=== PATIENT | male | born 1955 | race Caucasian/White ===

== ENCOUNTER 2019-06-08 02:14 | Inpatient (IN) | payer OTHER ==
[~2019-06-08] VITALS: Ht 182.9 cm; Wt 6.0 kg
[2019-06-08] MEDS ORDERED: CALCIUM CARBONATE 500 MG (TUMS) TAB.CHEW PO PRN (21:15)
[2019-06-08] MEDS ORDERED: LOPERAMIDE 2 MG (IMODIUM) TABLET PO PRN (21:15)
[2019-06-08] MEDS ORDERED: ONDANSETRON 4 MG (ZOFRAN) ORAL DISSOLVE TAB PO PRN (21:15)
[2019-06-08] MEDS ORDERED: guaiFENesin/CODEINE (ROBITUSSIN AC) 10ML UDC PO PRN (21:15)
[2019-06-08] MEDS ORDERED: LACTULOSE SYRUP 10GM/15ML (ENULOSE) 30ML UDC PO PRN (21:15)
[2019-06-08] MEDS ORDERED: BISACODYL 10 MG SUPP (DULCOLAX) PR PRN (21:15)
[2019-06-08] MEDS ORDERED: DOCUSATE SODIUM 100 MG (COLACE) CAP PO PRN (21:15)
[2019-06-08] MEDS ORDERED: ALPRAZolam 0.25 MG (XANAX) TAB PO PRN (21:15)
[2019-06-08] MEDS ORDERED: FLEET ENEMA ADULT 1 EA BTL PR PRN (21:15)
[2019-06-08] MEDS ORDERED: MELATONIN 3 MG TABLET PO PRN (21:15)
[2019-06-08] MEDS ORDERED: diphenhydrAMINE 25 MG TAB (BENADRYL) PO PRN (21:15)
[2019-06-09] MEDS: DOCUSATE SODIUM 100 MG (COLACE) CAP PO SCH ×2 (09:00→20:56)
--- NOTE | 2019-06-09 10:00 | NUR ---
Charlee Reid admitted to room 222-1, with an admitting diagnosis of Debility, on 06/09/19 from [facility] via private vehicle, accompanied by .CHARLEE REID introduced to surroundings, call light, bed controls, phone, TV, temperature control, lights, meal times, smoking policy, visitor policy, side rail policy, bathrooms and showers. Patient Rights given to patient in the handbook.CHARLEE REID verbalizes understanding that [facility] is not responsible for the loss or damage to any personal effects or valuables that are kept in the patients possession during their hospitalization. The following Patient Care Plans were discussed with the patient: Discharge Planning, Impaired Mobility, Laminectomy. CHARLEE ERID verbalizes understanding of Interdisciplinary Patient Education. Patient and/or family were informed about the Rapid Response Team and its purpose. Patient received Patient Rights Booklet, which includes Privacy Act Statement and Data Collection Information Summary.
[2019-06-09 10:35] LABS: BASOPHILS % (AUTO) 1 % (0-10); EOSINOPHILS # (AUTO) 0.2 10^3/uL (0.0-0.3); EOSINOPHILS % (AUTO) 2 % (0-10); HEMATOCRIT 40 % (40-54); HEMOGLOBIN 13.7 G/DL (13.3-17.7); LYMPHOCYTES # (AUTO) 2.3 X 10^3 (1.0-4.0); LYMPHOCYTES % (AUTO) 27 % (12-44); MEAN CORPUSCULAR HEMOGLOBIN 31 PG (25-34); MEAN CORPUSCULAR HGB CONC 34 G/DL (32-36); MEAN CORPUSCULAR VOLUME 92 FL (80-99); MEAN PLATELET VOLUME 9.5 FL (7.4-10.4); MONOCYTES # (AUTO) 1.3 X 10^3 (0.0-1.0); MONOCYTES % (AUTO) 14 % (0-12); NEUTROPHILS % (AUTO) 56 % (42-75); PLATELET COUNT 247 10^3/uL (130-400); RED CELL DISTRIBUTION WIDTH 13.4 % (10.0-14.5); WHITE BLOOD COUNT 8.8 10^3/uL (4.3-11.0)
[2019-06-09 11:05] LABS: ALANINE AMINOTRANSFERASE 36 U/L (0-55); ALKALINE PHOSPHATASE 52 U/L (40-136); BILIRUBIN,TOTAL 0.5 MG/DL (0.1-1.0); BUN/CREATININE RATIO 18; CALCIUM 9.3 MG/DL (8.5-10.1); CARBON DIOXIDE 27 MMOL/L (21-32); CHLORIDE 103 MMOL/L (98-107); CREATININE SERUM 0.88 MG/DL (0.60-1.30); GFR ESTIMATED > 60; GLUCOSE 103 MG/DL (70-105); POTASSIUM 3.5 MMOL/L (3.6-5.0); SODIUM 139 MMOL/L (135-145); TOTAL PROTEIN 6.5 GM/DL (6.4-8.2)
--- OUTSIDE RECORDS SUMMARY | 2019-06-09 11:14 | XMS REPORT | Continuity of Care Document ---
Demographics Preferred Language Unknown Marital Status Unknown Sabianism Affiliation Unknown Race Unknown Ethnic Group Unknown Author Organization Unknown Address Unknown Phone Unavailable Allergies There is no data. Medications There is no data. Problems There is no data. Procedures There is no data. Results Test Result Range Complete blood count (CBC) with automate d white blood cell (WBC) differential - 06/09/19 10:30 Blood leukocytes automated count (number/volume) 8.8 10*3/uL 4.3-11.0 Blood erythrocytes automated count (number/volume) 4.37 10*6/uL 4.35-5.85 Venous blood hemoglobin measurement (mass/volume) 13.7 g/dL 13.3-17.7 Blood hematocrit (volume fraction) 40 % 40-54 Automated erythrocyte mean corpuscular volume 92 [ foz_us] 80-99 Automated erythrocyte mean corpuscular h emoglobin (mass per erythrocyte) 31 pg 25-34 Automated erythrocyte mean corpuscular h emoglobin concentration measurement (mass/volume) 34 g/dL 32-36 Automated erythrocyte distribution width ratio 13. 4 % 10.0- 14.5 Automated blood platelet count (count/volume) 247 10*3/uL 130-400 Automated blood platelet mean volume measurement 9.5 [foz_us] 7.4-10.4 Automated blood neutrophils/100 leukocytes 56 % 42-75 Automated blood lymphocytes/100 leukocytes 27 % 12-44 Blood monocytes/100 leukocytes 14 % 0-12 Automated blood eosinophils/100 leukocytes 2 % 0-10 Automated blood basophils/100 leukocytes 1 % 0-10 Blood neutrophils automated count (number/volume) 5.0 10*3 1.8-7.8 Blood lymphocytes automated count (number/volume) 2.3 10*3 1.0-4.0 Blood monocytes automated count (number/volume) 1. 3 10*3 0.0-1.0 Automated eosinophil count 0.2 10*3/uL 0 .0-0.3 Automated blood basophil count (count/volume) 0.0 10*3/uL 0.0-0.1 Comprehensive metabolic panel - 06/09/19 10:30 Serum or plasma sodium measurement (moles/volume) 139 mmol/L 135-145 Serum or plasma potassium measurement (moles/volume) 3.5 mmol/L 3.6-5.0 Serum or plasma chloride measurement (moles/volume) 103 mmol/L 98-107 Carbon dioxide 27 mmol/L 21-32 Serum or plasma anion gap determination (moles/volume) 9 mmol/L 5-14 Serum or plasma urea nitrogen measurement (mass/volume ) 16 mg/dL 7-18 Serum or plasma creatinine measurement (mass/volume) 0.88 mg/dL 0.60-1.30 Serum or plasma urea nitrogen/creatinine mass ratio 18 NRG Serum or plasma creatinine measurement w ith calculation of estimated glomerular filtration rate > NRG Serum or plasma glucose measurement (mass/volume) 103 mg/dL 70-105 Serum or plasma calcium measurement (mass/volume) 9.3 mg/dL 8.5-10.1 Serum or plasma total bilirubin measurement (mass/volu me) 0.5 mg/dL 0.1-1.0 Serum or plasma alkaline phosphatase brandi surement (enzymatic activity/volume) 52 U/L 40-136 Serum or plasma aspartate aminotransfera se measurement (enzymatic activity/volume) 24 U/L 5-34 Serum or plasma alanine aminotransferase measurement (enzymatic activity/volume) 36 U/L 0-55 Serum or plasma protein measurement (mass/volume) 6.5 g/dL 6.4-8.2 Serum or plasma albumin measurement (mass/volume) 4.0 g/dL 3.2-4.5 CALCIUM CORRECTED 9.3 mg/dL 8.5-10.1 Encounters ACCT No. Visit Date/Time Discharge Status Pt. Type Provider Facility Loc./Unit Complaint [id number] 06/09/2019 10:37:00 Document Registration [id number] 06/09/2019 11:05:00 Document Registration
[2019-06-09] MEDS ORDERED: ACETAMINOPHEN 325 MG TABLET PO PRN (11:15)
[2019-06-09] MEDS ORDERED: KCL 10 MEQ TAB (MICRO K) PO NR (11:30)
[2019-06-09] MEDS ORDERED: BUMETANIDE 1 MG/4 ML (BUMEX) VIAL IV NR (11:30)
[2019-06-09 11:33] VITALS: BP 132/74
--- NOTE | 2019-06-09 11:33 | PM&R Post Admission Assessment ---
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 Patient was assessed to have anasarca and was given aggressive diuresis at [facility] which will continue at [facility] after midline placed and Cardiology consulted to assure no cardiac source of volume overload exists. Patient is a recent smoking cessation patient and denies alcohol use. He had cervical spine surgery 03/2019 but has declined since that time due to legs giving out prompting this current surgery. Patient has shuffling gait and a major fall risk. ECHO ordered along with labs. Urinating well and BM+. PLOF was independent. Past Phaniee-Zlmmnb-Whzpyl Hx Past Med/Social Hx: Reviewed Nursing Past Med/Soc Hx, Reviewed and Corrections made Patient Social History Marrital Status: Employed/Student: employed Alcohol Use: Denies Use Smoking Status: Former Smoker Past Medical History Surgeries: Orthopedic Neurological: Neuropathy Musculoskeletal: Arthritis, Chronic Back Pain, Spasms PM&R Allergy/Meds/Data Review Allergies Coded Allergies: No Allergy Information Available (Unverified , 06/08/19) Home Medications Scheduled Duloxetine HCl (Duloxetine HCl), 30 MG PO HS, (Reported) Furosemide (Furosemide), 40 MG PO DAILY, (Reported) Gabapentin (Gabapentin), 300 MG PO TID, (Reported) Scheduled PRN Acetaminophen (Tylenol), 650 MG PO Q8H PRN for PAIN-MILD (1-4), (Reported) Baclofen (Baclofen), 10 MG PO Q8H PRN for MUSCLE SPASMS, (Reported) Ondansetron (Ondansetron Odt), 4 MG SL Q4H PRN for CONSTIPATION-1ST LINE, (Reported) Potassium Chloride (Potassium Chloride), 10 MEQ PO DAILY PRN for EDEMA, (Reported) Current Medications Current Medications Reviewed Laboratory Data Laboratory Tests 06/09/19 10:30: White Blood Count 8.8, Red Blood Count 4.37, Hemoglobin 13.7, Hematocrit 40, Mean Corpuscular Volume 92, Mean Corpuscular Hemoglobin 31, Mean Corpuscular Hemoglobin Concent 34, Red Cell Distribution Width 13.4, Platelet Count 247, Mean Platelet Volume 9.5, Neutrophils (%) (Auto) 56, Lymphocytes (%) (Auto) 27, Monocytes (%) (Auto) 14H, Eosinophils (%) (Auto) 2, Basophils (%) (Auto) 1, Neutrophils # (Auto) 5.0, Lymphocytes # (Auto) 2.3, Monocytes # (Auto) 1.3H, Eosinophils # (Auto) 0.2, Basophils # (Auto) 0.0, Sodium Level 139, Potassium Level 3.5L, Chloride Level 103, Carbon Dioxide Level 27, Anion Gap 9, Blood Urea Nitrogen 16, Creatinine 0.88, Estimat Glomerular Filtration Rate > 60, BUN/Creatinine Ratio 18, Glucose Level 103, Calcium Level 9.3, Corrected Calcium 9.3, Total Bilirubin 0.5, Aspartate Amino Transf (AST/SGOT) 24, Alanine Aminotransferase (ALT/SGPT) 36, Alkaline Phosphatase 52, Total Protein 6.5, Albumin 4.0, Thyroid Stimulating Hormone (TSH) 2.53 Review of Systems Constitutional: see HPI, malaise, weakness Cardiovascular: edema Musculoskeletal: back pain, joint pain, muscle pain, muscle stiffness, muscle cramps, muscle weakness, neck pain Physical Exam Physical Exam Vital Signs Capillary Refill : Height, Weight, BMI Height: '" Weight: lbs. oz. kg; BMI Method: General Appearance: No Apparent Distress, WD/WN, Anxious, Chronically ill Eyes: Bilateral Eye Normal Inspection, Bilateral Eye PERRL HEENT: PERRL/EOMI, Normal ENT Inspection, Pharynx Normal Neck: Full Range of Motion, Normal Inspection, Non Tender, Supple, Carotid Bruit Respiratory: Chest Non Tender, Lungs Clear, Normal Breath Sounds, No Accessory Muscle Use, No Respiratory Distress Cardiovascular: Regular Rate, Rhythm, No Gallop, No JVD, No Murmur, Normal Peripheral Pulses Gastrointestinal: Normal Bowel Sounds, No Organomegaly, No Pulsatile Mass, Non Tender, Soft Back: Normal Inspection, No CVA Tenderness, No Vertebral Tenderness Extremity: Normal Capillary Refill, Normal Inspection, Normal Range of Motion, Non Tender, No Calf Tenderness, Pedal Edema Neurologic/Psychiatric: Alert, Oriented x3, 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 Norm as Tested, Abnormal Gait, Depressed Affect, Motor Weakness (lower extremities), Sensory Deficit Skin: Normal Color, Warm/Dry Lymphatic: No Adenopathy PM&R Medical Assessment & Plan REHAB/MEDICAL ASSESSMENT AND PLAN: REHAB IMPAIRMENT GROUP: Lumbar stenosis ETIOLOGIC DIAGNOSIS: Lumbar stenosis The comorbidities that impact the patients function and/or functional outcome by: severe decline in status from cervical spine surgery 03/2019 but PLOF was independent, anasarca of unknown source, former smoker REHAB PLAN: The patient is being admitted to our comprehensive inpatient rehabilitation f acility and can tolerate the intensity of service consisting of at least: 180 minutes of therapy a day, 5 out of 7 days a week Rehab treatment will consist of: PT OT will initiate aggressive therapy in order to regain strength and improve ADL independence in order to return home The patient/family has a good understanding of our discharge process and will benefit from an interdisciplinary inpatient rehabilitation program. The patient has potential to make improvement and is in need of at least two of the following multidisciplinary therapies including but not limited to physical, occupational, speech, and prosthetics and orthotics. Additionally the patient will need services from respiratory, nutritional services, wound care, psyc hology, etc. (Customize this to each patient). Given the patients complex condition and risk of further medical complications, rehabilitation services cannot be safely or effectively provided at a lower level of care such as a assisted facility. BARRIERS TO DISCHARGE: Severe muscle weakness ESTIMATED LOS: 7 days DISPOSITION: Home RELEVANT CHANGES SINCE PREADMISSION SCREENING: I have compared the patients medical and functional status at the time of the preadmission screening and there are: no changes PROGNOSIS: Good REHABILITATION GOALS: 1. PT OT will initiate aggressive therapy in order to regain strength and improve ADL independence in order to return home All the above goals were reviewed with the patient and he/she is in agreement. By signing this document, I acknowledge that I have personally performed a full physical examination on this patient within 24 hours of admission to this inpatient rehabilitation facility and have determined the patient to be able to tolerate the above course of treatment at an intensive level for a reasonable period of time. I will be completing a detailed individualized Plan of Care for this patient by day #4 of the patients stay based upon the Preadmission Screen, the Post-Admission Evaluation, and the therapy evaluations. Admission Dx/Comorbidities: (1) Spinal stenosis ICD Codes: M48.00 - Spinal stenosis, site unspecified (2) Anasarca ICD Codes: R60.1 - Generalized edema (3) Former smoker ICD Codes: Z87.891 - Personal history of nicotine dependence (4) Neuropathy ICD Codes: G62.9 - Polyneuropathy, unspecified (5) Hypokalemia ICD Codes: E87.6 - Hypokalemia (6) Edema ICD Codes: R60.9 - Edema, unspecified (7) Dyspnea ICD Codes: R06.00 - Dyspnea, unspecified DIANA PITTMAN DO June 09, 2019 11:32
[2019-06-09] MEDS ORDERED: FURO20TA4 PO (11:42)
[2019-06-09] MEDS ORDERED: TRAM50TA3 PO (11:42)
[2019-06-09] MEDS ORDERED: DULO30CA49 PO (11:42)
[2019-06-09] MEDS ORDERED: GABA-488 PO (11:42)
[2019-06-09] MEDS ORDERED: POTA10TA36 PO (11:42)
[2019-06-09] MEDS ORDERED: BACL10TA PO (11:42)
[2019-06-09] MEDS ORDERED: METH4TAB10 PO (11:42)
[2019-06-09] MEDS ORDERED: ONDA4TAB11 SL (11:42)
[2019-06-09] MEDS ORDERED: HYDR-3820 PO (11:42)
--- NOTE | 2019-06-09 11:48 | NUR ---
I ENTERED THE MED REC USING THE DISCHARGE MEDICATION LIST FROM [facility] GABAPENTIN: ON THE DISCHARGE MED LIST IT SHOWS 100MG TID- HOWEVER THE PT HAD RECENTLY BEEN SWITCHED FROM THE 100MG TID TO 300 MG TID - I CALLED [facility] AND SPOKE WITH THE NURSE TO FIND OUT WHAT STRENGTH WAS INTENDED TO BE CONTINUED. THE NURSE INDICATED THE MED REC HAD BEEN DONE PRIOR TO THE INCREASE IN STRENGTH AND THERE WAS NO MENTION OF DECREASING HIS DOSE BACK DOWN- THEREFORE I PUT THE 300MG TID ON THE MED REC AT THIS TIME. AFTER I SPEAK WITH THE PT I WILL CHANGE TO MED REC TO REFLECT HIS MEDICATIONS PRE-SURGERY Addendum: 06/09/19 at 1524 by PHI CASTANEDA CPhT I INTERVIEWED THE PT AND COMPLETED THE MED REC TO HOW/WHAT THE PT WAS TAKING PRIOR TO HIS SURGERY MEDICATIONS THAT HAVE BEEN REMOVED: MEDROL DOSE PACK TRAMADOL BACLOFEN 10MG- A SCRIPT HAS BEEN SENT TO MARIAH FROM [facility] HOWEVER THE PATIENT HAS HAD THIS MEDICATION RECENTLY AND STILL TAKES IT PRN- FOR THAT REASON I LEFT IT ON THE MED REC LASIX 20MG AND POTASSIUM 10MEQ- ON THE DISCHARGE ORDERS IT HAS LISTED BOTH THESE MEDS PRN- HOWEVER THE PT SAYS HE TAKES THEM EVERYDAY DUE TO SWELLING. FOR THIS REASON I UPDATED BOTH MEDS TO REFLECT THAT TYLENOL: THIS MEDICATION IS NOT LISTED ON THE DISCHARGE MED LIST BUT THE PT SAYS IT DOES TAKE IT PRN. I HAVE ADDED THIS TO THE MED REC
[2019-06-09] MEDS: polyethylene glycoL POWDER 17 GM (MIRALAX) PACK PO SCH ×2 (11:52→20:57)
[2019-06-09] MEDS: SENNA W/DOCUSATE (SENOKOT S) TABLET PO SCH ×2 (11:53→20:57)
[2019-06-09] MEDS: FUROSEMIDE 40 MG/4 ML INJ (LASIX) IVP SCH (12:46)
--- NOTE | 2019-06-09 13:59 | Physical Therapy Evaluation ---
PT Evaluation-General Medical Diagnosis Admission Date June 09, 2019 at 10:00 Medical Diagnosis: lumbar stenosis s/p laminectomy Onset Date: Jun 06, 2019 Therapy Diagnosis Therapy Diagnosis: decreased functional mobility Precautions Precautions/Isolations: Fall Prevention, Standard Precautions back precautions; LSO when up Weight Bear Status Right Lower Extremity: Right Full Weight Bearing Left Lower Extremity: Left Full Weight Bearing Referral Physician: Saji Reason for Referral: Evaluation/Treatment Medical History Additional Medical History visual disturbance, scoliosis Current History Pt underwent cervical fusion on 03/16/2019. Underwent lumbar laminectomy on 06/06/2019, transferred to [facility] this date. Reviewed History: Yes Social History Home: Single Level Current Living Status: Significant Other Entry Into Home: Ramp Pt lives with spouse. Spouse works 6 days/off 8 days. Pt's 81 y.o. mother stays with him when is at work. Prior Prior Level of Function SCALE: Activities may be completed with or without assistive devices. 4-Pdqdnjkxto-ndbohbz completes the activity by him/herself with no assistance from a helper. 5-Set-up or Clean-up Assistance-helper sets up or cleans up; patient completes activity. [place] assists only prior to or following the activity. 4-Supervision or Touching Assistance-helper provides verbal cues and/or touching/steadying and/or contact guard assistance as patient completes activity. Assistance may be provided throughout the activity or intermittently. 3-Partial/Moderate Assistance-helper does LESS THAN HALF the effort. [place] lifts, holds or supports trunk or limbs, but provides less than half the effort. 2-Substantial/Maximal Assistance-helper does MORE THAN HALF the effort. [place] lifts or holds trunk or limbs and provides more than half the effort. 5-Cleeeqxau-elwhxv does ALL the effort. Patient does none of the effort to complete the activity. Or, the assistance of 2 or more helpers is required for the patient to complete the activity. If activity was not attempted, code reason: 7-Patient Refused. 9-Not Applicable-not attempted and the patient did not perform the activity before the current illness, exacerbation or injury. 10-Not Attempted due to Environmental Limitations-(lack of equipment, weather restraints, etc.). 88-Not Attempted due to Medical Conditions or Safety Concerns. Bed Mobility: 2 Transfers (B,C,W/C): 6 Gait: 6 Stairs: 9 Wheelchair Mobility: 9 Indoor Mobility (Ambulation): Independent Stairs: Not Applicalbe Prior Devices Use: Walker Pt reports that he has been using a FWW since December 2018 due to leg weakness. After cervical fusion in 03/2019, Pt reports "I really went downhill". Pt reports he has a ramp entry and was utilizing FWW in the home but did have multiple falls due to the (L) leg "giving out". He also reports that he has been sleeping in his "zero-gravity" recliner since his cervical fusion as he cannot tolerate lying flat in bed due to back pain. Reports multiple grab bars in BR, shower chair in tub shower. PT Evaluation-Current Subjective Pt agreeable. Pt easily SOB with minimal activity. Pt/Family Goals Home Objective Patient Orientation: Person, Place, Time, Situation Dependent to don/doff LSO ROM/Strength ROM Upper Extremities See OT ROM Lower Extremities WFL for transfers; (L) LE very edematous Strength Upper Extremities See OT Strength Lower Extremities (L) ankle DF grossly 3/5, (L) knee extension 3/5, (L) knee flexion: 4/5, (L) hip grossly 3-/5 (R) LE grossly 4/5 Integumentary/Posture Integumentary See nurses' notes Bowel Incontinence: No Bladder Incontinence: No Posture flexed posture Neuromuscular (Tone, Coordination, Reflexes) (+) multi beat clonus (B) LE, (R) more brisk than (L) Sensory Vision: Wears Glasses Hearing: Functional Hand Dominance: Right Sensation Right Upper Extremit: Intact Sensation Left Upper Extremity: Impaired Sensation Right Lower Extremit: Intact Sensation Left Lower Extremity: Impaired Transfers Roll Left to Right (QC): 1 Sit to Lying (QC): 1 Lying to Sitting/Side of Bed(Q: 1 Sit to Stand (QC): 3 Chair/Qwz-sv-Flrcr Xfer(QC): 3 Toilet Transfer (QC): 1 Car Transfer (QC): 3 Gait Does the Patient Walk?: Yes Mode of Locomotion: Walk Anticipated Mode of Locomotion: Walk Walk 10 feet (QC): 1 Walk 50 ft with 2 Turns(QC): 88 Walk 150 ft (QC): 88 Walking 10ft/uneven surface-QC: 88 Distance: 10 Gait Assistive Device: FWW Comments/Gait Description Pt ambulated to shower with FWW, assist x 2. Pt with very small, shuffling steps. Quickly fatigued, dragging (L) foot. Upon approaching shower bench, Pt experienced episode of (B) LE clonus; able to maintain standing with min A x 1. Wheelchair Training Does the Pt Use a Wheelchair?: No Wheel 50 ft with 2 turns (QC): 9 Wheel 150 ft (QC): 9 Type of Wheelchair: N/A Stairs 1 Step (curb) (QC): 9 4 Steps (QC): 9 12 Steps (QC): 9 Balance Sitting Static: Fair Sitting Dynamic: Fair Standing Static: Fair Standing Dynamic: Fair Picking up an Object (QC): 88 Treatment Transfer training, sitting balance. Co-treat with OT due to level of skilled assist required and decreased functional activity tolerance. OT addressing ADLs, UE use; PT addressing LE function, transfers, balance. In bed post treatment with needs met. Assessment/Needs Pt would benefit from skilled PT to address decreased functional strength, increased dependence with functional mobility, and high fall risk to allow safe return home with spouse with decreased caregiver burden. Rehab Potential: Fair PT Short Term Goals Short Term Goals Time Frame: June 16, 2019 Roll Left & Right: 4 Sit to lyin Lying to sitting on side of be: 4 PT Care Home Goals Care Home Goals PT Care Home Goals Time Frame: June 30, 2019 Roll Left & Right (QC): 6 Sit to Lying (QC): 6 Lying-Sitting on Side/Bed(QC): 6 Sit to Stand (QC): 6 Chair/Dbm-fv-Jgwph Xfer(QC): 6 Toilet Transfer (QC): 6 Car Transfer (QC): 4 Does the Patient Walk: Yes Walk 10 feet (QC): 6 Walk 50ft with 2 Turns (QC): 6 Walk 150 ft (QC): 6 Walking 10ft on Uneven Surface: 4 1 Step (curb) (QC): 9 4 Steps (QC): 9 12 Steps (QC): 9 Picking up an Object (QC): 9 (Pt will utilize adaptive equipment due to back precautions) Does the Pt use WC or Scooter?: No Wheel 50 feet with 2 turns (QC: 9 Type: N/A Wheel 150 feet: 9 Type: N/A group home PT goals established to allow safe return home with spouse with decreased caregiver burden. PT Plan Problem List Problem List: Activity Tolerance, Functional Strength, Safety, Balance, Gait, Transfer, Bed Mobility, ROM Treatment/Plan Treatment Plan: Continue Plan of Care Treatment Plan: Bed Mobility, Education, Functional Activity Johny, Functional Strength, Group Therapy, Gait, Safety, Therapeutic Exercise, Transfers Treatment Duration: June 30, 2019 Frequency: 6 times per week Estimated Hrs Per Day: 1.5 hours per day Patient and/or Family Agrees t: Yes Safety Risks/Education Patient Education: Gait Training, Transfer Techniques, Reviewed Precautions, Reviewed Don/Doff Brace Teaching Recipient: Patient Teaching Methods: Demonstration, Discussion Response to Teaching: Verbalize Understanding, Reinforcement Needed Time/GCodes Time In: 1031 Time Out: 1205 Total Billed Treatment Time: 94 Total Billed Treatment 1, EVHIGH x 10', FA x 74' PT eval [id number] Unattended for OT eval: [id number] Co-treat [id number] due to skilled level of assist required and poor functional activity tolerance. PT addressing LEs, balance, gait, transfers; OT addressing UEs and ADLs. HELGA LUO DPT June 09, 2019 13:59
--- NOTE | 2019-06-09 14:09 | Occupational Therapy Eval ---
OT Evaluation-General/PLF Medical Diagnosis Admission Date June 09, 2019 at 10:00 Medical Diagnosis: lumbar stenosis s/p laminectomy Onset Date: Jun 06, 2019 Therapy Diagnosis Therapy Diagnosis: Decreased ADL status Precautions Precautions/Isolations: Fall Prevention, Standard Precautions Weight Bear Status Weight Bearing Restriction: Weight Bearing/Tolerated back precautions, back brace when up, cervical collar (states does not know whether he needs it or not, doctor did not clarify per pt). Referral Physician: Saji Referral Reason: Activity Tolerance, Self Care, Evaluation/Treatment, Strengthening/ROM Medical History Additional Medical History Hx of scoliosis and surgery, visual issues, no other med hx provided. Current History 03/16/19: C4-7 ACDF- C collar here, does not don during tx. 06/06/19: L2-S1 laminecemy- back brace Reviewed History: Yes Social History Home: Single Level Current Living Status: Significant Other Entry Into Home: Ramp ADL-Prior Level of Function SCALE: Activities may be completed with or without assistive devices. 0-Wxewjpsvhi-izmmrgf completes the activity by him/herself with no assistance from a helper. 5-Set-up or Clean-up Assistance-helper sets up or cleans up; patient completes activity. [place] assists only prior to or following the activity. 4-Supervision or Touching Assistance-helper provides verbal cues and/or touching/steadying and/or contact guard assistance as patient completes activity. Assistance may be provided throughout the activity or intermittently. 3-Partial/Moderate Assistance-helper does LESS THAN HALF the effort. [place] lifts, holds or supports trunk or limbs, but provides less than half the effort. 2-Substantial/Maximal Assistance-helper does MORE THAN HALF the effort. [place] lifts or holds trunk or limbs and provides more than half the effort. 7-Gghnojrgb-xsmiyu does ALL the effort. Patient does none of the effort to complete the activity. Or, the assistance of 2 or more helpers is required for the patient to complete the activity. If activity was not attempted, code reason: 7-Patient Refused. 9-Not Applicable-not attempted and the patient did not perform the activity before the current illness, exacerbation or injury. 10-Not Attempted due to Environmental Limitations-(lack of equipment, weather restraints, etc.). 88-Not Attempted due to Medical Conditions or Safety Concerns. ADL PLOF Comments Pt states he was IND with ADLs prior to surgery in March, though has had L foot drop/ swelling which has made it difficult for ADLs. Pt states he has had L sided edema for a long time, though states surgery his L sided edema has increased (UE and LE). Since surgery in Mar, pt has decreased in ADL ability, has assisted in showering/ UB tasks at times. Pt states he began using 2WW for fx mob in December. Self Care: Needed Some Help Functional Cognition: Independent DME/Equipment: Bath Chair, Grab Bars, Shower, Tub/Shower DME/Equipment Comments Pt uses tub/ shower (states bathroom is too small to get walker into, utilizes grab bars along the wall to ambulate to tub/ shower). Pt has grab bars in shower and sits on sc. 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 OT addresses UE movements, problem solving, AE use and ADLs as PT addresses gait, fx transfers, balance, etc. Pt seen supine in bed. Pt agrees to co-treat. Pt describes discomfort and med hx. Pt alert/ oriented x4. Mental Status/Objective Patient Orientation: Person, Place, Time, Situation, Normal For Age Current Glasses/Contacts: Yes Hearing Aids: No Dentures/Partials: Yes Hand Dominance: Right Upper Extremity ROM R WFL L decreased (~100* shoulder flexion, 50* elbow flexion) Upper Extremity Coordination R WFL L decreased due to edema Upper Extremity Sensation WFL BUE (denies UE neuropathy) Upper Extremity Strength R WFL (based on clinical judgment, DNT due to back precautions), retail cashier strength mod-max. L decreased, retail cashier strength moderate Edema: pitting edema dorsum of L hand/ lateral epicondyle region, non-pitting prox ADL-Treatment Eating (QC): 5 (s/u for items requiring opening/ cutting.) Oral Hygiene (QC): 5 (s/u based on clinical judgment.) Shower/Bathe Self (QC): 3 (mod A: Pt requires assist with back (prepped and covered), bottom, and LEs. Pt educated on LHS, compeltes LEs with success.) Upper Body Dressing (QC): 3 (min A. Pt able to thread bilaterally and bring overhead with min A for adjustment.) Lower Body Dressing (QC): 1 (Pt educated on precautions. Pt able to understand, educated on AE. Prior to AE pt would have been TD. Pt compeltes with AE with max A post education of rail engineer/ dressing stick. Pt requires max A to don over BLEs, able to pull to groin, TD pulling over hips due to decreased balance during task. Requires assist x2 for balance maintenance and LE garment assist. ) On/Off Footwear (QC): 1 (TD, pt educated on sock aide, not attempteed at this time. ) Toileting Hygiene (QC): 1 (TD due to balance/ requirement of two people for task.) Other Treatments Pt seen in bed. Provides hx. Pt had cervical AVDF in Mar, states L arm and leg became increasingly edematous. Laminectomy postponed due to COVID, completed 06/06/19. Pt given back brace, able to states lifting precautions, pt educated on additional back precautions and use of AE. Pt sit to stand with OT/ PT, mod A x2. Co-treat rendered due to pt's transfer dependency, decreased strength/ endurance, pain and limited motion/ stiffness. Pt ambulates with CGA x2 to shower with stiff gait and L foot drop. Pt's LLE becomes increasingly shaky, requires chair to follow, pt states he typically allows his leg to shake until it stops and then continues walking. Pt sits on shower bench, doffs clothing with TD (educated on AE throughout tx), pt's dressing addressed and covered, pt completes showering as above. Dresses in shower. Pt sit to stand from shower chair with mod A (use of grab bars and 2WW), ambulates to bed without clonic movements. Pt educated on log roll technique, continues to require TD (x2 A) for bed mob. All needs met, call light in reach. Pt seen post-lunch, pt educated on increasing medical tests and OT/ PT hold additional tx. Pt given green hand sponge for edema management techniques, all needs met. Education OT Patient Education: Correct positioning, Exercise program, Home exercise program, Modified ADL techniques, Progress toward Goal/Update tx plan, Purpose of tx/functional activities, Reviewed precautions, Rehab process, Safety issues, Transfer techniques, Use of adapted equipment Teaching Recipient: Patient Teaching Methods: Demonstration, Discussion Response to Teaching: Verbalize Understanding, Return Demonstration, Reinforcement Needed OT Short Term Goals Short Term Goals Shower/bathe self: 3 Upper body dressin Lower body dressin OT Geoscience Technician Goals Care Home Goals Time Frame: June 30, 2019 Eating (QC): 6 Oral Hygiene (QC): 6 Toileting Hygiene (QC): 6 Shower/Bathe Self (QC): 6 Upper Body Dressing (QC): 6 Lower Body Dressing (QC): 6 On/Off Footwear (QC): 6 Additional Goals: 1-Demonstrate ADL Tasks, 2-Verbalize Understanding, 3- ImproveStrength/Johny 1=Demonstrate adherence to instructed precautions during ADL tasks. 2=Patient will verbalize/demonstrate understanding of assistive devices/modifications for ADL. 3=Patient will improve strength/tolerance for activity to enable patient to perform ADL's. OT Education/Plan Problem List/Assessment Assessment: Decreased Activ Tolerance, Decreased UE Strength, Dependent Transfers, Edema, Impaired Bed Mobility, Impaired Coordination, Impaired Funct Balance, Impaired I ADL's, Impaired Self-Care Skills, Restricted Funct UE ROM Discharge Recommendations Plan/Recommendations: Continue POC Therapy Discharge Recommendati: Scheduled Assistance, Home & Family Equpiment Recommendations-D/C: Hip Kit, Rails on Toilet Treatment Plan/Plan of Care Treatment,Training & Education: Yes Patient would benefit from OT for education, treatment and training to promote independence in ADL's, mobility, safety and/or upper extremity function for ADL's. Plan of Care: ADL Retraining, Caregiver Training, Concurrent Therapy, Functional Mobility, Group Exercise/Act as Ind, UE Funct Exercise/Act, UE Neuromus Re-Ed/Coord, W/C Management Training Treatment Duration: June 30, 2019 Frequency: At least 5 of 7 days/Wk (IRF) Estimated Hrs Per Day: 1.5 hours per day Agreement: Yes Rehab Potential: Guarded Time/GCodes Start Time: 10:41 Stop Time: 12:05 Total Time Billed (hr/min): 94 Billed Treatment Time PT evaluation: [id number] (10) OT evaluation: [id number] (10) OT/ PT co-treat: 9789-2980 (84)Co-treat rendered due to pt's transfer dependency, decreased strength/ endurance, pain and limited motion/ stiffness. OT addresses UE movements, problem solving, AE use and ADLs as PT addresses gait, fx transfers, balance, etc. 1, EVH (10) 1, ADL 5 (84) Total: 94 min LEO MARTELL OTR June 09, 2019 14:09
[2019-06-09] MEDS ORDERED: BACLOFEN 10 MG (LIORESAL) TAB PO PRN (14:15)
[2019-06-09] MEDS ORDERED: ONDANSETRON 4 MG (ZOFRAN) ORAL DISSOLVE TAB SL PRN (14:15)
--- NOTE | 2019-06-09 15:15 | ST Cognitive Linguistic Eval ---
Speech Evaluation-General Medical Diagnosis lumbar stenosis s/p laminectomy Onset Date: Jun 06, 2019 Therapy Diagnosis Therapy Diagnosis: Cognitive-communication Referral Referring Physician: Dr. Lennon Medical History Reviewed History: Yes Social History Current Living Status: Significant Other Speech PLF-Current Status Prior Level of Function Patient lives at home with his SO where he was assisted with his daily living needs. Subjective Patient was pleasant and cooperative with the cognitive assessment. Language Eval: Auditory Comprehends Simple Yes/No Ques: Functional Indent/Objects Multiple [place]aj[place]: Functional Ident/Pics in Multiple Carbajal: Functional Follows 1-Step Commands: Functional Follows Complex Directions: Functional Follows General Conversations: Functional Language Eval: Verbal Language Completes Spontaneous Greeting: Functional Produces Auto, Serial Info: Functional Imitates Simple Words/Phrases: Functional Word Finding: Functional Requests Basic Needs: Functional States Basic Personal Info: Functional Expresses Complex Ideas: Functional Objective Cognitive Domain Attention: WNL Memory: WNL Problem Solving: Functional Executive Functions: WNL Visuospatial Skills: WNL Composite Severity Rating: WNL Clock Drawing Severity Rating: WNL Objective Formal/Standardized Tests [facility] Mental Status ([facility]) Results 29/30, normal range of function Oral Motor/Speech Production Within Normal Limits Impression The patient is a pleasant 63 year old gentleman who was admitted to the ARU s/p spinal surgery. Patient was given the UMS at bedside with a score of 29/30 obtained. The patient does not require further ST services at this time. Speech Patient Assess Expression of Ideas/Wants: Expression (4) Understanding Verbal Content: Understands (4) Brief Interview-Mental Status: Yes Repetition of Three Words: Three (3) Temporal Orientation: Year: Correct (3) Temporal Orientation: Month: Accurate within 5 days(2) Temporal Orientation: Day: Correct (1) Recall : Wear to say "Sock": Yes, no cue required (2) Recall : Color: Yes, no cue required (2) Recall : Bed: Yes, no cue required (2) Memory/Recall Ability: Current season, That he or she is in a hsp/hsp unit Speech-Plan Patient/Family Goals Patient/Family Goals: Patient plans on returning to his home upon hospital discharge. Treatment Plan Speech Therapy Treatment Plan: Discontinue ST Treatment Duration: June 09, 2019 Frequency: 1 time per week Estimated Hrs Per Day: .25 hour per day Rehab Potential: Guarded Barriers to Learning: None identified Pt/Family Agrees to Plan: Yes Safety Risks/Education Teaching Recipient: Patient Teaching Methods: Discussion Response to Teaching: Verbalize Understanding Education Topics Provided: Safety within his room and communication of wants/needs Time Speech Therapy Time In: 14:45 Speech Therapy Time Out: 15:00 Total Billed Time: 15 Billed Treatment Time 1, ANGEL Guillen June 09, 2019 15:15
[2019-06-09] MEDS ORDERED: ACET325T38 PO (15:19)
--- NOTE | 2019-06-09 15:59 | Diagnostic Imaging Report ---
EXAMINATION: US Venous Lower Ext [place]. TECHNIQUE: Multiple real-time grayscale images were obtained over the lower extremities in various projections, bilaterally. Additional duplex Doppler and color Doppler images were also obtained. HISTORY: Swelling FINDINGS: No comparison available. The bilateral common femoral veins, deep femoral veins, superficial femoral veins and popliteal veins are patent with normal martinez scale and doppler appearance. There is normal respiratory variation and augmentation. IMPRESSION: 1. No DVT of either lower extremity. Dictated by: Dictated on workstation # [id number]
[2019-06-09] MEDS: KCL 10 MEQ TAB (MICRO K) PO SCH (16:39)
[2019-06-09] MEDS: predniSONE 5 MG TAB PO SCH (17:15)
[2019-06-09 18:00] VITALS: BP 102/67
--- NOTE | 2019-06-09 18:38 | Diagnostic Imaging Report ---
HISTORY: Edema. TECHNIQUE: Single frontal view of the chest. COMPARISON: None. FINDINGS: Lung volumes are normal. There are linear opacities in the lung bases. No pleural effusion or pneumothorax is seen. The cardiac silhouette is normal in size. Fusion hardware is seen in the cervical spine. IMPRESSION: Linear opacities in the lung bases, most likely atelectasis. Dictated by: Dictated on workstation # [id number]
--- NOTE | 2019-06-09 18:55 | Consultation-Cardiology ---
HPI-Cardiology Cardiology Consultation: Date of Consultation 06/09/19 Date of Admission Attending Physician Marcia Lennon DO Admitting Physician Consulting Physician Nicole OVALLE MD HPI: Time Seen by a Provider: 11:00 Chief Complaint: Lower extremity swelling This is a 63-year-old gentleman who has recent back surgery who has been admitted to inpatient rehabilitation service for aggressive rehabilitation. He complains of lower extremity swelling, however right is worse than the left. Patient has history of active smoking and quit recently. Negative pertinent family history. Denies any cardiac complaints. Review of Systems-Cardiology Review of Systems Constitutional: As described under HPI; No As described under HPI, No no symptoms reported, No chills, No fever, No lightheadedness Eyes: No As described under HPI, No no symptoms reported, No blindness, No blurred vision, No contact lenses, No drainage, No decreased acuity, No foreign body sensation, No pain, No vision change Ears/Nose/Throat: No As described under HPI, No no symptoms reported, No chronic hearing loss, No ear discharge, No ear pain, No nasal drainage, No ulcerations Respiratory: No no symptoms reported; As described under HPI; No As described under HPI, No cough, No orthopnea, No shortness of breath, No SOB with excertion Cardiovascular: No no symptoms reported; As described under HPI; No As described under HPI, No chest pain, No edema, No irregular heart rate, No lightheadedness, No palpitations Gastrointestinal: No no symptoms reported, No As described under HPI, No abdomen distended, No abdominal pain, No blood streaked bowels, No constipation, No diarrhea, No nausea, No vomiting, No stool coloration changes Genitourinary: No As described under HPI, No burning, No dysuria, No discharge, No frequency, No flank pain, No hematuria, No urgency Musculoskeletal: As describe under HPI Skin: No rash, No skin related problems, No ulcerations Psychiatric/Neurological: No anxiety, No depression, No seizure, No focal weakness, No syncope Hematologic: No bleeding abnormalities [id number] Hx Patient Social History Alcohol Use: Denies Use Recreational Drug Use: No Smoking Status: Former Smoker Type Used: Cigarettes Recent Foreign Travel: No Recent Infectious Disease Expo: No Hospitalization with Isolation: Denies Physical Abuse Screen: No Sexual Abuse: No Past Medical History PMH As described under Assessment. Family Medical History Family History: Alzheimer's disease 19 FATHER Arthritis 19 MOTHER Cardiovascular disease 19 FATHER Cataracts 19 MOTHER Deafness or hearing loss 19 MOTHER Dementia 19 FATHER Hypertension 19 MOTHER Myocardial infarction 19 FATHER Allergies and Home Medications Allergies Coded Allergies: No Allergy Information Available (Unverified , 06/08/19) Home Medications Acetaminophen 325 Mg Tablet, 650 MG PO Q8H PRN for PAIN-MILD (1-4), (Reported) Baclofen 10 Mg Tablet, 10 MG PO Q8H PRN for MUSCLE SPASMS, (Reported) Duloxetine HCl 30 Mg Capsule.dr, 30 MG PO HS, (Reported) Furosemide 20 Mg Tablet, 40 MG PO DAILY, (Reported) TAKES 2 (20MEQ) TABS DAILY Gabapentin 300 Mg Capsule, 300 MG PO TID, (Reported) Ondansetron 4 Mg Tab.rapdis, 4 MG SL Q4H PRN for CONSTIPATION-1ST LINE, (Reported) Potassium Chloride 10 Meq Tab.er.prt, 10 MEQ PO DAILY PRN for EDEMA, (Reported) TAKE WITH FUROSEMIDE Patient Home Medication List Home Medication List Reviewed: Yes Physical Exam-Cardiology Physical Exam Vital Signs/I&O 06/11/19 06/11/19 05:06 08:00 Temp 36.6 Pulse 65 Resp 18 B/P (MAP) 123/73 (90) Pulse Ox 95 O2 Delivery Room Air Room Air 06/11/19 00:00 Intake Total 1510 ml Balance 1510 ml Capillary Refill : Constitutional: appears stated age, AAO x 3; No apparent distress; well- developed, well-nourished HEENT: PERRL; No discharge; hearing is well preserved, oral hygience is good; No ulceration, No xanthelasmas are seen Neck: No carotid bruit; carotid pulses are 2 + bilaterally Respiratory: chest is bilaterally symmetric Cardiovascular: regular rate-rhythm; No irregularly irregular, No extra beats, No parasternal heave is noted, No JVD, No edema, No bradycardia, No tachycardia, No point of maximal impulse, No cardiac thrills are palpable; S1 and S2; No gallop/S3, No gallop/S4, No diastolic murmur, No systolic murmur, No friction rub, No click, No other Gastrointestinal: soft, audible bowel sounds; No spleenomegaly Rectal: deferred Extremities: normal range of motion, non-tender, normal inspection, pedal edema, other (right extremity has more edema than left.); No clubbing, No cyanosis, No significant edema Neurologic/Psychiatric: no motor/sensory deficits, alert, normal mood/affect, oriented x 3, power is 5/5 both on sides Skin: normal color; No rash, No ulcerations Data Review Labs A/P-Cardiology Assessment/Admission Diagnosis Status post back surgery, Lower extremity swelling, right worse than left, Active smoking. Plan Continue aggressive inpatient rehabilitation. Lower extremity swelling, right worse than the left, request venous ultrasound to rule out DVT. Echocardiogram to rule out cardiac etiology. Active smoking, smoking cessation was strongly recommended. Thank you for your consultation. Please call me if you have any questions. Marie Ovalle MD, FACP, FACC, FSCAI, FHRS, CCDS Interventional Cardiology Cardiac Electrophysiology Vascular Medicine and Endovascular Interventions Clinical Quality Measures DVT/VTE Risk/Contraindication: Risk Factor Score Per Nursin RFS Level Per Nursing on Admit: 4+=Very High Contraindications-Pharm: Other *list below* Other: spine surgery Nicole OVALLE MD June 09, 2019 18:55
[2019-06-09 18:57] LABS: BILIRUBIN,URINE NEGATIVE (NEGATIVE); CLARITY,URINE CLEAR; COLOR,URINE YELLOW; GLUCOSE, URINE (UA) NEGATIVE (NEGATIVE); KETONES,URINE NEGATIVE (NEGATIVE); LEUKOCYTE ESTERASE ,URINE NEGATIVE (NEGATIVE); NITRITE,URINE NEGATIVE (NEGATIVE); PH,URINE 5.5 (5-9); PROTEIN,URINE NEGATIVE (NEGATIVE)
[2019-06-09 19:09] LABS: AMORPHOUS SEDIMENT,UR RARE AMOR URATES /LPF; BACTERIA,URINE NEGATIVE /HPF
[2019-06-09] MEDS: DULoxetine 30 MG (CYMBALTA) CAP PO SCH (20:56)
[2019-06-09] MEDS: GABAPENTIN 300 MG (NEURONTIN) CAP PO SCH (20:56)
[2019-06-10 05:01] VITALS: BP 130/72
[2019-06-10] MEDS: KCL 10 MEQ TAB (MICRO K) PO SCH ×2 (06:31→18:14)
[2019-06-10] MEDS: predniSONE 5 MG TAB PO SCH (06:32)
[2019-06-10] MEDS: SENNA W/DOCUSATE (SENOKOT S) TABLET PO SCH ×2 (08:43→20:05)
[2019-06-10] MEDS: polyethylene glycoL POWDER 17 GM (MIRALAX) PACK PO SCH ×2 (08:43→20:05)
[2019-06-10] MEDS: BUMETANIDE 1 MG/4 ML (BUMEX) VIAL IV SCH (09:01)
[2019-06-10] MEDS: DOCUSATE SODIUM 100 MG (COLACE) CAP PO SCH ×2 (09:01→20:07)
[2019-06-10] MEDS: GABAPENTIN 300 MG (NEURONTIN) CAP PO SCH ×3 (09:01→20:06)
[2019-06-10] MEDS: FUROSEMIDE 40 MG/4 ML INJ (LASIX) IVP SCH (09:01)
--- NOTE | 2019-06-10 09:55 | Physical Therapy Daily Note ---
PT Daily Note-Current Subjective Pt up in [facility], agreeable. Reports (L) shoulder pain but not rated. Mental Status Patient Orientation: Person, Place, Time, Situation LSO when up Transfers SCALE: Activities may be completed with or without assistive devices. 1-Cvofzqkwlj-mfxzfdc completes the activity by him/herself with no assistance from a helper. 5-Set-up or Clean-up Assistance-helper sets up or cleans up; patient completes activity. [place] assists only prior to or following the activity. 4-Supervision or Touching Assistance-helper provides verbal cues and/or touching/steadying and/or contact guard assistance as patient completes activity. Assistance may be provided throughout the activity or intermittently. 3-Partial/Moderate Assistance-helper does LESS THAN HALF the effort. [place] lifts, holds or supports trunk or limbs, but provides less than half the effort. 2-Substantial/Maximal Assistance-helper does MORE THAN HALF the effort. [place] lifts or holds trunk or limbs and provides more than half the effort. 7-Sbdkztvjy-lmuhhq does ALL the effort. Patient does none of the effort to complete the activity. Or, the assistance of 2 or more helpers is required for the patient to complete the activity. If activity was not attempted, code reason: 7-Patient Refused. 9-Not Applicable-not attempted and the patient did not perform the activity before the current illness, exacerbation or injury. 10-Not Attempted due to Environmental Limitations-(lack of equipment, weather restraints, etc.). 88-Not Attempted due to Medical Conditions or Safety Concerns. Sit to Stand (QC): 3 (x 3 trials with VCS for sequencing, increasing level of assist required with each trial) Chair/Rhd-nl-Eigfd Xfer(QC): 3 Toilet Transfer (QC): 1 Difficulty coordinating step with (L) LE, small, shuffling steps to complete transfer. Heavy reliance on UE on FWW. Emphasis on upright standing posture. Weight Bearing Right Lower Extremity: Right Full Weight Bearing Left Lower Extremity: Left Full Weight Bearing Gait Training Does the Patient Walk?: Yes Gait Assistive Device: FWW weight shift and marching in place 2 x 2' each trial. (L) knee hyperextends with weightbearing Exercises Seated Therapy Exercises: Ankle pumps Treatments Sit<->stand and transfer training. Pt initially requested to return to bed but then changed his mind and wanted to sit on BSC. Call light in reach, nursing notified of Pt position and level of assist required with transfers. Assessment Current Status: Fair Progress Pt tolerated fair-well. Fatigues quickly, especially (L) LE. Limited by (L) shoulder/arm pain in assisting with transfers. PT Short Term Goals Short Term Goals Time Frame: June 16, 2019 Roll Left & Right: 4 Sit to lyin Lying to sitting on side of be: 4 PT Intermediate Goals Intermediate Goals PT Student Records Coordinator Goals Time Frame: June 30, 2019 Roll Left & Right (QC): 6 Sit to Lying (QC): 6 Lying-Sitting on Side/Bed(QC): 6 Sit to Stand (QC): 6 Chair/Sne-sz-Ynjjk Xfer(QC): 6 Toilet Transfer (QC): 6 Car Transfer (QC): 4 Does the Patient Walk: Yes Walk 10 feet (QC): 6 Walk 50ft with 2 Turns (QC): 6 Walk 150 ft (QC): 6 Walking 10ft on Uneven Surface: 4 1 Step (curb) (QC): 9 4 Steps (QC): 9 12 Steps (QC): 9 Picking up an Object (QC): 9 (Pt will utilize adaptive equipment due to back precautions) Does the Pt use WC or Scooter?: No Wheel 50 feet with 2 turns (QC: 9 Type: N/A Wheel 150 feet: 9 Type: N/A PT Plan Problem List Problem List: Activity Tolerance, Functional Strength, Safety, Balance, Gait, Transfer, Bed Mobility, ROM Treatment/Plan Treatment Plan: Continue Plan of Care Treatment Plan: Bed Mobility, Education, Functional Activity Johny, Functional Strength, Group Therapy, Gait, Safety, Therapeutic Exercise, Transfers Treatment Duration: June 30, 2019 Frequency: 6 times per week Estimated Hrs Per Day: 1.5 hours per day Patient and/or Family Agrees t: Yes Safety Risks/Education Patient Education: Transfer Techniques Teaching Recipient: Patient Teaching Methods: Discussion Response to Teaching: Verbalize Understanding, Reinforcement Needed Time/GCodes Time In: 900 Time Out: 932 Total Billed Treatment Time: 32 Total Billed Treatment 1, FA x 32' HELGA LUO DPT June 10, 2019 09:55
--- NOTE | 2019-06-10 12:18 | PM&R Progress Note ---
Subjective HPI/CC On Admission Date Seen by Provider: June 10, 2019 Time Seen by Provider: 12:30 Subjective/Events-last exam Patient doing very well today Edema has certainly improved immensely even therapy agrees Overall improving with range of motion of all extremities and spine Has not required any pain medication at all Shortness of breath is improved Cardiology is appreciated and he updated the patient that his heart looked really good Bowels moved yesterday Incision on the lumbar spine is open to air as instructions on discharge papers recommended Check meds and labs Conferred with RN Reviewed therapy notes Maintained on potassium supplement Review of Systems General: Fatigue Pulmonary: Dyspnea Cardiovascular: Edema Musculoskeletal: back pain Objective Exam Vital Signs Vital Signs Date Time Temp Pulse Resp B/P (MAP) Pulse Ox O2 Delivery O2 Flow Rate FiO2 06/10/19 08:00 Room Air 06/10/19 05:01 36.0 71 18 130/72 (91) 92 Capillary Refill : Less Than 3 Seconds General Appearance: No Apparent Distress, WD/WN, Anxious, Chronically ill HEENT: PERRL/EOMI, Normal ENT Inspection, Pharynx Normal Neck: Full Range of Motion, Normal Inspection, Non Tender, Supple, Carotid Bruit Respiratory: Chest Non Tender, Lungs Clear, Normal Breath Sounds, No Accessory Muscle Use, No Respiratory Distress Cardiovascular: Regular Rate, Rhythm, No Gallop, No JVD, No Murmur, Normal Peripheral Pulses Gastrointestinal: Normal Bowel Sounds, No Organomegaly, No Pulsatile Mass, Non Tender, Soft Back: Normal Inspection, No CVA Tenderness, No Vertebral Tenderness Extremity: Normal Capillary Refill, Normal Inspection, Normal Range of Motion, Non Tender, No Calf Tenderness, Pedal Edema Neurologic/Psychiatric: Alert, Oriented x3, Normal Mood/Affect, care consultant II-XII Norm as Tested, Abnormal Gait, Motor Weakness (lower extremities), Sensory Deficit Skin: Normal Color, Warm/Dry Lymphatic: No Adenopathy Results/Procedures Lab Patient resulted labs reviewed. FIM Transfers Therapy Code Descriptions/Definitions Functional [place] Measure: 0=Not Assessed/NA 4=Minimal Assistance 1=Total Assistance 5=Supervision or Setup 2=Maximal Assistance 6=Modified [place] 3=Moderate Assistance 7=Complete IndependenceSCALE: Activities may be completed with or without assistive devices. 2-Bnczkipawb-dzblthg completes the activity by him/herself with no assistance from a helper. 5-Set-up or Clean-up Assistance-helper sets up or cleans up; patient completes activity. [place] assists only prior to or following the activity. 4-Supervision or Touching Assistance-helper provides verbal cues and/or touching/steadying and/or contact guard assistance as patient completes activi ty. Assistance may be provided throughout the activity or intermittently. 3-Partial/Moderate Assistance-helper does LESS THAN HALF the effort. [place] lifts, holds or supports trunk or limbs, but provides less than half the effort. 2-Substantial/Maximal Assistance-helper does MORE THAN HALF the effort. [place] lifts or holds trunk or limbs and provides more than half the effort. 3-Qchhfgdmt-uidtvs does ALL the effort. Patient does none of the effort to complete the activity. Or, the assistance of 2 or more helpers is required for the patient to complete the activity. If activity was not attempted, code reason: 7-Patient Refused. 9-Not Applicable-not attempted and the patient did not perform the activity before the current illness, exacerbation or injury. 10-Not Attempted due to Environmental Limitations-(lack of equipment, weather restraints, etc.). 88-Not Attempted due to Medical Conditions or Safety Concerns. Roll Left to Right (QC): 1 Sit to Lying (QC): 1 Sit to Stand (QC): 3 (x 3 trials with VCS for sequencing, increasing level of assist required with each trial) Chair/Otq-ml-Idywd Xfer(QC): 3 Car Transfer (QC): 3 Gait Training Does the Patient Walk?: Yes Walk 10 feet (QC): 1 Walk 50 ft with 2 Turns(QC): 88 Walk 150 ft (QC): 88 Walking 10ft/uneven surface-QC: 88 Gait Assistive Device: FWW Wheelchair Training Does the Pt Use a Wheelchair?: No Wheel 50 ft with 2 turns (QC): 9 Wheel 150 ft (QC): 9 Type of Wheelchair: N/A Stair Training 1 Step (curb) (QC): 9 4 Steps (QC): 9 12 Steps (QC): 9 Balance Picking up an Object (QC): 88 ADL-Treatment Eating (QC): 5 (s/u for items requiring opening/ cutting.) Oral Hygiene (QC): 5 (s/u based on clinical judgment.) Shower/Bathe Self (QC): 3 (mod A: Pt requires assist with back (prepped and covered), bottom, and LEs. Pt educated on LHS, compeltes LEs with success.) Upper Body Dressing (QC): 3 (min A. Pt able to thread bilaterally and bring overhead with min A for adjustment.) Lower Body Dressing (QC): 1 (Pt educated on precautions. Pt able to understand, educated on AE. Prior to AE pt would have been TD. Pt compeltes with AE with max A post education of art studio teacher/ dressing stick. Pt requires max A to don over BLEs, able to pull to groin, TD pulling over hips due to decreased balance during task. Requires assist x2 for balance maintenance and LE garment assist. ) On/Off Footwear (QC): 1 (TD, pt educated on sock aide, not attempteed at this time. ) Toileting Hygiene (QC): 1 (TD due to balance/ requirement of two people for task.) Assessment/Plan Assessment and Plan Assess & Plan/Chief Complaint Assessment: s/p lumbar stenosis surgery Severe debility started after c-spine surgery 03/2019 Anasarca receiving IV Bumex with good results OA Chronic back pain Former smoker Hypokalemia Plan: Potassium supplement IRF protocol Bumex Midline (1) Spinal stenosis (2) Anasarca (3) Former smoker (4) Neuropathy (5) Hypokalemia (6) Edema (7) Dyspnea DIANA PITTMAN DO June 10, 2019 12:18
--- NOTE | 2019-06-10 12:18 | Individualized Plan of Care ---
Individualized Plan of Care Rehab Nursing IPOC Order Admission Date June 09, 2019 at 10:00 Current Orders Orders Admission Order(Inpt,Obs,Sdc) (06/08/19 21:13) Vital Signs: Per Unit Policy ( 08,16,00 (06/08/19 21:13) David Bernardo , (06/08/19 21:13) Sequential Compression Device Q4H (06/08/19 21:13) Brush Cutter-Inpt Rehab Con (06/08/19 21:13) Rehab Nursing Orders-Ipoc (06/08/19 21:13) Physical Therapy Rehab Orders (06/08/19 21:13) Occupational Therapy Rehab Ord (06/08/19 21:13) Speech Therapy Rehab Orders (06/08/19 21:13) Cbc With Automated Diff (06/09/19 11:00) Comprehensive Metabolic Panel (06/09/19 11:00) General/Regular (06/09/19 Breakfast) Intake & Output 06,14,22 (06/08/19 21:13) Precautions (Aru) (06/08/19 21:13) Weekly Weight WEEK (06/08/19 21:13) Rehab-Intensity Of Therapy (06/08/19 21:13) Initiate Admission Nursing Pro .admission (06/08/19 21:13) Alprazolam Tablet (Xanax Tablet) (06/08/19 21:15) Calcium Carbonate Chew Tablet (Antacid C (06/08/19 21:15) Diphenhydramine Tablet (Benadryl Tablet) (06/08/19 21:15) Docusate Sodium Capsule (Colace Capsule) (06/09/19 09:00) Docusate Sodium Capsule (Colace Capsule) (06/08/19 21:15) Bisacodyl Suppository (Dulcolax Supposit (06/08/19 21:15) Lactulose Oral Solution (Enulose Oral So (06/08/19 21:15) Na Phos/Na Biphos Enema (Fleet Enema Omer (06/08/19 21:15) Guaifenesin/Codeine Syrup (Robitussin Ac (06/08/19 21:15) Loperamide Tablet (Imodium Tablet) (06/08/19 21:15) Melatonin Tablet (Melatonin Tablet) (06/08/19 21:15) Polyethylene Glycol Powder Pkt (Miralax (06/09/19 09:00) Ondansetron Oral Dissolve Tab (Zofran (06/08/19 21:15) Senna S Tablet (Senokot S Tablet) (06/09/19 09:00) Vte Contraindication (06/08/19 21:13) Thyroid Stimulating Hormone (06/09/19 11:00) Urinalysis (06/09/19 18:09) Chest 1 View, Ap/Pa Only (06/09/19 11:00) Furosemide Injection (Lasix Injection) (06/09/19 11:00) Echo W Doppler/Color Flow (06/09/19 11:00) Code/Resuscitation (06/08/19 21:13) Initiate Admission Nursing Pro .admission (06/08/19 21:13) Admission Arrival Bed Request (06/09/19 10:00) Acetaminophen Tablet/Caplet (Tylenol T (06/09/19 11:15) Venous Access Request Order (06/09/19 11:24) BNP (06/09/19 11:25) Potassium Chloride (Tablet) (Klor Con Ta (06/09/19 17:00) Potassium Chloride (Tablet) (Klor Con Ta (06/09/19 11:30) Bumetanide Injection (Bumex Injection) (06/09/19 11:30) Bumetanide Injection (Bumex Injection) (06/10/19 09:00) Us Venous Lower Ext Michelet (06/09/19 11:27) Consult Cardiology (06/09/19 11:27) Ekg Tracing (06/09/19 11:28) Nursing Communication (Order) (06/09/19 11:28) Amb Us Guide Vascular Access (06/09/19 ) Patient Visit (06/09/19 ) Speech Sound Lang Comp (06/09/19 ) Baclofen Tablet (Lioresal Tablet) (06/09/19 14:15) Duloxetine Capsule (Cymbalta Capsule) (06/09/19 21:00) Gabapentin Capsule/Tablet (Neurontin Cap (06/09/19 21:00) Ondansetron Oral Dissolve Tab (Zofran (06/09/19 14:15) Tramadol Tablet (Ultram Tablet) (06/09/19 14:15) Prednisone Tablet (Deltasone Tablet) (06/09/19 17:00) Patient Visit (06/09/19 ) Pt Eval High Complexity (06/09/19 ) Functional Activities, Ea 15 (06/09/19 ) Patient Visit (06/10/19 ) Functional Activities, Ea 15 (06/10/19 ) Rehab Nursing Orders: Ongoing Assess. of Cognitive Status, Ongoing Assess. of Function Status, Bladder Management, Bladder Scan, Bladder Training, Bowel Management, Bowel Training, Disease Management & Educaiton, DVT Prophylaxis, Fall Prevention, Fluid/Electrolyte/Nutrition Mgmt, Infection Prevention, Medication Management & Education, Management of Risks & Complications, Management of Skin Intergrity, Nutrition Management, Pain Management, Pat ient/Family Support, Safety Management Intensity of Therapy to be met Patient to be seen: Min.3h per day/5 of 7d PT IPOC Problem List: Activity Tolerance, Functional Strength, Safety, Balance, Gait, Transfer, Bed Mobility, ROM Treatment Plan: Continue Plan of Care Bed Mobility, Education, Functional Activity Johny, Functional Strength, Group Therapy, Gait, Safety, Therapeutic Exercise, Transfers Treatment Duration: June 30, 2019 Frequency: 6 times per week Estimated Hrs Per Day: 1.5 hours per day OT IPOC Problems: Decreased Activ Tolerance, Decreased UE Strength, Dependent Transfers, Edema, Impaired Bed Mobility, Impaired Coordination, Impaired Funct Balance, Impaired I ADL's, Impaired Self-Care Skills, Restricted Funct UE ROM OT Treatment, Training and Edu: Yes Plan of Care: ADL Retraining, Caregiver Training, Concurrent Therapy, Functional Mobility, Group Exercise/Act as Ind, UE Funct Exercise/Act, UE Ne uromus Re-Ed/Coord, W/C Management Training Treatment Duration: June 30, 2019 Frequency: At least 5 of 7 days/Wk (IRF) Estimated Hrs Per Day: 1.[address] IPOC Speech Therapy Treatment Plan: Discontinue ST Treatment Duration: June 09, 2019 Frequency: 1 time per week Estimated Hrs Per Day: .25 hour per day Brush Cutter/Case Mgmt Brush Cutter/Case Managemen: Discharge Planning Dietitian/Green Building Design Specialist Dietitian/Green Building Design Specialist to monitor nutritional status and make changes and/or recommendations as needed and work with speech pathology on dietary upgrades as the occur. Physician IPOC Medical Issues being managed closely and that require the 24 hour availability of a physician: Recent complex lumbar spine surgery with severe anasarca requiring midline and IV diuresis along with Cardiology consultation to assure no CHF component at risk for decompensation Medical Issues: Bowel/Bladder Function, DVT Prophylaxis, Falls Precautions, Fluid/Electrolyte/Nutrition Balance, Infection Protection, Pain Management, Wound Care Brief Synthesis of Preadmission Screen, Post-Admission Evaluation, and Therapy Evaluations: PT OT will both provide aggressive and focused therapies in order to mobilize fluids from soft tissue and regain stamina and strength and regain ADL's Medical Prognosis: Good Anticipated Length of Stay: 6 days DIANA PITTMAN DO June 10, 2019 12:18
[2019-06-10 17:33] VITALS: BP 130/71
[2019-06-10] MEDS: DULoxetine 30 MG (CYMBALTA) CAP PO SCH (20:06)
--- NOTE | 2019-06-10 20:59 | Cardiology Progress Note ---
Cardiology SOAP Progress Note Subjective: No cardiac complaints. Objective: I&O/Vital Signs 06/11/19 06/11/19 05:06 08:00 Temp 36.6 Pulse 65 Resp 18 B/P (MAP) 123/73 (90) Pulse Ox 95 O2 Delivery Room Air Room Air 06/11/19 00:00 Intake Total 1510 ml Balance 1510 ml Constitutional: No appears stated age; AAO x 3; No apparent distress; PERRL, well-developed, well-nourished; No other Respiratory: chest is bilaterally symmetric, lungs clear to auscultation Cardiovascular: regular rate-rhythm; No irregularly irregular, No extra beats, No parasternal heave is noted, No JVD, No edema, No bradycardia, No tachycardia, No point of maximal impulse, No cardiac thrills are palpable; S1 and S2; No gallop/S3, No gallop/S4, No diastolic murmur, No systolic murmur, No friction rub, No click, No other Gastrointestional: soft, audible bowel sounds Extremities: normal range of motion, non-tender, normal inspection, pedal edema Neurologic/Psychiatric: no motor/sensory deficits, alert, normal mood/affect, oriented x 3 Skin: normal color A/P: Assessment/Dx: Status post back surgery, Lower extremity swelling, right worse than left, Active smoking. Plan: Continue aggressive inpatient rehabilitation. Lower extremity swelling, right worse than the left, venous ultrasound was negative for DVT. Echocardiogram to rule out cardiac etiology. Active smoking, smoking cessation was strongly recommended. Thank you for your consultation. Please call me if you have any questions. Marie Ovalle MD, FACP, FACC, FSCAI, FHRS, CCDS Interventional Cardiology Cardiac Electrophysiology Vascular Medicine and Endovascular Interventions Nicole OVALLE MD June 10, 2019 20:59
[2019-06-11 05:06] VITALS: BP 123/73
[2019-06-11] MEDS: KCL 10 MEQ TAB (MICRO K) PO SCH ×2 (06:27→17:14)
[2019-06-11] MEDS: predniSONE 5 MG TAB PO SCH (06:27)
[2019-06-11] MEDS: polyethylene glycoL POWDER 17 GM (MIRALAX) PACK PO SCH ×2 (08:51→19:15)
[2019-06-11] MEDS: DOCUSATE SODIUM 100 MG (COLACE) CAP PO SCH ×2 (08:51→19:15)
[2019-06-11] MEDS: SENNA W/DOCUSATE (SENOKOT S) TABLET PO SCH ×2 (08:51→19:16)
[2019-06-11] MEDS: FUROSEMIDE 40 MG/4 ML INJ (LASIX) IVP SCH (09:48)
[2019-06-11] MEDS: GABAPENTIN 300 MG (NEURONTIN) CAP PO SCH ×3 (09:48→20:04)
[2019-06-11] MEDS: BUMETANIDE 1 MG/4 ML (BUMEX) VIAL IV SCH (09:48)
--- NOTE | 2019-06-11 11:58 | PM&R Progress Note ---
Subjective HPI/CC On Admission Date Seen by Provider: June 11, 2019 Time Seen by Provider: 12:15 Subjective/Events-last exam Patient doing very well today and has had dramatic improvement since admit Edema has certainly improved immensely even therapy agrees so will DC Bumex and maintain Lasix 40mg IV daily Overall improving with range of motion of all extremities and spine and he is very pleased with the care here Has not required much pain medication at all since admit Shortness of breath is improved Cardiology is appreciated and he updated the patient that his heart looked really good Bowels moving better Incision on the lumbar spine is open to air after 7 days post op Check meds and labs Conferred with RN Reviewed therapy notes Maintained on potassium supplement Check labs in am Review of Systems General: Fatigue Cardiovascular: Edema Musculoskeletal: back pain Objective Exam Vital Signs Vital Signs Date Time Temp Pulse Resp B/P (MAP) Pulse Ox O2 Delivery O2 Flow Rate FiO2 06/11/19 08:00 Room Air 06/11/19 05:06 36.6 65 18 123/73 (90) 95 Capillary Refill : Less Than 3 Seconds General Appearance: No Apparent Distress, WD/WN, Anxious, Chronically ill HEENT: PERRL/EOMI, Normal ENT Inspection, Pharynx Normal Neck: Full Range of Motion, Normal Inspection, Non Tender, Supple, Carotid Bruit Respiratory: Chest Non Tender, Lungs Clear, Normal Breath Sounds, No Accessory Muscle Use, No Respiratory Distress Cardiovascular: Regular Rate, Rhythm, No Edema, No Gallop, No JVD, No Murmur, Normal Peripheral Pulses Gastrointestinal: Normal Bowel Sounds, No Organomegaly, No Pulsatile Mass, Non Tender, Soft Back: Normal Inspection, No CVA Tenderness, No Vertebral Tenderness Extremity: Normal Capillary Refill, Normal Inspection, Normal Range of Motion, Non Tender, No Calf Tenderness Neurologic/Psychiatric: Alert, Oriented x3, Normal Mood/Affect, mold blower II-XII Norm as Tested, Abnormal Gait, Motor Weakness (lower extremities), Sensory Deficit Skin: Normal Color, Warm/Dry Lymphatic: No Adenopathy Results/Procedures Lab Patient resulted labs reviewed. FIM Transfers Therapy Code Descriptions/Definitions Functional [place] Measure: 0=Not Assessed/NA 4=Minimal Assistance 1=Total Assistance 5=Supervision or Setup 2=Maximal Assistance 6=Modified [place] 3=Moderate Assistance 7=Complete IndependenceSCALE: Activities may be completed with or without assistive devices. 2-Xzxgeehmrx-ikdqobx completes the activity by him/herself with no assistance from a helper. 5-Set-up or Clean-up Assistance-helper sets up or cleans up; patient completes activity. [place] assists only prior to or following the activity. 4-Supervision or Touching Assistance-helper provides verbal cues and/or touching/steadying and/or contact guard assistance as patient completes activity. Assistance may be provided throughout the activity or intermittently. 3-Partial/Moderate Assistance-helper does LESS THAN HALF the effort. [place] lifts, holds or supports trunk or limbs, but provides less than half the effort. 2-Substantial/Maximal Assistance-helper does MORE THAN HALF the effort. [place] lifts or holds trunk or limbs and provides more than half the effort. 4-Yusntsesn-pmvrkn does ALL the effort. Patient does none of the effort to complete the activity. Or, the assistance of 2 or more helpers is required for the patient to complete the activity. If activity was not attempted, code reason: 7-Patient Refused. 9-Not Applicable-not attempted and the patient did not perform the activity before the current illness, exacerbation or injury. 10-Not Attempted due to Environmental Limitations-(lack of equipment, weather restraints, etc.). 88-Not Attempted due to Medical Conditions or Safety Concerns. Roll Left to Right (QC): 1 Sit to Lying (QC): 1 Sit to Stand (QC): 3 (x 3 trials with VCS for sequencing, increasing level of assist required with each trial) Chair/Oap-qu-Ywmiv Xfer(QC): 3 Car Transfer (QC): 3 Gait Training Does the Patient Walk?: Yes Walk 10 feet (QC): 1 Walk 50 ft with 2 Turns(QC): 88 Walk 150 ft (QC): 88 Walking 10ft/uneven surface-QC: 88 Gait Assistive Device: FWW Wheelchair Training Does the Pt Use a Wheelchair?: No Wheel 50 ft with 2 turns (QC): 9 Wheel 150 ft (QC): 9 Type of Wheelchair: N/A Stair Training 1 Step (curb) (QC): 9 4 Steps (QC): 9 12 Steps (QC): 9 Balance Picking up an Object (QC): 88 ADL-Treatment Eating (QC): 5 (s/u for items requiring opening/ cutting.) Oral Hygiene (QC): 5 (s/u based on clinical judgment.) Shower/Bathe Self (QC): 3 (mod A: Pt requires assist with back (prepped and covered), bottom, and LEs. Pt educated on LHS, compeltes LEs with success.) Upper Body Dressing (QC): 3 (min A. Pt able to thread bilaterally and bring overhead with min A for adjustment.) Lower Body Dressing (QC): 1 (Pt educated on precautions. Pt able to understand, educated on AE. Prior to AE pt would have been TD. Pt compeltes with AE with max A post education of ip paralegal/ dressing stick. Pt requires max A to don over BLEs, able to pull to groin, TD pulling over hips due to decreased balance during task. Requires assist x2 for balance maintenance and LE garment assist. ) On/Off Footwear (QC): 1 (TD, pt educated on sock aide, not attempteed at this time. ) Toileting Hygiene (QC): 1 (TD due to balance/ requirement of two people for task.) Assessment/Plan Assessment and Plan Assess & Plan/Chief Complaint Assessment: s/p lumbar stenosis surgery Severe debility started after c-spine surgery 03/2019 Anasarca receiving IV Bumex and Lasix with good results OA Chronic back pain Former smoker Hypokalemia Plan: Potassium supplement IRF protocol Bumex DC Maintain Lasix 40mg IV daily Midline Check labs in am (1) Spinal stenosis (2) Anasarca (3) Former smoker (4) Neuropathy (5) Hypokalemia (6) Edema (7) Dyspnea DIANA PITTMAN DO June 11, 2019 11:58
--- NOTE | 2019-06-11 15:54 | Cardiology Progress Note ---
Cardiology SOAP Progress Note Subjective: No cardiac complaints. Objective: I&O/Vital Signs 06/11/19 06/11/19 05:06 08:00 Temp 36.6 Pulse 65 Resp 18 B/P (MAP) 123/73 (90) Pulse Ox 95 O2 Delivery Room Air Room Air 06/11/19 00:00 Intake Total 1510 ml Balance 1510 ml Constitutional: No appears stated age; AAO x 3; No apparent distress; PERRL, well-developed, well-nourished; No other Respiratory: chest is bilaterally symmetric, lungs clear to auscultation Cardiovascular: regular rate-rhythm; No irregularly irregular, No extra beats, No parasternal heave is noted, No JVD, No edema, No bradycardia, No tachycardia, No point of maximal impulse, No cardiac thrills are palpable; S1 and S2; No gallop/S3, No gallop/S4, No diastolic murmur, No systolic murmur, No friction rub, No click, No other Gastrointestional: soft, audible bowel sounds Extremities: normal range of motion, non-tender, normal inspection, pedal edema Neurologic/Psychiatric: no motor/sensory deficits, alert, normal mood/affect, oriented x 3 Skin: normal color A/P: Assessment/Dx: Status post back surgery, Lower extremity swelling, right worse than left, Active smoking. Plan: Continue aggressive inpatient rehabilitation. Lower extremity swelling, right worse than the left, venous ultrasound was negative for DVT. Echocardiogram showed normal LV and RV size and function. No valvular heart disease. It is very unlikely that lower external to swelling is due to a cardiac etiology. Active smoking, smoking cessation was strongly recommended. Patient recently quit. Thank you for your consultation. Please call me if you have any questions. Marie Ovalle MD, FACP, FACC, FSCAI, FHRS, CCDS Interventional Cardiology Cardiac Electrophysiology Vascular Medicine and Endovascular Interventions Nicole OVALLE MD June 11, 2019 15:54
[2019-06-11 17:07] VITALS: BP 115/73
[2019-06-11] MEDS: DULoxetine 30 MG (CYMBALTA) CAP PO SCH (20:04)
[2019-06-12] MEDS: KCL 10 MEQ TAB (MICRO K) PO SCH ×2 (05:07→17:13)
[2019-06-12] MEDS: predniSONE 5 MG TAB PO SCH (05:07)
[2019-06-12 05:28] LABS: BASOPHILS % (AUTO) 0 % (0-10); EOSINOPHILS # (AUTO) 0.2 10^3/uL (0.0-0.3); EOSINOPHILS % (AUTO) 2 % (0-10); HEMATOCRIT 42 % (40-54); HEMOGLOBIN 14.4 G/DL (13.3-17.7); LYMPHOCYTES # (AUTO) 2.7 X 10^3 (1.0-4.0); LYMPHOCYTES % (AUTO) 30 % (12-44); MEAN CORPUSCULAR HEMOGLOBIN 31 PG (25-34); MEAN CORPUSCULAR HGB CONC 34 G/DL (32-36); MEAN CORPUSCULAR VOLUME 91 FL (80-99); MEAN PLATELET VOLUME 9.3 FL (7.4-10.4); MONOCYTES # (AUTO) 1.2 X 10^3 (0.0-1.0); MONOCYTES % (AUTO) 13 % (0-12); NEUTROPHILS % (AUTO) 55 % (42-75); PLATELET COUNT 304 10^3/uL (130-400); RED CELL DISTRIBUTION WIDTH 13.4 % (10.0-14.5); WHITE BLOOD COUNT 9.1 10^3/uL (4.3-11.0)
[2019-06-12 05:47] LABS: ALKALINE PHOSPHATASE 52 U/L (40-136); BILIRUBIN,TOTAL 0.7 MG/DL (0.1-1.0); BUN/CREATININE RATIO 23; CALCIUM 9.5 MG/DL (8.5-10.1); CARBON DIOXIDE 24 MMOL/L (21-32); CHLORIDE 103 MMOL/L (98-107); CREATININE SERUM 0.82 MG/DL (0.60-1.30); GFR ESTIMATED > 60; GLUCOSE 99 MG/DL (70-105); POTASSIUM 3.6 MMOL/L (3.6-5.0); SODIUM 139 MMOL/L (135-145)
[2019-06-12 05:48] LABS: ALANINE AMINOTRANSFERASE 36 U/L (0-55); ALBUMIN 4.1 GM/DL (3.2-4.5); TOTAL PROTEIN 6.9 GM/DL (6.4-8.2)
[2019-06-12 06:48] VITALS: BP 118/64
[2019-06-12] MEDS: FUROSEMIDE 40 MG/4 ML INJ (LASIX) IVP SCH (08:29)
[2019-06-12] MEDS: GABAPENTIN 300 MG (NEURONTIN) CAP PO SCH ×3 (08:29→21:31)
[2019-06-12] MEDS: DOCUSATE SODIUM 100 MG (COLACE) CAP PO SCH ×2 (09:00→21:31)
[2019-06-12] MEDS: SENNA W/DOCUSATE (SENOKOT S) TABLET PO SCH ×2 (09:00→21:35)
[2019-06-12] MEDS: polyethylene glycoL POWDER 17 GM (MIRALAX) PACK PO SCH ×2 (09:00→21:34)
--- NOTE | 2019-06-12 09:07 | PM&R Progress Note ---
Subjective HPI/CC On Admission Date Seen by Provider: June 12, 2019 Time Seen by Provider: 09:15 Subjective/Events-last exam Pt doing very well today Feels like he still has a little bit of fluid on board but Lasix 40mg IV daily will be maintained Potassium 3.6 on supplement Labs otherwise okay Very stiff and sore but major improvement since admission Bowels moved this morning and he is getting regular on that Overall responding to aggressive structured PT Check meds and labs Conferred with RN Reviewed therapy notes Maintained on potassium supplement Review of Systems General: Fatigue Cardiovascular: Edema Musculoskeletal: back pain, leg pain Objective Exam Vital Signs Vital Signs Date Time Temp Pulse Resp B/P (MAP) Pulse Ox O2 Delivery O2 Flow Rate FiO2 06/12/19 16:00 36.8 78 16 121/74 (90) 92 Room Air Capillary Refill : Less Than 3 Seconds General Appearance: No Apparent Distress, WD/WN, Anxious, Chronically ill HEENT: PERRL/EOMI, Normal ENT Inspection, Pharynx Normal Neck: Full Range of Motion, Normal Inspection, Non Tender, Supple, Carotid Bruit Respiratory: Chest Non Tender, Lungs Clear, Normal Breath Sounds, No Accessory Muscle Use, No Respiratory Distress Cardiovascular: Regular Rate, Rhythm, No Edema, No Gallop, No JVD, No Murmur, Normal Peripheral Pulses Gastrointestinal: Normal Bowel Sounds, No Organomegaly, No Pulsatile Mass, Non Tender, Soft Back: Normal Inspection, No CVA Tenderness, No Vertebral Tenderness Extremity: Normal Capillary Refill, Normal Inspection, Normal Range of Motion, Non Tender, No Calf Tenderness Neurologic/Psychiatric: Alert, Oriented x3, Normal Mood/Affect, 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 FIM Transfers Therapy Code Descriptions/Definitions Functional [place] Measure: 0=Not Assessed/NA 4=Minimal Assistance 1=Total Assistance 5=Supervision or Setup 2=Maximal Assistance 6=Modified [place] 3=Moderate Assistance 7=Complete IndependenceSCALE: Activities may be completed with or without assistive devices. 9-Eahpyalztw-vbqzwxg completes the activity by him/herself with no assistance from a helper. 5-Set-up or Clean-up Assistance-helper sets up or cleans up; patient completes activity. [place] assists only prior to or following the activity. 4-Supervision or Touching Assistance-helper provides verbal cues and/or touching/steadying and/or contact guard assistance as patient completes activity. Assistance may be provided throughout the activity or intermittently. 3-Partial/Moderate Assistance-helper does LESS THAN HALF the effort. [place] lifts, holds or supports trunk or limbs, but provides less than half the effort. 2-Substantial/Maximal Assistance-helper does MORE THAN HALF the effort. [place] lifts or holds trunk or limbs and provides more than half the effort. 2-Okjorvwwj-avazpl does ALL the effort. Patient does none of the effort to complete the activity. Or, the assistance of 2 or more helpers is required for the patient to complete the activity. If activity was not attempted, code reason: 7-Patient Refused. 9-Not Applicable-not attempted and the patient did not perform the activity before the current illness, exacerbation or injury. 10-Not Attempted due to Environmental Limitations-(lack of equipment, weather restraints, etc.). 88-Not Attempted due to Medical Conditions or Safety Concerns. Roll Left to Right (QC): 1 Sit to Lying (QC): 1 Sit to Stand (QC): 3 (x 3 trials with VCS for sequencing, increasing level of assist required with each trial) Chair/Lut-ra-Xncjt Xfer(QC): 3 Car Transfer (QC): 3 Gait Training Does the Patient Walk?: Yes Walk 10 feet (QC): 1 Walk 50 ft with 2 Turns(QC): 88 Walk 150 ft (QC): 88 Walking 10ft/uneven surface-QC: 88 Gait Assistive Device: FWW Wheelchair Training Does the Pt Use a Wheelchair?: No Wheel 50 ft with 2 turns (QC): 9 Wheel 150 ft (QC): 9 Type of Wheelchair: N/A Stair Training 1 Step (curb) (QC): 9 4 Steps (QC): 9 12 Steps (QC): 9 Balance Picking up an Object (QC): 88 ADL-Treatment Eating (QC): 5 (s/u for items requiring opening/ cutting.) Oral Hygiene (QC): 5 (s/u based on clinical judgment.) Shower/Bathe Self (QC): 3 (mod A: Pt requires assist with back (prepped and covered), bottom, and LEs. Pt educated on LHS, compeltes LEs with success.) Upper Body Dressing (QC): 3 (min A. Pt able to thread bilaterally and bring overhead with min A for adjustment.) Lower Body Dressing (QC): 1 (Pt educated on precautions. Pt able to understand, educated on AE. Prior to AE pt would have been TD. Pt compeltes with AE with max A post education of insert cutter/ dressing stick. Pt requires max A to don over BLEs, able to pull to groin, TD pulling over hips due to decreased balance during task. Requires assist x2 for balance maintenance and LE garment assist. ) On/Off Footwear (QC): 1 (TD, pt educated on sock aide, not attempteed at this time. ) Toileting Hygiene (QC): 1 (TD due to balance/ requirement of two people for task.) Assessment/Plan Assessment and Plan Assess & Plan/Chief Complaint Assessment: s/p lumbar stenosis surgery Severe debility started after c-spine surgery 03/2019 Anasarca receiving IV Lasix with good results OA Chronic back pain Former smoker Hypokalemia Plan: Potassium supplement IRF protocol Bumex DC Maintain Lasix 40mg IV daily Midline (1) Spinal stenosis (2) Anasarca (3) Former smoker (4) Neuropathy (5) Hypokalemia (6) Edema (7) Dyspnea DIANA PITTMAN DO June 12, 2019 09:07
--- NOTE | 2019-06-12 11:49 | Cardiology Progress Note ---
Cardiology SOAP Progress Note Subjective: No cardiac complaints. Objective: I&O/Vital Signs 06/12/19 06:48 Temp 36.8 Pulse 79 Resp 20 B/P (MAP) 118/64 (82) Pulse Ox 93 O2 Delivery Room Air 06/12/19 00:00 Intake Total 2010 ml Output Total 3125 ml Balance -1115 ml Constitutional: No appears stated age; AAO x 3; No apparent distress; PERRL, well-developed, well-nourished; No other Respiratory: chest is bilaterally symmetric, lungs clear to auscultation Cardiovascular: regular rate-rhythm; No irregularly irregular, No extra beats, No parasternal heave is noted, No JVD, No edema, No bradycardia, No tachycardia, No point of maximal impulse, No cardiac thrills are palpable; S1 and S2; No gallop/S3, No gallop/S4, No diastolic murmur, No systolic murmur, No friction rub, No click, No other Gastrointestional: soft, audible bowel sounds Extremities: normal range of motion, non-tender, normal inspection, pedal edema Neurologic/Psychiatric: no motor/sensory deficits, alert, normal mood/affect, oriented x 3 Skin: normal color Results/Procedures: Labs Laboratory Tests 06/12/19 05:10: Sodium Level 139, Potassium Level 3.6, Chloride Level 103, Carbon Dioxide Level 24, Anion Gap 12, Blood Urea Nitrogen 19H, Creatinine 0.82, Estimat Glomerular Filtration Rate > 60, BUN/Creatinine Ratio 23, Glucose Level 99, Calcium Level 9.5, Corrected Calcium 9.4, Total Bilirubin 0.7, Aspartate Amino Transf (AST/SGOT) 21, Alanine Aminotransferase (ALT/SGPT) 36, Alkaline Phosphatase 52, Total Protein 6.9, Albumin 4.1 06/12/19 05:15: White Blood Count 9.1, Red Blood Count 4.65, Hemoglobin 14.4, Hematocrit 42, Mean Corpuscular Volume 91, Mean Corpuscular Hemoglobin 31, Mean Corpuscular Hemoglobin Concent 34, Red Cell Distribution Width 13.4, Platelet Count 304, Mean Platelet Volume 9.3, Neutrophils (%) (Auto) 55, Lymphocytes (%) (Auto) 30, Monocytes (%) (Auto) 13H, Eosinophils (%) (Auto) 2, Basophils (%) (Auto) 0, Neutrophils # (Auto) 5.0, Lymphocytes # (Auto) 2.7, Monocytes # (Auto) 1.2H, Eosinophils # (Auto) 0.2, Basophils # (Auto) 0.0 A/P: Assessment/Dx: Status post back surgery, Lower extremity swelling, right worse than left, Active smoking. Plan: Continue aggressive inpatient rehabilitation. Lower extremity swelling, right worse than the left, venous ultrasound was negative for DVT. Echocardiogram showed normal LV and RV size and function. No valvular heart disease. It is very unlikely that lower external to swelling is due to a cardiac etiology. Active smoking, smoking cessation was strongly recommended. Patient recently quit. Thank you for your consultation. Please call me if you have any questions. Marie Ovalle MD, FACP, FACC, FSCAI, FHRS, CCDS Interventional Cardiology Cardiac Electrophysiology Vascular Medicine and Endovascular Interventions Nicole OVALLE MD June 12, 2019 11:48
--- NOTE | 2019-06-12 12:58 | Occupational Ther Daily Note ---
OT Current Status-Daily Note Subjective Pt alert, lying in bed. Pt agrees to therapy. Rated pain 2/10 Mental Status/Objective Patient Orientation: Person, Place, Time, Situation Attachments: IV (midline) ADL-Treatment OT/PT co-treat, skills of 2 clinicians required due to pt medical complexity, decreased overall strength, decreased mobility and low activity tolerance. PT working on transfers, ambulation and B LE strengthening. OT working on functional transfers, hand placement during transfers/ambulation and ADLs. Pt a grees to shower. Assist x2 to transfer in/out of shower using FWW, grabbars and shower bench. Pt able to bathe upper body, upper legs and shania area. Assist to bathe lower legs and buttocks. Assist to lift shirt over head and thread R UE into sleeve due to midline. Due to time constraints assist to complete lower body dressing. Pt brushed hair by self. After session, pt sitting in recliner with call light/phone in reach. All needs met in room. Therapy Code Descriptions/Definitions Functional [place] Measure: 0=Not Assessed/NA 4=Minimal Assistance 1=Total Assistance 5=Supervision or Setup 2=Maximal Assistance 6=Modified [place] 3=Moderate Assistance 7=Complete IndependenceSCALE: Activities may be completed with or without assistive devices. 7-Humimafgim-jwahjxm completes the activity by him/herself with no assistance from a helper. 5-Set-up or Clean-up Assistance-helper sets up or cleans up; patient completes activity. [place] assists only prior to or following the activity. 4-Supervision or Touching Assistance-helper provides verbal cues and/or touching/steadying and/or contact guard assistance as patient completes activity. Assistance may be provided throughout the activity or intermittently. 3-Partial/Moderate Assistance-helper does LESS THAN HALF the effort. [place] lifts, holds or supports trunk or limbs, but provides less than half the effort. 2-Substantial/Maximal Assistance-helper does MORE THAN HALF the effort. [place] lifts or holds trunk or limbs and provides more than half the effort. 3-Mxlrexrid-ainfbb does ALL the effort. Patient does none of the effort to complete the activity. Or, the assistance of 2 or more helpers is required for the patient to complete the activity. If activity was not attempted, code reason: 7-Patient Refused. 9-Not Applicable-not attempted and the patient did not perform the activity before the current illness, exacerbation or injury. 10-Not Attempted due to Environmental Limitations-(lack of equipment, weather restraints, etc.). 88-Not Attempted due to Medical Conditions or Safety Concerns. Bathing Location: L Arm, R Arm, L Upper Leg, R Upper Leg, Chest, Abdomen, Perineal Area Shower/Bathe Self (QC): 1 (2 person to stand and cleanse buttocks.) Upper Body Dressing (QC): 3 Lower Body Dressing (QC): 1 (2 person to stand and hike pants.) On/Off Footwear: 2 OT Short Term Goals Short Term Goals Shower/bathe self: 3 Upper body dressin Lower body dressin OT Chiropractic Teacher Goals Chiropractic Teacher Goals Time Frame: June 30, 2019 Eating (QC): 6 Oral Hygiene (QC): 6 Toileting Hygiene (QC): 6 Shower/Bathe Self (QC): 6 Upper Body Dressing (QC): 6 Lower Body Dressing (QC): 6 On/Off Footwear (QC): 6 Additional Goals: 1-Demonstrate ADL Tasks, 2-Verbalize Understanding, 3- ImproveStrength/Ojhny 1=Demonstrate adherence to instructed precautions during ADL tasks. 2=Patient will verbalize/demonstrate understanding of assistive devices/mónica fications for ADL. 3=Patient will improve strength/tolerance for activity to enable patient to perform ADL's. OT Education/Plan Problem List/Assessment Assessment: Decreased Activ Tolerance, Decreased UE Strength, Impaired Coordination, Impaired Funct Balance, Impaired Self-Care Skills, Restricted Funct UE ROM Discharge Recommendations Plan/Recommendations: Continue POC Treatment Plan/Plan of Care Patient would benefit from OT for education, treatment and training to promote independence in ADL's, mobility, safety and/or upper extremity function for ADL's. Plan of Care: ADL Retraining, Caregiver Training, Concurrent Therapy, Functional Mobility, Group Exercise/Act as Ind, UE Funct Exercise/Act, UE Neuromus Re-Ed/Coord, W/C Management Training Treatment Duration: June 30, 2019 Frequency: At least 5 of 7 days/Wk (IRF) Estimated Hrs Per Day: 1.5 hours per day Agreement: Yes Rehab Potential: Guarded Time/GCodes Start Time: 11:00 Stop Time: 12:00 Total Time Billed (hr/min): 60 Billed Treatment Time 1 visit-ADL 2 (30 min) FA 2 (30 min) co-treat with PT for 60 min ([id number]) EVELIN ERWIN June 12, 2019 12:58
--- NOTE | 2019-06-12 13:48 | NUR ---
"RD ASSESSMENT PMHx: No significant PMH; currently s/p lumbar stenosis surgery PT INTERACTION: Pt was awake and pleasant during nutrition assessment. Pt states current appetite is good, and was the same prior to admit. Note avg PO intake 94% x3d, per chart review. Pt states following a regular diet at home and has no issues with chewing/swallowing food. Pt states no recent issues with nausea, vomiting, constipation, or diarrhea. Note last BM was 5/3 and pt currently on bowel regimen of colace BID; senna BID; and miralax BID, per chart review. Pt states some recent wt gain, but unsure of amount/timeframe. Note unable to determine recent wt hx, per chart review. ABNORMAL NUTRITION-RELATED LAB VALUES LOW: HIGH: BUN 19 Est. kcal needs: 4413-5082 kcal | 15-18 kcal/kg Est. Pro needs: 110-132 g Pro | 1.0-1.2 g Pro/kg PES STATEMENT: Given current PO intake, no nutrition diagnosis at this time (NO-1.1) INTERVENTION: Continue with current diet order of Regular diet. Will continue to follow and reassess as pt needs, intake, and status change. MONITOR/EVALUATE: PO Intake; Plan of Care; Hydration Status; Weight Status; Lab Values Facundo Mcadams, MS, RD, LD"
--- NOTE | 2019-06-12 13:48 | Physical Therapy Daily Note ---
PT Daily Note-Current Subjective Pt agreeable. Pt denies pain and says "I'm just sore." Mental Status Patient Orientation: Person, Place, Situation Transfers SCALE: Activities may be completed with or without assistive devices. 7-Kyvqszrjdn-hkpolwj completes the activity by him/herself with no assistance from a helper. 5-Set-up or Clean-up Assistance-helper sets up or cleans up; patient completes activity. [place] assists only prior to or following the activity. 4-Supervision or Touching Assistance-helper provides verbal cues and/or touching/steadying and/or contact guard assistance as patient completes activity. Assistance may be provided throughout the activity or intermittently. 3-Partial/Moderate Assistance-helper does LESS THAN HALF the effort. [place] lifts, holds or supports trunk or limbs, but provides less than half the effort. 2-Substantial/Maximal Assistance-helper does MORE THAN HALF the effort. [place] lifts or holds trunk or limbs and provides more than half the effort. 0-Nvspnskee-hjeoxx does ALL the effort. Patient does none of the effort to complete the activity. Or, the assistance of 2 or more helpers is required for the patient to complete the activity. If activity was not attempted, code reason: 7-Patient Refused. 9-Not Applicable-not attempted and the patient did not perform the activity before the current illness, exacerbation or injury. 10-Not Attempted due to Environmental Limitations-(lack of equipment, weather restraints, etc.). 88-Not Attempted due to Medical Conditions or Safety Concerns. Weight Bearing Right Lower Extremity: Right Full Weight Bearing Left Lower Extremity: Left Full Weight Bearing Gait Training Gait Assistive Device: FWW Pt amb with FWW and CGA, f/u of w/c 2 x 15ft. Pt forward flexed, (L) LE shuffling and not advancing at times. Requires continual vc's to stand tall and clear (L) foot/long step on (L). Apparent tone in (L) LE, occasional clonus with positioning and walking. Exercises Supine Ex: Ankle pumps, Quad Set, Heel Slides, Short Arc Quads, Hip abd/add Supine Reps: 20 Treatments Co-treatment with OT due to recent surgery and complex needs for safe mobility. Co treatment with OT included skilled intervention for functional mobility training all levels, gait training and shower. PT included LE strengthening in supine, transfer to EOB with mod A of 2, ambulation into shower with FWW. OT treatment included showering, deodarant, and dressing. Pt back to recliner with lunch and all needs met. Call light in reach. Assessment Current Status: Fair Progress Pt makenzie well. Pt forward flexed at hips, (L) LE weak and all mobility slow and rigid. Pt had no barbra LOB. Requires vc's for posture and sequence. Good participation. Pt back to chair with call light and all needs met. PT Short Term Goals Short Term Goals Time Frame: June 16, 2019 Roll Left & Right: 4 Sit to lyin Lying to sitting on side of be: 4 PT Custodial Goals Analysis Consultant Goals PT Analysis Consultant Goals Time Frame: June 30, 2019 Roll Left & Right (QC): 6 Sit to Lying (QC): 6 Lying-Sitting on Side/Bed(QC): 6 Sit to Stand (QC): 6 Chair/Wbl-ul-Jpdun Xfer(QC): 6 Toilet Transfer (QC): 6 Car Transfer (QC): 4 Does the Patient Walk: Yes Walk 10 feet (QC): 6 Walk 50ft with 2 Turns (QC): 6 Walk 150 ft (QC): 6 Walking 10ft on Uneven Surface: 4 1 Step (curb) (QC): 9 4 Steps (QC): 9 12 Steps (QC): 9 Picking up an Object (QC): 9 (Pt will utilize adaptive equipment due to back precautions) Does the Pt use WC or Scooter?: No Wheel 50 feet with 2 turns (QC: 9 Type: N/A Wheel 150 feet: 9 Type: N/A PT Plan Treatment/Plan Treatment Plan: Continue Plan of Care Treatment Plan: Bed Mobility, Education, Functional Activity Johny, Functional Strength, Group Therapy, Gait, Safety, Therapeutic Exercise, Transfers Treatment Duration: June 30, 2019 Frequency: 6 times per week Estimated Hrs Per Day: 1.5 hours per day Patient and/or Family Agrees t: Yes Time/GCodes Time In: 1100 Time Out: 1200 Total Billed Treatment Time: 60 Total Billed Treatment 1, ther ex x 15', FA x 30', Gait x 15' LUCILA OSBORN CPTA June 12, 2019 13:47
--- NOTE | 2019-06-12 15:04 | Physical Therapy Daily Note ---
PT Daily Note-Current Subjective Pt denies pain, agreeable and ready for treatment. Mental Status Patient Orientation: Person, Place, Situation Transfers SCALE: Activities may be completed with or without assistive devices. 3-Tnkzdiscue-gfhrakr completes the activity by him/herself with no assistance from a helper. 5-Set-up or Clean-up Assistance-helper sets up or cleans up; patient completes activity. [place] assists only prior to or following the activity. 4-Supervision or Touching Assistance-helper provides verbal cues and/or touching/steadying and/or contact guard assistance as patient completes activity. Assistance may be provided throughout the activity or intermittently. 3-Partial/Moderate Assistance-helper does LESS THAN HALF the effort. [place] lifts, holds or supports trunk or limbs, but provides less than half the effort. 2-Substantial/Maximal Assistance-helper does MORE THAN HALF the effort. [place] lifts or holds trunk or limbs and provides more than half the effort. 9-Surmzkgif-khepyi does ALL the effort. Patient does none of the effort to complete the activity. Or, the assistance of 2 or more helpers is required for the patient to complete the activity. If activity was not attempted, code reason: 7-Patient Refused. 9-Not Applicable-not attempted and the patient did not perform the activity before the current illness, exacerbation or injury. 10-Not Attempted due to Environmental Limitations-(lack of equipment, weather restraints, etc.). 88-Not Attempted due to Medical Conditions or Safety Concerns. Weight Bearing Right Lower Extremity: Right Full Weight Bearing Left Lower Extremity: Left Full Weight Bearing Gait Training Pt amb in //bars 2 x 7ft, with emphasis on upright posture and clearance/good step length of (L) LE. Wheelchair Training Type of Wheelchair: Manual Practiced w/c mobility 2 x 50ft with min A as needed on the (L) and assist for turns. Treatments Co-treatment with OT due to recent surgery and need for complex skilled intervention during functional mobility training. Pt practiced w/c mobility with min A, postural training in //bars, standing while un-weighting one UE at time. Manual assist to maintain upright posture when standing and when ambulating in //bars. Pt back to chair amb from w/c to recliner with FWW x 3-4 ft. Pt mobility is slow, requires min-mod A for balance, vc's for sequence and occasional assist to manage walker during turns. Pt able to control descent to chair with vc's to reach back and sit slow. Assessment Pt motivated and shows good participation. Pt tone inhibits step length at times. Pt requires vc's for sequence and increasing step length, maintaining upright posture. Pt back to chair with call light and all needs met. PT Short Term Goals Short Term Goals Time Frame: June 16, 2019 Roll Left & Right: 4 Sit to lyin Lying to sitting on side of be: 4 PT Alf Goals Alf Goals PT Alf Goals Time Frame: June 30, 2019 Roll Left & Right (QC): 6 Sit to Lying (QC): 6 Lying-Sitting on Side/Bed(QC): 6 Sit to Stand (QC): 6 Chair/Mdj-kr-Vorhw Xfer(QC): 6 Toilet Transfer (QC): 6 Car Transfer (QC): 4 Does the Patient Walk: Yes Walk 10 feet (QC): 6 Walk 50ft with 2 Turns (QC): 6 Walk 150 ft (QC): 6 Walking 10ft on Uneven Surface: 4 1 Step (curb) (QC): 9 4 Steps (QC): 9 12 Steps (QC): 9 Picking up an Object (QC): 9 (Pt will utilize adaptive equipment due to back precautions) Does the Pt use WC or Scooter?: No Wheel 50 feet with 2 turns (QC: 9 Type: N/A Wheel 150 feet: 9 Type: N/A PT Plan Treatment/Plan Treatment Plan: Continue Plan of Care Treatment Plan: Bed Mobility, Education, Functional Activity Johny, Functional Strength, Group Therapy, Gait, Safety, Therapeutic Exercise, Transfers Treatment Duration: June 30, 2019 Frequency: 6 times per week Estimated Hrs Per Day: 1.5 hours per day Patient and/or Family Agrees t: Yes Time/GCodes Time In: 100 Time Out: 130 Total Billed Treatment Time: 30 Total Billed Treatment 1, FA x 15', gait x 15' Co-treament with OT 1:00-1:30 LUCILA OSBORN CPTA June 12, 2019 15:04
--- NOTE | 2019-06-12 15:32 | NUR ---
CM/SS ADMISSION Patient was admitted to ARU from [facility] for stenosis, s/p laminectomy. Patient describes a progressive decline in his level of functioning due to his compromised back and he has had assistance from family at home during this time. Patient resides at home with his spouse Amee Reid who is a traveling RN on rotation home 8 days, gone 6. She is contracted with one hospital at this time so her schedule is dependable at the moment. When she is gone, patient's mother moves in to assist him as needed, especially with cooking and household tasks. 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 He and his have a horse trailer with sleeping quarters, they used to take short weekend trips to [place] and ride. PCP: Dr. Jas Gregg, [facility] in [facility] PH: [phone] FX: [phone] PHARMACY: [facility] INSURANCE: [employer] through his 's employment. DME: He has FWW, shower chair, grab bars, wheelchair and custom ramp. Continue to explore with therapy team for new needs as patient progresses toward discharge. BARRIERS FOR DISCHARGE: Patient gait and stability, he seems to have monitor/support when home. When his mom is there the 6 day stay, she is not able to lift or physically support him, so he will need to have a level of independence for essential self care. CONTACTS: Amee Reid, Patient did not list any other contacts at this time, his mother is 80 and he did not wish to list her. Patient and Amee have a blended marriage with children, patient has a son in [facility] who works ID with a [employer] and his daughter is in [place] as a traveling RN. Amee has 3 children, blended family has several grandchildren. Patient understood the purpose and process for weekly patient conference, first review June 14, 2019. Patient has expressed his goal is to return home as before, and that some day he would like to be able to ride his horse again.
[2019-06-12 16:00] VITALS: BP 121/74
[2019-06-12] MEDS: DULoxetine 30 MG (CYMBALTA) CAP PO SCH (21:31)
[2019-06-13 05:51] VITALS: BP 105/67
[2019-06-13] MEDS: KCL 10 MEQ TAB (MICRO K) PO SCH ×2 (06:12→17:44)
[2019-06-13] MEDS: DOCUSATE SODIUM 100 MG (COLACE) CAP PO SCH ×2 (09:54→21:56)
[2019-06-13] MEDS: FUROSEMIDE 40 MG/4 ML INJ (LASIX) IVP SCH (09:54)
[2019-06-13] MEDS: GABAPENTIN 300 MG (NEURONTIN) CAP PO SCH ×3 (09:54→21:56)
[2019-06-13] MEDS: SENNA W/DOCUSATE (SENOKOT S) TABLET PO SCH ×2 (09:54→21:56)
[2019-06-13] MEDS: polyethylene glycoL POWDER 17 GM (MIRALAX) PACK PO SCH ×2 (09:54→19:49)
--- NOTE | 2019-06-13 10:20 | PM&R Progress Note ---
Subjective HPI/CC On Admission Date Seen by Provider: June 13, 2019 Time Seen by Provider: 10:15 Subjective/Events-last exam Pt doing very well Ultram and Baclofen really has helped his stiffness and muscle pain Bowels are moving Edema is much improved, tolerating Lasix IV daily with Potassium supplementation Bowels are moving Eating and drinking well Overall responding to aggressive structured PT Check meds and labs Conferred with RN Reviewed therapy notes Maintained on potassium supplement Review of Systems General: Fatigue Neurological: Weakness, Numbness, Incoordination Objective Exam Vital Signs Vital Signs Date Time Temp Pulse Resp B/P (MAP) Pulse Ox O2 Delivery O2 Flow Rate FiO2 06/13/19 17:14 36.7 73 16 116/73 (87) 94 Room Air Capillary Refill : Less Than 3 Seconds General Appearance: No Apparent Distress, WD/WN, Anxious, Chronically ill HEENT: PERRL/EOMI, Normal ENT Inspection, Pharynx Normal Neck: Full Range of Motion, Normal Inspection, Non Tender, Supple, Carotid Bruit Respiratory: Chest Non Tender, Lungs Clear, Normal Breath Sounds, No Accessory Muscle Use, No Respiratory Distress Cardiovascular: Regular Rate, Rhythm, No Edema, No Gallop, No JVD, No Murmur, Normal Peripheral Pulses Gastrointestinal: Normal Bowel Sounds, No Organomegaly, No Pulsatile Mass, Non Tender, Soft Back: Normal Inspection, No CVA Tenderness, No Vertebral Tenderness Extremity: Normal Capillary Refill, Normal Inspection, Normal Range of Motion, Non Tender, No Calf Tenderness Neurologic/Psychiatric: Alert, Oriented x3, Normal Mood/Affect, licensed prosthetist/orthotist II-XII Norm as Tested, Abnormal Gait, Motor Weakness (lower extremities), Sensory Deficit Skin: Normal Color, Warm/Dry Lymphatic: No Adenopathy Results/Procedures Lab Patient resulted labs reviewed. FIM Transfers Therapy Code Descriptions/Definitions Functional [place] Measure: 0=Not Assessed/NA 4=Minimal Assistance 1=Total Assistance 5=Supervision or Setup 2=Maximal Assistance 6=Modified [place] 3=Moderate Assistance 7=Complete IndependenceSCALE: Activities may be completed with or without assistive devices. 3-Gpyxeoszyq-tjfozaa completes the activity by him/herself with no assistance from a helper. 5-Set-up or Clean-up Assistance-helper sets up or cleans up; patient completes activity. [place] assists only prior to or following the activity. 4-Supervision or Touching Assistance-helper provides verbal cues and/or touching/steadying and/or contact guard assistance as patient completes activity. Assistance may be provided throughout the activity or intermittently. 3-Partial/Moderate Assistance-helper does LESS THAN HALF the effort. [place] lifts, holds or supports trunk or limbs, but provides less than half the effort. 2-Substantial/Maximal Assistance-helper does MORE THAN HALF the effort. [place] lifts or holds trunk or limbs and provides more than half the effort. 1-Rfezvxwly-heqtkx does ALL the effort. Patient does none of the effort to complete the activity. Or, the assistance of 2 or more helpers is required for the patient to complete the activity. If activity was not attempted, code reason: 7-Patient Refused. 9-Not Applicable-not attempted and the patient did not perform the activity before the current illness, exacerbation or injury. 10-Not Attempted due to Environmental Limitations-(lack of equipment, weather restraints, etc.). 88-Not Attempted due to Medical Conditions or Safety Concerns. Roll Left to Right (QC): 1 Sit to Lying (QC): 1 Sit to Stand (QC): 3 (x 3 trials with VCS for sequencing, increasing level of assist required with each trial) Chair/Cza-pe-Jctfi Xfer(QC): 3 Car Transfer (QC): 3 Gait Training Does the Patient Walk?: Yes Walk 10 feet (QC): 1 Walk 50 ft with 2 Turns(QC): 88 Walk 150 ft (QC): 88 Walking 10ft/uneven surface-QC: 88 Gait Assistive Device: FWW Wheelchair Training Does the Pt Use a Wheelchair?: No Wheel 50 ft with 2 turns (QC): 9 Wheel 150 ft (QC): 9 Type of Wheelchair: Manual Stair Training 1 Step (curb) (QC): 9 4 Steps (QC): 9 12 Steps (QC): 9 Balance Picking up an Object (QC): 88 ADL-Treatment Eating (QC): 5 (s/u for items requiring opening/ cutting.) Oral Hygiene (QC): 5 (s/u based on clinical judgment.) Bathing Location: L Arm, R Arm, L Upper Leg, R Upper Leg, Chest, Abdomen, Perineal Area Shower/Bathe Self (QC): 1 (2 person to stand and cleanse buttocks.) Upper Body Dressing (QC): 3 Lower Body Dressing (QC): 1 (2 person to stand and hike pants.) On/Off Footwear (QC): 2 Toileting Hygiene (QC): 1 (TD due to balance/ requirement of two people for task.) Assessment/Plan Assessment and Plan Assess & Plan/Chief Complaint Assessment: s/p lumbar stenosis surgery Severe debility started after c-spine surgery 03/2019 Anasarca receiving IV Lasix with good results OA Chronic back pain Former smoker Hypokalemia Plan: Potassium supplement IRF protocol Bumex DC Maintain Lasix 40mg IV daily Midline Dramatic improvement since admit (1) Spinal stenosis (2) Anasarca (3) Former smoker (4) Neuropathy (5) Hypokalemia (6) Edema (7) Dyspnea DIANA PITTMAN DO June 13, 2019 10:20
--- NOTE | 2019-06-13 10:46 | Physical Therapy Daily Note ---
PT Daily Note-Current Subjective Pt sitting in W/C in Therapy Gym after just finishing with OT. Pt agrees to PT. Pt reports back spasm with movement. Pain Numeric Pain Scale: 5-Moderate Pain Location Body Site: Back Pain Description: Ache, Tightness Mental Status Patient Orientation: Person, Place, Situation Attachments: Other-See Comments (Back Brace) Transfers SCALE: Activities may be completed with or without assistive devices. 1-Rmozqbgffs-gfpxpqg completes the activity by him/herself with no assistance from a helper. 5-Set-up or Clean-up Assistance-helper sets up or cleans up; patient completes activity. [place] assists only prior to or following the activity. 4-Supervision or Touching Assistance-helper provides verbal cues and/or touching/steadying and/or contact guard assistance as patient completes activity. Assistance may be provided throughout the activity or intermittently. 3-Partial/Moderate Assistance-helper does LESS THAN HALF the effort. [place] lifts, holds or supports trunk or limbs, but provides less than half the effort. 2-Substantial/Maximal Assistance-helper does MORE THAN HALF the effort. [place] lifts or holds trunk or limbs and provides more than half the effort. 5-Dgoivepmg-azlujn does ALL the effort. Patient does none of the effort to complete the activity. Or, the assistance of 2 or more helpers is required for the patient to complete the activity. If activity was not attempted, code reason: 7-Patient Refused. 9-Not Applicable-not attempted and the patient did not perform the activity before the current illness, exacerbation or injury. 10-Not Attempted due to Environmental Limitations-(lack of equipment, weather restraints, etc.). 88-Not Attempted due to Medical Conditions or Safety Concerns. Sit to Stand (QC): 5 Weight Bearing Right Lower Extremity: Right Full Weight Bearing Left Lower Extremity: Left Full Weight Bearing Gait Training Does the Patient Walk?: Yes Distance: 8' x3 Walk 10 feet (QC): 4 Gait Persons Needed: 1 Gait Assistive Device: Parallel Bars Wheelchair Training Does the Pt Use a Wheelchair?: Yes Wheel 50 ft with 2 turns (QC): 4 Wheel 150 ft (QC): 4 Type of Wheelchair: Manual Pt needs occasional assistance due to weakness and lacking city supervisor strength on L UE. Exercises Seated Therapy Exercises: Ankle pumps, Long arc quads, Hip flexion, Kicking activity Seated Reps: 20 NuStep Minutes: 10 NuStep Workload: 2 Treatments Pt completes Seated EX as well as uses NuStep for 10m at WL 2 to focus on increasing strength and activity tolerance. Pt ambulates in //bars x3 attempts focusing on standing up straight and proper turns. Pt uses WCH to propel in hallway, needing occasional assistance on L side. Pt returns to room and transfers to recliner to rest. Pt has all needs met, call light in hand. Assessment Current Status: Good Progress Pt is gaining strength and improving on independence with tasks including transfers. PT Short Term Goals Short Term Goals Time Frame: June 16, 2019 Roll Left & Right: 4 Sit to lyin Lying to sitting on side of be: 4 PT Bakeshop Cleaner Goals Custodial Goals PT Custodial Goals Time Frame: June 30, 2019 Roll Left & Right (QC): 6 Sit to Lying (QC): 6 Lying-Sitting on Side/Bed(QC): 6 Sit to Stand (QC): 6 Chair/Hfk-iq-Ghhjf Xfer(QC): 6 Toilet Transfer (QC): 6 Car Transfer (QC): 4 Does the Patient Walk: Yes Walk 10 feet (QC): 6 Walk 50ft with 2 Turns (QC): 6 Walk 150 ft (QC): 6 Walking 10ft on Uneven Surface: 4 1 Step (curb) (QC): 9 4 Steps (QC): 9 12 Steps (QC): 9 Picking up an Object (QC): 9 (Pt will utilize adaptive equipment due to back precautions) Does the Pt use WC or Scooter?: No Wheel 50 feet with 2 turns (QC: 9 Type: N/A Wheel 150 feet: 9 Type: N/A PT Plan Problem List Problem List: Activity Tolerance, Functional Strength, Gait, Bed Mobility Treatment/Plan Treatment Plan: Continue Plan of Care Treatment Plan: Bed Mobility, Education, Functional Activity Johny, Functional Strength, Group Therapy, Gait, Safety, Therapeutic Exercise, Transfers Treatment Duration: June 30, 2019 Frequency: 6 times per week Estimated Hrs Per Day: 1.5 hours per day Patient and/or Family Agrees t: Yes Safety Risks/Education Patient Education: Gait Training, Transfer Techniques, Correct Positioning, W/C Management, Safety Issues Teaching Recipient: Patient Teaching Methods: Discussion Response to Teaching: Verbalize Understanding Time/GCodes Time In: 830 Time Out: 930 Total Billed Treatment Time: 60 Total Billed Treatment 1, EX x2 (25m), GT (20m) & WCH (15m) MOHAN SHAW FLIGHT PHYSICIAN June 13, 2019 10:46
--- NOTE | 2019-06-13 11:21 | Occupational Ther Daily Note ---
OT Current Status-Daily Note Subjective Pt alert, sitting in recliner. Pt agrees to therapy. C/o pain during middle of session, did not rate, reported to nrsg. Mental Status/Objective Patient Orientation: Person, Place, Time, Situation Attachments: IV (midline) ADL-Treatment Therapy Code Descriptions/Definitions Functional [place] Measure: 0=Not Assessed/NA 4=Minimal Assistance 1=Total Assistance 5=Supervision or Setup 2=Maximal Assistance 6=Modified [place] 3=Moderate Assistance 7=Complete IndependenceSCALE: Activities may be completed with or without assistive devices. 6-Cixbzeelpn-bbteudc completes the activity by him/herself with no assistance from a helper. 5-Set-up or Clean-up Assistance-helper sets up or cleans up; patient completes activity. [place] assists only prior to or following the activity. 4-Supervision or Touching Assistance-helper provides verbal cues and/or touching/steadying and/or contact guard assistance as patient completes activity. Assistance may be provided throughout the activity or intermittently. 3-Partial/Moderate Assistance-helper does LESS THAN HALF the effort. [place] lifts, holds or supports trunk or limbs, but provides less than half the effort. 2-Substantial/Maximal Assistance-helper does MORE THAN HALF the effort. [place] lifts or holds trunk or limbs and provides more than half the effort. 6-Yqjwgmktu-pcvrio does ALL the effort. Patient does none of the effort to complete the activity. Or, the assistance of 2 or more helpers is required for the patient to complete the activity. If activity was not attempted, code reason: 7-Patient Refused. 9-Not Applicable-not attempted and the patient did not perform the activity before the current illness, exacerbation or injury. 10-Not Attempted due to Environmental Limitations-(lack of equipment, weather restraints, etc.). 88-Not Attempted due to Medical Conditions or Safety Concerns. Other Treatment Mod A for sit to stand using lift chair. Pt requires time in between large movement to relax muscles to be able to complete next movements fluidly. Pt transferred to w/c with increased time using FWW and CGA. Assist to therapy gym via w/c. Pt completed 10 min with arm bike, minimal resistance to increase AROM and activity tolerance for daily functional tasks. Mod A for sitting to supine on therapy mat. Working on stretch and massage to L UE to increase AROM and smooth movements. Pt continues to be stiff and tight throughout body which hinders movements and functional tasks. PT took over care of pt in therapy gym. All needs met. OT Short Term Goals Short Term Goals Shower/bathe self: 3 Upper body dressin Lower body dressin OT Climate Change Analyst Goals Longterm Goals Time Frame: June 30, 2019 Eating (QC): 6 Oral Hygiene (QC): 6 Toileting Hygiene (QC): 6 Shower/Bathe Self (QC): 6 Upper Body Dressing (QC): 6 Lower Body Dressing (QC): 6 On/Off Footwear (QC): 6 Additional Goals: 1-Demonstrate ADL Tasks, 2-Verbalize Understanding, 3- ImproveStrength/Johny 1=Demonstrate adherence to instructed precautions during ADL tasks. 2=Patient will verbalize/demonstrate understanding of assistive devices/modifications for ADL. 3=Patient will improve strength/tolerance for activity to enable patient to perform ADL's. OT Education/Plan Problem List/Assessment Assessment: Decreased Activ Tolerance, Dependent Transfers, Edema, Impaired Bed Mobility, Impaired Coordination, Impaired Funct Balance, Impaired Self-Care Skills, Restricted Funct UE ROM Discharge Recommendations Plan/Recommendations: Continue POC Treatment Plan/Plan of Care Patient would benefit from OT for education, treatment and training to promote independence in ADL's, mobility, safety and/or upper extremity function for ADL's. Plan of Care: ADL Retraining, Caregiver Training, Concurrent Therapy, Function al Mobility, Group Exercise/Act as Ind, UE Funct Exercise/Act, UE Neuromus Re- Ed/Coord, W/C Management Training Treatment Duration: June 30, 2019 Frequency: At least 5 of 7 days/Wk (IRF) Estimated Hrs Per Day: 1.5 hours per day Agreement: Yes Rehab Potential: Guarded Time/GCodes Start Time: 07:30 Stop Time: 08:30 Total Time Billed (hr/min): 60 Billed Treatment Time 1 visit-EX 4 (60 min) EVELIN ERWIN June 13, 2019 11:21
--- NOTE | 2019-06-13 11:55 | Occupational Ther Daily Note ---
OT Current Status-Daily Note Subjective Pt alert, sitting in recliner. Pt agrees to therapy. No c/o pain at this time. Mental Status/Objective Patient Orientation: Person, Place, Time, Situation Attachments: IV (midline) ADL-Treatment Pt working on lower body dressing with equipment. Pt utilized dressing stick and welding machine assembler to don belt over feet. Pt prefers welding machine assembler for donning pants. Did not work on standing to hike pants over hips at this time. Pt used dressing stick to doff socks and sock aide to don socks. Pt takes increased time to complete dressing due to slow movements and decrease pre kindergarten teacher pinch strength with L hand. After session, pt sitting in recliner with call light/phone in reach. All needs met in room. Therapy Code Descriptions/Definitions Functional [place] Measure: 0=Not Assessed/NA 4=Minimal Assistance 1=Total Assistance 5=Supervision or Setup 2=Maximal Assistance 6=Modified [place] 3=Moderate Assistance 7=Complete IndependenceSCALE: Activities may be completed with or without assistive devices. 2-Rtfjrqptli-msnqzgl completes the activity by him/herself with no assistance from a helper. 5-Set-up or Clean-up Assistance-helper sets up or cleans up; patient completes activity. [place] assists only prior to or following the activity. 4-Supervision or Touching Assistance-helper provides verbal cues and/or touching/steadying and/or contact guard assistance as patient completes activity. Assistance may be provided throughout the activity or intermittently. 3-Partial/Moderate Assistance-helper does LESS THAN HALF the effort. [place] lifts, holds or supports trunk or limbs, but provides less than half the effort. 2-Substantial/Maximal Assistance-helper does MORE THAN HALF the effort. [place] lifts or holds trunk or limbs and provides more than half the effort. 8-Wqlzkibsj-kxgsah does ALL the effort. Patient does none of the effort to complete the activity. Or, the assistance of 2 or more helpers is required for the patient to complete the activity. If activity was not attempted, code reason: 7-Patient Refused. 9-Not Applicable-not attempted and the patient did not perform the activity before the current illness, exacerbation or injury. 10-Not Attempted due to Environmental Limitations-(lack of equipment, weather restraints, etc.). 88-Not Attempted due to Medical Conditions or Safety Concerns. OT Short Term Goals Short Term Goals Shower/bathe self: 3 Upper body dressin Lower body dressin OT Maintenance Engineer Goals Maintenance Engineer Goals Time Frame: June 30, 2019 Eating (QC): 6 Oral Hygiene (QC): 6 Toileting Hygiene (QC): 6 Shower/Bathe Self (QC): 6 Upper Body Dressing (QC): 6 Lower Body Dressing (QC): 6 On/Off Footwear (QC): 6 Additional Goals: 1-Demonstrate ADL Tasks, 2-Verbalize Understanding, 3- ImproveStrength/Johny 1=Demonstrate adherence to instructed precautions during ADL tasks. 2=Patient will verbalize/demonstrate understanding of assistive devic es/modifications for ADL. 3=Patient will improve strength/tolerance for activity to enable patient to perform ADL's. OT Education/Plan Problem List/Assessment Assessment: Decreased Activ Tolerance, Impaired Coordination, Impaired Funct Balance, Impaired Self-Care Skills, Restricted Funct UE ROM Discharge Recommendations Plan/Recommendations: Continue POC Treatment Plan/Plan of Care Patient would benefit from OT for education, treatment and training to promote independence in ADL's, mobility, safety and/or upper extremity function for ADL's. Plan of Care: ADL Retraining, Caregiver Training, Concurrent Therapy, Functional Mobility, Group Exercise/Act as Ind, UE Funct Exercise/Act, UE Neuromus Re-Ed/Coord, W/C Management Training Treatment Duration: June 30, 2019 Frequency: At least 5 of 7 days/Wk (IRF) Estimated Hrs Per Day: 1.5 hours per day Agreement: Yes Rehab Potential: Guarded Time/GCodes Start Time: 11:20 Stop Time: 11:50 Total Time Billed (hr/min): 30 Billed Treatment Time 1 visit-FA 2 (30 min) EVELIN ERWIN June 13, 2019 11:55
--- NOTE | 2019-06-13 12:00 | Occupational Ther Daily Note ---
OT Current Status-Daily Note Subjective LATE ENTRY FOR 06/12/2019: Pt alert, sitting in recliner. Pt agrees to therapy. No c/o pain at this time. ADL-Treatment Therapy Code Descriptions/Definitions Functional [place] Measure: 0=Not Assessed/NA 4=Minimal Assistance 1=Total Assistance 5=Supervision or Setup 2=Maximal Assistance 6=Modified [place] 3=Moderate Assistance 7=Complete IndependenceSCALE: Activities may be completed with or without assistive devices. 8-Bhgufbmzut-mmyaorp completes the activity by him/herself with no assistance from a helper. 5-Set-up or Clean-up Assistance-helper sets up or cleans up; patient completes activity. [place] assists only prior to or following the activity. 4-Supervision or Touching Assistance-helper provides verbal cues and/or touching/steadying and/or contact guard assistance as patient completes ac tivity. Assistance may be provided throughout the activity or intermittently. 3-Partial/Moderate Assistance-helper does LESS THAN HALF the effort. [place] lifts, holds or supports trunk or limbs, but provides less than half the effort. 2-Substantial/Maximal Assistance-helper does MORE THAN HALF the effort. [place] lifts or holds trunk or limbs and provides more than half the effort. 8-Edpsnxtcn-dweyrs does ALL the effort. Patient does none of the effort to complete the activity. Or, the assistance of 2 or more helpers is required for the patient to complete the activity. If activity was not attempted, code reason: 7-Patient Refused. 9-Not Applicable-not attempted and the patient did not perform the activity before the current illness, exacerbation or injury. 10-Not Attempted due to Environmental Limitations-(lack of equipment, weather restraints, etc.). 88-Not Attempted due to Medical Conditions or Safety Concerns. Other Treatment OT/PT co-treat, skills of 2 clinicians required due to pt medical complexity, decreased overall strength, decreased mobility and low activity tolerance. PT working on transfers, ambulation and B LE strengthening. OT working on functional transfers, hand placement during transfers/ambulation and ADLs. Mod A x2 for sit to stand then SPT using FWW from chair to w/c. Pt propelled w/c to therapy gym with assistance to keep straight. Pt working on ambulation with parallel bars, see PT note for progress. Pt also working on static standing in parallel bars while lifting one hand off of bar at a time to simulate hiking pants over hips. Pt had difficulty maintaining balance during lifting one hand off of bar. After session, pt sitting in recliner with call light/phone in reach. All needs met in room. OT Short Term Goals Short Term Goals Shower/bathe self: 3 Upper body dressin Lower body dressin OT Wired Sweatband Cutter Goals Nursing Home Goals Time Frame: June 30, 2019 Eating (QC): 6 Oral Hygiene (QC): 6 Toileting Hygiene (QC): 6 Shower/Bathe Self (QC): 6 Upper Body Dressing (QC): 6 Lower Body Dressing (QC): 6 On/Off Footwear (QC): 6 Additional Goals: 1-Demonstrate ADL Tasks, 2-Verbalize Understanding, 3- ImproveStrength/Johny 1=Demonstrate adherence to instructed precautions during ADL tasks. 2=Patient will verbalize/demonstrate understanding of assistive devices/modifications for ADL. 3=Patient will improve strength/tolerance for activity to enable patient to perform ADL's. OT Education/Plan Discharge Recommendations Plan/Recommendations: Continue POC Treatment Plan/Plan of Care Patient would benefit from OT for education, treatment and training to promote independence in ADL's, mobility, safety and/or upper extremity function for ADL's. Plan of Care: ADL Retraining, Caregiver Training, Concurrent Therapy, Functional Mobility, Group Exercise/Act as Ind, UE Funct Exercise/Act, UE Neuromus Re-Ed/Coord, W/C Management Training Treatment Duration: June 30, 2019 Frequency: At least 5 of 7 days/Wk (IRF) Estimated Hrs Per Day: 1.5 hours per day Agreement: Yes Rehab Potential: Guarded Time/GCodes Start Time: 13:00 Stop Time: 13:30 Total Time Billed (hr/min): 30 Billed Treatment Time 1 visit-FA 2 (30 min) co-treat with PT 30 min ([id number]) EVELIN ERWIN June 13, 2019 12:00
--- NOTE | 2019-06-13 12:39 | Cardiology Progress Note ---
Cardiology SOAP Progress Note Subjective: No active cardiac complaints. Objective: I&O/Vital Signs 06/13/19 05:51 Temp 36.7 Pulse 69 Resp 20 B/P (MAP) 105/67 (80) Pulse Ox 93 O2 Delivery Room Air 06/13/19 00:00 Intake Total 850 ml Balance 850 ml Constitutional: No appears stated age; AAO x 3; No apparent distress; PERRL, well-developed, well-nourished; No other Respiratory: chest is bilaterally symmetric, lungs clear to auscultation Cardiovascular: regular rate-rhythm; No irregularly irregular, No extra beats, No parasternal heave is noted, No JVD, No edema, No bradycardia, No tachycardia, No point of maximal impulse, No cardiac thrills are palpable; S1 and S2; No gallop/S3, No gallop/S4, No diastolic murmur, No systolic murmur, No friction rub, No click, No other Gastrointestional: soft, audible bowel sounds Extremities: normal range of motion, non-tender, normal inspection, pedal edema Neurologic/Psychiatric: no motor/sensory deficits, alert, normal mood/affect, oriented x 3 Skin: normal color A/P: Assessment/Dx: Status post back surgery, Lower extremity swelling, right worse than left, Active smoking. Plan: Continue aggressive inpatient rehabilitation. Lower extremity swelling, right worse than the left, venous ultrasound was negative for DVT. Echocardiogram showed normal LV and RV size and function. No valvular heart disease. It is very unlikely that lower external to swelling is due to a cardiac etiology. Active smoking, smoking cessation was strongly recommended. Patient recently quit. Thank you for your consultation. Please call me if you have any questions. Marie Ovalle MD, FACP, FACC, FSCAI, FHRS, CCDS Interventional Cardiology Cardiac Electrophysiology Vascular Medicine and Endovascular Interventions Nicole OVALLE MD June 13, 2019 12:39
--- NOTE | 2019-06-13 14:14 | Physical Therapy Daily Note ---
PT Daily Note-Current Subjective Pt sitting in recliner upon arrival. Pt agrees to PT, reporting a little fatigue but feeling better. Pain Numeric Pain Scale: 5-Moderate Pain Location Body Site: Back Pain Description: Tightness Mental Status Patient Orientation: Person, Place, Situation Attachments: Other-See Comments (Back Brace) Transfers SCALE: Activities may be completed with or without assistive devices. 5-Zznpfphzit-julaylo completes the activity by him/herself with no assistance from a helper. 5-Set-up or Clean-up Assistance-helper sets up or cleans up; patient completes activity. [place] assists only prior to or following the activity. 4-Supervision or Touching Assistance-helper provides verbal cues and/or touching/steadying and/or contact guard assistance as patient completes a ctivity. Assistance may be provided throughout the activity or intermittently. 3-Partial/Moderate Assistance-helper does LESS THAN HALF the effort. [place] lifts, holds or supports trunk or limbs, but provides less than half the effort. 2-Substantial/Maximal Assistance-helper does MORE THAN HALF the effort. [place] lifts or holds trunk or limbs and provides more than half the effort. 9-Gmcrmatom-orbvza does ALL the effort. Patient does none of the effort to complete the activity. Or, the assistance of 2 or more helpers is required for the patient to complete the activity. If activity was not attempted, code reason: 7-Patient Refused. 9-Not Applicable-not attempted and the patient did not perform the activity before the current illness, exacerbation or injury. 10-Not Attempted due to Environmental Limitations-(lack of equipment, weather restraints, etc.). 88-Not Attempted due to Medical Conditions or Safety Concerns. Weight Bearing Right Lower Extremity: Right Full Weight Bearing Left Lower Extremity: Left Full Weight Bearing Exercises Supine Ex: Ankle pumps, Quad Set, Glut sets, Heel Slides, Short Arc Quads, Straight leg raise, Hip abd/add Supine Reps: 20 Seated Therapy Exercises: Ankle pumps, Long arc quads, Hip flexion, Kicking activity, Glut set Seated Reps: 15 Treatments NURSING SERVICE DIRECTOR issues written HEP for Supine & Seated Ex and reviews with pt. Pt resting at end of Rx with all needs met, call light next to pt. Assessment Current Status: Good Progress Pt tolerates Rx well. PT Short Term Goals Short Term Goals Time Frame: June 16, 2019 Roll Left & Right: 4 Sit to lyin Lying to sitting on side of be: 4 PT Custodial Goals Custodial Goals PT Custodial Goals Time Frame: June 30, 2019 Roll Left & Right (QC): 6 Sit to Lying (QC): 6 Lying-Sitting on Side/Bed(QC): 6 Sit to Stand (QC): 6 Chair/Yws-ms-Bvvmn Xfer(QC): 6 Toilet Transfer (QC): 6 Car Transfer (QC): 4 Does the Patient Walk: Yes Walk 10 feet (QC): 6 Walk 50ft with 2 Turns (QC): 6 Walk 150 ft (QC): 6 Walking 10ft on Uneven Surface: 4 1 Step (curb) (QC): 9 4 Steps (QC): 9 12 Steps (QC): 9 Picking up an Object (QC): 9 (Pt will utilize adaptive equipment due to back precautions) Does the Pt use WC or Scooter?: No Wheel 50 feet with 2 turns (QC: 9 Type: N/A Wheel 150 feet: 9 Type: N/A PT Plan Problem List Problem List: Activity Tolerance, Functional Strength, Safety, Balance, Gait Treatment/Plan Treatment Plan: Continue Plan of Care Treatment Plan: Bed Mobility, Education, Functional Activity Johny, Functional Strength, Group Therapy, Gait, Safety, Therapeutic Exercise, Transfers Treatment Duration: June 30, 2019 Frequency: 6 times per week Estimated Hrs Per Day: 1.5 hours per day Patient and/or Family Agrees t: Yes Safety Risks/Education Patient Education: Correct Positioning, Safety Issues Teaching Recipient: Patient Teaching Methods: Discussion Response to Teaching: Verbalize Understanding Time/GCodes Time In: 1300 Time Out: 1330 Total Billed Treatment Time: 30 Total Billed Treatment 1, EX x2 (30m) MOHAN SHAW PTA June 13, 2019 14:14
[2019-06-13 17:14] VITALS: BP 116/73
[2019-06-13] MEDS: DULoxetine 30 MG (CYMBALTA) CAP PO SCH (21:56)
[2019-06-14 05:53] VITALS: BP 120/74
[2019-06-14] MEDS: KCL 10 MEQ TAB (MICRO K) PO SCH ×2 (06:17→16:36)
[2019-06-14 07:47] VITALS: BP 127/69
[2019-06-14] MEDS: GABAPENTIN 300 MG (NEURONTIN) CAP PO SCH ×3 (07:49→20:40)
[2019-06-14] MEDS: SENNA W/DOCUSATE (SENOKOT S) TABLET PO SCH ×2 (07:49→20:40)
[2019-06-14] MEDS: FUROSEMIDE 40 MG/4 ML INJ (LASIX) IVP SCH (07:49)
[2019-06-14] MEDS: DOCUSATE SODIUM 100 MG (COLACE) CAP PO SCH ×2 (07:49→20:40)
[2019-06-14] MEDS: polyethylene glycoL POWDER 17 GM (MIRALAX) PACK PO SCH ×2 (09:21→21:24)
--- NOTE | 2019-06-14 09:24 | Cardiology Progress Note ---
Cardiology SOAP Progress Note Subjective: I saw him in the gym while exercising. No cardiac complaints. Denies any shortness of breath. Objective: I&O/Vital Signs 06/14/19 06/14/19 05:53 07:47 Temp 36.7 Pulse 69 90 Resp 20 B/P (MAP) 120/74 (89) 127/69 (88) Pulse Ox 95 O2 Delivery Room Air 06/13/19 23:59 Intake Total 1515 ml Output Total 1450 ml Balance 65 ml Constitutional: No appears stated age; AAO x 3; No apparent distress; PERRL, well-developed, well-nourished; No other Respiratory: chest is bilaterally symmetric, lungs clear to auscultation Cardiovascular: regular rate-rhythm; No irregularly irregular, No extra beats, No parasternal heave is noted, No JVD, No edema, No bradycardia, No tachycardia, No point of maximal impulse, No cardiac thrills are palpable; S1 and S2; No gallop/S3, No gallop/S4, No diastolic murmur, No systolic murmur, No friction rub, No click, No other Gastrointestional: soft, audible bowel sounds Extremities: normal range of motion, non-tender, normal inspection, pedal edema Neurologic/Psychiatric: no motor/sensory deficits, alert, normal mood/affect, oriented x 3 Skin: normal color A/P: Assessment/Dx: Status post back surgery, Lower extremity swelling, right worse than left, Active smoking. Plan: Continue aggressive inpatient rehabilitation. Lower extremity swelling, right worse than the left, venous ultrasound was negative for DVT. Echocardiogram showed normal LV and RV size and function. No valvular heart disease. Active smoking, smoking cessation was strongly recommended. Patient recently quit; does not want to start again. Thank you for your consultation. Please call me if you have any questions. Marie Ovalle MD, FACP, FACC, FSCAI, FHRS, CCDS Interventional Cardiology Cardiac Electrophysiology Vascular Medicine and Endovascular Interventions Nicole OVALLE MD June 14, 2019 09:23
--- NOTE | 2019-06-14 10:13 | PM&R Progress Note ---
Subjective HPI/CC On Admission Date Seen by Provider: June 14, 2019 Time Seen by Provider: 10:15 Subjective/Events-last exam Baclofen caused too much sedation Real muscle stiffness precluding rapid recovery I did talk to Dr. Michael and we started Zanaflex 4mg PO TID Edema is much improved, tolerating Lasix IV daily with Potassium supplementation Bowels are moving Eating and drinking well Overall responding to aggressive structured PT Check meds and labs Conferred with RN Reviewed therapy notes Maintained on potassium supplement Review of Systems General: Fatigue Musculoskeletal: other (muscle pain) Neurological: Weakness, Numbness, Incoordination Objective Exam Vital Signs Vital Signs Date Time Temp Pulse Resp B/P (MAP) Pulse Ox O2 Delivery O2 Flow Rate FiO2 06/14/19 17:05 36.1 71 18 110/63 (79) 95 Room Air Capillary Refill : Less Than 3 Seconds General Appearance: No Apparent Distress, WD/WN, Anxious, Chronically ill HEENT: PERRL/EOMI, Normal ENT Inspection, Pharynx Normal Neck: Full Range of Motion, Normal Inspection, Non Tender, Supple, Carotid Bruit Respiratory: Chest Non Tender, Lungs Clear, Normal Breath Sounds, No Accessory Muscle Use, No Respiratory Distress Cardiovascular: Regular Rate, Rhythm, No Edema, No Gallop, No JVD, No Murmur, Normal Peripheral Pulses Gastrointestinal: Normal Bowel Sounds, No Organomegaly, No Pulsatile Mass, Non Tender, Soft Back: Normal Inspection, No CVA Tenderness, No Vertebral Tenderness Extremity: Normal Capillary Refill, Normal Inspection, Normal Range of Motion, Non Tender, No Calf Tenderness Neurologic/Psychiatric: Alert, Oriented x3, Normal Mood/Affect, auto washer II-XII Norm as Tested, Abnormal Gait, Motor Weakness (lower extremities), Sensory Deficit Skin: Normal Color, Warm/Dry Lymphatic: No Adenopathy Results/Procedures Lab Patient resulted labs reviewed. FIM Transfers Therapy Code Descriptions/Definitions Functional [place] Measure: 0=Not Assessed/NA 4=Minimal Assistance 1=Total Assistance 5=Supervision or Setup 2=Maximal Assistance 6=Modified [place] 3=Moderate Assistance 7=Complete IndependenceSCALE: Activities may be completed with or without assistive devices. 9-Tpwfeiksrc-htpoklz completes the activity by him/herself with no assistance from a helper. 5-Set-up or Clean-up Assistance-helper sets up or cleans up; patient completes activity. [place] assists only prior to or following the activity. 4-Supervision or Touching Assistance-helper provides verbal cues and/or touching/steadying and/or contact guard assistance as patient completes activity. Assistance may be provided throughout the activity or intermittently. 3-Partial/Moderate Assistance-helper does LESS THAN HALF the effort. [place] lifts, holds or supports trunk or limbs, but provides less than half the effort. 2-Substantial/Maximal Assistance-helper does MORE THAN HALF the effort. [place] lifts or holds trunk or limbs and provides more than half the effort. 0-Fnxqditrt-ldicax does ALL the effort. Patient does none of the effort to complete the activity. Or, the assistance of 2 or more helpers is required for the patient to complete the activity. If activity was not attempted, code reason: 7-Patient Refused. 9-Not Applicable-not attempted and the patient did not perform the activity before the current illness, exacerbation or injury. 10-Not Attempted due to Environmental Limitations-(lack of equipment, weather restraints, etc.). 88-Not Attempted due to Medical Conditions or Safety Concerns. Roll Left to Right (QC): 1 Sit to Lying (QC): 1 Sit to Stand (QC): 5 Chair/Pnz-hz-Xaljw Xfer(QC): 3 Car Transfer (QC): 3 Gait Training Does the Patient Walk?: Yes Distance: 8' x3 Walk 10 feet (QC): 4 Walk 50 ft with 2 Turns(QC): 88 Walk 150 ft (QC): 88 Walking 10ft/uneven surface-QC: 88 Gait Persons Needed: 1 Gait Assistive Device: Parallel Bars Wheelchair Training Does the Pt Use a Wheelchair?: Yes Wheel 50 ft with 2 turns (QC): 4 Wheel 150 ft (QC): 4 Type of Wheelchair: Manual Stair Training 1 Step (curb) (QC): 9 4 Steps (QC): 9 12 Steps (QC): 9 Balance Picking up an Object (QC): 88 ADL-Treatment Eating (QC): 5 (s/u for items requiring opening/ cutting.) Oral Hygiene (QC): 5 (s/u based on clinical judgment.) Bathing Location: L Arm, R Arm, L Upper Leg, R Upper Leg, Chest, Abdomen, Perineal Area Shower/Bathe Self (QC): 1 (2 person to stand and cleanse buttocks.) Upper Body Dressing (QC): 3 Lower Body Dressing (QC): 1 (2 person to stand and hike pants.) On/Off Footwear (QC): 2 Toileting Hygiene (QC): 1 (TD due to balance/ requirement of two people for task.) Assessment/Plan Assessment and Plan Assess & Plan/Chief Complaint Assessment: s/p lumbar stenosis surgery Severe debility started after c-spine surgery 03/2019 Anasarca receiving IV Lasix with good results OA Chronic back pain Former smoker Hypokalemia Severe muscle stiffness Plan: Potassium supplement IRF protocol Bumex DC Maintain Lasix 40mg IV but change to ever other day Midline Dramatic improvement since admit Zanaflex (1) Spinal stenosis (2) Anasarca (3) Former smoker (4) Neuropathy (5) Hypokalemia (6) Edema (7) Dyspnea DIANA PITTMAN DO June 14, 2019 10:13
--- NOTE | 2019-06-14 10:25 | Physical Therapy Daily Note ---
PT Daily Note-Current Subjective Nursing had just taken pt to restroom upon arrival. Pt agrees to PT. Pain Numeric Pain Scale: 5-Moderate Pain Location Body Site: Back Pain Description: Tightness Comment: Pt reports back spasms. Mental Status Patient Orientation: Place, Time, Situation Attachments: Other-See Comments (Lumbar back brace) Transfers SCALE: Activities may be completed with or without assistive devices. 2-Hedabracmr-aldllhm completes the activity by him/herself with no assistance from a helper. 5-Set-up or Clean-up Assistance-helper sets up or cleans up; patient completes activity. [place] assists only prior to or following the activity. 4-Supervision or Touching Assistance-helper provides verbal cues and/or touching/steadying and/or contact guard assistance as patient completes activity. Assistance may be provided throughout the activity or intermittently. 3-Partial/Moderate Assistance-helper does LESS THAN HALF the effort. [place] lifts, holds or supports trunk or limbs, but provides less than half the effort. 2-Substantial/Maximal Assistance-helper does MORE THAN HALF the effort. [place] lifts or holds trunk or limbs and provides more than half the effort. 4-Gofgqmsfb-godhlw does ALL the effort. Patient does none of the effort to complete the activity. Or, the assistance of 2 or more helpers is required for the patient to complete the activity. If activity was not attempted, code reason: 7-Patient Refused. 9-Not Applicable-not attempted and the patient did not perform the activity before the current illness, exacerbation or injury. 10-Not Attempted due to Environmental Limitations-(lack of equipment, weather restraints, etc.). 88-Not Attempted due to Medical Conditions or Safety Concerns. Sit to Stand (QC): 5 Weight Bearing Right Lower Extremity: Right Full Weight Bearing Left Lower Extremity: Left Full Weight Bearing Wheelchair Training Does the Pt Use a Wheelchair?: Yes Wheel 50 ft with 2 turns (QC): 5 Wheel 150 ft (QC): 5 Type of Wheelchair: Manual Exercises Seated Therapy Exercises: Ankle pumps, Sit to stand (5 reps), Long arc quads, Hip flexion, Kicking activity, Glut set Seated Reps: 20 Treatments Pt finishes toileting but needs assistance with pericare. Pt propels WC in hallway. Pt completes Seated EX in [facility]. Pt then completes Sit to Stands at //bars. Pt propels [facility] back to room to met OT at end of Rx. Pt has all needs met, call light next to pt. Assessment Current Status: Fair Progress Pt reports feeling weaker today than yesterday's Rx. Pt also moves at slow pace with all tasks. PT Short Term Goals Short Term Goals Time Frame: June 16, 2019 Roll Left & Right: 4 Sit to lyin Lying to sitting on side of be: 4 PT Airplane Technician Goals Halfway Goals PT Airplane Technician Goals Time Frame: June 30, 2019 Roll Left & Right (QC): 6 Sit to Lying (QC): 6 Lying-Sitting on Side/Bed(QC): 6 Sit to Stand (QC): 6 Chair/Tlu-ea-Gqllf Xfer(QC): 6 Toilet Transfer (QC): 6 Car Transfer (QC): 4 Does the Patient Walk: Yes Walk 10 feet (QC): 6 Walk 50ft with 2 Turns (QC): 6 Walk 150 ft (QC): 6 Walking 10ft on Uneven Surface: 4 1 Step (curb) (QC): 9 4 Steps (QC): 9 12 Steps (QC): 9 Picking up an Object (QC): 9 (Pt will utilize adaptive equipment due to back precautions) Does the Pt use WC or Scooter?: No Wheel 50 feet with 2 turns (QC: 9 Type: N/A Wheel 150 feet: 9 Type: N/A PT Plan Problem List Problem List: Activity Tolerance, Functional Strength, Balance, Gait Treatment/Plan Treatment Plan: Continue Plan of Care Treatment Plan: Bed Mobility, Education, Functional Activity Johny, Functional Strength, Group Therapy, Gait, Safety, Therapeutic Exercise, Transfers Treatment Duration: June 30, 2019 Frequency: 6 times per week Estimated Hrs Per Day: 1.5 hours per day Patient and/or Family Agrees t: Yes Safety Risks/Education Patient Education: Transfer Techniques, Correct Positioning, W/C Management, Safety Issues Teaching Recipient: Patient Teaching Methods: Discussion Response to Teaching: Verbalize Understanding Time/GCodes Time In: 815 Time Out: 915 Total Billed Treatment Time: 60 Total Billed Treatment 1, [facility] (20m), EX (15m) & FA x2 (25m) MOHAN SHAW BURN TABLE OPERATOR June 14, 2019 10:25
--- NOTE | 2019-06-14 11:29 | Occupational Ther Daily Note ---
OT Current Status-Daily Note Subjective Pt seen in w/c post-PT, agrees to OT. Nursing consulted for pt's request of shaving. pt states min pain, states medications are setting in. Pt states muscle spasms in night, states he hasn't tried heating pad/ may be too warm for him. ADL-Treatment Therapy Code Descriptions/Definitions Functional [place] Measure: 0=Not Assessed/NA 4=Minimal Assistance 1=Total Assistance 5=Supervision or Setup 2=Maximal Assistance 6=Modified [place] 3=Moderate Assistance 7=Complete IndependenceSCALE: Activities may be completed with or without assistive devices. 9-Nvkpepbulj-snvanuq completes the activity by him/herself with no assistance from a helper. 5-Set-up or Clean-up Assistance-helper sets up or cleans up; patient completes activity. [place] assists only prior to or following the activity. 4-Supervision or Touching Assistance-helper provides verbal cues and/or touching/steadying and/or contact guard assistance as patient completes activity. Assistance may be provided throughout the activity or intermittently. 3-Partial/Moderate Assistance-helper does LESS THAN HALF the effort. [place] lifts, holds or supports trunk or limbs, but provides less than half the effort. 2-Substantial/Maximal Assistance-helper does MORE THAN HALF the effort. [place] lifts or holds trunk or limbs and provides more than half the effort. 5-Dmqbdbuuh-ugchoc does ALL the effort. Patient does none of the effort to complete the activity. Or, the assistance of 2 or more helpers is required for the patient to complete the activity. If activity was not attempted, code reason: 7-Patient Refused. 9-Not Applicable-not attempted and the patient did not perform the activity before the current illness, exacerbation or injury. 10-Not Attempted due to Environmental Limitations-(lack of equipment, weather restraints, etc.). 88-Not Attempted due to Medical Conditions or Safety Concerns. Eating (QC): 6 Bathing Location: L Arm, L Upper Leg, R Upper Leg, L Lower Leg (including foot), R Lower Leg (including foot), Chest, Abdomen, Perineal Area Shower/Bathe Self (QC): 3 (Pt able to complete most tasks on sc, completes with LHS for LEs and requires assist for bottom in stance and R UE due to LUE decreased ROM/ strength/ coordination.) Upper Body Dressing (QC): 5 (s/u) Lower Body Dressing (QC): 3 (mod A and cues for precaution management: pt able to thread BLE into briefs and pants utilizing consulting sme and increased time. Pt stands to pull up one at a time, requires assist both times for L side.) On/Off Footwear: 3 (due to new socks, pt requires increased time and assist for sock donning. ) Other Treatment Pt completes shaving tasks after being positioned in front of mirror in w/c. Pt able to transfer w/c to tx with use of grab bars and CGA. Pt sits with control through session. Pt completes ADLs as above, increased time needed throughout due to stiffness and LUE decreased coordination. Pt returns to w/c post shower, sits in recliner with use of 2WW for transfer success, requires min A for righting self as pt begins leaning back too far/ LOB. Pt sits, all needs met, call light in reach. Education OT Patient Education: Correct positioning, Modified ADL techniques, Progress toward Goal/Update tx plan, Purpose of tx/functional activities, Reviewed precautions, Safety issues, Transfer techniques, Use of adapted equipment Teaching Recipient: Patient Teaching Methods: Demonstration Response to Teaching: Verbalize Understanding, Return Demonstration OT Short Term Goals Short Term Goals Shower/bathe self: 3 Upper body dressin Lower body dressin OT Associate Professor Of Violin Goals [facility] Goals Time Frame: June 30, 2019 Eating (QC): 6 Oral Hygiene (QC): 6 Toileting Hygiene (QC): 6 Shower/Bathe Self (QC): 6 Upper Body Dressing (QC): 6 Lower Body Dressing (QC): 6 On/Off Footwear (QC): 6 Additional Goals: 1-Demonstrate ADL Tasks, 2-Verbalize Understanding, 3- ImproveStrength/Johny 1=Demonstrate adherence to instructed precautions during ADL tasks. 2=Patient will verbalize/demonstrate understanding of assistive devices/modifications for ADL. 3=Patient will improve strength/tolerance for activity to enable patient to perform ADL's. OT Education/Plan Problem List/Assessment Assessment: Decreased Activ Tolerance, Decreased UE Strength, Dependent Transfers, Impaired Coordination, Impaired Funct Balance, Impaired I ADL's, Impaired Self-Care Skills Discharge Recommendations Plan/Recommendations: Continue POC Therapy Discharge Recommendati: Intermittent Supervision Equpiment Recommendations-D/C: Hip Kit Treatment Plan/Plan of Care Treatment,Training & Education: Yes Patient would benefit from OT for education, treatment and training to promote independence in ADL's, mobility, safety and/or upper extremity function for ADL's. Plan of Care: ADL Retraining, Caregiver Training, Concurrent Therapy, Functional Mobility, Group Exercise/Act as Ind, UE Funct Exercise/Act, UE Neuromus Re-Ed/Coord, W/C Management Training Treatment Duration: June 30, 2019 Frequency: At least 5 of 7 days/Wk (IRF) Estimated Hrs Per Day: 1.5 hours per day Agreement: Yes Rehab Potential: Guarded Time/GCodes Start Time: 09:20 Stop Time: 11:15 Total Time Billed (hr/min): 115 Billed Treatment Time 1, ADL 7 (115) LEO MARTELL OTR June 14, 2019 11:29
--- NOTE | 2019-06-14 14:17 | Physical Therapy Daily Note ---
PT Daily Note-Current Subjective Pt sitting in recliner upon arrival. Pt agrees to PT. Pain Numeric Pain Scale: 5-Moderate Pain Location Body Site: Back Pain Description: Tightness Mental Status Patient Orientation: Person, Place, Time, Situation Attachments: Other-See Comments (Lumbar back brace) Transfers SCALE: Activities may be completed with or without assistive devices. 1-Dhwlhsydpc-taerodn completes the activity by him/herself with no assistance from a helper. 5-Set-up or Clean-up Assistance-helper sets up or cleans up; patient completes activity. [place] assists only prior to or following the activity. 4-Supervision or Touching Assistance-helper provides verbal cues and/or touching/steadying and/or contact guard assistance as patient completes activity. Assistance may be provided throughout the activity or intermittently. 3-Partial/Moderate Assistance-helper does LESS THAN HALF the effort. [place] lifts, holds or supports trunk or limbs, but provides less than half the effort. 2-Substantial/Maximal Assistance-helper does MORE THAN HALF the effort. [place] lifts or holds trunk or limbs and provides more than half the effort. 8-Qmlejimmw-faofrs does ALL the effort. Patient does none of the effort to complete the activity. Or, the assistance of 2 or more helpers is required for the patient to complete the activity. If activity was not attempted, code reason: 7-Patient Refused. 9-Not Applicable-not attempted and the patient did not perform the activity before the current illness, exacerbation or injury. 10-Not Attempted due to Environmental Limitations-(lack of equipment, weather restraints, etc.). 88-Not Attempted due to Medical Conditions or Safety Concerns. Weight Bearing Right Lower Extremity: Right Full Weight Bearing Left Lower Extremity: Left Full Weight Bearing Exercises Seated Therapy Exercises: Ankle pumps, Long arc quads, Hip flexion, Kicking activity Treatments Pt asks questions regarding back muscle spasms and what can be done to get the most out of Therapy. METHODS AND PROCEDURES ANALYST and pt discuss pt's progress, limitations and that Nursing will give muscle relaxer before bed to allow for better sleep. Pt completes Seated Ex before end of Rx. Pt has all needs met, call light in hand. Assessment Current Status: Fair Progress Pt's back spasms don't allow pt to sleep or rest well and pt is fatigued/weaker today. PT Short Term Goals Short Term Goals Time Frame: June 16, 2019 Roll Left & Right: 4 Sit to lyin Lying to sitting on side of be: 4 PT Shelter Goals [place] Goals PT [place] Goals Time Frame: June 30, 2019 Roll Left & Right (QC): 6 Sit to Lying (QC): 6 Lying-Sitting on Side/Bed(QC): 6 Sit to Stand (QC): 6 Chair/Vfc-fd-Qhidn Xfer(QC): 6 Toilet Transfer (QC): 6 Car Transfer (QC): 4 Does the Patient Walk: Yes Walk 10 feet (QC): 6 Walk 50ft with 2 Turns (QC): 6 Walk 150 ft (QC): 6 Walking 10ft on Uneven Surface: 4 1 Step (curb) (QC): 9 4 Steps (QC): 9 12 Steps (QC): 9 Picking up an Object (QC): 9 (Pt will utilize adaptive equipment due to back precautions) Does the Pt use WC or Scooter?: No Wheel 50 feet with 2 turns (QC: 9 Type: N/A Wheel 150 feet: 9 Type: N/A PT Plan Problem List Problem List: Activity Tolerance, Functional Strength, Safety, Balance, Gait Treatment/Plan Treatment Plan: Continue Plan of Care Treatment Plan: Bed Mobility, Education, Functional Activity Johny, Functional Strength, Group Therapy, Gait, Safety, Therapeutic Exercise, Transfers Treatment Duration: June 30, 2019 Frequency: 6 times per week Estimated Hrs Per Day: 1.5 hours per day Patient and/or Family Agrees t: Yes Safety Risks/Education Patient Education: Correct Positioning, Safety Issues Teaching Recipient: Patient Teaching Methods: Discussion Response to Teaching: Verbalize Understanding Time/GCodes Time In: 1300 Time Out: 1330 Total Billed Treatment Time: 30 Total Billed Treatment 1, FA (15m ) & EX (15m) MOHAN SHAW PTA June 14, 2019 14:16
[2019-06-14 17:05] VITALS: BP 110/63
[2019-06-14] MEDS: DULoxetine 30 MG (CYMBALTA) CAP PO SCH (20:40)
[2019-06-15 05:42] VITALS: BP 108/66
[2019-06-15] MEDS: KCL 10 MEQ TAB (MICRO K) PO SCH ×2 (06:24→16:46)
[2019-06-15] MEDS: DOCUSATE SODIUM 100 MG (COLACE) CAP PO SCH ×2 (08:27→20:31)
[2019-06-15] MEDS: GABAPENTIN 300 MG (NEURONTIN) CAP PO SCH ×3 (08:27→20:31)
[2019-06-15] MEDS: SENNA W/DOCUSATE (SENOKOT S) TABLET PO SCH ×2 (08:27→20:31)
[2019-06-15] MEDS: polyethylene glycoL POWDER 17 GM (MIRALAX) PACK PO SCH ×2 (08:30→20:31)
--- NOTE | 2019-06-15 09:00 | NUR ---
pt states that he thinks zanaflex is working well for him. Wearing back brace when up.
--- NOTE | 2019-06-15 09:32 | Physical Therapy Daily Note ---
PT Daily Note-Current Subjective Pt reports that he is feeling okay today. Pt denies pain on arrival. Mental Status Patient Orientation: Person, Place, Time, Situation Transfers SCALE: Activities may be completed with or without assistive devices. 6-Levbngobuo-zpgfzvx completes the activity by him/herself with no assistance from a helper. 5-Set-up or Clean-up Assistance-helper sets up or cleans up; patient completes activity. [place] assists only prior to or following the activity. 4-Supervision or Touching Assistance-helper provides verbal cues and/or touching/steadying and/or contact guard assistance as patient completes activity. Assistance may be provided throughout the activity or intermittently. 3-Partial/Moderate Assistance-helper does LESS THAN HALF the effort. [place] lifts, holds or supports trunk or limbs, but provides less than half the effort. 2-Substantial/Maximal Assistance-helper does MORE THAN HALF the effort. [place] lifts or holds trunk or limbs and provides more than half the effort. 5-Yvomofxzv-jvfeab does ALL the effort. Patient does none of the effort to complete the activity. Or, the assistance of 2 or more helpers is required for the patient to complete the activity. If activity was not attempted, code reason: 7-Patient Refused. 9-Not Applicable-not attempted and the patient did not perform the activity before the current illness, exacerbation or injury. 10-Not Attempted due to Environmental Limitations-(lack of equipment, weather restraints, etc.). 88-Not Attempted due to Medical Conditions or Safety Concerns. Sit to Stand (QC): 5 Chair/Flc-yz-Tyvoj Xfer(QC): 5 Weight Bearing Right Lower Extremity: Right Full Weight Bearing Left Lower Extremity: Left Full Weight Bearing Gait Training Does the Patient Walk?: Yes Distance: 16ft Walk 10 feet (QC): 3 Gait Persons Needed: 1 Gait Assistive Device: FWW Wheelchair Training Does the Pt Use a Wheelchair?: Yes Wheel 50 ft with 2 turns (QC): 5 Type of Wheelchair: Manual Very slow WC mobility due to (L) UE weakness. Exercises Seated Therapy Exercises: LE Protocol Seated Reps: [address] Ex=Flex, Abd, Ext, Marching Standing Reps: 10 Assessment Current Status: Good Progress Pt was able to walk 16ft today with the FWW, but he remained flexed 30-40 degrees when standing. The same posture was observed during standing exercises. He worked on improving posture but reports deep lumbar soreness and tightness limiting his ability. PT Short Term Goals Short Term Goals Time Frame: June 16, 2019 Roll Left & Right: 4 Sit to lyin Lying to sitting on side of be: 4 PT [place] Goals [facility] Goals PT [place] Goals Time Frame: June 30, 2019 Roll Left & Right (QC): 6 Sit to Lying (QC): 6 Lying-Sitting on Side/Bed(QC): 6 Sit to Stand (QC): 6 Chair/Zdg-wa-Ldvey Xfer(QC): 6 Toilet Transfer (QC): 6 Car Transfer (QC): 4 Does the Patient Walk: Yes Walk 10 feet (QC): 6 Walk 50ft with 2 Turns (QC): 6 Walk 150 ft (QC): 6 Walking 10ft on Uneven Surface: 4 1 Step (curb) (QC): 9 4 Steps (QC): 9 12 Steps (QC): 9 Picking up an Object (QC): 9 (Pt will utilize adaptive equipment due to back precautions) Does the Pt use WC or Scooter?: No Wheel 50 feet with 2 turns (QC: 9 Type: N/A Wheel 150 feet: 9 Type: N/A PT Plan Treatment/Plan Treatment Plan: Continue Plan of Care Treatment Plan: Bed Mobility, Education, Functional Activity Johny, Functional Strength, Group Therapy, Gait, Safety, Therapeutic Exercise, Transfers Treatment Duration: June 30, 2019 Frequency: 6 times per week Estimated Hrs Per Day: 1.5 hours per day Patient and/or Family Agrees t: Yes Time/GCodes Time In: 814 Time Out: 919 Total Billed Treatment 1, gt (15), ex (20), wc x2 (30) CLARENCE DEVRIES PT June 15, 2019 09:32
--- NOTE | 2019-06-15 10:07 | PM&R Progress Note ---
Subjective HPI/CC On Admission Date Seen by Provider: June 15, 2019 Time Seen by Provider: 10:15 Subjective/Events-last exam Zanaflex is working very well per Dr. Michael's recommendation of 4 Mg TID Edema is improved, changed Lasix to every other day Pain is controlled otherwise Stiffness of muscles is improved Pt will be re-checked next week to evaluate his progress and discharge planning Bowels are moving Eating and drinking well Overall responding to aggressive structured PT Check meds and labs Conferred with RN Reviewed therapy notes Maintained on potassium supplement Review of Systems General: Fatigue Neurological: Weakness, Numbness, Incoordination Objective Exam Vital Signs Vital Signs Date Time Temp Pulse Resp B/P (MAP) Pulse Ox O2 Delivery O2 Flow Rate FiO2 06/15/19 21:00 Room Air 06/15/19 15:56 36.6 71 16 119/68 (85) 96 Capillary Refill : Less Than 3 Seconds General Appearance: No Apparent Distress, WD/WN, Anxious, Chronically ill HEENT: PERRL/EOMI, Normal ENT Inspection, Pharynx Normal Neck: Full Range of Motion, Normal Inspection, Non Tender, Supple, Carotid Bruit Respiratory: Chest Non Tender, Lungs Clear, Normal Breath Sounds, No Accessory Muscle Use, No Respiratory Distress Cardiovascular: Regular Rate, Rhythm, No Edema, No Gallop, No JVD, No Murmur, Normal Peripheral Pulses Gastrointestinal: Normal Bowel Sounds, No Organomegaly, No Pulsatile Mass, Non Tender, Soft Back: Normal Inspection, No CVA Tenderness, No Vertebral Tenderness Extremity: Normal Capillary Refill, Normal Inspection, Normal Range of Motion, Non Tender, No Calf Tenderness Neurologic/Psychiatric: Alert, Oriented x3, Normal Mood/Affect, manufacturing support 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 [facility]IM Transfers Therapy Code Descriptions/Definitions Functional [place] Measure: 0=Not Assessed/NA 4=Minimal Assistance 1=Total Assistance 5=Supervision or Setup 2=Maximal Assistance 6=Modified [place] 3=Moderate Assistance 7=Complete IndependenceSCALE: Activities may be completed with or without assistive devices. 1-Ewlhffyczn-qsvzyif completes the activity by him/herself with no assistance from a helper. 5-Set-up or Clean-up Assistance-helper sets up or cleans up; patient completes activity. [place] assists only prior to or following the activity. 4-Supervision or Touching Assistance-helper provides verbal cues and/or touching/steadying and/or contact guard assistance as patient completes activity. Assistance may be provided throughout the activity or intermittently. 3-Partial/Moderate Assistance-helper does LESS THAN HALF the effort. [place] lifts, holds or supports trunk or limbs, but provides less than half the effort. 2-Substantial/Maximal Assistance-helper does MORE THAN HALF the effort. [place] lifts or holds trunk or limbs and provides more than half the effort. 7-Shxvrixuc-oygvwx does ALL the effort. Patient does none of the effort to complete the activity. Or, the assistance of 2 or more helpers is required for the patient to complete the activity. If activity was not attempted, code reason: 7-Patient Refused. 9-Not Applicable-not attempted and the patient did not perform the activity before the current illness, exacerbation or injury. 10-Not Attempted due to Environmental Limitations-(lack of equipment, weather restraints, etc.). 88-Not Attempted due to Medical Conditions or Safety Concerns. Roll Left to Right (QC): 1 Sit to Lying (QC): 1 Sit to Stand (QC): 5 Chair/Vrg-le-Koasg Xfer(QC): 5 Car Transfer (QC): 3 Gait Training Does the Patient Walk?: Yes Distance: 16ft Walk 10 feet (QC): 3 Walk 50 ft with 2 Turns(QC): 88 Walk 150 ft (QC): 88 Walking 10ft/uneven surface-QC: 88 Gait Persons Needed: 1 Gait Assistive Device: FWW Wheelchair Training Does the Pt Use a Wheelchair?: Yes Wheel 50 ft with 2 turns (QC): 5 Wheel 150 ft (QC): 5 Type of Wheelchair: Manual Stair Training 1 Step (curb) (QC): 9 4 Steps (QC): 9 12 Steps (QC): 9 Balance Picking up an Object (QC): 88 ADL-Treatment Eating (QC): 6 Oral Hygiene (QC): 5 (s/u based on clinical judgment.) Bathing Location: L Arm, L Upper Leg, R Upper Leg, L Lower Leg (including foot), R Lower Leg (including foot), Chest, Abdomen, Perineal Area Shower/Bathe Self (QC): 3 (Pt able to complete most tasks on sc, completes with LHS for LEs and requires assist for bottom in stance and R UE due to LUE decreased ROM/ strength/ coordination.) Upper Body Dressing (QC): 5 (s/u) Lower Body Dressing (QC): 3 (mod A and cues for precaution management: pt able to thread BLE into briefs and pants utilizing gin feeder and increased time. Pt stands to pull up one at a time, requires assist both times for L side.) On/Off Footwear (QC): 3 (due to new socks, pt requires increased time and assist for sock donning. ) Toileting Hygiene (QC): 1 (TD due to balance/ requirement of two people for task.) Assessment/Plan Assessment and Plan Assess & Plan/Chief Complaint Assessment: s/p lumbar stenosis surgery Severe debility started after c-spine surgery 03/2019 Anasarca receiving IV Lasix with good results OA Chronic back pain Former smoker Hypokalemia Severe muscle stiffness Plan: Potassium supplement IRF protocol Bumex DC Maintain Lasix 40mg IV but change to ever other day Midline Dramatic improvement since admit Zanaflex (1) Spinal stenosis (2) Anasarca (3) Former smoker (4) Neuropathy (5) Hypokalemia (6) Edema (7) Dyspnea DIANA PITTMAN DO June 15, 2019 10:07
--- NOTE | 2019-06-15 10:36 | Cardiology Progress Note ---
Cardiology SOAP Progress Note Subjective: No cardiac complaints. Objective: I&O/Vital Signs 06/15/19 05:42 Temp 36.4 Pulse 68 Resp 12 B/P (MAP) 108/66 (80) Pulse Ox 92 O2 Delivery Room Air 06/15/19 00:00 Intake Total 1250 ml Output Total 1125 ml Balance 125 ml Constitutional: No appears stated age; AAO x 3; No apparent distress; PERRL, well-developed, well-nourished; No other Respiratory: chest is bilaterally symmetric, lungs clear to auscultation Cardiovascular: regular rate-rhythm; No irregularly irregular, No extra beats, No parasternal heave is noted, No JVD, No edema, No bradycardia, No tachycardia, No point of maximal impulse, No cardiac thrills are palpable; S1 and S2; No gallop/S3, No gallop/S4, No diastolic murmur, No systolic murmur, No friction rub, No click, No other Gastrointestional: soft, audible bowel sounds Extremities: normal range of motion, non-tender, normal inspection, pedal edema Neurologic/Psychiatric: no motor/sensory deficits, alert, normal mood/affect, oriented x 3 Skin: normal color A/P: Assessment/Dx: Status post back surgery, Lower extremity swelling, right worse than left, Active smoking. Plan: Continue aggressive inpatient rehabilitation. Lower extremity swelling, right worse than the left, venous ultrasound was negative for DVT. Improved significantly with rehabilitation. Echocardiogram showed normal LV and RV size and function. No valvular heart disease. Active smoking, smoking cessation was strongly recommended. Patient recently quit; does not want to start again. Thank you for your consultation. Please call me if you have any questions. Marie Ovalle MD, FACP, FACC, FSCAI, FHRS, CCDS Interventional Cardiology Cardiac Electrophysiology Vascular Medicine and Endovascular Interventions Nicole OVALLE MD June 15, 2019 10:36
--- NOTE | 2019-06-15 10:47 | Occupational Ther Daily Note ---
OT Current Status-Daily Note Subjective [id number]: Pt seen in therapy gym post-PT. Pt agrees to therapy, does not c/o pain at this time. Pt provides additional med hx and completes LUE/ BUE exercises on this date to increase functional ROM/ strength. [id number]: Pt agrees to OT, seen in recliner chair. Pt does not c/o pain. Mental Status/Objective Patient Orientation: Person, Place, Situation, Normal For Age ADL-Treatment Therapy Code Descriptions/Definitions Functional [place] Measure: 0=Not Assessed/NA 4=Minimal Assistance 1=Total Assistance 5=Supervision or Setup 2=Maximal Assistance 6=Modified [place] 3=Moderate Assistance 7=Complete IndependenceSCALE: Activities may be completed with or without assistive devices. 2-Zlniqvbmzs-pmmzfbv completes the activity by him/herself with no assistance from a helper. 5-Set-up or Clean-up Assistance-helper sets up or cleans up; patient completes activity. [place] assists only prior to or following the activity. 4-Supervision or Touching Assistance-helper provides verbal cues and/or touching/steadying and/or contact guard assistance as patient completes activity. Assistance may be provided throughout the activity or intermittently. 3-Partial/Moderate Assistance-helper does LESS THAN HALF the effort. [place] lifts, holds or supports trunk or limbs, but provides less than half the effort. 2-Substantial/Maximal Assistance-helper does MORE THAN HALF the effort. [place] lifts or holds trunk or limbs and provides more than half the effort. 4-Xzqlgkfxo-cntbiv does ALL the effort. Patient does none of the effort to complete the activity. Or, the assistance of 2 or more helpers is required for the patient to complete the activity. If activity was not attempted, code reason: 7-Patient Refused. 9-Not Applicable-not attempted and the patient did not perform the activity before the current illness, exacerbation or injury. 10-Not Attempted due to Environmental Limitations-(lack of equipment, weather restraints, etc.). 88-Not Attempted due to Medical Conditions or Safety Concerns. Eating (QC): 5 Other Treatment Pt provides additional med hx: Pt's L foot drop/ LUE weakness began around same time in July-August of 2018. Pt began utilizing walker in Sep 2018 post-fall in kitchen. Pt completed cervical surgery in Mar 2019 (increased LUE edema/ weaknes s). Pt completes standing activity/ WB within LUE to decrease tone/ increase strength and ROM. Pt completes AROM and AAROM with frictionless surface to increase ROM. Pt completes PROM strentches of L UE for warm up. Pt's forearm mms fasciculating during all actions. Pt states that was normal. Pt completes transfer of items L to R to L, skilled cues for use of "large releases." Pt's nurse executive strength assessed: R 88-90 lbs; L 24-25 lbs. Pt completes 10 min mod resistance arm bike exercise. Completes smaller item transition from L to R side with success. Through session, pt demonstrates stiff/ slowed movements with L UE which hinders ADL activity/ success with AE. Pt expresses he has been completing hand nurse executive HEP, states decrease in edema and increase in perceived strength. Pt returns to room, w/c mob with increased time/ increased trials due to LUE weakness/ decreased nurse executive. Pt returns to recliner with CGA during transfer. All needs met, call light in reach. [id number]: Pt sits to complete graded clothes pin activity, doffing with R, transfers to L, dons with L back to peg. Pt completes all levels with success but increased time to coordinate. Pt stands with lifted recliner with CGA, stands at tabletop to complete doffing with R, dons with L after reaching in all planes to obtain. Pt completes with good balance (CGA throughout), and ability to reach across midline/ in horizontal abduction with success. Returns to recliner. All needs met, call light in reach. Education OT Patient Education: Correct positioning, Exercise program, Home exercise program, Purpose of tx/functional activities Teaching Recipient: Patient Teaching Methods: Demonstration, Discussion Response to Teaching: Verbalize Understanding, Return Demonstration OT Short Term Goals Short Term Goals Shower/bathe self: 3 Upper body dressin Lower body dressin OT Head Filter Press Tender Goals Long-Term Goals Time Frame: June 30, 2019 Eating (QC): 6 Oral Hygiene (QC): 6 Toileting Hygiene (QC): 6 Shower/Bathe Self (QC): 6 Upper Body Dressing (QC): 6 Lower Body Dressing (QC): 6 On/Off Footwear (QC): 6 Additional Goals: 1-Demonstrate ADL Tasks, 2-Verbalize Understanding, 3- ImproveStrength/Johny 1=Demonstrate adherence to instructed precautions during ADL tasks. 2=Patient will verbalize/demonstrate understanding of assistive devices/modifications for ADL. 3=Patient will improve strength/tolerance for activity to enable patient to perform ADL's. OT Education/Plan Problem List/Assessment Assessment: Decreased Activ Tolerance, Decreased UE Strength, Dependent Transfers, Impaired Coordination, Impaired Funct Balance, Impaired I ADL's, Impaired Self-Care Skills Discharge Recommendations Plan/Recommendations: Continue POC Therapy Discharge Recommendati: Scheduled Assistance, Bath Aide, Home & Family, Post Acute OT Treatment Plan/Plan of Care Treatment,Training & Education: Yes Patient would benefit from OT for education, treatment and training to promote independence in ADL's, mobility, safety and/or upper extremity function for ADL's. Plan of Care: ADL Retraining, Caregiver Training, Concurrent Therapy, Functional Mobility, Group Exercise/Act as Ind, UE Funct Exercise/Act, UE Neuromus Re-Ed/Coord, W/C Management Training Treatment Duration: June 30, 2019 Frequency: At least 5 of 7 days/Wk (IRF) Estimated Hrs Per Day: 1.5 hours per day Agreement: Yes Rehab Potential: Guarded Time/GCodes Start Time: 09:25 (1315) Stop Time: 10:40 (1330) Total Time Billed (hr/min): 90 (75+15) Billed Treatment Time 1, ADL (15), EX 4 (60)= 75 1, EX (15) Total: 90 LEO MARTELL OTR June 15, 2019 10:47
--- NOTE | 2019-06-15 13:10 | NUR ---
CM/SS WEEKLY PATIENT CARE CONFERENCE SUMMARY Reviewed Summary this morning with patient and he is in agreement to next review in 7 days. He reports daily incremental progress, he appears better than our first meeting Wednesday. He is realistic about his healing time and very optimistic for a positive outcome. His is gone on her work rotation until next Wednesday evening. Patient indicates he has a followup appointment with his surgeon Wednesday, he has asked to discharge on , 06/22/19 if he is safe to do so. He has a family member who will escort him. His is having a procedure that day as well and will need a transit bus driver post intervention, they wish to coordinate the same transit bus driver for both appointments if possible. Partner with patient regarding his tentative discharge target.
--- NOTE | 2019-06-15 14:34 | Physical Therapy Daily Note ---
PT Daily Note-Current Subjective Pt denies pain on arrival. Primary complaint is UE and LE weakness. Mental Status Patient Orientation: Person, Place, Time, Situation Transfers SCALE: Activities may be completed with or without assistive devices. 8-Dyjewkvwwg-eegnjfd completes the activity by him/herself with no assistance from a helper. 5-Set-up or Clean-up Assistance-helper sets up or cleans up; patient completes activity. [place] assists only prior to or following the activity. 4-Supervision or Touching Assistance-helper provides verbal cues and/or touching/steadying and/or contact guard assistance as patient completes activity. Assistance may be provided throughout the activity or intermittently. 3-Partial/Moderate Assistance-helper does LESS THAN HALF the effort. [place] lifts, holds or supports trunk or limbs, but provides less than half the effort. 2-Substantial/Maximal Assistance-helper does MORE THAN HALF the effort. [place] lifts or holds trunk or limbs and provides more than half the effort. 8-Ezrdgyilh-fepozr does ALL the effort. Patient does none of the effort to complete the activity. Or, the assistance of 2 or more helpers is required for the patient to complete the activity. If activity was not attempted, code reason: 7-Patient Refused. 9-Not Applicable-not attempted and the patient did not perform the activity before the current illness, exacerbation or injury. 10-Not Attempted due to Environmental Limitations-(lack of equipment, weather restraints, etc.). 88-Not Attempted due to Medical Conditions or Safety Concerns. Sit to Stand (QC): 3 Chair/Jyq-ry-Iplxw Xfer(QC): 3 Weight Bearing Right Lower Extremity: Right Full Weight Bearing Left Lower Extremity: Left Full Weight Bearing Gait Training Does the Patient Walk?: Yes Distance: 27ft Walk 10 feet (QC): 3 Gait Persons Needed: 1 Gait Assistive Device: FWW Wheelchair Training Does the Pt Use a Wheelchair?: Yes Wheel 50 ft with 2 turns (QC): 4 Type of Wheelchair: Manual Needed assist to avoid hitting a corner and aligning the chair for transfers. Exercises NuStep Minutes: 5 NuStep Workload: 5 Assessment Current Status: Fair Progress Pt is very slow with ambulation and gait. He is putting forth good effort throughout treatment. PT Short Term Goals Short Term Goals Time Frame: June 16, 2019 Roll Left & Right: 4 Sit to lyin Lying to sitting on side of be: 4 PT Alf Goals Alf Goals PT Fashion Adviser Goals Time Frame: June 30, 2019 Roll Left & Right (QC): 6 Sit to Lying (QC): 6 Lying-Sitting on Side/Bed(QC): 6 Sit to Stand (QC): 6 Chair/Fnh-hu-Odhtw Xfer(QC): 6 Toilet Transfer (QC): 6 Car Transfer (QC): 4 Does the Patient Walk: Yes Walk 10 feet (QC): 6 Walk 50ft with 2 Turns (QC): 6 Walk 150 ft (QC): 6 Walking 10ft on Uneven Surface: 4 1 Step (curb) (QC): 9 4 Steps (QC): 9 12 Steps (QC): 9 Picking up an Object (QC): 9 (Pt will utilize adaptive equipment due to back precautions) Does the Pt use WC or Scooter?: No Wheel 50 feet with 2 turns (QC: 9 Type: N/A Wheel 150 feet: 9 Type: N/A PT Plan Treatment/Plan Treatment Plan: Continue Plan of Care Treatment Plan: Bed Mobility, Education, Functional Activity Johny, Functional Strength, Group Therapy, Gait, Safety, Therapeutic Exercise, Transfers Treatment Duration: June 30, 2019 Frequency: 6 times per week Estimated Hrs Per Day: 1.5 hours per day Patient and/or Family Agrees t: Yes Time/GCodes Time In: 1335 Time Out: 1405 Total Billed Treatment Time: 30 Total Billed Treatment 1, ex 15, wc 15 CLARENCE DEVRIES PT June 15, 2019 14:34
[2019-06-15 15:56] VITALS: BP 119/68
[2019-06-15] MEDS: DULoxetine 30 MG (CYMBALTA) CAP PO SCH (20:31)
[2019-06-15] MEDS: CATHETER FLUSH 10 ML SYR IV SCH (20:35)
[2019-06-16 05:45] VITALS: BP 124/71
[2019-06-16] MEDS: CATHETER FLUSH 10 ML SYR IV SCH ×3 (06:13→19:57)
[2019-06-16] MEDS: KCL 10 MEQ TAB (MICRO K) PO SCH ×2 (06:13→18:03)
[2019-06-16] MEDS: FUROSEMIDE 40 MG/4 ML INJ (LASIX) IVP SCH (09:20)
[2019-06-16] MEDS: GABAPENTIN 300 MG (NEURONTIN) CAP PO SCH ×3 (09:20→19:53)
[2019-06-16] MEDS: DOCUSATE SODIUM 100 MG (COLACE) CAP PO SCH ×2 (09:25→19:56)
[2019-06-16] MEDS: SENNA W/DOCUSATE (SENOKOT S) TABLET PO SCH ×2 (09:25→19:56)
[2019-06-16] MEDS: polyethylene glycoL POWDER 17 GM (MIRALAX) PACK PO SCH ×2 (09:26→19:56)
--- NOTE | 2019-06-16 10:21 | Cardiology Progress Note ---
Cardiology SOAP Progress Note Subjective: No cardiac complaints. Left lower extremity swelling. Objective: I&O/Vital Signs 06/16/19 05:45 Temp 36.2 Pulse 67 Resp 16 B/P (MAP) 124/71 (88) Pulse Ox 97 O2 Delivery Room Air 06/16/19 00:00 Intake Total 1530 ml Balance 1530 ml Constitutional: No appears stated age; AAO x 3; No apparent distress; PERRL, well-developed, well-nourished; No other Respiratory: chest is bilaterally symmetric, lungs clear to auscultation Cardiovascular: regular rate-rhythm; No irregularly irregular, No extra beats, No parasternal heave is noted, No JVD, No edema, No bradycardia, No tachycardia, No point of maximal impulse, No cardiac thrills are palpable; S1 and S2; No gallop/S3, No gallop/S4, No diastolic murmur, No systolic murmur, No friction rub, No click, No other Gastrointestional: soft, audible bowel sounds Extremities: normal range of motion, non-tender, normal inspection, pedal edema (Left is worse than the right.) Neurologic/Psychiatric: no motor/sensory deficits, alert, normal mood/affect, oriented x 3 Skin: normal color A/P: Assessment/Dx: Status post back surgery, Lower extremity swelling, right worse than left, Active smoking. Plan: Continue aggressive inpatient rehabilitation. Lower extremity swelling, right worse than the left, venous ultrasound was negative for DVT. Improved significantly with rehabilitation. However still has left-sided lower extremity swelling. Unlikely cardiac etiology. Echocardiogram showed normal LV and RV size and function. No valvular heart disease. Active smoking, smoking cessation was strongly recommended. Patient recently quit; does not want to start again. Thank you for your consultation. Please call me if you have any questions. Marie Ovalle MD, FACP, FACC, FSCAI, FHRS, CCDS Interventional Cardiology Cardiac Electrophysiology Vascular Medicine and Endovascular Interventions Nicole OVALLE MD June 16, 2019 10:21
--- NOTE | 2019-06-16 10:36 | PM&R Progress Note ---
Subjective HPI/CC On Admission Date Seen by Provider: June 16, 2019 Time Seen by Provider: 10:30 Subjective/Events-last exam Loni is still working very well per Dr. Michael's recommendation of 4 Mg TID started 2 days ago Edema is increased a bit since changed Lasix to every other day Pain is controlled otherwise Stiffness of muscles is improved Pt will be re-checked next week to evaluate his progress and discharge planning Bowels not moving well so gave more laxatives Ultram given for pain with good results Eating and drinking well Overall responding to aggressive structured PT Check meds and labs Conferred with RN Reviewed therapy notes Maintained on potassium supplement Review of Systems Cardiovascular: Edema Neurological: Incoordination Objective Exam Vital Signs Vital Signs Date Time Temp Pulse Resp B/P (MAP) Pulse Ox O2 Delivery O2 Flow Rate FiO2 06/17/19 06:00 36.8 68 16 108/65 (79) 94 Room Air Capillary Refill : Less Than 3 Seconds General Appearance: No Apparent Distress, WD/WN, Anxious, Chronically ill HEENT: PERRL/EOMI, Normal ENT Inspection, Pharynx Normal Neck: Full Range of Motion, Normal Inspection, Non Tender, Supple, Carotid Bruit Respiratory: Chest Non Tender, Lungs Clear, Normal Breath Sounds, No Accessory Muscle Use, No Respiratory Distress Cardiovascular: Regular Rate, Rhythm, No Edema, No Gallop, No JVD, No Murmur, Normal Peripheral Pulses Gastrointestinal: Normal Bowel Sounds, No Organomegaly, No Pulsatile Mass, Non Tender, Soft Back: Normal Inspection, No CVA Tenderness, No Vertebral Tenderness Extremity: Normal Capillary Refill, Normal Inspection, Normal Range of Motion, Non Tender, No Calf Tenderness Neurologic/Psychiatric: Alert, Oriented x3, Normal Mood/Affect, maintenance service technician II-XII Norm as Tested, Abnormal Gait, Motor Weakness (lower extremities), Sensory Deficit Skin: Normal Color, Warm/Dry Lymphatic: No Adenopathy Results/Procedures Lab Patient resulted labs reviewed. FIM Transfers Therapy Code Descriptions/Definitions Functional [place] Measure: 0=Not Assessed/NA 4=Minimal Assistance 1=Total Assistance 5=Supervision or Setup 2=Maximal Assistance 6=Modified [place] 3=Moderate Assistance 7=Complete IndependenceSCALE: Activities may be completed with or without assistive devices. 4-Ebltkycqfu-kfldqpc completes the activity by him/herself with no assistance from a helper. 5-Set-up or Clean-up Assistance-helper sets up or cleans up; patient completes activity. [place] assists only prior to or following the activity. 4-Supervision or Touching Assistance-helper provides verbal cues and/or touching/steadying and/or contact guard assistance as patient completes activity. Assistance may be provided throughout the activity or intermittently. 3-Partial/Moderate Assistance-helper does LESS THAN HALF the effort. [place] lifts, holds or supports trunk or limbs, but provides less than half the effort. 2-Substantial/Maximal Assistance-helper does MORE THAN HALF the effort. [place] lifts or holds trunk or limbs and provides more than half the effort. 0-Mvftgsoku-ybdrki does ALL the effort. Patient does none of the effort to complete the activity. Or, the assistance of 2 or more helpers is required for the patient to complete the activity. If activity was not attempted, code reason: 7-Patient Refused. 9-Not Applicable-not attempted and the patient did not perform the activity before the current illness, exacerbation or injury. 10-Not Attempted due to Environmental Limitations-(lack of equipment, weather restraints, etc.). 88-Not Attempted due to Medical Conditions or Safety Concerns. Roll Left to Right (QC): 1 Sit to Lying (QC): 1 Sit to Stand (QC): 3 Chair/Ggt-fe-Lpkpv Xfer(QC): 3 Car Transfer (QC): 3 Gait Training Does the Patient Walk?: Yes Distance: 27ft Walk 10 feet (QC): 3 Walk 50 ft with 2 Turns(QC): 88 Walk 150 ft (QC): 88 Walking 10ft/uneven surface-QC: 88 Gait Persons Needed: 1 Gait Assistive Device: FWW Wheelchair Training Does the Pt Use a Wheelchair?: Yes Wheel 50 ft with 2 turns (QC): 4 Wheel 150 ft (QC): 5 Type of Wheelchair: Manual Stair Training 1 Step (curb) (QC): 9 4 Steps (QC): 9 12 Steps (QC): 9 Balance Picking up an Object (QC): 88 ADL-Treatment Eating (QC): 5 Oral Hygiene (QC): 5 (s/u based on clinical judgment.) Bathing Location: L Arm, L Upper Leg, R Upper Leg, L Lower Leg (including foot), R Lower Leg (including foot), Chest, Abdomen, Perineal Area Shower/Bathe Self (QC): 3 (Pt able to complete most tasks on sc, completes with LHS for LEs and requires assist for bottom in stance and R UE due to LUE d ecreased ROM/ strength/ coordination.) Upper Body Dressing (QC): 5 (s/u) Lower Body Dressing (QC): 3 (mod A and cues for precaution management: pt able to thread BLE into briefs and pants utilizing health companion and increased time. Pt stands to pull up one at a time, requires assist both times for L side.) On/Off Footwear (QC): 3 (due to new socks, pt requires increased time and assist for sock donning. ) Toileting Hygiene (QC): 1 (TD due to balance/ requirement of two people for task.) Assessment/Plan Assessment and Plan Assess & Plan/Chief Complaint Assessment: s/p lumbar stenosis surgery Severe debility started after c-spine surgery 03/2019 Anasarca receiving IV Lasix with good results OA Chronic back pain Former smoker Hypokalemia Severe muscle stiffness Plan: Potassium supplement IRF protocol Lasix 40mg IV but changed to every other day Midline Dramatic improvement since admit Zanaflex (1) Spinal stenosis (2) Anasarca (3) Former smoker (4) Neuropathy (5) Hypokalemia (6) Edema (7) Dyspnea DIANA PITTMAN DO June 16, 2019 10:36
--- NOTE | 2019-06-16 11:37 | Physical Therapy Daily Note ---
PT Daily Note-Current Subjective Patient in recliner pre tx, agrees to PT, has no complaints of pain at rest but states his left leg is swollen, visited patient during therapy and she is aware of this. Appearance Patient in recliner post tx with nurse call, phone, tray, all needs met. Mental Status Patient Orientation: Person, Place, Situation back brace Transfers SCALE: Activities may be completed with or without assistive devices. 0-Ycyndiftge-pdqnuzb completes the activity by him/herself with no assistance from a helper. 5-Set-up or Clean-up Assistance-helper sets up or cleans up; patient completes activity. [place] assists only prior to or following the activity. 4-Supervision or Touching Assistance-helper provides verbal cues and/or touching/steadying and/or contact guard assistance as patient completes activity. Assistance may be provided throughout the activity or intermittently. 3-Partial/Moderate Assistance-helper does LESS THAN HALF the effort. [place] lifts, holds or supports trunk or limbs, but provides less than half the effort. 2-Substantial/Maximal Assistance-helper does MORE THAN HALF the effort. [place] lifts or holds trunk or limbs and provides more than half the effort. 2-Qlohysnhp-itxqfo does ALL the effort. Patient does none of the effort to complete the activity. Or, the assistance of 2 or more helpers is required for the patient to complete the activity. If activity was not attempted, code reason: 7-Patient Refused. 9-Not Applicable-not attempted and the patient did not perform the activity before the current illness, exacerbation or injury. 10-Not Attempted due to Environmental Limitations-(lack of equipment, weather restraints, etc.). 88-Not Attempted due to Medical Conditions or Safety Concerns. Sit to Stand (QC): 3 Chair/Ily-va-Ryqxz Xfer(QC): 3 Min assist for sit to stand and transfers. Patient has a very hard time stepping and takes extra time and occasional assist from therapist, especially when turning. Weight Bearing Right Lower Extremity: Right Full Weight Bearing Left Lower Extremity: Left Full Weight Bearing Gait Training Distance: 20'x2 Walk 10 feet (QC): 4 Gait Persons Needed: 1 Gait Assistive Device: FWW Patient ambulates very slowly, slides feet across the floor, needs extra time, fatigues quickly. Exercises Seated Therapy Exercises: Ankle pumps, Hip flexion, Hip abd/add (with RTB and ball) LAQ alternating for 5 min Treatments transfers, ambulation, functional strengthening, assist patient to stand and urinate into urinal Assessment Current Status: Poor Progress Patient moves extremely slowly, has a very hard time moving feet when turning PT Short Term Goals Short Term Goals Time Frame: June 16, 2019 Roll Left & Right: 4 Sit to lyin Lying to sitting on side of be: 4 PT [facility] Goals Instrument Mechanic Weapons System Goals PT Instrument Mechanic Weapons System Goals Time Frame: June 30, 2019 Roll Left & Right (QC): 6 Sit to Lying (QC): 6 Lying-Sitting on Side/Bed(QC): 6 Sit to Stand (QC): 6 Chair/Mhl-jc-Cscaw Xfer(QC): 6 Toilet Transfer (QC): 6 Car Transfer (QC): 4 Does the Patient Walk: Yes Walk 10 feet (QC): 6 Walk 50ft with 2 Turns (QC): 6 Walk 150 ft (QC): 6 Walking 10ft on Uneven Surface: 4 1 Step (curb) (QC): 9 4 Steps (QC): 9 12 Steps (QC): 9 Picking up an Object (QC): 9 (Pt will utilize adaptive equipment due to back precautions) Does the Pt use WC or Scooter?: No Wheel 50 feet with 2 turns (QC: 9 Type: N/A Wheel 150 feet: 9 Type: N/A PT Plan Problem List Problem List: Activity Tolerance, Functional Strength, Safety, Balance, Gait, Transfer, Bed Mobility, ROM Treatment/Plan Treatment Plan: Continue Plan of Care Treatment Plan: Bed Mobility, Education, Functional Activity Johny, Functional Strength, Group Therapy, Gait, Safety, Therapeutic Exercise, Transfers Treatment Duration: June 30, 2019 Frequency: 6 times per week Estimated Hrs Per Day: 1.5 hours per day Patient and/or Family Agrees t: Yes Safety Risks/Education Patient Education: Gait Training, Transfer Techniques, Correct Positioning, Safety Issues Teaching Recipient: Patient Teaching Methods: Demonstration, Discussion Response to Teaching: Reinforcement Needed Time/GCodes Time In: 1015 Time Out: 1115 Total Billed Treatment Time: 60 Total Billed Treatment 1 visit GT 30' EX 20' FA 10' NITESH SINHA PT June 16, 2019 11:37
--- NOTE | 2019-06-16 13:55 | Physical Therapy Daily Note ---
PT Daily Note-Current Subjective Patient in recliner pre tx, agrees to PT, has no complaints of pain. Appearance Patient in recliner post tx with nurse call,phone, tray, all needs met. Mental Status Patient Orientation: Person, Place, Situation back brace Transfers SCALE: Activities may be completed with or without assistive devices. 9-Hkgsbyvkyy-xuuhmkm completes the activity by him/herself with no assistance from a helper. 5-Set-up or Clean-up Assistance-helper sets up or cleans up; patient completes activity. [place] assists only prior to or following the activity. 4-Supervision or Touching Assistance-helper provides verbal cues and/or touching/steadying and/or contact guard assistance as patient completes activity. Assistance may be provided throughout the activity or intermittently. 3-Partial/Moderate Assistance-helper does LESS THAN HALF the effort. [place] lifts, holds or supports trunk or limbs, but provides less than half the effort. 2-Substantial/Maximal Assistance-helper does MORE THAN HALF the effort. [place] lifts or holds trunk or limbs and provides more than half the effort. 7-Whwjxdtim-puihuj does ALL the effort. Patient does none of the effort to complete the activity. Or, the assistance of 2 or more helpers is required for the patient to complete the activity. If activity was not attempted, code reason: 7-Patient Refused. 9-Not Applicable-not attempted and the patient did not perform the activity before the current illness, exacerbation or injury. 10-Not Attempted due to Environmental Limitations-(lack of equipment, weather restraints, etc.). 88-Not Attempted due to Medical Conditions or Safety Concerns. Sit to Stand (QC): 3 Chair/[place] Xfer(QC): 3 Min assist for sit to stand and transfers. Weight Bearing Right Lower Extremity: Right Full Weight Bearing Left Lower Extremity: Left Full Weight Bearing Gait Training Distance: 25'x2 Walk 10 feet (QC): 3 Gait Persons Needed: 1 Gait Assistive Device: FWW Patient ambulates into the hallway, rests in chair, ambulates back to recliner. Patient ambulates extremely slowly, wide FRANCISCO J, slides feet across the floor, slumped posture. Patient needs assist occasionally with guiding the walker especially when turning. Patient needs cues to take big steps and clear the floor. Without encouragement and cueing patient will go so slow that he will fatigue and need to sit before reaching his destination. Treatments transfers, ambulation Assessment Current Status: Poor Progress abnormally slow movement PT Short Term Goals Short Term Goals Time Frame: June 16, 2019 Roll Left & Right: 4 Sit to lyin Lying to sitting on side of be: 4 PT School Inspector Goals School Inspector Goals PT School Inspector Goals Time Frame: June 30, 2019 Roll Left & Right (QC): 6 Sit to Lying (QC): 6 Lying-Sitting on Side/Bed(QC): 6 Sit to Stand (QC): 6 Chair/Lhy-qd-Exdmv Xfer(QC): 6 Toilet Transfer (QC): 6 Car Transfer (QC): 4 Does the Patient Walk: Yes Walk 10 feet (QC): 6 Walk 50ft with 2 Turns (QC): 6 Walk 150 ft (QC): 6 Walking 10ft on Uneven Surface: 4 1 Step (curb) (QC): 9 4 Steps (QC): 9 12 Steps (QC): 9 Picking up an Object (QC): 9 (Pt will utilize adaptive equipment due to back precautions) Does the Pt use WC or Scooter?: No Wheel 50 feet with 2 turns (QC: 9 Type: N/A Wheel 150 feet: 9 Type: N/A PT Plan Problem List Problem List: Activity Tolerance, Functional Strength, Safety, Balance, Gait, Transfer, Bed Mobility, ROM Treatment/Plan Treatment Plan: Continue Plan of Care Treatment Plan: Bed Mobility, Education, Functional Activity Johny, Functional Strength, Group Therapy, Gait, Safety, Therapeutic Exercise, Transfers Treatment Duration: June 30, 2019 Frequency: 6 times per week Estimated Hrs Per Day: 1.5 hours per day Patient and/or Family Agrees t: Yes Safety Risks/Education Patient Education: Gait Training, Transfer Techniques, Correct Positioning, Safety Issues Teaching Recipient: Patient Teaching Methods: Demonstration, Discussion Response to Teaching: Reinforcement Needed Time/GCodes Time In: 1330 Time Out: 1400 Total Billed Treatment Time: 30 Total Billed Treatment 1 visit GT 30' NITESH SINHA PT June 16, 2019 13:55
[2019-06-16 16:00] VITALS: BP 105/65
[2019-06-16] MEDS: DULoxetine 30 MG (CYMBALTA) CAP PO SCH (19:53)
[2019-06-17 06:00] VITALS: BP 108/65
[2019-06-17] MEDS: KCL 10 MEQ TAB (MICRO K) PO SCH ×2 (06:27→17:45)
[2019-06-17] MEDS: CATHETER FLUSH 10 ML SYR IV SCH ×3 (06:28→20:25)
[2019-06-17] MEDS: GABAPENTIN 300 MG (NEURONTIN) CAP PO SCH ×3 (09:09→20:23)
[2019-06-17] MEDS: SENNA W/DOCUSATE (SENOKOT S) TABLET PO SCH ×2 (09:09→20:29)
[2019-06-17] MEDS: DOCUSATE SODIUM 100 MG (COLACE) CAP PO SCH ×2 (09:09→20:28)
[2019-06-17] MEDS: polyethylene glycoL POWDER 17 GM (MIRALAX) PACK PO SCH ×2 (09:10→20:29)
--- NOTE | 2019-06-17 12:29 | Physical Therapy Daily Note ---
PT Daily Note-Current Subjective Pt reports that his legs just don't feel as responsive today. Mental Status Patient Orientation: Person, Place, Time, Situation Transfers SCALE: Activities may be completed with or without assistive devices. 8-Xeyfmrcylq-ulbkojm completes the activity by him/herself with no assistance from a helper. 5-Set-up or Clean-up Assistance-helper sets up or cleans up; patient completes activity. [place] assists only prior to or following the activity. 4-Supervision or Touching Assistance-helper provides verbal cues and/or touching/steadying and/or contact guard assistance as patient completes activity. Assistance may be provided throughout the activity or intermittently. 3-Partial/Moderate Assistance-helper does LESS THAN HALF the effort. [place] lif ts, holds or supports trunk or limbs, but provides less than half the effort. 2-Substantial/Maximal Assistance-helper does MORE THAN HALF the effort. [place] lifts or holds trunk or limbs and provides more than half the effort. 7-Pqdselacp-gfmhgd does ALL the effort. Patient does none of the effort to complete the activity. Or, the assistance of 2 or more helpers is required for the patient to complete the activity. If activity was not attempted, code reason: 7-Patient Refused. 9-Not Applicable-not attempted and the patient did not perform the activity before the current illness, exacerbation or injury. 10-Not Attempted due to Environmental Limitations-(lack of equipment, weather restraints, etc.). 88-Not Attempted due to Medical Conditions or Safety Concerns. Sit to Stand (QC): 3 Chair/Udn-nj-Uusnx Xfer(QC): 3 Weight Bearing Right Lower Extremity: Right Full Weight Bearing Left Lower Extremity: Left Full Weight Bearing Gait Training Does the Patient Walk?: Yes Distance: 32ft Walk 10 feet (QC): 4 Gait Persons Needed: 1 Gait Assistive Device: FWW Wheelchair Training Does the Pt Use a Wheelchair?: Yes Wheel 50 ft with 2 turns (QC): 5 Type of Wheelchair: Manual Pt propelled the WC 100ft. Exercises NuStep Minutes: 5 NuStep Workload: 5 Assessment Current Status: Fair Progress Pt was able to ambulate a short distance with good stability. He had more difficulty with turning to transfer today than he has had in the past. PT Short Term Goals Short Term Goals Time Frame: June 16, 2019 Roll Left & Right: 4 Sit to lyin Lying to sitting on side of be: 4 PT Skilled Nursing Goals Senior C Web Developer Goals PT Senior C Web Developer Goals Time Frame: June 30, 2019 Roll Left & Right (QC): 6 Sit to Lying (QC): 6 Lying-Sitting on Side/Bed(QC): 6 Sit to Stand (QC): 6 Chair/Xux-lh-Dlpyw Xfer(QC): 6 Toilet Transfer (QC): 6 Car Transfer (QC): 4 Does the Patient Walk: Yes Walk 10 feet (QC): 6 Walk 50ft with 2 Turns (QC): 6 Walk 150 ft (QC): 6 Walking 10ft on Uneven Surface: 4 1 Step (curb) (QC): 9 4 Steps (QC): 9 12 Steps (QC): 9 Picking up an Object (QC): 9 (Pt will utilize adaptive equipment due to back precautions) Does the Pt use WC or Scooter?: No Wheel 50 feet with 2 turns (QC: 9 Type: N/A Wheel 150 feet: 9 Type: N/A PT Plan Treatment/Plan Treatment Plan: Continue Plan of Care Treatment Plan: Bed Mobility, Education, Functional Activity Johny, Functional Strength, Group Therapy, Gait, Safety, Therapeutic Exercise, Transfers Treatment Duration: June 30, 2019 Frequency: 6 times per week Estimated Hrs Per Day: 1.5 hours per day Patient and/or Family Agrees t: Yes Time/GCodes Time In: 1145 Time Out: 1215 Total Billed Treatment Time: 30 Total Billed Treatment 1, ex (20), wc (10) CLARENCE DEVRIES PT June 17, 2019 12:29
--- NOTE | 2019-06-17 12:43 | PM&R Progress Note ---
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 which certainly could be from spine surgery and severe back disease Will start Valium 1mg PO TID scheduled as long as it doesn't make him too drowsy Muscles are very taut even in his arms which I can see grossly and confirmed on palpation Edema is increased a bit since changed Lasix to every other day so will give dose of Zaroxolyn 2.5mg 30 minutes before Lasix 40mg IV tomorrow Pain is controlled otherwise with Ultram Pt will be re-checked next week to evaluate his progress and discharge planning Bowels moved yesterday Eating and drinking well Overall responding to aggressive structured PT Check meds and labs Conferred with RN Reviewed therapy notes Review of Systems General: Fatigue Neurological: Weakness, Numbness, Incoordination Objective Exam Vital Signs Vital Signs Date Time Temp Pulse Resp B/P (MAP) Pulse Ox O2 Delivery O2 Flow Rate FiO2 06/17/19 15:57 36.6 67 16 112/67 (82) 94 Room Air Capillary Refill : Less Than 3 Seconds General Appearance: No Apparent Distress, WD/WN, Anxious, Chronically ill HEENT: PERRL/EOMI, Normal ENT Inspection, Pharynx Normal Neck: Full Range of Motion, Normal Inspection, Non Tender, Supple, Carotid Bruit Respiratory: Chest Non Tender, Lungs Clear, Normal Breath Sounds, No Accessory Muscle Use, No Respiratory Distress Cardiovascular: Regular Rate, Rhythm, No Edema, No Gallop, No JVD, No Murmur, Normal Peripheral Pulses Gastrointestinal: Normal Bowel Sounds, No Organomegaly, No Pulsatile Mass, Non Tender, Soft Back: Normal Inspection, No CVA Tenderness, No Vertebral Tenderness Extremity: Normal Capillary Refill, Normal Inspection, Normal Range of Motion, Non Tender, No Calf Tenderness Neurologic/Psychiatric: Alert, Oriented x3, Normal Mood/Affect, 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 FIM Transfers Therapy Code Descriptions/Definitions Functional [place] Measure: 0=Not Assessed/NA 4=Minimal Assistance 1=Total Assistance 5=Supervision or Setup 2=Maximal Assistance 6=Modified [place] 3=Moderate Assistance 7=Complete IndependenceSCALE: Activities may be completed with or without assistive devices. 2-Fszzhjeyuv-osbqplu completes the activity by him/herself with no assistance from a helper. 5-Set-up or Clean-up Assistance-helper sets up or cleans up; patient completes activity. [place] assists only prior to or following the activity. 4-Supervision or Touching Assistance-helper provides verbal cues and/or touching/steadying and/or contact guard assistance as patient completes activity. Assistance may be provided throughout the activity or intermittently. 3-Partial/Moderate Assistance-helper does LESS THAN HALF the effort. [place] lifts, holds or supports trunk or limbs, but provides less than half the effort. 2-Substantial/Maximal Assistance-helper does MORE THAN HALF the effort. [place] lifts or holds trunk or limbs and provides more than half the effort. 4-Visqkqmqn-swsiqu does ALL the effort. Patient does none of the effort to complete the activity. Or, the assistance of 2 or more helpers is required for the patient to complete the activity. If activity was not attempted, code reason: 7-Patient Refused. 9-Not Applicable-not attempted and the patient did not perform the activity before the current illness, exacerbation or injury. 10-Not Attempted due to Environmental Limitations-(lack of equipment, weather restraints, etc.). 88-Not Attempted due to Medical Conditions or Safety Concerns. Roll Left to Right (QC): 1 Sit to Lying (QC): 1 Sit to Stand (QC): 3 Chair/Qzd-ef-Lypvh Xfer(QC): 3 Car Transfer (QC): 3 Gait Training Does the Patient Walk?: Yes Distance: 32ft Walk 10 feet (QC): 4 Walk 50 ft with 2 Turns(QC): 88 Walk 150 ft (QC): 88 Walking 10ft/uneven surface-QC: 88 Gait Persons Needed: 1 Gait Assistive Device: FWW Wheelchair Training Does the Pt Use a Wheelchair?: Yes Wheel 50 ft with 2 turns (QC): 5 Wheel 150 ft (QC): 5 Type of Wheelchair: Manual Stair Training 1 Step (curb) (QC): 9 4 Steps (QC): 9 12 Steps (QC): 9 Balance Picking up an Object (QC): 88 ADL-Treatment Eating (QC): 5 Oral Hygiene (QC): 5 (s/u based on clinical judgment.) Bathing Location: L Arm, L Upper Leg, R Upper Leg, L Lower Leg (including foot), R Lower Leg (including foot), Chest, Abdomen, Perineal Area Shower/Bathe Self (QC): 3 (Pt able to complete most tasks on sc, completes with LHS for LEs and requires assist for bottom in stance and R UE due to LUE decreased ROM/ strength/ coordination.) Upper Body Dressing (QC): 5 (s/u) Lower Body Dressing (QC): 3 (mod A and cues for precaution management: pt able to thread BLE into briefs and pants utilizing information systems architect and increased time. Pt stands to pull up one at a time, requires assist both times for L side.) On/Off Footwear (QC): 3 (due to new socks, pt requires increased time and assist for sock donning. 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
[2019-06-17] MEDS ORDERED: methylPREDNISolone 40 MG/ML (Solu-MEDROL) VIAL IV NR (12:45)
--- NOTE | 2019-06-17 14:58 | NUR ---
CALL TO PHARMACY, SPOKE Conor ALY, THAT UNABLE TO OBTAIN VALIUM FROM [facility]
[2019-06-17] MEDS: DIAZEPAM 2 MG (VALIUM) TAB PO SCH ×2 (15:23→20:24)
[2019-06-17 15:57] VITALS: BP 112/67
[2019-06-17] MEDS: DULoxetine 30 MG (CYMBALTA) CAP PO SCH (20:23)
[2019-06-18 05:03] VITALS: BP 147/81
[2019-06-18 06:09] LABS: BASOPHILS % (AUTO) 0 % (0-10); EOSINOPHILS % (AUTO) 0 % (0-10); HEMATOCRIT 38 % (40-54); HEMOGLOBIN 12.8 G/DL (13.3-17.7); LYMPHOCYTES # (AUTO) 1.7 X 10^3 (1.0-4.0); LYMPHOCYTES % (AUTO) 15 % (12-44); MEAN CORPUSCULAR HEMOGLOBIN 31 PG (25-34); MEAN CORPUSCULAR HGB CONC 34 G/DL (32-36); MEAN CORPUSCULAR VOLUME 91 FL (80-99); MEAN PLATELET VOLUME 9.9 FL (7.4-10.4); MONOCYTES # (AUTO) 1.2 X 10^3 (0.0-1.0); MONOCYTES % (AUTO) 10 % (0-12); NEUTROPHILS # (AUTO) 8.2 X 10^3 (1.8-7.8); NEUTROPHILS % (AUTO) 74 % (42-75); PLATELET COUNT 324 10^3/uL (130-400); RED CELL DISTRIBUTION WIDTH 12.9 % (10.0-14.5); WHITE BLOOD COUNT 11.1 10^3/uL (4.3-11.0)
[2019-06-18] MEDS: CATHETER FLUSH 10 ML SYR IV SCH ×3 (06:36→21:15)
[2019-06-18] MEDS: KCL 10 MEQ TAB (MICRO K) PO SCH ×2 (06:36→17:53)
[2019-06-18 06:37] LABS: CHLORIDE 105 MMOL/L (98-107); POTASSIUM 4.1 MMOL/L (3.6-5.0); SODIUM 139 MMOL/L (135-145)
[2019-06-18 06:38] LABS: CALCIUM 9.6 MG/DL (8.5-10.1)
[2019-06-18 06:39] LABS: GLUCOSE 130 MG/DL (70-105); TOTAL PROTEIN 6.5 GM/DL (6.4-8.2)
[2019-06-18 06:41] LABS: BILIRUBIN,TOTAL 0.4 MG/DL (0.1-1.0); CARBON DIOXIDE 24 MMOL/L (21-32)
[2019-06-18 06:43] LABS: ALKALINE PHOSPHATASE 60 U/L (40-136); CREATININE SERUM 0.77 MG/DL (0.60-1.30); GFR ESTIMATED > 60; PHOSPHORUS 2.6 MG/DL (2.3-4.7)
[2019-06-18 06:44] LABS: BUN/CREATININE RATIO 17
[2019-06-18 06:46] LABS: ALANINE AMINOTRANSFERASE 22 U/L (0-55); MAGNESIUM 2.2 MG/DL (1.6-2.4)
[2019-06-18 06:47] LABS: CREATINE KINASE 53 U/L (30-200)
[2019-06-18 06:51] LABS: ERYTHROCYTE SEDIMENTATION RATE 38 MM/HR (0-30)
[2019-06-18] MEDS: GABAPENTIN 300 MG (NEURONTIN) CAP PO SCH ×3 (08:18→21:13)
[2019-06-18] MEDS: SENNA W/DOCUSATE (SENOKOT S) TABLET PO SCH ×2 (08:18→21:15)
[2019-06-18] MEDS: DOCUSATE SODIUM 100 MG (COLACE) CAP PO SCH ×2 (08:18→21:13)
[2019-06-18] MEDS: DIAZEPAM 2 MG (VALIUM) TAB PO SCH ×2 (08:18→21:14)
[2019-06-18] MEDS: METOLAZONE 2.5 MG (ZAROXOLYN) TAB PO SCH (08:19)
[2019-06-18 09:22] VITALS: BP 120/67
[2019-06-18] MEDS: FUROSEMIDE 40 MG/4 ML INJ (LASIX) IVP SCH (09:30)
[2019-06-18] MEDS: polyethylene glycoL POWDER 17 GM (MIRALAX) PACK PO SCH ×2 (09:39→21:14)
--- NOTE | 2019-06-18 10:26 | PM&R Progress Note ---
Subjective HPI/CC On Admission Date Seen by Provider: June 18, 2019 Time Seen by Provider: 12:45 Subjective/Events-last exam Patient updated on my assessment he has "stiff man syndrome" and interestingly he was told he may have that at med but then ruled it out but considering dramatic improvement in his muscle stiffness with the Valium 1mg TID along with Zanaflex is essentially rules it in. Will review records Improved flexibility noted during transfers Had solumedrol IV once yesterday too Started Valium 1mg PO TID scheduled and he is not drowsy so will increase it to 2mg PO TID scheduled Muscles have been very taut even in his arms which I had see grossly and confirmed on palpation but now improved. He states this issue has gone on for a few years and he hated to take the day off from work because he would be so stiff the next morning he could barely make it. Edema is increased a bit since changed Lasix to every other day so will gave dose of Zaroxolyn 2.5mg 30 minutes before Lasix 40mg IV today and is now urinating large volumes Pain is controlled otherwise with Ultram Pt will be re-checked next week to evaluate his progress and discharge planning Bowels moved today Eating and drinking well Overall responding to aggressive structured PT Check meds and labs Conferred with RN Reviewed therapy notes Review of Systems General: Fatigue Musculoskeletal: leg pain (muscle stiffness) Neurological: Weakness, Numbness, Incoordination Objective Exam Vital Signs Vital Signs Date Time Temp Pulse Resp B/P (MAP) Pulse Ox O2 Delivery O2 Flow Rate FiO2 /10/20 17:08 30.0 66 20 100/64 (76) 93 Room Air Capillary Refill : Less Than 3 Seconds General Appearance: No Apparent Distress, WD/WN, Anxious, Chronically ill HEENT: PERRL/EOMI, Normal ENT Inspection, Pharynx Normal Neck: Full Range of Motion, Normal Inspection, Non Tender, Supple, Carotid Bruit Respiratory: Chest Non Tender, Lungs Clear, Normal Breath Sounds, No Accessory Muscle Use, No Respiratory Distress Cardiovascular: Regular Rate, Rhythm, No Edema, No Gallop, No JVD, No Murmur, Normal Peripheral Pulses Gastrointestinal: Normal Bowel Sounds, No Organomegaly, No Pulsatile Mass, Non Tender, Soft Back: Normal Inspection, No CVA Tenderness, No Vertebral Tenderness Extremity: Normal Capillary Refill, Normal Inspection, Normal Range of Motion, Non Tender, No Calf Tenderness Neurologic/Psychiatric: Alert, Oriented x3, Normal Mood/Affect, shipping hand II-XII Norm as Tested, Abnormal Gait, Motor Weakness (lower extremities), Sensory Deficit Skin: Normal Color, Warm/Dry Lymphatic: No Adenopathy Results/Procedures Lab Laboratory Tests 06/18/19 05:25 Patient resulted labs reviewed. FIM Transfers Therapy Code Descriptions/Definitions Functional [place] Measure: 0=Not Assessed/NA 4=Minimal Assistance 1=Total Assistance 5=Supervision or Setup 2=Maximal Assistance 6=Modified [place] 3=Moderate Assistance 7=Complete IndependenceSCALE: Activities may be completed with or without assistive devices. 3-Pyywrrdzmd-nashvya completes the activity by him/herself with no assistance from a helper. 5-Set-up or Clean-up Assistance-helper sets up or cleans up; patient completes activity. [place] assists only prior to or following the activity. 4-Supervision or Touching Assistance-helper provides verbal cues and/or touching/steadying and/or contact guard assistance as patient completes activity. Assistance may be provided throughout the activity or intermittently. 3-Partial/Moderate Assistance-helper does LESS THAN HALF the effort. [place] lifts, holds or supports trunk or limbs, but provides less than half the effort. 2-Substantial/Maximal Assistance-helper does MORE THAN HALF the effort. [place] lifts or holds trunk or limbs and provides more than half the effort. 1-Kegjmssyy-goncbx does ALL the effort. Patient does none of the effort to complete the activity. Or, the assistance of 2 or more helpers is required for the patient to complete the activity. If activity was not attempted, code reason: 7-Patient Refused. 9-Not Applicable-not attempted and the patient did not perform the activity before the current illness, exacerbation or injury. 10-Not Attempted due to Environmental Limitations-(lack of equipment, weather restraints, etc.). 88-Not Attempted due to Medical Conditions or Safety Concerns. Roll Left to Right (QC): 1 Sit to Lying (QC): 1 Sit to Stand (QC): 3 Chair/Hlt-vn-Zfroo Xfer(QC): 3 Car Transfer (QC): 3 Gait Training Does the Patient Walk?: Yes Distance: 32ft Walk 10 feet (QC): 4 Walk 50 ft with 2 Turns(QC): 88 Walk 150 ft (QC): 88 Walking 10ft/uneven surface-QC: 88 Gait Persons Needed: 1 Gait Assistive Device: FWW Wheelchair Training Does the Pt Use a Wheelchair?: Yes Wheel 50 ft with 2 turns (QC): 5 Wheel 150 ft (QC): 5 Type of Wheelchair: Manual Stair Training 1 Step (curb) (QC): 9 4 Steps (QC): 9 12 Steps (QC): 9 Balance Picking up an Object (QC): 88 ADL-Treatment Eating (QC): 5 Oral Hygiene (QC): 5 (s/u based on clinical judgment.) Bathing Location: L Arm, L Upper Leg, R Upper Leg, L Lower Leg (including foot), R Lower Leg (including foot), Chest, Abdomen, Perineal Area Shower/Bathe Self (QC): 3 (Pt able to complete most tasks on sc, completes with LHS for LEs and requires assist for bottom in stance and R UE due to LUE decreased ROM/ strength/ coordination.) Upper Body Dressing (QC): 5 (s/u) Lower Body Dressing (QC): 3 (mod A and cues for precaution management: pt able to thread BLE into briefs and pants utilizing tax accountant and increased time. Pt stands to pull up one at a time, requires assist both times for L side.) On/Off Footwear (QC): 3 (due to new socks, pt requires increased time and assist for sock donning. ) Toileting Hygiene (QC): 1 (TD due to balance/ requirement of two people for task.) Assessment/Plan Assessment and Plan Assess & Plan/Chief Complaint Assessment: s/p lumbar stenosis surgery Severe debility started after c-spine surgery 03/2019 Anasarca receiving IV Lasix with good results will also add Zaroxolyn before Lasix tomorrow for more effect OA Chronic back pain Former smoker Hypokalemia Severe muscle stiffness confirmed "stiff man syndrome" with Valium dramatic results- will check [facility] w/u and labs Plan: Potassium supplement IRF protocol Lasix 40mg IV but changed to every other day with addition of Zaroxolyn tomorrow 30 minutes before Midline Valium scheduled 1 dose of Solumedrol yesterday Zanaflex along with Valium 2mg PO TID (1) Spinal stenosis (2) Anasarca (3) Former smoker (4) Neuropathy (5) Hypokalemia (6) Edema (7) Dyspnea DIANA PITTMAN DO June 18, 2019 10:26
[2019-06-18 17:08] VITALS: BP 100/64
--- NOTE | 2019-06-18 18:33 | Progress Note ---
Progress Note MANUEL notes 01/27/20 History of Present Illness This is 63 yo M who presents with left sided weakness.. He states that he has having back pain for 40 years and has been having sharp shooting pain down the left foot about 18 years, using walker for several weeks at time. Went to Chiropractor and was told that he has bone spur. In September 2018, he went to [place], and noticed that he was limping on the left due to low back and hip pain. he was having left foot drop, dragging his left foot since that time. He had 2 falls recently with the first one about a month and a half and the second one about 2 weeks ago. A couple of months later, he noticed that he has weakness in left arm and hand. He started using walker since a month ago. The first fall, he was going to the kitchen, he could not lift up the left foot high enough and stumble down. The second fall when he was walking then, lost his balance and fell backwards. 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 No numbness or tingling. He reports tingling in left thigh and leg after 3 hours car ride today. No back injury. He has a hard time buttoning his pants. No problem zipping. No dififculty swallowing, breathing or chewing. No diplopia or blurry vision. He gets stiffness in the back. Reports muscle twitching in left leg and left arm, worse since 09/2018. No muscle cramps. He has neck stiffness lately. Reports neck pain when turning head for several years. No sharp shooting pain down the neck. He had MRI brain, C-spine, L-spine done per neurologist and was told by Dr. Quintero that he might have ALS. He recently had MRI T-spine, L spine W/WO about 2 days ago and no reports yet. When he is in bed, and stretch it out, he will have shaking of left leg in the morning started about a month ago. No weight loss, gain a few pounds. He states that his feet are sensitive since September. He gets startle very easy. He had history of left ankle fracture about 30 years ago. Sister with MS, dad with alzehimer. Mom with vitiligo, thyroid problem. Review of medical records: MRI brain WO 01/15/2019 was unremarkable MRI C spine WO 01/15/2019 showed multiple osteophyte complexes with associated facet arthritis and neural foraminal narrowing, mild spinal canal stenosis at C5-6. MRI L spine 01/05/2019 showed severe lumbar stenosis at L4-5 and moderate stenosis at L2-3. Mild to moderate stenosis at L3-4. (reviewed today) This is 63 yo M with h/o back pain who presents for left sided weakness. Patient presents with weakness started in left lower extremity(dragging left f oot) then a couple months later with left hand weakness. He also has back pain with left sciatic pain. He noticed fasciculations in LUE and LLE. No sensory symptoms. No ocular or bulbar symptoms. Stiffness in the back that has been affected his walking. Exam showed distal weakness in LUE and LLE with spasticity in both LUE and LLE. No weakness in RUE or RLE. He has diffuse hyperreflexia throughout(L>R) with clonus and upgoing toe on the left. He also has spastic gait. MRI brain at OSH did not show stroke. MRI C-spine and L-spine did not explain the weakness and hyperreflexia with spasticity. He also has decreased PP upto ankles and vibration in both toes. DDx include PLS, upper motor neuron predominant ALS, myeloneuropathy, stiff person syndrome. Plan - Start baclofen 5 mg TID then go up to 10mg TID after 2 weeks for spasticity. - Obtain very long chain fatty acid, HTLV 1/2, TSH, RYLEE - Obtain labs at OSH including B12, MMA, HIV, copper - EMG with LLE and LUE to evaluate for motor neuron disease. Patient seen and discussed with Dr. Gamboa. Santa Kearney MD Neurophysiology fellow Mr Reid is here for evaluation of progressive left sided weakness and stiffness. He has chronic back pain for 40 years with pain shooting down the left foot. He went to chiropracter and was told about a bone spur. In september he went to [place]. He started having weakness in left foot when he went to [place]. He noticed his left foot flopping and realized the left foot drop. Few weeks later had left hand manuscripts archivist weakness. No injury or any other inciting events. He had few falls due to The weakness. He has chronic back pain, with sciatic symptoms to the left leg. He had stiffness in the back and neck. However no radicular symptoms in the neck. He denies any numbness and tingling in the legs, however sitting for long period today they noticed some tingling in the left thigh. He reports of muscle twitching in the left leg, worse since september and left upper extremity intermittently. He denies any muscle cramps, no bulbar or ocular symptoms. He went to see a neurologist and was told that this might be ALS. MRI brain was normal. MRI C spine showed mild spinal stenosis at C5-6 , multiple degenerative changes. Lumbar stenosis reported in the outside note. EH denies any sensory symptoms, no oculobulbar symptoms presently. He noticed muscle twitching in the left side of the body. HE started using a walker about 1 month ago. He had two falls recently. He also reports of problems with coordination and decreased hand manuscripts archivist. No numbness or tingling. He reports of neck pain when turning head for several years. He denies any recent weight loss or weight gain. Sister with MS, dad with alzehimer. Mom with vitiligo, thyroid problem His examination revealed spastic speech, mild left side weakness, FABD, FE, HF, HABD, TE 4's, increased tone bilaterally left more than right and brisk reflexes with upgoing toe on the left Gait is spastic, could not heel or toe walk. Sensory examination revealed decreased pinprick distally in the legs, up to ankles, and decreased vibratory sensations at the toes. I did not see fasciculations or atrophy presently on his examiantion. 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 He could have a superimposed neuropathy or sensory symptoms from radiculopathy. Agree with the plan as noted above in Dr Anne's note. Will perform EMG/NCS to evaluate further and will start on baclofen for spasticity. Will schedule in our motor neuron disease clinic for followup. The EMG/NCS findings did not fulfil the criteria for motor neuron disease, however this can be normal in PLS which is still in the differential. Pat Gamboa MD [facility] Department of Neurology TSH, HTLV, VLCFA, RYLEE antibody testing were all unremarkable DIANA PITTMAN DO June 18, 2019 18:33
[2019-06-18] MEDS: DULoxetine 30 MG (CYMBALTA) CAP PO SCH (21:13)
[2019-06-19] MEDS: KCL 10 MEQ TAB (MICRO K) PO SCH ×2 (05:34→17:11)
[2019-06-19] MEDS: CATHETER FLUSH 10 ML SYR IV SCH ×3 (05:34→22:30)
[2019-06-19 06:21] VITALS: BP 130/73
[2019-06-19] MEDS: DOCUSATE SODIUM 100 MG (COLACE) CAP PO SCH ×2 (08:21→20:53)
[2019-06-19] MEDS: SENNA W/DOCUSATE (SENOKOT S) TABLET PO SCH ×2 (08:22→20:58)
[2019-06-19] MEDS: GABAPENTIN 300 MG (NEURONTIN) CAP PO SCH ×3 (08:22→20:53)
[2019-06-19] MEDS: polyethylene glycoL POWDER 17 GM (MIRALAX) PACK PO SCH ×2 (08:22→20:58)
[2019-06-19] MEDS: DIAZEPAM 2 MG (VALIUM) TAB PO SCH ×3 (08:22→20:53)
--- NOTE | 2019-06-19 08:59 | Occupational Ther Daily Note ---
OT Current Status-Daily Note Subjective LATE ENTRY FOR 06/16/2019-Pt alert, sitting in recliner. No c/o pain at this time. Agrees to therapy. Mental Status/Objective Patient Orientation: Person, Place, Time, Situation ADL-Treatment Pt agrees to shower. Pt ambulated using FWW with CGA to toilet. Pt required assistance to manipulate clothing and cleanse self. Pt then ambulated to shower and transferred using FWW, shower bench and grabbars with CGA. Pt then completed bathing all areas except buttocks, used shower bench, grabbars, hand held shower and long handle sponge. Pt able to complete donning/doffing shirt by self after set up. Pt doffed pants with assist to hike over hips. Pt donned lower body clothing using AE then standing while leaning on bed to hike pants over hips. Using sock aide to don socks. Pt sat at sink to complete oral care and grooming. After session, pt sitting in recliner with call light/phone in reach. all needs met in room. Therapy Code Descriptions/Definitions Functional [place] Measure: 0=Not Assessed/NA 4=Minimal Assistance 1=Total Assistance 5=Supervision or Setup 2=Maximal Assistance 6=Modified [place] 3=Moderate Assistance 7=Complete IndependenceSCALE: Activities may be completed with or without assistive devices. 4-Qhicyfcpwy-zotcbit completes the activity by him/herself with no assistance from a helper. 5-Set-up or Clean-up Assistance-helper sets up or cleans up; patient completes activity. [place] assists only prior to or following the activity. 4-Supervision or Touching Assistance-helper provides verbal cues and/or touching/steadying and/or contact guard assistance as patient completes activity. Assistance may be provided throughout the activity or intermittently. 3-Partial/Moderate Assistance-helper does LESS THAN HALF the effort. [place] lifts, holds or supports trunk or limbs, but provides less than half the effort. 2-Substantial/Maximal Assistance-helper does MORE THAN HALF the effort. [place] lifts or holds trunk or limbs and provides more than half the effort. 3-Zgvxfuobs-thfmpu does ALL the effort. Patient does none of the effort to complete the activity. Or, the assistance of 2 or more helpers is required for the patient to complete the activity. If activity was not attempted, code reason: 7-Patient Refused. 9-Not Applicable-not attempted and the patient did not perform the activity before the current illness, exacerbation or injury. 10-Not Attempted due to Environmental Limitations-(lack of equipment, weather restraints, etc.). 88-Not Attempted due to Medical Conditions or Safety Concerns. Oral Hygiene (QC): 6 Shower/Bathe Self (QC): 3 Upper Body Dressing (QC): 5 Lower Body Dressing (QC): 3 On/Off Footwear: 5 Toileting Hygiene (QC): 3 Toilet Transfer (QC): 4 OT Short Term Goals Short Term Goals Shower/bathe self: 3 Upper body dressin Lower body dressin OT Nursing Home Goals Bank Compliance Officer Goals Time Frame: June 30, 2019 Eating (QC): 6 Oral Hygiene (QC): 6 Toileting Hygiene (QC): 6 Shower/Bathe Self (QC): 6 Upper Body Dressing (QC): 6 Lower Body Dressing (QC): 6 On/Off Footwear (QC): 6 Additional Goals: 1-Demonstrate ADL Tasks, 2-Verbalize Understanding, 3- ImproveStrength/Johny 1=Demonstrate adherence to instructed precautions during ADL tasks. 2=Patient will verbalize/demonstrate understanding of assistive devices/modifications for ADL. 3=Patient will improve strength/tolerance for activity to enable patient to perform ADL's. OT Education/Plan Problem List/Assessment Assessment: Decreased Activ Tolerance, Dependent Transfers, Impaired Self-Care Skills, Restricted Funct UE ROM Discharge Recommendations Plan/Recommendations: Continue POC Treatment Plan/Plan of Care Patient would benefit from OT for education, treatment and training to promote independence in ADL's, mobility, safety and/or upper extremity function for ADL's. Plan of Care: ADL Retraining, Caregiver Training, Concurrent Therapy, Functio nal Mobility, Group Exercise/Act as Ind, UE Funct Exercise/Act, UE Neuromus Re- Ed/Coord, W/C Management Training Treatment Duration: June 30, 2019 Frequency: At least 5 of 7 days/Wk (IRF) Estimated Hrs Per Day: 1.5 hours per day Agreement: Yes Rehab Potential: Guarded Time/GCodes Start Time: 07:30 Stop Time: 09:00 Total Time Billed (hr/min): 90 Billed Treatment Time 1 visit-ADL 6 (90 min) EVELIN ERWIN June 19, 2019 08:59
--- NOTE | 2019-06-19 09:25 | PM&R Progress Note ---
Subjective HPI/CC On Admission Date Seen by Provider: June 19, 2019 Time Seen by Provider: 09:30 Subjective/Events-last exam Feels like the steroids, along with the Valium and Zanaflex helped him the most Will give another dose of Solumedrol since the last dose was on Wednesday He told me that the neurologist from had reviewed everything from [facility] and had ruled out PLS Bowels are moving okay Overall feels like he is trying to get better but the stiffness is what limits his therapy Muscles have been very taut even in his arms which I had see grossly and confirmed on palpation but now improved. He states this issue has gone on for a few years and he hated to take the day off from work because he would be so stiff the next morning he could barely make it. Edema is increased a bit since changed Lasix to every other day so will gave dose of Zaroxolyn 2.5mg 30 minutes before Lasix 40mg IV today and is now urinat ing large volumes Pain is controlled otherwise with Ultram Pt will be re-checked next week to evaluate his progress and discharge planning Bowels moved today Eating and drinking well Overall responding to aggressive structured PT Check meds and labs Conferred with RN Reviewed therapy notes Review of Systems General: Fatigue Musculoskeletal: back pain, leg pain Objective Exam Vital Signs Vital Signs Date Time Temp Pulse Resp B/P (MAP) Pulse Ox O2 Delivery O2 Flow Rate FiO2 06/19/19 16:00 36.7 66 16 113/67 (82) 94 Room Air Capillary Refill : Less Than 3 Seconds General Appearance: No Apparent Distress, WD/WN, Anxious, Chronically ill HEENT: PERRL/EOMI, Normal ENT Inspection, Pharynx Normal Neck: Full Range of Motion, Normal Inspection, Non Tender, Supple, Carotid Bruit Respiratory: Chest Non Tender, Lungs Clear, Normal Breath Sounds, No Accessory Muscle Use, No Respiratory Distress Cardiovascular: Regular Rate, Rhythm, No Edema, No Gallop, No JVD, No Murmur, Normal Peripheral Pulses Gastrointestinal: Normal Bowel Sounds, No Organomegaly, No Pulsatile Mass, Non Tender, Soft Back: Normal Inspection, No CVA Tenderness, No Vertebral Tenderness Extremity: Normal Capillary Refill, Normal Inspection, Normal Range of Motion, Non Tender, No Calf Tenderness Neurologic/Psychiatric: Alert, Oriented x3, Normal Mood/Affect, success coach II-XII Norm as Tested, Abnormal Gait, Motor Weakness (lower extremities), Sensory Deficit Skin: Normal Color, Warm/Dry Lymphatic: No Adenopathy Results/Procedures Lab Patient resulted labs reviewed. FIM Transfers Therapy Code Descriptions/Definitions Functional [place] Measure: 0=Not Assessed/NA 4=Minimal Assistance 1=Total Assistance 5=Supervision or Setup 2=Maximal Assistance 6=Modified [place] 3=Moderate Assistance 7=Complete IndependenceSCALE: Activities may be completed with or without assistive devices. 4-Dkdqtgvaxk-zhfdexy completes the activity by him/herself with no assistance from a helper. 5-Set-up or Clean-up Assistance-helper sets up or cleans up; patient completes activity. [place] assists only prior to or following the activity. 4-Supervision or Touching Assistance-helper provides verbal cues and/or touching/steadying and/or contact guard assistance as patient completes activity. Assistance may be provided throughout the activity or intermittently. 3-Partial/Moderate Assistance-helper does LESS THAN HALF the effort. [place] lifts, holds or supports trunk or limbs, but provides less than half the effort. 2-Substantial/Maximal Assistance-helper does MORE THAN HALF the effort. [place] lifts or holds trunk or limbs and provides more than half the effort. 1-Gachehgpb-odstol does ALL the effort. Patient does none of the effort to complete the activity. Or, the assistance of 2 or more helpers is required for the patient to complete the activity. If activity was not attempted, code reason: 7-Patient Refused. 9-Not Applicable-not attempted and the patient did not perform the activity before the current illness, exacerbation or injury. 10-Not Attempted due to Environmental Limitations-(lack of equipment, weather restraints, etc.). 88-Not Attempted due to Medical Conditions or Safety Concerns. Roll Left to Right (QC): 1 Sit to Lying (QC): 1 Sit to Stand (QC): 3 Chair/Hxu-mw-Uvcpi Xfer(QC): 3 Car Transfer (QC): 3 Gait Training Does the Patient Walk?: Yes Distance: 32ft Walk 10 feet (QC): 4 Walk 50 ft with 2 Turns(QC): 88 Walk 150 ft (QC): 88 Walking 10ft/uneven surface-QC: 88 Gait Persons Needed: 1 Gait Assistive Device: FWW Wheelchair Training Does the Pt Use a Wheelchair?: Yes Wheel 50 ft with 2 turns (QC): 5 Wheel 150 ft (QC): 5 Type of Wheelchair: Manual Stair Training 1 Step (curb) (QC): 9 4 Steps (QC): 9 12 Steps (QC): 9 Balance Picking up an Object (QC): 88 ADL-Treatment Eating (QC): 5 Oral Hygiene (QC): 5 (s/u based on clinical judgment.) Bathing Location: L Arm, L Upper Leg, R Upper Leg, L Lower Leg (including foot), R Lower Leg (including foot), Chest, Abdomen, Perineal Area Shower/Bathe Self (QC): 3 (Pt able to complete most tasks on sc, completes with LHS for LEs and requires assist for bottom in stance and R UE due to LUE decreased ROM/ strength/ coordination.) Upper Body Dressing (QC): 5 (s/u) Lower Body Dressing (QC): 3 (mod A and cues for precaution management: pt able to thread BLE into briefs and pants utilizing millinery designer and increased time. Pt stands to pull up one at a time, requires assist both times for L side.) On/Off Footwear (QC): 3 (due to new socks, pt requires increased time and assist for sock donning. 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
[2019-06-19] MEDS ORDERED: methylPREDNISolone 40 MG/ML (Solu-MEDROL) VIAL IV ONE (09:45)
--- NOTE | 2019-06-19 10:37 | Occupational Ther Daily Note ---
OT Current Status-Daily Note Subjective Pt seen in recliner chair, pt agrees to OT tx session. Stating min pain in L shoulder prior to start as he has not been mobilizing L UE, states he was given additional medication this weekend and it "worked really well," stating he was able to reach across with both hands and was not stiff. Mental Status/Objective Patient Orientation: Normal For Age ADL-Treatment Therapy Code Descriptions/Definitions Functional [place] Measure: 0=Not Assessed/NA 4=Minimal Assistance 1=Total Assistance 5=Supervision or Setup 2=Maximal Assistance 6=Modified [place] 3=Moderate Assistance 7=Complete IndependenceSCALE: Activities may be completed with or without assistive devices. 8-Yszcaemsrt-yntzlug completes the activity by him/herself with no assistance from a helper. 5-Set-up or Clean-up Assistance-helper sets up or cleans up; patient completes activity. [place] assists only prior to or following the activity. 4-Supervision or Touching Assistance-helper provides verbal cues and/or touching/steadying and/or contact guard assistance as patient completes activity. Assistance may be provided throughout the activity or intermittently. 3-Partial/Moderate Assistance-helper does LESS THAN HALF the effort. [place] lifts, holds or supports trunk or limbs, but provides less than half the effort. 2-Substantial/Maximal Assistance-helper does MORE THAN HALF the effort. [place] lifts or holds trunk or limbs and provides more than half the effort. 2-Ulguqkihn-uiktoi does ALL the effort. Patient does none of the effort to complete the activity. Or, the assistance of 2 or more helpers is required for the patient to complete the activity. If activity was not attempted, code reason: 7-Patient Refused. 9-Not Applicable-not attempted and the patient did not perform the activity before the current illness, exacerbation or injury. 10-Not Attempted due to Environmental Limitations-(lack of equipment, weather restraints, etc.). 88-Not Attempted due to Medical Conditions or Safety Concerns. Eating (QC): 6 (brings drink to mouth) Bathing Location: L Arm, R Arm, L Upper Leg, R Upper Leg, L Lower Leg (including foot), R Lower Leg (including foot), Chest, Abdomen, Perineal Area Shower/Bathe Self (QC): 3 (Pt able to reach all areas with use of LHS. Pt requires max A for bottom hygiene. Pt dries with cues for use of chemist water purification for LE drying for maintenance of precautions) Upper Body Dressing (QC): 4 (SBA (intermittent assist to gather R sleeve past IV site and placing back brace in proper positioning.) Lower Body Dressing (QC): 4 (Pt doffs pants in stance/ on sc with dressing stick with increased time. Pt dons in w/c with use of chemist water purification, cues for maintenance of precautions, pulls toward groin and stands at sink to complete pulling over hips with CGA.) On/Off Footwear: 3 (doffs with chemist water purification. Pt's DEEP hose/ EUSEBIO wraps and socks donned on this date with max A) Toileting Hygiene (QC): 2 (bottom hygiene max A) Toilet Transfer (QC): 4 (CGA) Other Treatment Pt seen in recliner, states had "concoction" of medication that really assisted in mobility/ fluidity of motion Wednesday. Pt states Dr has stated possible "Stiff man syndrome." Pt completes sit to stand SBA, ambulates with 2WW to sc with CGA. Pt undresses in shower with AE. Pt requires cues for maintenance of p recautions during ADL tasks to ensure back not flexing >90*. Pt states / mother can assist with doffing clothing if needed, assisting in threading BLE, and also bringing back brace around pt's torso. Pt completes all tasks with increased time/ rigidity Stating min pain in L shoulder prior to start. pt left in w/c end of session, all needs met, call light in reach. Education OT Patient Education: Correct positioning, Modified ADL techniques, Progress toward Goal/Update tx plan, Reviewed precautions, Safety issues, Use of adapted equipment Teaching Recipient: Patient Teaching Methods: Demonstration, Discussion Response to Teaching: Verbalize Understanding, Return Demonstration OT Short Term Goals Short Term Goals Shower/bathe self: 3 Upper body dressin Lower body dressin OT Investment Recovery Technician Goals Investment Recovery Technician Goals Time Frame: June 30, 2019 Eating (QC): 6 Oral Hygiene (QC): 6 Toileting Hygiene (QC): 6 Shower/Bathe Self (QC): 6 Upper Body Dressing (QC): 6 Lower Body Dressing (QC): 6 On/Off Footwear (QC): 6 Additional Goals: 1-Demonstrate ADL Tasks, 2-Verbalize Understanding, 3- ImproveStrength/Johny 1=Demonstrate adherence to instructed precautions during ADL tasks. 2=Patient will verbalize/demonstrate understanding of assistive device s/modifications for ADL. 3=Patient will improve strength/tolerance for activity to enable patient to perform ADL's. OT Education/Plan Problem List/Assessment Assessment: Decreased Activ Tolerance, Decreased UE Strength, Dependent Transfers, Impaired Coordination, Impaired Funct Balance, Impaired I ADL's, Impaired Self-Care Skills Discharge Recommendations Plan/Recommendations: Continue POC Therapy Discharge Recommendati: Intermittent Supervision, Home & Family Equpiment Recommendations-D/C: Hip Kit Treatment Plan/Plan of Care Treatment,Training & Education: Yes Patient would benefit from OT for education, treatment and training to promote independence in ADL's, mobility, safety and/or upper extremity function for ADL's. Plan of Care: ADL Retraining, Caregiver Training, Concurrent Therapy, Functional Mobility, Group Exercise/Act as Ind, UE Funct Exercise/Act, UE Neuromus Re-Ed/Coord, W/C Management Training Treatment Duration: June 30, 2019 Frequency: At least 5 of 7 days/Wk (IRF) Estimated Hrs Per Day: 1.5 hours per day Agreement: Yes Rehab Potential: Guarded Time/GCodes Start Time: 08:45 Stop Time: 10:30 Total Time Billed (hr/min): 105 Billed Treatment Time 1, ADL 6 (105) LEO MARTELL OTR June 19, 2019 10:37
--- NOTE | 2019-06-19 12:54 | Physical Therapy Daily Note ---
PT Daily Note-Current Subjective Pt is in the chair and agreeable to treatment. Mental Status Patient Orientation: Person, Place, Time, Situation Transfers SCALE: Activities may be completed with or without assistive devices. 9-Degvizkhmo-anxvzql completes the activity by him/herself with no assistance from a helper. 5-Set-up or Clean-up Assistance-helper sets up or cleans up; patient completes activity. [place] assists only prior to or following the activity. 4-Supervision or Touching Assistance-helper provides verbal cues and/or touching/steadying and/or contact guard assistance as patient completes activity. Assistance may be provided throughout the activity or intermittently. 3-Partial/Moderate Assistance-helper does LESS THAN HALF the effort. [place] lifts, holds or supports trunk or limbs, but provides less than half the effort. 2-Substantial/Maximal Assistance-helper does MORE THAN HALF the effort. [place] lifts or holds trunk or limbs and provides more than half the effort. 2-Zqqodzfcl-fgcioe does ALL the effort. Patient does none of the effort to complete the activity. Or, the assistance of 2 or more helpers is required for the patient to complete the activity. If activity was not attempted, code reason: 7-Patient Refused. 9-Not Applicable-not attempted and the patient did not perform the activity before the current illness, exacerbation or injury. 10-Not Attempted due to Environmental Limitations-(lack of equipment, weather restraints, etc.). 88-Not Attempted due to Medical Conditions or Safety Concerns. Sit to Stand (QC): 3 Chair/Imm-xo-Klvfp Xfer(QC): 3 Weight Bearing Right Lower Extremity: Right Full Weight Bearing Left Lower Extremity: Left Full Weight Bearing Gait Training Does the Patient Walk?: Yes Distance: 56ft, 44ft Walk 10 feet (QC): 3 Walk 50 ft with 2 Turns(QC): 3 Gait Persons Needed: 1 Gait Assistive Device: FWW Wheelchair Training Does the Pt Use a Wheelchair?: Yes Wheel 50 ft with 2 turns (QC): 3 Type of Wheelchair: Manual Very slow propulsion due to (L) UE weakness. Exercises Seated Therapy Exercises: LE Protocol Seated Reps: [address] Ex=Flex, Abd, Ext, Marching Standing Reps: 20 Treatments Added shoulder pulleys to help with (B) shoulder ROM. Pt performed flexion and abduction x30ea. Assessment Current Status: Fair Progress Pt is ambulating longer distances and tolerating longer times in standing. He received a solumedrol injection during treatment which may improve his mobility with the next visit. PT Short Term Goals Short Term Goals Time Frame: June 16, 2019 Roll Left & Right: 4 Sit to lyin Lying to sitting on side of be: 4 PT Alf Goals Personal Carer Goals PT Personal Carer Goals Time Frame: June 30, 2019 Roll Left & Right (QC): 6 Sit to Lying (QC): 6 Lying-Sitting on Side/Bed(QC): 6 Sit to Stand (QC): 6 Chair/Dtd-wx-Olhfb Xfer(QC): 6 Toilet Transfer (QC): 6 Car Transfer (QC): 4 Does the Patient Walk: Yes Walk 10 feet (QC): 6 Walk 50ft with 2 Turns (QC): 6 Walk 150 ft (QC): 6 Walking 10ft on Uneven Surface: 4 1 Step (curb) (QC): 9 4 Steps (QC): 9 12 Steps (QC): 9 Picking up an Object (QC): 9 (Pt will utilize adaptive equipment due to back precautions) Does the Pt use WC or Scooter?: No Wheel 50 feet with 2 turns (QC: 9 Type: N/A Wheel 150 feet: 9 Type: N/A PT Plan Treatment/Plan Treatment Plan: Continue Plan of Care Treatment Plan: Bed Mobility, Education, Functional Activity Johny, Functional Strength, Group Therapy, Gait, Safety, Therapeutic Exercise, Transfers Treatment Duration: June 30, 2019 Frequency: 6 times per week Estimated Hrs Per Day: 1.5 hours per day Patient and/or Family Agrees t: Yes Time/GCodes Time In: 1030 Time Out: 1130 Total Billed Treatment Time: 60 Total Billed Treatment 1, gt 15, wc 15, ex x2 30 CLARENCE DEVRIES PT June 19, 2019 12:54
--- NOTE | 2019-06-19 14:23 | Physical Therapy Daily Note ---
PT Daily Note-Current Subjective Pt has received all of his medication and is feeling a little better. Pain Numeric Pain Scale: 3 Location: Left Location Body Site: Thigh Pain Description: Ache, Heavy Mental Status Patient Orientation: Person, Place, Time, Situation Transfers SCALE: Activities may be completed with or without assistive devices. 0-Mrycakglen-hbmwwzq completes the activity by him/herself with no assistance from a helper. 5-Set-up or Clean-up Assistance-helper sets up or cleans up; patient completes activity. [place] assists only prior to or following the activity. 4-Supervision or Touching Assistance-helper provides verbal cues and/or touching/steadying and/or contact guard assistance as patient completes activity. Assistance may be provided throughout the activity or intermittently. 3-Partial/Moderate Assistance-helper does LESS THAN HALF the effort. [place] lifts, holds or supports trunk or limbs, but provides less than half the effort. 2-Substantial/Maximal Assistance-helper does MORE THAN HALF the effort. [place] lifts or holds trunk or limbs and provides more than half the effort. 8-Nizypwzhq-qzderg does ALL the effort. Patient does none of the effort to complete the activity. Or, the assistance of 2 or more helpers is required for the patient to complete the activity. If activity was not attempted, code reason: 7-Patient Refused. 9-Not Applicable-not attempted and the patient did not perform the activity before the current illness, exacerbation or injury. 10-Not Attempted due to Environmental Limitations-(lack of equipment, weather restraints, etc.). 88-Not Attempted due to Medical Conditions or Safety Concerns. Sit to Stand (QC): 4 Chair/Xpt-oo-Nuhhz Xfer(QC): 4 Weight Bearing Right Lower Extremity: Right Full Weight Bearing Left Lower Extremity: Left Full Weight Bearing Gait Training Does the Patient Walk?: Yes Distance: 40ft x3 Walk 10 feet (QC): 4 Gait Assistive Device: FWW Wheelchair Training Does the Pt Use a Wheelchair?: Yes Treatments Worked on improving foot placement during turns to avoid narrow stance. (L) LE is very weak and slow to respond. Assessment Current Status: Fair Progress Pt was able to ambulate a total of 120ft this afternoon. He is eager to get stronger in order to be able to return home. PT Short Term Goals Short Term Goals Time Frame: June 16, 2019 Roll Left & Right: 4 Sit to lyin Lying to sitting on side of be: 4 PT Custodial Goals 3D Specialist Goals PT 3D Specialist Goals Time Frame: June 30, 2019 Roll Left & Right (QC): 6 Sit to Lying (QC): 6 Lying-Sitting on Side/Bed(QC): 6 Sit to Stand (QC): 6 Chair/Rpc-si-Zbbln Xfer(QC): 6 Toilet Transfer (QC): 6 Car Transfer (QC): 4 Does the Patient Walk: Yes Walk 10 feet (QC): 6 Walk 50ft with 2 Turns (QC): 6 Walk 150 ft (QC): 6 Walking 10ft on Uneven Surface: 4 1 Step (curb) (QC): 9 4 Steps (QC): 9 12 Steps (QC): 9 Picking up an Object (QC): 9 (Pt will utilize adaptive equipment due to back precautions) Does the Pt use WC or Scooter?: No Wheel 50 feet with 2 turns (QC: 9 Type: N/A Wheel 150 feet: 9 Type: N/A PT Plan Treatment/Plan Treatment Plan: Continue Plan of Care Treatment Plan: Bed Mobility, Education, Functional Activity Johny, Functional Strength, Group Therapy, Gait, Safety, Therapeutic Exercise, Transfers Treatment Duration: June 30, 2019 Frequency: 6 times per week Estimated Hrs Per Day: 1.5 hours per day Patient and/or Family Agrees t: Yes Time/GCodes Time In: 1331 Time Out: 1411 Total Billed Treatment Time: 40 Total Billed Treatment 1, gt x3 (40) CLARENCE DEVRIES PT June 19, 2019 14:22
--- NOTE | 2019-06-19 14:42 | NUR ---
"RD ASSESSMENT PMHx: no significant PMHx; Current: s/p lumbar stenosis surgery PT INTERACTION: Pt was awake and pleasant during nutrition follow-up. Pt states he has been eating well since last assessment. Note avg PO intake 98% x4d, per chart review. Pt states no issues with nausea, vomiting, constipation, or diarrhea since last assessment. Note last BM was 5/10 and pt currently on bowel regimen of colace BID; senna BID; and miralax BID, per chart review. ABNORMAL NUTRITION-RELATED LAB VALUES LOW: HIGH: glu 130 Est. kcal needs: 1814-3010 kcal | 15-18 kcal/kg Est. Pro needs: 109-131 g Pro | 1.0-1.2 g Pro/kg PES STATEMENT: Given current PO intake, no nutrition diagnosis at this time (NO-1.1) INTERVENTION: Continue with current diet order of Regular diet. Will continue to follow and reassess as pt needs, intake, and status change. MONITOR/EVALUATE: PO Intake; Plan of Care; Hydration Status; Weight Status; Lab Values Facundo Mcadams, , RD, LD"
[2019-06-19 16:00] VITALS: BP 113/67
--- NOTE | 2019-06-19 16:35 | Cardiology Progress Note ---
Cardiology SOAP Progress Note Subjective: No Cardiac complaints. Objective: I&O/Vital Signs 06/19/19 06/19/19 06/19/19 06:21 09:00 16:00 Temp 36.8 36.7 Pulse 60 66 Resp 20 16 B/P (MAP) 130/73 (92) 113/67 (82) Pulse Ox 97 94 O2 Delivery Room Air Room Air Room Air 06/19/19 00:00 Intake Total 2600 ml Output Total 2500 ml Balance 100 ml Constitutional: No appears stated age; AAO x 3; No apparent distress; PERRL, well-developed, well-nourished; No other Respiratory: chest is bilaterally symmetric, lungs clear to auscultation Cardiovascular: regular rate-rhythm; No irregularly irregular, No extra beats, No parasternal heave is noted, No JVD, No edema, No bradycardia, No tachycardia, No point of maximal impulse, No cardiac thrills are palpable; S1 and S2; No gallop/S3, No gallop/S4, No diastolic murmur, No systolic murmur, No friction rub, No click, No other Gastrointestional: soft, audible bowel sounds Extremities: normal range of motion, non-tender, normal inspection, pedal edema (Left is worse than the right.) Neurologic/Psychiatric: no motor/sensory deficits, alert, normal mood/affect, oriented x 3 Skin: normal color A/P: Assessment/Dx: Status post back surgery, Lower extremity swelling, right worse than left, Active smoking. Plan: Continue aggressive inpatient rehabilitation. Lower extremity swelling, right worse than the left, venous ultrasound was negative for DVT. Improved significantly with rehabilitation. However still has left-sided lower extremity swelling. Unlikely cardiac etiology. Echocardiogram showed normal LV and RV size and function. No valvular heart disease. Active smoking, smoking cessation was strongly recommended. Patient recently quit; does not want to start again. Thank you for your consultation. Please call me if you have any questions. Marie Ovalle MD, FACP, FACC, FSCAI, FHRS, CCDS Interventional Cardiology Cardiac Electrophysiology Vascular Medicine and Endovascular Interventions Nicole OVALLE MD June 19, 2019 16:35
--- NOTE | 2019-06-19 19:16 | NUR ---
bedside report received from MATHEW PEDRO, assume care of pt
[2019-06-19] MEDS: DULoxetine 30 MG (CYMBALTA) CAP PO SCH (20:53)
--- NOTE | 2019-06-19 20:53 | NUR ---
pt took Colace but refused miralax & Senokot, up in chair, up to bathroom with 1 person assist & walker
[2019-06-20 05:31] VITALS: BP 104/65
[2019-06-20] MEDS: KCL 10 MEQ TAB (MICRO K) PO SCH ×2 (06:35→17:54)
[2019-06-20] MEDS: CATHETER FLUSH 10 ML SYR IV SCH ×3 (06:35→22:40)
[2019-06-20] MEDS: METOLAZONE 2.5 MG (ZAROXOLYN) TAB PO SCH (08:12)
[2019-06-20] MEDS: GABAPENTIN 300 MG (NEURONTIN) CAP PO SCH ×3 (08:59→20:41)
[2019-06-20] MEDS: polyethylene glycoL POWDER 17 GM (MIRALAX) PACK PO SCH ×2 (08:59→20:40)
[2019-06-20] MEDS: FUROSEMIDE 40 MG/4 ML INJ (LASIX) IVP SCH (08:59)
[2019-06-20] MEDS: DOCUSATE SODIUM 100 MG (COLACE) CAP PO SCH ×2 (08:59→20:40)
[2019-06-20] MEDS: SENNA W/DOCUSATE (SENOKOT S) TABLET PO SCH ×2 (08:59→20:44)
[2019-06-20] MEDS: DIAZEPAM 2 MG (VALIUM) TAB PO SCH ×3 (08:59→20:41)
--- NOTE | 2019-06-20 10:09 | PM&R Progress Note ---
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 Bowels regular for the most part Eating and drinking well Check meds and labs Conferred with RN Reviewed therapy notes Review of Systems General: Fatigue Neurological: Weakness, Numbness, Incoordination Objective Exam Vital Signs Vital Signs Date Time Temp Pulse Resp B/P (MAP) Pulse Ox O2 Delivery O2 Flow Rate FiO2 06/20/19 17:32 36.8 64 18 130/52 (78) 97 Room Air Capillary Refill : Less Than 3 Seconds General Appearance: No Apparent Distress, WD/WN, Anxious, Chronically ill HEENT: PERRL/EOMI, Normal ENT Inspection, Pharynx Normal Neck: Full Range of Motion, Normal Inspection, Non Tender, Supple, Carotid Bruit Respiratory: Chest Non Tender, Lungs Clear, Normal Breath Sounds, No Accessory Muscle Use, No Respiratory Distress Cardiovascular: Regular Rate, Rhythm, No Edema, No Gallop, No JVD, No Murmur, Normal Peripheral Pulses Gastrointestinal: Normal Bowel Sounds, No Organomegaly, No Pulsatile Mass, Non Tender, Soft Back: Normal Inspection, No CVA Tenderness, No Vertebral Tenderness Extremity: Normal Capillary Refill, Normal Inspection, Normal Range of Motion, Non Tender, No Calf Tenderness Neurologic/Psychiatric: Alert, Oriented x3, Normal Mood/Affect, candy spreader II-XII Norm as Tested, Abnormal Gait, Motor Weakness (lower extremities), Sensory Deficit Skin: Normal Color, Warm/Dry Lymphatic: No Adenopathy Results/Procedures Lab Patient resulted labs reviewed. FIM Transfers Therapy Code Descriptions/Definitions Functional [place] Measure: 0=Not Assessed/NA 4=Minimal Assistance 1=Total Assistance 5=Supervision or Setup 2=Maximal Assistance 6=Modified [place] 3=Moderate Assistance 7=Complete IndependenceSCALE: Activities may be completed with or without assistive devices. 1-Wspvpdpefu-qxpoxdt completes the activity by him/herself with no assistance from a helper. 5-Set-up or Clean-up Assistance-helper sets up or cleans up; patient completes activity. [place] assists only prior to or following the activity. 4-Supervision or Touching Assistance-helper provides verbal cues and/or touching/steadying and/or contact guard assistance as patient completes activity. Assistance may be provided throughout the activity or intermittently. 3-Partial/Moderate Assistance-helper does LESS THAN HALF the effort. [place] lifts, holds or supports trunk or limbs, but provides less than half the effort. 2-Substantial/Maximal Assistance-helper does MORE THAN HALF the effort. [place] lifts or holds trunk or limbs and provides more than half the effort. 3-Mkbxmrqks-jposwg does ALL the effort. Patient does none of the effort to complete the activity. Or, the assistance of 2 or more helpers is required for the patient to complete the activity. If activity was not attempted, code reason: 7-Patient Refused. 9-Not Applicable-not attempted and the patient did not perform the activity before the current illness, exacerbation or injury. 10-Not Attempted due to Environmental Limitations-(lack of equipment, weather restraints, etc.). 88-Not Attempted due to Medical Conditions or Safety Concerns. Roll Left to Right (QC): 1 Sit to Lying (QC): 1 Sit to Stand (QC): 4 Chair/Sgy-vk-Rylvo Xfer(QC): 4 Car Transfer (QC): 3 Gait Training Does the Patient Walk?: Yes Distance: 40ft x3 Walk 10 feet (QC): 4 Walk 50 ft with 2 Turns(QC): 3 Walk 150 ft (QC): 88 Walking 10ft/uneven surface-QC: 88 Gait Persons Needed: 1 Gait Assistive Device: FWW Wheelchair Training Does the Pt Use a Wheelchair?: Yes Wheel 50 ft with 2 turns (QC): 3 Wheel 150 ft (QC): 5 Type of Wheelchair: Manual Stair Training 1 Step (curb) (QC): 9 4 Steps (QC): 9 12 Steps (QC): 9 Balance Picking up an Object (QC): 88 ADL-Treatment Eating (QC): 6 (brings drink to mouth) Oral Hygiene (QC): 6 Bathing Location: L Arm, R Arm, L Upper Leg, R Upper Leg, L Lower Leg (including foot), R Lower Leg (including foot), Chest, Abdomen, Perineal Area Shower/Bathe Self (QC): 3 (Pt able to reach all areas with use of LHS. Pt requires max A for bottom hygiene. Pt dries with cues for use of paraffin machine operator for LE drying for maintenance of precautions) Upper Body Dressing (QC): 4 (SBA (intermittent assist to gather R sleeve past IV site and placing back brace in proper positioning.) Lower Body Dressing (QC): 4 (Pt doffs pants in stance/ on sc with dressing stick with increased time. Pt dons in w/c with use of paraffin machine operator, cues for maintenance of precautions, pulls toward groin and stands at sink to complete pulling over hips with CGA.) On/Off Footwear (QC): 3 (doffs with paraffin machine operator. 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
[2019-06-20] MEDS ORDERED: predniSONE 20 MG TAB PO ONE (10:15)
--- NOTE | 2019-06-20 10:46 | Cardiology Progress Note ---
Cardiology SOAP Progress Note Subjective: No cardiac complaints. Denies any shortness of breath or chest pain. Objective: I&O/Vital Signs 06/20/19 05:31 Temp 36.6 Pulse 65 Resp 18 B/P (MAP) 104/65 (78) Pulse Ox 97 O2 Delivery Room Air 06/20/19 00:00 Intake Total 1200 ml Balance 1200 ml Constitutional: No appears stated age; AAO x 3; No apparent distress; PERRL, well-developed, well-nourished; No other Respiratory: chest is bilaterally symmetric, lungs clear to auscultation Cardiovascular: regular rate-rhythm; No irregularly irregular, No extra beats, No parasternal heave is noted, No JVD, No edema, No bradycardia, No tachycardia, No point of maximal impulse, No cardiac thrills are palpable; S1 and S2; No gallop/S3, No gallop/S4, No diastolic murmur, No systolic murmur, No friction rub, No click, No other Gastrointestional: soft, audible bowel sounds Extremities: normal range of motion, non-tender, normal inspection, pedal edema (Left is worse than the right.) Neurologic/Psychiatric: no motor/sensory deficits, alert, normal mood/affect, oriented x 3 Skin: normal color A/P: Assessment/Dx: Status post back surgery, Lower extremity swelling, right worse than left, Active smoking. Plan: Continue aggressive inpatient rehabilitation. Lower extremity swelling, right worse than the left, venous ultrasound was negative for DVT. Improved significantly with rehabilitation. However still has left-sided lower extremity swelling. Unlikely cardiac etiology. Echocardiogram showed normal LV and RV size and function. No valvular heart disease. Active smoking, smoking cessation was strongly recommended. Patient recently quit; does not want to start again. Thank you for your consultation. Please call me if you have any questions. Marie Ovalle MD, FACP, FACC, FSCAI, FHRS, CCDS Interventional Cardiology Cardiac Electrophysiology Vascular Medicine and Endovascular Interventions Nicole OVALLE MD June 20, 2019 10:46
--- NOTE | 2019-06-20 10:55 | Occupational Ther Daily Note ---
OT Current Status-Daily Note Subjective Pt seen in recliner chair, nursing present placing IV meds. Pt agrees to OT tx session, states "less stiff" than yesterday and good night's rest. Denies pain at this time. [id number] (35): Pt seen post-PT, pt agrees to therapy. Mental Status/Objective Patient Orientation: Normal For Age ADL-Treatment Therapy Code Descriptions/Definitions Functional [place] Measure: 0=Not Assessed/NA 4=Minimal Assistance 1=Total Assistance 5=Supervision or Setup 2=Maximal Assistance 6=Modified [place] 3=Moderate Assistance 7=Complete IndependenceSCALE: Activities may be completed with or without assistive devices. 6-Zshmpvtocw-lsrucrf completes the activity by him/herself with no assistance from a helper. 5-Set-up or Clean-up Assistance-helper sets up or cleans up; patient completes activity. [place] assists only prior to or following the activity. 4-Supervision or Touching Assistance-helper provides verbal cues and/or sunil joseph/steadying and/or contact guard assistance as patient completes activity. Assistance may be provided throughout the activity or intermittently. 3-Partial/Moderate Assistance-helper does LESS THAN HALF the effort. [place] lifts, holds or supports trunk or limbs, but provides less than half the effort. 2-Substantial/Maximal Assistance-helper does MORE THAN HALF the effort. [place] lifts or holds trunk or limbs and provides more than half the effort. 5-Ynsacuwbt-zzksng does ALL the effort. Patient does none of the effort to complete the activity. Or, the assistance of 2 or more helpers is required for the patient to complete the activity. If activity was not attempted, code reason: 7-Patient Refused. 9-Not Applicable-not attempted and the patient did not perform the activity before the current illness, exacerbation or injury. 10-Not Attempted due to Environmental Limitations-(lack of equipment, weather restraints, etc.). 88-Not Attempted due to Medical Conditions or Safety Concerns. Oral Hygiene (QC): 6 (states completed prior to OT entry.) Shower/Bathe Self (QC): 7 Upper Body Dressing (QC): 7 Lower Body Dressing (QC): 7 Toilet Transfer (QC): 4 (CGA in stance with use of 2WW) Other Treatment [id number] (70): Pt's LUE completes AROM with gripping (skilled cues for exercises/ placement) in scaption and crossing midline to opposite hand. PROM completed to LUE shoulder in all planes to partial range (limited by pain in acromion process area). Pt ambulates to bathroom, completes toileting in stance and hair grooming in w/c seated. Pt completes skilled w/c mob to hallway, able to utilize LUE with increased IND/ movement on this date, completing increased R turns. Pt completes 5 min arm bike (25 watt resistance), and 5 min arm pullies to partial range (~120* shoulder flexion L, limited by pain). Pt educated on AAROM with use of pole, completes AAROM for shoulder flexion with pole to ~100*. pt returns to room, sit to stand from w/c with min A, utilizes 2WW to turn into chair, sits with mod control. All needs met, call light in reach. [id number]: Pt seen in room. Pt introduced to toilet tongs, pt expresses how he utilizes step in bathroom to wipe bottom. Pt walks with 2WW to bathroom, places R foot on step and utilizing grab bars in front of him to stabilize. Pt utilizes R hand to wipe, maintains precautions, able to reach with success. Pt states he is unable to use tub transfer bench in bathroom due to decreased room and has sc, pt explains using gb from toilet to stand, places R foot then L foot in, has gb on front/ to R of tub/ shower to hold/ stabilize. Pt demonstrates this with CGA in tub/ shower on this date. Coming from R to L (stiff side) pt requires min A to lift L LE onto tub ledge and requires CGA from here on to return to w/c. Pt agrees mother would not be able to assist if not present but states step daughter can assist after work when not home. Pt returns to room, all needs met, call light in reach. Pt in recliner. Education OT Patient Education: Exercise program, Home exercise program, Progress toward Goal/Update tx plan, Transfer techniques Teaching Recipient: Patient Teaching Methods: Demonstration, Discussion Response to Teaching: Verbalize Understanding, Return Demonstration OT Short Term Goals Short Term Goals Shower/bathe self: 3 Upper body dressin Lower body dressin OT Remote Encoding Operations Supervisor Goals Remote Encoding Operations Supervisor Goals Time Frame: June 30, 2019 Eating (QC): 6 Oral Hygiene (QC): 6 Toileting Hygiene (QC): 6 Shower/Bathe Self (QC): 6 Upper Body Dressing (QC): 6 Lower Body Dressing (QC): 6 On/Off Footwear (QC): 6 Additional Goals: 1-Demonstrate ADL Tasks, 2-Verbalize Understanding, 3-Improve Strength/Johny 1=Demonstrate adherence to instructed precautions during ADL tasks. 2=Patient will verbalize/demonstrate understanding of assistive devices/modifications for ADL. 3=Patient will improve strength/tolerance for activity to enable patient to pe rform ADL's. OT Education/Plan Problem List/Assessment Assessment: Decreased Activ Tolerance, Decreased UE Strength, Dependent Transfers, Impaired Coordination, Impaired Funct Balance, Impaired I ADL's, Impaired Self-Care Skills Discharge Recommendations Plan/Recommendations: Continue POC Therapy Discharge Recommendati: Intermittent Supervision, Scheduled Assistance Treatment Plan/Plan of Care Treatment,Training & Education: Yes Patient would benefit from OT for education, treatment and training to promote independence in ADL's, mobility, safety and/or upper extremity function for ADL's. Plan of Care: ADL Retraining, Caregiver Training, Concurrent Therapy, Functional Mobility, Group Exercise/Act as Ind, UE Funct Exercise/Act, UE Neuromus Re-Ed/Coord, W/C Management Training Treatment Duration: June 30, 2019 Frequency: At least 5 of 7 days/Wk (IRF) Estimated Hrs Per Day: 1.5 hours per day Agreement: Yes Rehab Potential: Guarded Time/GCodes Start Time: 09:00 (1130) Stop Time: 10:10 (1205) Total Time Billed (hr/min): 105 Billed Treatment Time [id number] (70): 1, ADL, EX 3 (70) [id number]: 1, ADL 2 (35) Total: 105 LEO MARTELL OTR June 20, 2019 10:55
--- NOTE | 2019-06-20 11:40 | Physical Therapy Daily Note ---
PT Daily Note-Current Subjective Pt is in the chair, has received his daily medication, and is ready for therapy. Mental Status Patient Orientation: Person, Place, Time, Situation Transfers SCALE: Activities may be completed with or without assistive devices. 4-Proebcbztc-qvypbyg completes the activity by him/herself with no assistance from a helper. 5-Set-up or Clean-up Assistance-helper sets up or cleans up; patient completes activity. [place] assists only prior to or following the activity. 4-Supervision or Touching Assistance-helper provides verbal cues and/or touching/steadying and/or contact guard assistance as patient completes activity. Assistance may be provided throughout the activity or intermittently. 3-Partial/Moderate Assistance-helper does LESS THAN HALF the effort. [place] lifts, holds or supports trunk or limbs, but provides less than half the effort. 2-Substantial/Maximal Assistance-helper does MORE THAN HALF the effort. [place] lifts or holds trunk or limbs and provides more than half the effort. 1-Nxgkwfgvl-qqaqsd does ALL the effort. Patient does none of the effort to complete the activity. Or, the assistance of 2 or more helpers is required for the patient to complete the activity. If activity was not attempted, code reason: 7-Patient Refused. 9-Not Applicable-not attempted and the patient did not perform the activity before the current illness, exacerbation or injury. 10-Not Attempted due to Environmental Limitations-(lack of equipment, weather restraints, etc.). 88-Not Attempted due to Medical Conditions or Safety Concerns. Sit to Stand (QC): 3 Chair/Wiw-bi-Artkc Xfer(QC): 3 Weight Bearing Right Lower Extremity: Right Full Weight Bearing Left Lower Extremity: Left Full Weight Bearing Gait Training Does the Patient Walk?: Yes Distance: 45ft, 27ft Walk 10 feet (QC): 4 Gait Persons Needed: 1 Gait Assistive Device: FWW Pt is much slower today, with pt noting (L) hip stiffness limiting his ability to advance the (L) LE. Exercises Seated Therapy Exercises: LE Protocol Seated Reps: 20 NuStep Minutes: 12 NuStep Workload: 5 Treatments Transfer training to work on transfers with less assist, gait training, nu step, and seated ex. Assessment Current Status: Fair Progress Pt did not walk as far as yesterday, but he notes his legs are very stiff today. He is gaining confidence with chair to wendy transfers. PT Short Term Goals Short Term Goals Time Frame: June 16, 2019 Roll Left & Right: 4 Sit to lyin Lying to sitting on side of be: 4 PT Motor Bus Driver Goals Motor Bus Driver Goals PT Detention Goals Time Frame: June 30, 2019 Roll Left & Right (QC): 6 Sit to Lying (QC): 6 Lying-Sitting on Side/Bed(QC): 6 Sit to Stand (QC): 6 Chair/Wwc-qr-Pdtgi Xfer(QC): 6 Toilet Transfer (QC): 6 Car Transfer (QC): 4 Does the Patient Walk: Yes Walk 10 feet (QC): 6 Walk 50ft with 2 Turns (QC): 6 Walk 150 ft (QC): 6 Walking 10ft on Uneven Surface: 4 1 Step (curb) (QC): 9 4 Steps (QC): 9 12 Steps (QC): 9 Picking up an Object (QC): 9 (Pt will utilize adaptive equipment due to back precautions) Does the Pt use WC or Scooter?: No Wheel 50 feet with 2 turns (QC: 9 Type: N/A Wheel 150 feet: 9 Type: N/A PT Plan Treatment/Plan Treatment Plan: Continue Plan of Care Treatment Plan: Bed Mobility, Education, Functional Activity Johny, Functional Strength, Group Therapy, Gait, Safety, Therapeutic Exercise, Transfers Treatment Duration: June 30, 2019 Frequency: 6 times per week Estimated Hrs Per Day: 1.5 hours per day Patient and/or Family Agrees t: Yes Time/GCodes Time In: 1020 Time Out: 1120 Total Billed Treatment Time: 60 Total Billed Treatment 1, gt 15, ex x2 30, fa 15 CLARENCE DEVRIES PT June 20, 2019 11:40
--- NOTE | 2019-06-20 14:28 | Physical Therapy Daily Note ---
PT Daily Note-Current Subjective Pt is in the chair and eager to get up to walk. Mental Status Patient Orientation: Person, Place, Time, Situation Transfers SCALE: Activities may be completed with or without assistive devices. 4-Yjyipcndqu-ftqtkft completes the activity by him/herself with no assistance from a helper. 5-Set-up or Clean-up Assistance-helper sets up or cleans up; patient completes activity. [place] assists only prior to or following the activity. 4-Supervision or Touching Assistance-helper provides verbal cues and/or touching/steadying and/or contact guard assistance as patient completes activity. Assistance may be provided throughout the activity or intermittently. 3-Partial/Moderate Assistance-helper does LESS THAN HALF the effort. [place] lifts, holds or supports trunk or limbs, but provides less than half the effort. 2-Substantial/Maximal Assistance-helper does MORE THAN HALF the effort. [place] lifts or holds trunk or limbs and provides more than half the effort. 6-Jicgpwghp-bzxtxr does ALL the effort. Patient does none of the effort to complete the activity. Or, the assistance of 2 or more helpers is required for the patient to complete the activity. If activity was not attempted, code reason: 7-Patient Refused. 9-Not Applicable-not attempted and the patient did not perform the activity before the current illness, exacerbation or injury. 10-Not Attempted due to Environmental Limitations-(lack of equipment, weather restraints, etc.). 88-Not Attempted due to Medical Conditions or Safety Concerns. Sit to Stand (QC): 3 Chair/Tnc-gh-[place]ref Xfer(QC): 3 Weight Bearing Right Lower Extremity: Right Full Weight Bearing Left Lower Extremity: Left Full Weight Bearing Gait Training Does the Patient Walk?: Yes Distance: 44ft, 58ft, 42ft Walk 10 feet (QC): 3 Walk 50 ft with 2 Turns(QC): 3 Gait Persons Needed: 1 Gait Assistive Device: FWW Ambulation continues to be very slow with 5-6 inch step length (B). Pt shows (L) foot clonus with forefoot strike. Assessment Current Status: Fair Progress Pt ambulated 144ft total. He was better able to stand upright and worked on taking larger steps, but the larger steps resulted in (L) foot clonus. PT Short Term Goals Short Term Goals Time Frame: June 16, 2019 Roll Left & Right: 4 Sit to lyin Lying to sitting on side of be: 4 PT Mcfp Goals [place] Cutting Machine Operator Goals PT Mcfp Goals Time Frame: June 30, 2019 Roll Left & Right (QC): 6 Sit to Lying (QC): 6 Lying-Sitting on Side/Bed(QC): 6 Sit to Stand (QC): 6 Chair/Bom-gz-Essfl Xfer(QC): 6 Toilet Transfer (QC): 6 Car Transfer (QC): 4 Does the Patient Walk: Yes Walk 10 feet (QC): 6 Walk 50ft with 2 Turns (QC): 6 Walk 150 ft (QC): 6 Walking 10ft on Uneven Surface: 4 1 Step (curb) (QC): 9 4 Steps (QC): 9 12 Steps (QC): 9 Picking up an Object (QC): 9 (Pt will utilize adaptive equipment due to back precautions) Does the Pt use WC or Scooter?: No Wheel 50 feet with 2 turns (QC: 9 Type: N/A Wheel 150 feet: 9 Type: N/A PT Plan Treatment/Plan Treatment Plan: Continue Plan of Care Treatment Plan: Bed Mobility, Education, Functional Activity Johny, Functional Strength, Group Therapy, Gait, Safety, Therapeutic Exercise, Transfers Treatment Duration: June 30, 2019 Frequency: 6 times per week Estimated Hrs Per Day: 1.5 hours per day Patient and/or Family Agrees t: Yes Time/GCodes Time In: 1330 Time Out: 1400 Total Billed Treatment Time: 30 Total Billed Treatment 1, gt x2 (30) CLARENCE DEVRIES PT June 20, 2019 14:28
--- NOTE | 2019-06-20 14:47 | NUR ---
CM/SS CONCURRENT DOCUMENTATION Observed patient ambulating during PT session, slow and calculated steps, utilizing FWW. Patient acknowledged he is making progress.
[2019-06-20 17:32] VITALS: BP 130/52
--- NOTE | 2019-06-20 19:18 | NUR ---
bedside report received from MATHEW PEDRO, assume care of pt
[2019-06-20] MEDS: DULoxetine 30 MG (CYMBALTA) CAP PO SCH (20:40)
--- NOTE | 2019-06-20 20:40 | NUR ---
pt took miralax & Colace but refused Senokot, up in the chair up with 1 person assist & walker
[2019-06-21 05:20] VITALS: BP 130/70
[2019-06-21] MEDS: CATHETER FLUSH 10 ML SYR IV SCH ×3 (05:40→21:30)
[2019-06-21] MEDS: KCL 10 MEQ TAB (MICRO K) PO SCH ×2 (06:41→17:12)
[2019-06-21] MEDS: predniSONE 20 MG TAB PO SCH (06:42)
[2019-06-21] MEDS: DIAZEPAM 2 MG (VALIUM) TAB PO SCH ×3 (08:40→21:24)
[2019-06-21] MEDS: polyethylene glycoL POWDER 17 GM (MIRALAX) PACK PO SCH ×2 (08:40→21:24)
[2019-06-21] MEDS: SENNA W/DOCUSATE (SENOKOT S) TABLET PO SCH ×2 (08:40→21:24)
[2019-06-21] MEDS: DOCUSATE SODIUM 100 MG (COLACE) CAP PO SCH ×2 (08:41→21:23)
[2019-06-21] MEDS: GABAPENTIN 300 MG (NEURONTIN) CAP PO SCH ×3 (08:41→21:24)
--- NOTE | 2019-06-21 09:32 | PM&R Progress Note ---
Subjective HPI/CC On Admission Date Seen by Provider: June 21, 2019 Time Seen by Provider: 09:45 Subjective/Events-last exam Very much improved Last BM was June 17, but then just had one this morning before suppository was given Prednisone 40 Mg is given and that has been the last two days and it has seemed to really help Obtaining records from [place] for rheumatoid arthritis panel Valium and Zanaflex given scheduled TID Lasix and Metolazone given and has improved the swelling Edema in the left leg is always greater than on the right Receiving benefit from structured PT Eating and drinking well Check meds and labs Conferred with RN Reviewed therapy notes Review of Systems General: Fatigue Neurological: Weakness, Numbness, Incoordination Objective Exam Vital Signs Vital Signs Date Time Temp Pulse Resp B/P (MAP) Pulse Ox O2 Delivery O2 Flow Rate FiO2 06/21/19 17:13 36.4 64 18 105/62 (76) 94 Room Air Capillary Refill : Less Than 3 Seconds General Appearance: No Apparent Distress, WD/WN, Anxious, Chronically ill HEENT: PERRL/EOMI, Normal ENT Inspection, Pharynx Normal Neck: Full Range of Motion, Normal Inspection, Non Tender, Supple, Carotid Bruit Respiratory: Chest Non Tender, Lungs Clear, Normal Breath Sounds, No Accessory Muscle Use, No Respiratory Distress Cardiovascular: Regular Rate, Rhythm, No Edema, No Gallop, No JVD, No Murmur, Normal Peripheral Pulses Gastrointestinal: Normal Bowel Sounds, No Organomegaly, No Pulsatile Mass, Non Tender, Soft Back: Normal Inspection, No CVA Tenderness, No Vertebral Tenderness Extremity: Normal Capillary Refill, Normal Inspection, Normal Range of Motion, Non Tender, No Calf Tenderness Neurologic/Psychiatric: Alert, Oriented x3, Normal Mood/Affect, loom operator II-XII Norm as Tested, Abnormal Gait, Motor Weakness (lower extremities), Sensory Deficit, Other (muscle stiffness improved) Skin: Normal Color, Warm/Dry Lymphatic: No Adenopathy Results/Procedures Lab Patient resulted labs reviewed. FIM Transfers Therapy Code Descriptions/Definitions Functional [place] Measure: 0=Not Assessed/NA 4=Minimal Assistance 1=Total Assistance 5=Supervision or Setup 2=Maximal Assistance 6=Modified [place] 3=Moderate Assistance 7=Complete IndependenceSCALE: Activities may be completed with or without assistive devices. 2-Jwnqgvuksf-dabygcm completes the activity by him/herself with no assistance from a helper. 5-Set-up or Clean-up Assistance-helper sets up or cleans up; patient completes activity. [place] assists only prior to or following the activity. 4-Supervision or Touching Assistance-helper provides verbal cues and/or touching/steadying and/or contact guard assistance as patient completes activity. Assistance may be provided throughout the activity or intermittently. 3-Partial/Moderate Assistance-helper does LESS THAN HALF the effort. [place] lifts, holds or supports trunk or limbs, but provides less than half the effort. 2-Substantial/Maximal Assistance-helper does MORE THAN HALF the effort. [place] lifts or holds trunk or limbs and provides more than half the effort. 4-Sonlzdfjs-rxrucd does ALL the effort. Patient does none of the effort to complete the activity. Or, the assistance of 2 or more helpers is required for the patient to complete the activity. If activity was not attempted, code reason: 7-Patient Refused. 9-Not Applicable-not attempted and the patient did not perform the activity before the current illness, exacerbation or injury. 10-Not Attempted due to Environmental Limitations-(lack of equipment, weather restraints, etc.). 88-Not Attempted due to Medical Conditions or Safety Concerns. Roll Left to Right (QC): 1 Sit to Lying (QC): 1 Sit to Stand (QC): 3 Chair/Rzz-we-Cjdvu Xfer(QC): 3 Car Transfer (QC): 3 Gait Training Does the Patient Walk?: Yes Distance: 44ft, 58ft, 42ft Walk 10 feet (QC): 3 Walk 50 ft with 2 Turns(QC): 3 Walk 150 ft (QC): 88 Walking 10ft/uneven surface-QC: 88 Gait Persons Needed: 1 Gait Assistive Device: FWW Wheelchair Training Does the Pt Use a Wheelchair?: Yes Wheel 50 ft with 2 turns (QC): 3 Wheel 150 ft (QC): 5 Type of Wheelchair: Manual Stair Training 1 Step (curb) (QC): 9 4 Steps (QC): 9 12 Steps (QC): 9 Balance Picking up an Object (QC): 88 ADL-Treatment Eating (QC): 6 (brings drink to mouth) Oral Hygiene (QC): 6 (states completed prior to OT entry.) Bathing Location: L Arm, R Arm, L Upper Leg, R Upper Leg, L Lower Leg (including foot), R Lower Leg (including foot), Chest, Abdomen, Perineal Area Shower/Bathe Self (QC): 7 Upper Body Dressing (QC): 7 Lower Body Dressing (QC): 7 On/Off Footwear (QC): 3 (doffs with automobile assembler. 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
--- NOTE | 2019-06-21 10:36 | Occupational Ther Daily Note ---
OT Current Status-Daily Note Subjective Pt alert, sitting in recliner. Pt agrees to therapy. No c/o pain. Pt wants to return home tomorrow. Mental Status/Objective Patient Orientation: Person, Place, Time, Situation Attachments: IV (midline) ADL-Treatment Pt agrees to shower. Pt uses lift chair for sit to stand, slow mobility with CGA. Ambulates to bathroom and transfers to toilet CGA. Using grabbar, pt is able to place one foot onto step to elevate R LE to be able to cleanse buttocks after BM with CGA. Using grabbar and shifting from one hand to other is able to hike pants over hips. Pt takes increased time due to slow movements. Pt transf ers into shower using FWW, grabbars and shower bench, CGA. Assist only to cleanse buttocks in shower, completes all other areas sitting on shower bench. After set up, pt is able to don/doff shirt. Using blood collector, pt is able to thread pants over feet then using grabbar or stable surface pt is able to hike pants with close SBA. Mod I to complete oral care sitting at sink. Using clinical judgment, pt able to set up own meal and use regular utensils to eat. Assist to don DEEP hose/EUSEBIO wraps. After session, PT took over care. Therapy Code Descriptions/Definitions Functional [place] Measure: 0=Not Assessed/NA 4=Minimal Assistance 1=Total Assistance 5=Supervision or Setup 2=Maximal Assistance 6=Modified [place] 3=Moderate Assistance 7=Complete IndependenceSCALE: Activities may be completed with or without assistive devices. 0-Ziotewrqsl-cschkpo completes the activity by him/herself with no assistance fr om a helper. 5-Set-up or Clean-up Assistance-helper sets up or cleans up; patient completes activity. [place] assists only prior to or following the activity. 4-Supervision or Touching Assistance-helper provides verbal cues and/or touching/steadying and/or contact guard assistance as patient completes activity. Assistance may be provided throughout the activity or intermittently. 3-Partial/Moderate Assistance-helper does LESS THAN HALF the effort. [place] lifts, holds or supports trunk or limbs, but provides less than half the effort. 2-Substantial/Maximal Assistance-helper does MORE THAN HALF the effort. [place] lifts or holds trunk or limbs and provides more than half the effort. 3-Erzwsnnzt-dzstuu does ALL the effort. Patient does none of the effort to complete the activity. Or, the assistance of 2 or more helpers is required for the patient to complete the activity. If activity was not attempted, code reason: 7-Patient Refused. 9-Not Applicable-not attempted and the patient did not perform the activity before the current illness, exacerbation or injury. 10-Not Attempted due to Environmental Limitations-(lack of equipment, weather restraints, etc.). 88-Not Attempted due to Medical Conditions or Safety Concerns. Eating (QC): 6 Oral Hygiene (QC): 6 Bathing Location: L Arm, R Arm, L Upper Leg, R Upper Leg, L Lower Leg (including foot), R Lower Leg (including foot), Chest, Abdomen, Perineal Area Shower/Bathe Self (QC): 3 Upper Body Dressing (QC): 5 Lower Body Dressing (QC): 4 On/Off Footwear: 3 Toileting Hygiene (QC): 4 Toilet Transfer (QC): 4 OT Short Term Goals Short Term Goals Shower/bathe self: 3 Upper body dressin Lower body dressin OT Group Home Goals Java Sdet Goals Time Frame: June 30, 2019 Eating (QC): 6 (met) Oral Hygiene (QC): 6 (met) Toileting Hygiene (QC): 6 Shower/Bathe Self (QC): 6 Upper Body Dressing (QC): 6 Lower Body Dressing (QC): 6 On/Off Footwear (QC): 6 Additional Goals: 1-Demonstrate ADL Tasks, 2-Verbalize Understanding, 3- ImproveStrength/Johny 1=Demonstrate adherence to instructed precautions during ADL tasks. 2=Patient will verbalize/demonstrate understanding of assistive devices/modifications for ADL. 3=Patient will improve strength/tolerance for activity to enable patient to perform ADL's. OT Education/Plan Problem List/Assessment Assessment: Decreased Activ Tolerance, Impaired Self-Care Skills, Restricted Funct UE ROM Discharge Recommendations Plan/Recommendations: Continue POC Treatment Plan/Plan of Care Patient would benefit from OT for education, treatment and training to promote independence in ADL's, mobility, safety and/or upper extremity function for ADL's. Plan of Care: ADL Retraining, Caregiver Training, Concurrent Therapy, Functional Mobility, Group Exercise/Act as Ind, UE Funct Exercise/Act, UE Neuromus Re-Ed/Coord, W/C Management Training Treatment Duration: June 30, 2019 Frequency: At least 5 of 7 days/Wk (IRF) Estimated Hrs Per Day: 1.5 hours per day Agreement: Yes Rehab Potential: Guarded Time/GCodes Start Time: 09:00 Stop Time: 10:15 Total Time Billed (hr/min): 75 Billed Treatment Time 1 visit-ADL 5 (75 min) EVELIN ERWIN June 21, 2019 10:35
--- NOTE | 2019-06-21 11:51 | Physical Therapy Daily Note ---
PT Daily Note-Current Subjective Pt. up in recliner, agrees to Rx. States he is so relieved that he is not having pain since his surgery. Chief c/o is LUE weakness and immobility as well as stiffness and weakness regarding gait and TRFs. 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 3-Umhckgsyft-fvkpbia completes the activity by him/herself with no assistance from a helper. 5-Set-up or Clean-up Assistance-helper sets up or cleans up; patient completes activity. [place] assists only prior to or following the activity. 4-Supervision or Touching Assistance-helper provides verbal cues and/or touching/steadying and/or contact guard assistance as patient completes activity. Assistance may be provided throughout the activity or intermittently. 3-Partial/Moderate Assistance-helper does LESS THAN HALF the effort. [place] lifts, holds or supports trunk or limbs, but provides less than half the effort. 2-Substantial/Maximal Assistance-helper does MORE THAN HALF the effort. [place] lifts or holds trunk or limbs and provides more than half the effort. 6-Xnhjgvbqe-imnfix does ALL the effort. Patient does none of the effort to complete the activity. Or, the assistance of 2 or more helpers is required for the patient to complete the activity. If activity was not attempted, code reason: 7-Patient Refused. 9-Not Applicable-not attempted and the patient did not perform the activity before the current illness, exacerbation or injury. 10-Not Attempted due to Environmental Limitations-(lack of equipment, weather restraints, etc.). 88-Not Attempted due to Medical Conditions or Safety Concerns. Roll Left & Right (QC): 5 (used rail or walker to pull on) Sit to Lying (QC): 4 Lying to Sitting/Side of Bed(Q: 5 Sit to Stand (QC): 4 retropulsive sit to stand at times, needs instruction for forward lean to complete stance Weight Bearing Right Lower Extremity: Right Full Weight Bearing Left Lower Extremity: Left Full Weight Bearing Gait Training Does the Patient Walk?: Yes Walk 10 feet (QC): 4 Walk 50 ft with 2 Turns(QC): 4 Gait Persons Needed: 1 Gait Assistive Device: FWW gait with w/c to follow, very slow, flexed at trunk, stiff in all extremeties, decreased step length and noted clonus left foot with wt bearing. Wheelchair Training Does the Pt Use a Wheelchair?: Yes Wheel 50 ft with 2 turns (QC): 4 Exercises Supine Ex: Rolling, Heel Slides Supine Reps: 8 Seated Therapy Exercises: Ankle pumps, Sit to stand, Long arc quads, Hip flexion, Hip abd/add Seated Reps: 15 Standing: Marching, Retro gait, Sit to Stand, Side steps Standing Reps: 5 NuStep Minutes: 12 NuStep Workload: 3 Treatments all movement very slow, poor control LUE limiting its assistance during TRFs. supine is painful unless pt. is in hooklying. Assessment Current Status: Good Progress pt. gives full effort, talks nearly non stop , monotone like, flat affect in facial expressions at times and very stiff movement patterns with noted clonus beat LLE. some Parkinsons like movement PT Short Term Goals Short Term Goals Time Frame: June 16, 2019 Roll Left & Right: 4 Sit to lyin Lying to sitting on side of be: 4 PT Snf Goals Pricing Coordinator Goals PT Pricing Coordinator Goals Time Frame: June 30, 2019 Roll Left & Right (QC): 6 Sit to Lying (QC): 6 Lying-Sitting on Side/Bed(QC): 6 Sit to Stand (QC): 6 Chair/Pcr-tu-Lstpb Xfer(QC): 6 Toilet Transfer (QC): 6 Car Transfer (QC): 4 Does the Patient Walk: Yes Walk 10 feet (QC): 6 Walk 50ft with 2 Turns (QC): 6 Walk 150 ft (QC): 6 Walking 10ft on Uneven Surface: 4 1 Step (curb) (QC): 9 4 Steps (QC): 9 12 Steps (QC): 9 Picking up an Object (QC): 9 (Pt will utilize adaptive equipment due to back precautions) Does the Pt use WC or Scooter?: No Wheel 50 feet with 2 turns (QC: 9 Type: N/A Wheel 150 feet: 9 Type: N/A PT Plan Treatment/Plan Treatment Plan: Continue Plan of Care Treatment Plan: Bed Mobility, Education, Functional Activity Johny, Functional Strength, Group Therapy, Gait, Safety, Therapeutic Exercise, Transfers Treatment Duration: June 30, 2019 Frequency: 6 times per week Estimated Hrs Per Day: 1.5 hours per day Patient and/or Family Agrees t: Yes Safety Risks/Education Patient Education: Gait Training, Transfer Techniques, Correct Positioning, Disease Process, Safety Issues Teaching Recipient: Patient Teaching Methods: Demonstration, Discussion Response to Teaching: Verbalize Understanding, Return Demonstration, Reinforcement Needed Time/GCodes Time In: 1030 Time Out: 1200 Total Billed Treatment Time: 90 Total Billed Treatment 1,EX35,FA30,GT25 FRANCISCA HILL CURBSTONE SETTER June 21, 2019 11:51
--- NOTE | 2019-06-21 14:14 | Occupational Ther Daily Note ---
OT Current Status-Daily Note Subjective Pt alert, sitting in recliner. Pt agrees to therapy. No c/o pain at this time. Mental Status/Objective Patient Orientation: Person, Place, Time, Situation Attachments: IV ADL-Treatment Therapy Code Descriptions/Definitions Functional [place] Measure: 0=Not Assessed/NA 4=Minimal Assistance 1=Total Assistance 5=Supervision or Setup 2=Maximal Assistance 6=Modified [place] 3=Moderate Assistance 7=Complete IndependenceSCALE: Activities may be completed with or without assistive devices. 1-Tzuuztbrsu-tymnhwy completes the activity by him/herself with no assistance from a helper. 5-Set-up or Clean-up Assistance-helper sets up or cleans up; patient completes activity. [place] assists only prior to or following the activity. 4-Supervision or Touching Assistance-helper provides verbal cues and/or touching/steadying and/or contact guard assistance as patient completes activity. Assistance may be provided throughout the activity or intermittently. 3-Partial/Moderate Assistance-helper does LESS THAN HALF the effort. [place] lifts, holds or supports trunk or limbs, but provides less than half the effort. 2-Substantial/Maximal Assistance-helper does MORE THAN HALF the effort. [place] lifts or holds trunk or limbs and provides more than half the effort. 0-Lmokofrdv-emszyz does ALL the effort. Patient does none of the effort to complete the activity. Or, the assistance of 2 or more helpers is required for the patient to complete the activity. If activity was not attempted, code reason: 7-Patient Refused. 9-Not Applicable-not attempted and the patient did not perform the activity before the current illness, exacerbation or injury. 10-Not Attempted due to Environmental Limitations-(lack of equipment, weather restraints, etc.). 88-Not Attempted due to Medical Conditions or Safety Concerns. Other Treatment Pt ambulates to toilet and stands at toilet to urinate, SBA for safety. Pt discusses bathroom set up at home. Utilizes bathtub in large shower room pt uses grabbar to stand then places R foot into tub then L foot in, reaches to grabbar at side of tub to stabilize self, CGA for safety. Recommendations for transfer is to lift foot back instead of picking up to decrease lean backward, place tub seat further back in tub so as not to catch foot on it. Pt sitting in recliner with call light/phone in reach. All needs met in room after session. OT Short Term Goals Short Term Goals Shower/bathe self: 3 Upper body dressin Lower body dressin OT Frog Shaker Goals Mcc Goals Time Frame: June 30, 2019 Eating (QC): 6 (met) Oral Hygiene (QC): 6 (met) Toileting Hygiene (QC): 6 Shower/Bathe Self (QC): 6 Upper Body Dressing (QC): 6 Lower Body Dressing (QC): 6 On/Off Footwear (QC): 6 Additional Goals: 1-Demonstrate ADL Tasks, 2-Verbalize Understanding, 3- ImproveStrength/Johny 1=Demonstrate adherence to instructed precautions during ADL tasks. 2=Patient will verbalize/demonstrate understanding of assistive devices/modifications for ADL. 3=Patient will improve strength/tolerance for activity to enable patient to perform ADL's. OT Education/Plan Problem List/Assessment Assessment: Decreased Activ Tolerance, Impaired Self-Care Skills Discharge Recommendations Plan/Recommendations: Continue POC Treatment Plan/Plan of Care Patient would benefit from OT for education, treatment and training to promote independence in ADL's, mobility, safety and/or upper extremity function for ADL's. Plan of Care: ADL Retraining, Caregiver Training, Concurrent Therapy, Functional Mobility, Group Exercise/Act as Ind, UE Funct Exercise/Act, UE Neuromus Re-Ed/Coord, W/C Management Training Treatment Duration: June 30, 2019 Frequency: At least 5 of 7 days/Wk (IRF) Estimated Hrs Per Day: 1.5 hours per day Agreement: Yes Rehab Potential: Guarded Time/GCodes Start Time: 13:00 Stop Time: 13:40 Total Time Billed (hr/min): 40 Billed Treatment Time 1 visit-FA 3 (40 min) EVELIN ERWIN June 21, 2019 14:13
--- NOTE | 2019-06-21 16:07 | NUR ---
CM/SS PATIENT CARE CONFERENCE Reviewed Conference Summary with patient, he agrees to continued admission and participation in care plan with review in 7 days. Patient is showing progress with ambulation and he describes feeling stronger. He has insight that he will have continued progress and recuperation at time of discharge. He does have a followup appointment with his surgeon 06/23/19; explore for keeping or rescheduling. Relative to post hospital care, his leaves next Wednesday06/28/19 for her shift of 6 days gone. His mother will be his available family member and he does not want her driving from [place] to pick him up. He indicates he will work this out, support as needed. If patient improves to warrant safe discharge prior to next Wednesday, he would benefit mentally from a day with his spouse prior to her next travel shift.
[2019-06-21 17:13] VITALS: BP 105/62
--- NOTE | 2019-06-21 19:15 | NUR ---
bedside report received from ANA PEDRO, assume care of pt
--- NOTE | 2019-06-21 21:23 | NUR ---
pt took Colace but refused miralax & Senokot, remains up in the chair
[2019-06-21] MEDS: DULoxetine 30 MG (CYMBALTA) CAP PO SCH (21:24)
[2019-06-22 05:12] VITALS: BP 115/61
[2019-06-22] MEDS: predniSONE 20 MG TAB PO SCH (06:35)
[2019-06-22] MEDS: KCL 10 MEQ TAB (MICRO K) PO SCH ×2 (06:35→16:39)
[2019-06-22] MEDS: CATHETER FLUSH 10 ML SYR IV SCH ×3 (06:35→22:03)
[2019-06-22] MEDS: METOLAZONE 2.5 MG (ZAROXOLYN) TAB PO SCH (08:32)
--- NOTE | 2019-06-22 09:00 | NUR ---
ORDER OBTAINED FOR BIOTINE FOR DRY MOUTH REQUESTED BY PATIENT. PATIENT REQUESTING TO GO HOME ON WEDNESDAY BECAUSE WILL BE GOING BACK TO WORK WEDNESDAY EVENING. DR. PITTMAN, PT DIRECTOR AND NINO, PATENT SEARCHER NOTIFIED AND WILL WORK TOWARDS THAT GOAL.
--- NOTE | 2019-06-22 09:02 | PM&R Progress Note ---
Subjective HPI/CC On Admission Date Seen by Provider: June 22, 2019 Time Seen by Provider: 09:15 Subjective/Events-last exam Pt is really wanting to go home on Wednesday because his takes off on Wednesday for an [address] trip Resched[address] Dr. Michael's appointment for tomorrow Biotene will help the dry mouth he has with the IV Lasix and Metolazone Day Pass or DC on Wednesday will discuss among team members Bowels are moving pretty well Progressing nicely Prednisone 40mg maintained but starting to wean Eating and drinking well Check meds and labs Conferred with RN Reviewed therapy notes Review of Systems General: Fatigue Objective Exam Vital Signs Vital Signs Date Time Temp Pulse Resp B/P (MAP) Pulse Ox O2 Delivery O2 Flow Rate FiO2 06/22/19 17:02 36.2 70 18 109/67 (81) 94 Room Air Capillary Refill : Less Than 3 Seconds General Appearance: No Apparent Distress, WD/WN, Anxious, Chronically ill HEENT: PERRL/EOMI, Normal ENT Inspection, Pharynx Normal Neck: Full Range of Motion, Normal Inspection, Non Tender, Supple, Carotid Bruit Respiratory: Chest Non Tender, Lungs Clear, Normal Breath Sounds, No Accessory Muscle Use, No Respiratory Distress Cardiovascular: Regular Rate, Rhythm, No Edema, No Gallop, No JVD, No Murmur, Normal Peripheral Pulses Gastrointestinal: Normal Bowel Sounds, No Organomegaly, No Pulsatile Mass, Non Tender, Soft Back: Normal Inspection, No CVA Tenderness, No Vertebral Tenderness Extremity: Normal Capillary Refill, Normal Inspection, Normal Range of Motion, Non Tender, No Calf Tenderness Neurologic/Psychiatric: Alert, Oriented x3, Normal Mood/Affect, product examiner II-XII Norm as Tested, Abnormal Gait, Motor Weakness (lower extremities), Sensory Deficit, Other (muscle stiffness improved) Skin: Normal Color, Warm/Dry Lymphatic: No Adenopathy Results/Procedures Lab Patient resulted labs reviewed. FIM Transfers Therapy Code Descriptions/Definitions Functional [place] Measure: 0=Not Assessed/NA 4=Minimal Assistance 1=Total Assistance 5=Supervision or Setup 2=Maximal Assistance 6=Modified [place] 3=Moderate Assistance 7=Complete IndependenceSCALE: Activities may be completed with or without assistive devices. 1-Rwhlzykksk-rhgrhdb completes the activity by him/herself with no assistance from a helper. 5-Set-up or Clean-up Assistance-helper sets up or cleans up; patient completes activity. [place] assists only prior to or following the activity. 4-Supervision or Touching Assistance-helper provides verbal cues and/or sunil joseph/steadying and/or contact guard assistance as patient completes activity. Assistance may be provided throughout the activity or intermittently. 3-Partial/Moderate Assistance-helper does LESS THAN HALF the effort. [place] lifts, holds or supports trunk or limbs, but provides less than half the effort. 2-Substantial/Maximal Assistance-helper does MORE THAN HALF the effort. [place] lifts or holds trunk or limbs and provides more than half the effort. 8-Vwqpyzigx-bvchlk does ALL the effort. Patient does none of the effort to complete the activity. Or, the assistance of 2 or more helpers is required for the patient to complete the activity. If activity was not attempted, code reason: 7-Patient Refused. 9-Not Applicable-not attempted and the patient did not perform the activity before the current illness, exacerbation or injury. 10-Not Attempted due to Environmental Limitations-(lack of equipment, weather restraints, etc.). 88-Not Attempted due to Medical Conditions or Safety Concerns. Roll Left to Right (QC): 5 (used rail or walker to pull on) Sit to Lying (QC): 4 Sit to Stand (QC): 4 Chair/Qvz-ox-Rnixa Xfer(QC): 3 Car Transfer (QC): 3 Gait Training Does the Patient Walk?: Yes Distance: 44ft, 58ft, 42ft Walk 10 feet (QC): 4 Walk 50 ft with 2 Turns(QC): 4 Walk 150 ft (QC): 88 Walking 10ft/uneven surface-QC: 88 Gait Persons Needed: 1 Gait Assistive Device: FWW Wheelchair Training Does the Pt Use a Wheelchair?: Yes Wheel 50 ft with 2 turns (QC): 4 Wheel 150 ft (QC): 5 Type of Wheelchair: Manual Stair Training 1 Step (curb) (QC): 9 4 Steps (QC): 9 12 Steps (QC): 9 Balance Picking up an Object (QC): 88 ADL-Treatment Eating (QC): 6 Oral Hygiene (QC): 6 Bathing Location: L Arm, R Arm, L Upper Leg, R Upper Leg, L Lower Leg (including foot), R Lower Leg (including foot), Chest, Abdomen, Perineal Area Shower/Bathe Self (QC): 3 Upper Body Dressing (QC): 5 Lower Body Dressing (QC): 4 On/Off Footwear (QC): 3 Toileting Hygiene (QC): 4 Toilet Transfer (QC): 4 Assessment/Plan Assessment and Plan Assess & Plan/Chief Complaint Assessment: s/p lumbar stenosis surgery Severe debility started after c-spine surgery 03/2019 Anasarca receiving IV Lasix with good results will also add Zaroxolyn before Lasix tomorrow for more effect OA Chronic back pain Former smoker Hypokalemia 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
[2019-06-22] MEDS: SENNA W/DOCUSATE (SENOKOT S) TABLET PO SCH ×2 (09:27→22:03)
[2019-06-22] MEDS: GABAPENTIN 300 MG (NEURONTIN) CAP PO SCH ×3 (09:27→21:54)
[2019-06-22] MEDS: FUROSEMIDE 40 MG/4 ML INJ (LASIX) IVP SCH (09:27)
[2019-06-22] MEDS: DIAZEPAM 2 MG (VALIUM) TAB PO SCH ×3 (09:27→21:54)
[2019-06-22] MEDS: DOCUSATE SODIUM 100 MG (COLACE) CAP PO SCH ×2 (09:28→21:54)
[2019-06-22] MEDS: polyethylene glycoL POWDER 17 GM (MIRALAX) PACK PO SCH ×2 (09:29→22:02)
--- NOTE | 2019-06-22 10:00 | NUR ---
PT STATES DR. LU APPT FOR 06/23/19 CANCELED BY PTS AND SHE WILL MAKE THE RESCHEDULED APPT.
--- NOTE | 2019-06-22 10:39 | Occupational Ther Daily Note ---
OT Current Status-Daily Note Subjective [id number]: ( 75) Pt seen in recliner chair, pt agrees to therapy. Pt states has not had pain meds yet, minimal pain at this time. Pt expresses desire for home d/c soon. [id number] (15): Pt seen in recliner chair, states urination on pants earlier but requires toilet again. Pt denies current pain. Mental Status/Objective Patient Orientation: Normal For Age ADL-Treatment Therapy Code Descriptions/Definitions Functional [place] Measure: 0=Not Assessed/NA 4=Minimal Assistance 1=Total Assistance 5=Supervision or Setup 2=Maximal Assistance 6=Modified [place] 3=Moderate Assistance 7=Complete IndependenceSCALE: Activities may be completed with or without assistive devices. 8-[place]iy-begtzvo completes the activity by him/herself with no assistance from a helper. 5-Set-up or Clean-up Assistance-helper sets up or cleans up; patient completes activity. [place] assists only prior to or following the activity. 4-Supervision or Touching Assistance-helper provides verbal cues and/or touching/steadying and/or contact guard assistance as patient completes activity. Assistance may be provided throughout the activity or intermittently. 3-Partial/Moderate Assistance-helper does LESS THAN HALF the effort. [place] lifts, holds or supports trunk or limbs, but provides less than half the effort. 2-Substantial/Maximal Assistance-helper does MORE THAN HALF the effort. [place] lifts or holds trunk or limbs and provides more than half the effort. 5-Jheaxugxg-fbgewm does ALL the effort. Patient does none of the effort to complete the activity. Or, the assistance of 2 or more helpers is required for the patient to complete the activity. If activity was not attempted, code reason: 7-Patient Refused. 9-Not Applicable-not attempted and the patient did not perform the activity before the current illness, exacerbation or injury. 10-Not Attempted due to Environmental Limitations-(lack of equipment, weather restraints, etc.). 88-Not Attempted due to Medical Conditions or Safety Concerns. Eating (QC): 6 On/Off Footwear: 2 (due to shoe donning ) Toilet Transfer (QC): 4 (SBA during transfer) Other Treatment [id number]: Pt seen in recliner, states he desires to walk better to go home to . Pt states EUSEBIO wraps decrease his ability to walk, doffed prior to session and donned at end of session. Pt introduced to long handled shoe horn- pt able to complete donning R shoe with min A and L with max A. pt sit to stand from reclienr with CGA and ambulates to toilet with 2WW and SBA. Pt ambulates to therapy gym with CGA and w/c to follow. Pt states he desires to walk to increase endurance, takes break. pt educated on energy conservation during activities. Pt sits to complete pully activity bilaterally to complete AAROM of LUE. pt increa ses range slightly during task. Pt stands at tabletop to complete 30 sec of arm bike ex, pt's torso rocks back/ forth, unable to steady self by alternating stance so table top activity switched to manipulation task. pt dons 2# wrist weights to complete reaching for pegs/ placing in peg board with LUE. Pt completes with increased time, decreased coordination/ pinch strength. Pt stands for activity 10 min, ambulates ~25 feet prior to sitting in w/c and pushed back to room. Pt compeltes SPT from w/c to chair with mod cues and CGA. pt compeltes with good safety and fair balance. [id number]: Pt seen in recliner. pt sit to stand from heightened recliner with SBA, toilets with SBA-CGA. Pt returns to w/c from walker level and shoes donned with max A (pt plans to wear house shoes or Crocs at home). Pt and OT discuss home environment and use of OT for continuation of functional IND within home environment upon d/c. pt agrees. Pt left with RESIDENTIAL INSTALLER end of session. All needs met. Education OT Patient Education: Correct positioning, Exercise program, Modified ADL techniques, Purpose of tx/functional activities, Safety issues, Transfer techniques, Use of adapted equipment Teaching Recipient: Patient Teaching Methods: Demonstration, Discussion Response to Teaching: Verbalize Understanding, Return Demonstration OT Short Term Goals Short Term Goals Shower/bathe self: 3 Upper body dressin Lower body dressin OT Senior Living Goals Software Quality Assurance Analyst Goals Time Frame: June 30, 2019 Eating (QC): 6 (met) Oral Hygiene (QC): 6 (met) Toileting Hygiene (QC): 6 Shower/Bathe Self (QC): 6 Upper Body Dressing (QC): 6 Lower Body Dressing (QC): 6 On/Off Footwear (QC): 6 Additional Goals: 1-Demonstrate ADL Tasks, 2-Verbalize Understanding, 3- ImproveStrength/Johny 1=Demonstrate adherence to instructed precautions during ADL tasks. 2=Patient will verbalize/demonstrate understanding of assistive device s/modifications for ADL. 3=Patient will improve strength/tolerance for activity to enable patient to perform ADL's. OT Education/Plan Problem List/Assessment Assessment: Decreased Activ Tolerance, Decreased UE Strength, Dependent Transfers, Impaired Coordination, Impaired Funct Balance, Impaired I ADL's, Impaired Self-Care Skills, Restricted Funct UE ROM Discharge Recommendations Plan/Recommendations: Continue POC Therapy Discharge Recommendati: Scheduled Assistance, Bath Aide, Home & Family, Post Acute OT Treatment Plan/Plan of Care Treatment,Training & Education: Yes Patient would benefit from OT for education, treatment and training to promote independence in ADL's, mobility, safety and/or upper extremity function for ADL's. Plan of Care: ADL Retraining, Caregiver Training, Concurrent Therapy, Functional Mobility, Group Exercise/Act as Ind, UE Funct Exercise/Act, UE Neuromus Re-Ed/Coord, W/C Management Training Treatment Duration: June 30, 2019 Frequency: At least 5 of 7 days/Wk (IRF) Estimated Hrs Per Day: 1.5 hours per day Agreement: Yes Rehab Potential: Guarded Time/GCodes Start Time: 08:00 (1045) Stop Time: 09:15 (1100) Total Time Billed (hr/min): 90 (75+15) Billed Treatment Time 1, ADL (15), EX 3 (60)= 75 1, ADL (15) Total: 90 LEO MARTELL OTR June 22, 2019 10:39
--- NOTE | 2019-06-22 11:00 | NUR ---
REQUEST FOR INFO SENT TO [facility] FOR LAB RESULTS.
[2019-06-22] MEDS ORDERED: SALIVA STIMULANT MOUTH SPRAY (BIOTENE) 1.5 OZ MM PRN (12:00)
--- NOTE | 2019-06-22 12:16 | Physical Therapy Daily Note ---
PT Daily Note-Current Subjective Pt sitting in [facility] after finishing OT upon SHIPWRIGHT SUPERVISOR arrival. Pt agrees to PT for improving ambulation. Mental Status Patient Orientation: Person, Place, Time, Situation Attachments: Other-See Comments (Lumbar Back Brace) Transfers SCALE: Activities may be completed with or without assistive devices. 6-Wsskcfdjmv-iwknrcw completes the activity by him/herself with no assistance from a helper. 5-Set-up or Clean-up Assistance-helper sets up or cleans up; patient completes activity. [place] assists only prior to or following the activity. 4-Supervision or Touching Assistance-helper provides verbal cues and/or touching/steadying and/or contact guard assistance as patient completes activity. Assistance may be provided throughout the activity or intermittently. 3-Partial/Moderate Assistance-helper does LESS THAN HALF the effort. [place] lifts, holds or supports trunk or limbs, but provides less than half the effort. 2-Substantial/Maximal Assistance-helper does MORE THAN HALF the effort. [place] lifts or holds trunk or limbs and provides more than half the effort. 6-Rtkummzvm-ripjdc does ALL the effort. Patient does none of the effort to complete the activity. Or, the assistance of 2 or more helpers is required for the patient to complete the activity. If activity was not attempted, code reason: 7-Patient Refused. 9-Not Applicable-not attempted and the patient did not perform the activity before the current illness, exacerbation or injury. 10-Not Attempted due to Environmental Limitations-(lack of equipment, weather restraints, etc.). 88-Not Attempted due to Medical Conditions or Safety Concerns. Sit to Stand (QC): 5 Weight Bearing Right Lower Extremity: Right Full Weight Bearing Left Lower Extremity: Left Full Weight Bearing Gait Training Does the Patient Walk?: Yes Distance: 65', 85' Walk 10 feet (QC): 5 Walk 50 ft with 2 Turns(QC): 5 Gait Persons Needed: 1 Gait Assistive Device: FWW [facility] follows in case of fatigue. Exercises Seated Therapy Exercises: Ankle pumps, Long arc quads, Hip flexion, Kicking activity, Glut set Seated Reps: 20 NuStep Minutes: 10 NuStep Workload: 4 Treatments Pt transfers from recliner to standing then ambulates in hallway. Pt completes Seated EX as well as used NuStep for 10m at WL 4. Pt ambulates back to room to sit in recliner at end of Rx with all needs met. Pt has call light in hand. Assessment Current Status: Good Progress Pt walks with very slow freddie and stiff posture. Pt is improving with activity tolerance though. PT Short Term Goals Short Term Goals Time Frame: June 16, 2019 Roll Left & Right: 4 Sit to lyin Lying to sitting on side of be: 4 PT Accordion Maker Goals Residential Goals PT Accordion Maker Goals Time Frame: June 30, 2019 Roll Left & Right (QC): 6 Sit to Lying (QC): 6 Lying-Sitting on Side/Bed(QC): 6 Sit to Stand (QC): 6 Chair/Njp-vm-Tpxcm Xfer(QC): 6 Toilet Transfer (QC): 6 Car Transfer (QC): 4 Does the Patient Walk: Yes Walk 10 feet (QC): 6 Walk 50ft with 2 Turns (QC): 6 Walk 150 ft (QC): 6 Walking 10ft on Uneven Surface: 4 1 Step (curb) (QC): 9 4 Steps (QC): 9 12 Steps (QC): 9 Picking up an Object (QC): 9 (Pt will utilize adaptive equipment due to back precautions) Does the Pt use WC or Scooter?: No Wheel 50 feet with 2 turns (QC: 9 Type: N/A Wheel 150 feet: 9 Type: N/A PT Plan Problem List Problem List: Functional Strength, Gait Treatment/Plan Treatment Plan: Continue Plan of Care Treatment Plan: Bed Mobility, Education, Functional Activity Johny, Functional Strength, Group Therapy, Gait, Safety, Therapeutic Exercise, Transfers Treatment Duration: June 30, 2019 Frequency: 6 times per week Estimated Hrs Per Day: 1.5 hours per day Patient and/or Family Agrees t: Yes Safety Risks/Education Patient Education: Gait Training, Correct Positioning, Safety Issues Teaching Recipient: Patient Teaching Methods: Discussion Response to Teaching: Verbalize Understanding Time/GCodes Time In: 1100 Time Out: 1205 Total Billed Treatment Time: 65 Total Billed Treatment 1, GT x2 (30m), EX (20m), FA (15m) MOHAN SHAW PTA June 22, 2019 12:16
--- NOTE | 2019-06-22 15:32 | Physical Therapy Daily Note ---
PT Daily Note-Current Subjective Pt sitting in recliner upon arrival. Pt agrees to PT for continued ambulation. Mental Status Patient Orientation: Person, Place, Time, Situation Attachments: Other-See Comments (Lumbar back brace) Transfers SCALE: Activities may be completed with or without assistive devices. 8-Mlnzgokfyy-lwrnzzo completes the activity by him/herself with no assistance from a helper. 5-Set-up or Clean-up Assistance-helper sets up or cleans up; patient completes activity. [place] assists only prior to or following the activity. 4-Supervision or Touching Assistance-helper provides verbal cues and/or touching/steadying and/or contact guard assistance as patient completes activity. Assistance may be provided throughout the activity or intermittently. 3-Partial/Moderate Assistance-helper does LESS THAN HALF the effort. [place] lifts, holds or supports trunk or limbs, but provides less than half the effort. 2-Substantial/Maximal Assistance-helper does MORE THAN HALF the effort. [place] lifts or holds trunk or limbs and provides more than half the effort. 9-Lhrlivafy-bodvlw does ALL the effort. Patient does none of the effort to complete the activity. Or, the assistance of 2 or more helpers is required for the patient to complete the activity. If activity was not attempted, code reason: 7-Patient Refused. 9-Not Applicable-not attempted and the patient did not perform the activity before the current illness, exacerbation or injury. 10-Not Attempted due to Environmental Limitations-(lack of equipment, weather restraints, etc.). 88-Not Attempted due to Medical Conditions or Safety Concerns. Sit to Stand (QC): 5 Weight Bearing Right Lower Extremity: Right Full Weight Bearing Left Lower Extremity: Left Full Weight Bearing Gait Training Does the Patient Walk?: Yes Distance: 150' Walk 10 feet (QC): 5 Walk 50 ft with 2 Turns(QC): 5 Walk 150 ft (QC): 5 Gait Persons Needed: 1 Gait Assistive Device: FWW Pt walks with slow freddie and slight kyphotic posture. Wheelchair Training Does the Pt Use a Wheelchair?: No Treatments Pt transfers to standing then uses restroom. Pt ambulates in [facility] before returning to recliner to rest. Pt has all needs met, call light in hand. Assessment Current Status: Good Progress Pt walks slowly but continues to improve activity tolerance. PT Short Term Goals Short Term Goals Time Frame: June 16, 2019 Roll Left & Right: 4 Sit to lyin Lying to sitting on side of be: 4 PT Engraving Patternmaker Goals Usp Goals PT Engraving Patternmaker Goals Time Frame: June 30, 2019 Roll Left & Right (QC): 6 Sit to Lying (QC): 6 Lying-Sitting on Side/Bed(QC): 6 Sit to Stand (QC): 6 Chair/Iyd-qs-Rvqfs Xfer(QC): 6 Toilet Transfer (QC): 6 Car Transfer (QC): 4 Does the Patient Walk: Yes Walk 10 feet (QC): 6 Walk 50ft with 2 Turns (QC): 6 Walk 150 ft (QC): 6 Walking 10ft on Uneven Surface: 4 1 Step (curb) (QC): 9 4 Steps (QC): 9 12 Steps (QC): 9 Picking up an Object (QC): 9 (Pt will utilize adaptive equipment due to back precautions) Does the Pt use WC or Scooter?: No Wheel 50 feet with 2 turns (QC: 9 Type: N/A Wheel 150 feet: 9 Type: N/A PT Plan Problem List Problem List: Functional Strength, Gait Treatment/Plan Treatment Plan: Continue Plan of Care Treatment Plan: Bed Mobility, Education, Functional Activity Johny, Functional Strength, Group Therapy, Gait, Safety, Therapeutic Exercise, Transfers Treatment Duration: June 30, 2019 Frequency: 6 times per week Estimated Hrs Per Day: 1.5 hours per day Patient and/or Family Agrees t: Yes Safety Risks/Education Patient Education: Gait Training, Correct Positioning, Safety Issues Teaching Recipient: Patient Teaching Methods: Discussion Response to Teaching: Verbalize Understanding Time/GCodes Time In: 1430 Time Out: 1500 Total Billed Treatment Time: 30 Total Billed Treatment 1, FA (10m) & GT (20m) MOHAN SHAW PTA June 22, 2019 15:32
--- NOTE | 2019-06-22 15:58 | NUR ---
CM/SS CONCURRENT DOCUMENTATION Patient has requested he be considered for discharge 06/26/19. This was discussed with sweet dough mixer and [employer] Wms Consultant who will in turn discuss with [facility] therapists who have done sessions with patient and know his abilities. It appears likely that patient will be approved for this date of exit. HHC: Patient is in agreement for home therapy, RN if needed. He understands that health underwriter will explore agencies in his service area regarding availability/staffing/scheduling to fit with his departure timeline. DME: Patient indicates no new assistive devices are needed. Team did mention lift chair, patient confirms he has one. OT asked for tub transfer bench and dressing stick, private pay items. Patient reports his spouse has cancelled his surgical followup for tomorrow and will reschedule for next week.
--- NOTE | 2019-06-22 16:56 | Cardiology Progress Note ---
Cardiology SOAP Progress Note Subjective: No cardiac complaints Objective: I&O/Vital Signs 06/22/19 06/22/19 05:12 09:00 Temp 36.8 Pulse 62 Resp 18 B/P (MAP) 115/61 (79) Pulse Ox 95 O2 Delivery Room Air Room Air 06/22/19 00:00 Intake Total 1290 ml Balance 1290 ml Constitutional: No appears stated age; AAO x 3; No apparent distress; PERRL, well-developed, well-nourished; No other Respiratory: chest is bilaterally symmetric, lungs clear to auscultation Cardiovascular: regular rate-rhythm; No irregularly irregular, No extra beats, No parasternal heave is noted, No JVD, No edema, No bradycardia, No tachycardia, No point of maximal impulse, No cardiac thrills are palpable; S1 and S2; No gallop/S3, No gallop/S4, No diastolic murmur, No systolic murmur, No friction rub, No click, No other Gastrointestional: soft, audible bowel sounds Extremities: normal range of motion, non-tender, normal inspection, pedal edema (Left is worse than the right.) Neurologic/Psychiatric: no motor/sensory deficits, alert, normal mood/affect, oriented x 3 Skin: normal color A/P: Assessment/Dx: Status post back surgery, Lower extremity swelling, right worse than left, Active smoking. Plan: Continue aggressive inpatient rehabilitation. Lower extremity swelling, right worse than the left, venous ultrasound was negative for DVT. Improved significantly with rehabilitation. However still has left-sided lower extremity swelling. Unlikely cardiac etiology. Echocardiogram showed normal LV and RV size and function. No valvular heart disease. Active smoking, smoking cessation was strongly recommended. Patient recently qu it; does not want to start again. Thank you for your consultation. Please call me if you have any questions. Marie Ovalle MD, FACP, FACC, FSCAI, FHRS, CCDS Interventional Cardiology Cardiac Electrophysiology Vascular Medicine and Endovascular Interventions Nicole OVALLE MD June 22, 2019 16:56
[2019-06-22 17:02] VITALS: BP 109/67
[2019-06-22] MEDS: DULoxetine 30 MG (CYMBALTA) CAP PO SCH (21:54)
[2019-06-23 05:26] VITALS: BP 123/73
[2019-06-23] MEDS: CATHETER FLUSH 10 ML SYR IV SCH ×3 (06:19→20:49)
[2019-06-23] MEDS: KCL 10 MEQ TAB (MICRO K) PO SCH ×4 (06:19→17:59)
[2019-06-23] MEDS: predniSONE 20 MG TAB PO SCH (06:20)
[2019-06-23 07:04] LABS: BUN/CREATININE RATIO 18; CALCIUM 10.2 MG/DL (8.5-10.1); CARBON DIOXIDE 24 MMOL/L (21-32); CHLORIDE 99 MMOL/L (98-107); CREATININE SERUM 0.85 MG/DL (0.60-1.30); GFR ESTIMATED > 60; GLUCOSE 91 MG/DL (70-105); POTASSIUM 3.1 MMOL/L (3.6-5.0); SODIUM 139 MMOL/L (135-145)
--- NOTE | 2019-06-23 08:30 | NUR ---
MEDICATED WITH ULTRAM REQUESTED AC THERAPY. IS HAPPY THAT DC PLAN IS FOR WEDNESDAY. STATES IS WORKING HARD WITH THERAPY. TEDS AND EUSEBIO WRAPS BOTH TO BE CONTINUED - PER DR. PITTMAN. EDEMA IMPROVED.
--- NOTE | 2019-06-23 08:44 | PM&R Progress Note ---
Subjective HPI/CC On Admission Date Seen by Provider: June 23, 2019 Time Seen by Provider: 09:00 Subjective/Events-last exam Pt is really wanting to go home on Wednesday because his takes off on Wednesday for an 8 day work trip and we have approved that with the team members Rescheduling Dr. Michael's appointment for next week Biotene will help the dry mouth he has with the IV Lasix and Metolazone but DC Metolazone today Bowels are moving pretty well Progressing nicely Prednisone 30mg maintained but starting to wean Eating and drinking well Check meds and labs Conferred with RN Reviewed therapy notes Review of Systems General: Fatigue Neurological: Weakness, Incoordination Objective Exam Vital Signs Vital Signs Date Time Temp Pulse Resp B/P (MAP) Pulse Ox O2 Delivery O2 Flow Rate FiO2 06/24/19 06:56 36.2 58 20 128/64 (85) 98 Room Air Capillary Refill : Less Than 3 Seconds General Appearance: No Apparent Distress, WD/WN, Anxious, Chronically ill HEENT: PERRL/EOMI, Normal ENT Inspection, Pharynx Normal Neck: Full Range of Motion, Normal Inspection, Non Tender, Supple, Carotid Bruit Respiratory: Chest Non Tender, Lungs Clear, Normal Breath Sounds, No Accessory Muscle Use, No Respiratory Distress Cardiovascular: Regular Rate, Rhythm, No Edema, No Gallop, No JVD, No Murmur, Normal Peripheral Pulses Gastrointestinal: Normal Bowel Sounds, No Organomegaly, No Pulsatile Mass, Non Tender, Soft Back: Normal Inspection, No CVA Tenderness, No Vertebral Tenderness Extremity: Normal Capillary Refill, Normal Inspection, Normal Range of Motion, Non Tender, No Calf Tenderness Neurologic/Psychiatric: Alert, Oriented x3, Normal Mood/Affect, referral coordinator II-XII Norm as Tested, Abnormal Gait, Motor Weakness (lower extremities), Sensory Deficit, Other (muscle stiffness improved) Skin: Normal Color, Warm/Dry Lymphatic: No Adenopathy Results/Procedures Lab Patient resulted labs reviewed. FIM Transfers Therapy Code Descriptions/Definitions Functional [place] Measure: 0=Not Assessed/NA 4=Minimal Assistance 1=Total Assistance 5=Supervision or Setup 2=Maximal Assistance 6=Modified [place] 3=Moderate Assistance 7=Complete IndependenceSCALE: Activities may be completed with or without assistive devices. 0-Henjrnkqjk-ptgvcyy completes the activity by him/herself with no assistance from a helper. 5-Set-up or Clean-up Assistance-helper sets up or cleans up; patient completes activity. [place] assists only prior to or following the activity. 4-Supervision or Touching Assistance-helper provides verbal cues and/or touching/steadying and/or contact guard assistance as patient completes activity. Assistance may be provided throughout the activity or intermittently. 3-Partial/Moderate Assistance-helper does LESS THAN HALF the effort. [place] lifts, holds or supports trunk or limbs, but provides less than half the effort. 2-Substantial/Maximal Assistance-helper does MORE THAN HALF the effort. [place] lifts or holds trunk or limbs and provides more than half the effort. 8-Xcuyxjdmh-byovdi does ALL the effort. Patient does none of the effort to complete the activity. Or, the assistance of 2 or more helpers is required for the patient to complete the activity. If activity was not attempted, code reason: 7-Patient Refused. 9-Not Applicable-not attempted and the patient did not perform the activity before the current illness, exacerbation or injury. 10-Not Attempted due to Environmental Limitations-(lack of equipment, weather restraints, etc.). 88-Not Attempted due to Medical Conditions or Safety Concerns. Roll Left to Right (QC): 5 (used rail or walker to pull on) Sit to Lying (QC): 4 Sit to Stand (QC): 5 Chair/Kog-vh-Kbaab Xfer(QC): 3 Car Transfer (QC): 3 Gait Training Does the Patient Walk?: Yes Distance: 150' Walk 10 feet (QC): 5 Walk 50 ft with 2 Turns(QC): 5 Walk 150 ft (QC): 5 Walking 10ft/uneven surface-QC: 88 Gait Persons Needed: 1 Gait Assistive Device: FWW Wheelchair Training Does the Pt Use a Wheelchair?: No Wheel 50 ft with 2 turns (QC): 4 Wheel 150 ft (QC): 5 Type of Wheelchair: Manual Stair Training 1 Step (curb) (QC): 9 4 Steps (QC): 9 12 Steps (QC): 9 Balance Picking up an Object (QC): 88 ADL-Treatment Eating (QC): 6 Oral Hygiene (QC): 6 Bathing Location: L Arm, R Arm, L Upper Leg, R Upper Leg, L Lower Leg (including foot), R Lower Leg (including foot), Chest, Abdomen, Perineal Area Shower/Bathe Self (QC): 3 Upper Body Dressing (QC): 5 Lower Body Dressing (QC): 4 On/Off Footwear (QC): 2 (due to shoe donning ) Toileting Hygiene (QC): 4 Toilet Transfer (QC): 4 (SBA during transfer) Assessment/Plan Assessment and Plan Assess & Plan/Chief Complaint Assessment: s/p lumbar stenosis surgery Severe debility started after c-spine surgery 03/2019 Anasarca receiving IV Lasix with good results OA Chronic back pain Former smoker Hypokalemia 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
[2019-06-23] MEDS: DIAZEPAM 2 MG (VALIUM) TAB PO SCH ×3 (09:01→20:50)
[2019-06-23] MEDS: DOCUSATE SODIUM 100 MG (COLACE) CAP PO SCH ×2 (09:01→20:50)
[2019-06-23] MEDS: GABAPENTIN 300 MG (NEURONTIN) CAP PO SCH ×3 (09:01→20:50)
[2019-06-23] MEDS: SENNA W/DOCUSATE (SENOKOT S) TABLET PO SCH ×2 (09:01→20:49)
--- NOTE | 2019-06-23 09:02 | Physical Therapy Daily Note ---
PT Daily Note-Current Subjective Pt. agrees to Rx, states he expects to DC Mon. States he has a ramp at home and his and children help him mange on it with w/c and with FWW Pain Location: No Pain Reported Comment: loves to visit and socialize, compliments this unit and staff often Mental Status Patient Orientation: Normal For Age Attachments: Other-See Comments (back brace) Transfers SCALE: Activities may be completed with or without assistive devices. 5-Mzotsypxqd-iudulws completes the activity by him/herself with no assistance from a helper. 5-Set-up or Clean-up Assistance-helper sets up or cleans up; patient completes activity. [place] assists only prior to or following the activity. 4-Supervision or Touching Assistance-helper provides verbal cues and/or touching/steadying and/or contact guard assistance as patient completes activity. Assistance may be provided throughout the activity or intermittently. 3-Partial/Moderate Assistance-helper does LESS THAN HALF the effort. [place] lifts, holds or supports trunk or limbs, but provides less than half the effort. 2-Substantial/Maximal Assistance-helper does MORE THAN HALF the effort. [place] lifts or holds trunk or limbs and provides more than half the effort. 5-Pptmtlyas-clupvu does ALL the effort. Patient does none of the effort to complete the activity. Or, the assistance of 2 or more helpers is required for the patient to complete the activity. If activity was not attempted, code reason: 7-Patient Refused. 9-Not Applicable-not attempted and the patient did not perform the activity before the current illness, exacerbation or injury. 10-Not Attempted due to Environmental Limitations-(lack of equipment, weather restraints, etc.). 88-Not Attempted due to Medical Conditions or Safety Concerns. Sit to Stand (QC): 5 (from w/c and lift recliner) Weight Bearing Right Lower Extremity: Right Full Weight Bearing Left Lower Extremity: Left Full Weight Bearing Gait Training Does the Patient Walk?: Yes Walk 10 feet (QC): 5 Walk 50 ft with 2 Turns(QC): 5 Gait Persons Needed: 1 Gait Assistive Device: FWW narrow FRANCISCO J and working every step to concentrate on longer step length as well as wider FRANCISCO J, looks at floor and wt bears heavily on FWW Wheelchair Training Does the Pt Use a Wheelchair?: Yes Wheel 50 ft with 2 turns (QC): 4 Type of Wheelchair: Manual has great difficulty using his LUE and LLE to propel w/c therefore needing assist to propel Exercises Seated Therapy Exercises: Ankle pumps, Sit to stand, Long arc quads, Hip flexion, Hip abd/add Seated Reps: 15 Treatments emphasis on gait up down ramp with FWW and with w/c, forward and backward, pt. requires assist to go up ramp with w/c but can go down with SBA superv Assessment Current Status: Good Progress gives full effort and has very positive attitude PT Short Term Goals Short Term Goals Time Frame: June 16, 2019 Roll Left & Right: 4 Sit to lyin Lying to sitting on side of be: 4 PT Care Home Goals Mold Maker Apprentice Goals PT Care Home Goals Time Frame: June 30, 2019 Roll Left & Right (QC): 6 Sit to Lying (QC): 6 Lying-Sitting on Side/Bed(QC): 6 Sit to Stand (QC): 6 Chair/Mbj-fj-Qlmtq Xfer(QC): 6 Toilet Transfer (QC): 6 Car Transfer (QC): 4 Does the Patient Walk: Yes Walk 10 feet (QC): 6 Walk 50ft with 2 Turns (QC): 6 Walk 150 ft (QC): 6 Walking 10ft on Uneven Surface: 4 1 Step (curb) (QC): 9 4 Steps (QC): 9 12 Steps (QC): 9 Picking up an Object (QC): 9 (Pt will utilize adaptive equipment due to back precautions) Does the Pt use WC or Scooter?: No Wheel 50 feet with 2 turns (QC: 9 Type: N/A Wheel 150 feet: 9 Type: N/A PT Plan Treatment/Plan Treatment Plan: Continue Plan of Care Treatment Plan: Bed Mobility, Education, Functional Activity Johny, Functional Strength, Group Therapy, Gait, Safety, Therapeutic Exercise, Transfers Treatment Duration: June 30, 2019 Frequency: 6 times per week Estimated Hrs Per Day: 1.5 hours per day Patient and/or Family Agrees t: Yes Safety Risks/Education Patient Education: Gait Training, Transfer Techniques, Correct Positioning, W/C Management, Disease Process, Safety Issues Teaching Recipient: Patient Teaching Methods: Demonstration, Discussion Response to Teaching: Verbalize Understanding, Return Demonstration, Reinforcement Needed Time/GCodes Time In: 800 Time Out: 900 Total Billed Treatment Time: 60 Total Billed Treatment 1,EX15m,GT25m,WC20m FRANCISCA HILL LICENSED SALES ASSISTANT June 23, 2019 09:02
[2019-06-23] MEDS: polyethylene glycoL POWDER 17 GM (MIRALAX) PACK PO SCH ×2 (09:03→20:49)
--- NOTE | 2019-06-23 11:50 | Occupational Ther Daily Note ---
OT Current Status-Daily Note Subjective Pt seen in recliner chair. Pt agrees to OT tx session with goals of showering. Pt's pain meds administered immediately prior to session. Mental Status/Objective Patient Orientation: Normal For Age ADL-Treatment Therapy Code Descriptions/Definitions Functional [place] Measure: 0=Not Assessed/NA 4=Minimal Assistance 1=Total Assistance 5=Supervision or Setup 2=Maximal Assistance 6=Modified [place] 3=Moderate Assistance 7=Complete IndependenceSCALE: Activities may be completed with or without assistive devices. 4-Aaselhqwyf-mmuvhfq completes the activity by him/herself with no assistance from a helper. 5-Set-up or Clean-up Assistance-helper sets up or cleans up; patient completes activity. [place] assists only prior to or following the activity. 4-Supervision or Touching Assistance-helper provides verbal cues and/or touching/steadying and/or contact guard assistance as patient completes activity. Assistance may be provided throughout the activity or intermittently. 3-Partial/Moderate Assistance-helper does LESS THAN HALF the effort. [place] lifts, holds or supports trunk or limbs, but provides less than half the effort. 2-Substantial/Maximal Assistance-helper does MORE THAN HALF the effort. [place] lifts or holds trunk or limbs and provides more than half the effort. 4-Ndjptbyxn-jkjghv does ALL the effort. Patient does none of the effort to complete the activity. Or, the assistance of 2 or more helpers is required for the patient to complete the activity. If activity was not attempted, code reason: 7-Patient Refused. 9-Not Applicable-not attempted and the patient did not perform the activity before the current illness, exacerbation or injury. 10-Not Attempted due to Environmental Limitations-(lack of equipment, weather restraints, etc.). 88-Not Attempted due to Medical Conditions or Safety Concerns. Eating (QC): 6 Oral Hygiene (QC): 6 (completes with IND in front of sink.) Bathing Location: L Arm, R Arm, L Upper Leg, R Upper Leg, L Lower Leg (including foot), R Lower Leg (including foot), Chest, Abdomen, Buttocks, Perineal Area Shower/Bathe Self (QC): 4 (CGA in stance. Pt able to complete all areas with thoroughness with LHS (including R axilla and BLEs). Pt CGA to complete bottom washing, pt utilizes gbs to turn in shower and brings RLE up onto shower bench. Pt able to reach bottom from this area, pt educated on back precaution maintenance, pt's ledge at home much lower and pt demosntrates ability to remain safe/ complete activity with fair balance. ) Upper Body Dressing (QC): 4 (CGA to stabilize back brace as pt dons. Pt completes shirt with IND and increased time.) Lower Body Dressing (QC): 4 (Completes with AE to thread over BLE with success. Pt pulls over hips iwth increased time and SBA in stance at 2WW.) On/Off Footwear: 7 (Pt does not attempt as he plans to wear house shoes at home that will slip on.) Toileting Hygiene (QC): 4 (CGA in stance.) Toilet Transfer (QC): 4 (SBA, use of gbs.) Other Treatment [id number] (100): Pt completes ADLs on this date as above. Pt increases in IND through washing bottom with thoroughness. Pt will demonstrate increased IND at home within own environment. Pt states excitement for home return and continuation of HHOT. Pt agrees he has made good progress and has determination to continue. Pt demonstrates good safety, though continues in stiffness, pt thinks through different adaptations with good acknowledgement of true abilities. Pt returns to recliner, sits with SPT and SBA. pt left with all needs met, call light in reach. Education OT Patient Education: Correct positioning, Modified ADL techniques, Progress toward Goal/Update tx plan, Reviewed precautions, Safety issues, Transfer techniques, Use of adapted equipment Teaching Recipient: Patient Teaching Methods: Demonstration, Discussion Response to Teaching: Verbalize Understanding, Return Demonstration OT Short Term Goals Short Term Goals Shower/bathe self: 3 Upper body dressin Lower body dressin OT Adjunct Professor Of [employer] Goals Adjunct Professor Of [employer] Goals Time Frame: June 30, 2019 Eating (QC): 6 (met) Oral Hygiene (QC): 6 (met) Toileting Hygiene (QC): 6 Shower/Bathe Self (QC): 6 Upper Body Dressing (QC): 6 Lower Body Dressing (QC): 6 On/Off Footwear (QC): 6 Additional Goals: 1-Demonstrate ADL Tasks, 2-Verbalize Understanding, 3- ImproveStrength/Johny 1=Demonstrate adherence to instructed precautions during ADL tasks. 2=Patient will verbalize/demonstrate understanding of assistive devices/modifications for ADL. 3=Patient will improve strength/tolerance for activity to enable patient to perform ADL's. OT Education/Plan Problem List/Assessment Assessment: Decreased Activ Tolerance, Decreased UE Strength, Dependent Transfers, Impaired Coordination, Impaired Funct Balance, Impaired I ADL's, Impaired Self-Care Skills, Restricted Funct UE ROM Discharge Recommendations Plan/Recommendations: Continue POC Therapy Discharge Recommendati: Bath Aide, Home & Family, Post Acute OT Treatment Plan/Plan of Care Treatment,Training & Education: Yes Patient would benefit from OT for education, treatment and training to promote independence in ADL's, mobility, safety and/or upper extremity function for ADL's. Plan of Care: ADL Retraining, Caregiver Training, Concurrent Therapy, Functional Mobility, Group Exercise/Act as Ind, UE Funct Exercise/Act, UE Neuromus Re-Ed/Coord, W/C Management Training Treatment Duration: June 30, 2019 Frequency: At least 5 of 7 days/Wk (IRF) Estimated Hrs Per Day: 1.5 hours per day Agreement: Yes Rehab Potential: Guarded Time/GCodes Start Time: 09:00 Stop Time: 10:40 Total Time Billed (hr/min): 100 Billed Treatment Time 1, ADL 6 (100) LEO MARTELL OTR June 23, 2019 11:50
--- NOTE | 2019-06-23 11:58 | Physical Therapy Daily Note ---
PT Daily Note-Current Subjective Pt. agrees to Rx. States he feel he has made progress. Describes his gait prior to this surgery and states he feels there is some improvement but the biggest thing is that he has zero pain now. Pt. states he really tries but broader FRANCISCO J and taller stance is just too hard. Pain Location: No Pain Reported Mental Status Patient Orientation: Person, Place, Time, Situation, [place] Attachments: Other-See Comments (back brace) pt. talks nearly non stop in monotone strained voice and repeats himself alot Transfers SCALE: Activities may be completed with or without assistive devices. 2-Hfgwrjcgvg-tazqwrl completes the activity by him/herself with no assistance from a helper. 5-Set-up or Clean-up Assistance-helper sets up or cleans up; patient completes activity. [place] assists only prior to or following the activity. 4-Supervision or Touching Assistance-helper provides verbal cues and/or touching/steadying and/or contact guard assistance as patient completes activity. Assistance may be provided throughout the activity or intermittently. 3-Partial/Moderate Assistance-helper does LESS THAN HALF the effort. [place] lifts, holds or supports trunk or limbs, but provides less than half the effort. 2-Substantial/Maximal Assistance-helper does MORE THAN HALF the effort. [place] lifts or holds trunk or limbs and provides more than half the effort. 9-Trbqdlayu-frheug does ALL the effort. Patient does none of the effort to complete the activity. Or, the assistance of 2 or more helpers is required for the patient to complete the activity. If activity was not attempted, code reason: 7-Patient Refused. 9-Not Applicable-not attempted and the patient did not perform the activity before the current illness, exacerbation or injury. 10-Not Attempted due to Environmental Limitations-(lack of equipment, weather restraints, etc.). 88-Not Attempted due to Medical Conditions or Safety Concerns. Roll Left & Right (QC): 4 Lying to Sitting/Side of Bed(Q: 4 Sit to Stand (QC): 5 Weight Bearing Right Lower Extremity: Right Full Weight Bearing Left Lower Extremity: Left Full Weight Bearing Gait Training Does the Patient Walk?: Yes Walk 10 feet (QC): 5 Walk 50 ft with 2 Turns(QC): 5 Walk 150 ft (QC): 5 Gait Persons Needed: 1 Gait Assistive Device: FWW heavy weight bearing on FWW with difficulty managing good alignment and position with left hand and arm. Pt. with flexed posture as is common with stenosis pt . as gait is much more uncomfortable and pt. shares he is unable to go as far if he stands straighter and it causes discomfort, also a typical stenosis c/o and is founded. Pt. cued to attempt to maintain broader FRANCISCO J. which became more difficult as pt. fatigued with gait. Pt. very slow gait clocked at 6 ft in 55 seconds Treatments sup to sit and sit to sup min assist and use of FWW as rail Assessment Current Status: Good Progress gives full effort, positive attitude, has great support at home and quite a bit of appropriate equipment PT Short Term Goals Short Term Goals Time Frame: June 16, 2019 Roll Left & Right: 4 Sit to lyin Lying to sitting on side of be: 4 PT Mcc Goals Mcc Goals PT Contract Negotiation Specialist Goals Time Frame: June 30, 2019 Roll Left & Right (QC): 6 Sit to Lying (QC): 6 Lying-Sitting on Side/Bed(QC): 6 Sit to Stand (QC): 6 Chair/Byd-pm-Smqrx Xfer(QC): 6 Toilet Transfer (QC): 6 Car Transfer (QC): 4 Does the Patient Walk: Yes Walk 10 feet (QC): 6 Walk 50ft with 2 Turns (QC): 6 Walk 150 ft (QC): 6 Walking 10ft on Uneven Surface: 4 1 Step (curb) (QC): 9 4 Steps (QC): 9 12 Steps (QC): 9 Picking up an Object (QC): 9 (Pt will utilize adaptive equipment due to back precautions) Does the Pt use WC or Scooter?: No Wheel 50 feet with 2 turns (QC: 9 Type: N/A Wheel 150 feet: 9 Type: N/A PT Plan Treatment/Plan Treatment Plan: Continue Plan of Care Treatment Plan: Bed Mobility, Education, Functional Activity Johny, Functional Strength, Group Therapy, Gait, Safety, Therapeutic Exercise, Transfers Treatment Duration: June 30, 2019 Frequency: 6 times per week Estimated Hrs Per Day: 1.5 hours per day Patient and/or Family Agrees t: Yes Safety Risks/Education Patient Education: Gait Training, Transfer Techniques, Correct Positioning, Disease Process, Safety Issues Teaching Recipient: Patient Teaching Methods: Demonstration, Discussion Response to Teaching: Verbalize Understanding, Return Demonstration, Reinforcement Needed Time/GCodes Time In: 1100 Time Out: 1140 Total Billed Treatment Time: 40 Total Billed Treatment 1,GT25m,FA15m FRANCISCA HILL HEAD HOLDER June 23, 2019 11:58
--- NOTE | 2019-06-23 12:10 | Cardiology Progress Note ---
Cardiology SOAP Progress Note Subjective: No cardiac complaints. Objective: I&O/Vital Signs 06/23/19 05:26 Temp 36.0 Pulse 58 Resp 18 B/P (MAP) 123/73 (90) Pulse Ox 100 O2 Delivery Room Air 06/23/19 00:00 Intake Total 1090 ml Output Total 900 ml Balance 190 ml Constitutional: No appears stated age; AAO x 3; No apparent distress; PERRL, well-developed, well-nourished; No other Respiratory: chest is bilaterally symmetric, lungs clear to auscultation Cardiovascular: regular rate-rhythm; No irregularly irregular, No extra beats, No parasternal heave is noted, No JVD, No edema, No bradycardia, No tachycardia, No point of maximal impulse, No cardiac thrills are palpable; S1 and S2; No gallop/S3, No gallop/S4, No diastolic murmur, No systolic murmur, No friction rub, No click, No other Gastrointestional: soft, audible bowel sounds Extremities: normal range of motion, non-tender, normal inspection, pedal edema (Left is worse than the right.) Neurologic/Psychiatric: no motor/sensory deficits, alert, normal mood/affect, oriented x 3 Skin: normal color Results/Procedures: Labs Laboratory Tests 06/23/19 06:18: Sodium Level 139, Potassium Level 3.1L, Chloride Level 99, Carbon Dioxide Level 24, Anion Gap 16H, Blood Urea Nitrogen 15, Creatinine 0.85, Estimat Glomerular Filtration Rate > 60, BUN/Creatinine Ratio 18, Glucose Level 91, Calcium Level 10.2H A/P: Assessment/Dx: Status post back surgery, Lower extremity swelling, right worse than left, Active smoking. Plan: Continue aggressive inpatient rehabilitation. Lower extremity swelling, right worse than the left, venous ultrasound was negative for DVT. Improved significantly with rehabilitation. However still has left-sided lower extremity swelling. Unlikely cardiac etiology. Echocardiogram showed normal LV and RV size and function. No valvular heart disease. Active smoking, smoking cessation was strongly recommended. Patient recently quit; does not want to start again. Thank you for your consultation. Please call me if you have any questions. Marie Ovalle MD, FACP, FACC, FSCAI, FHRS, CCDS Interventional Cardiology Cardiac Electrophysiology Vascular Medicine and Endovascular Interventions Nicole OVALLE MD June 23, 2019 12:10
--- NOTE | 2019-06-23 13:00 | NUR ---
LAB RECORDS FROM [facility] WERE FAXED HERE AND PLACED ON CHART.
--- NOTE | 2019-06-23 14:13 | NUR ---
CM/SS DISCHARGE PLANNING Progressing toward patient discharge Wednesday06/26/19. HHC: Referral completed with [facility], agency indicated in network with insurance. They will confirm insurance status and they did indicate they could begin services Wednesday as requested. Updated patient. Spoke with spouse Amee by phone, very helpful with resources due to her history of RN within [facility] and other healthcare related facilities. Copied patient insurance and I.D. card, provided to Registration to be scanned into account. Finalize arrangements when able.
--- NOTE | 2019-06-23 15:27 | Occupational Ther Daily Note ---
OT Current Status-Daily Note Subjective Pt seen in recliner chair. Pt does not rate pain. Pt agrees to OT tx session. Mental Status/Objective Patient Orientation: Normal For Age ADL-Treatment Therapy Code Descriptions/Definitions Functional [place] Measure: 0=Not Assessed/NA 4=Minimal Assistance 1=Total Assistance 5=Supervision or Setup 2=Maximal Assistance 6=Modified [place] 3=Moderate Assistance 7=Complete IndependenceSCALE: Activities may be completed with or without assistive devices. 1-Kctzipnmpa-wpinelt completes the activity by him/herself with no assistance from a helper. 5-Set-up or Clean-up Assistance-helper sets up or cleans up; patient completes activity. [place] assists only prior to or following the activity. 4-Supervision or Touching Assistance-helper provides verbal cues and/or touching/steadying and/or contact guard assistance as patient completes activity. Assistance may be provided throughout the activity or intermittently. 3-Partial/Moderate Assistance-helper does LESS THAN HALF the effort. [place] lifts, holds or supports trunk or limbs, but provides less than half the effort. 2-Substantial/Maximal Assistance-helper does MORE THAN HALF the effort. [place] lifts or holds trunk or limbs and provides more than half the effort. 7-Hqkbrammr-ulqfie does ALL the effort. Patient does none of the effort to complete the activity. Or, the assistance of 2 or more helpers is required for the patient to complete the activity. If activity was not attempted, code reason: 7-Patient Refused. 9-Not Applicable-not attempted and the patient did not perform the activity before the current illness, exacerbation or injury. 10-Not Attempted due to Environmental Limitations-(lack of equipment, weather restraints, etc.). 88-Not Attempted due to Medical Conditions or Safety Concerns. Eating (QC): 6 (completes drinking.) Other Treatment Pt educated on HEP for fine motor/ coordination/ zinc plate grainer strengthening with beaded theraputty. Pt return demonstrates with skilled cues for increasing graded activity. Pt then completes 3 bolts on bolt board with cues to complete movement with L UE and stabilize bold with RUE. pt completes with increased time and increasing height to address shoulder endurance. Pt left in room with call light in reach, all needs met. Education OT Patient Education: Home exercise program Teaching Recipient: Patient Teaching Methods: Demonstration, Discussion Response to Teaching: Verbalize Understanding, Return Demonstration OT Short Term Goals Short Term Goals Shower/bathe self: 3 Upper body dressin Lower body dressin OT Senior Care Goals Animal Control Supervisor Goals Time Frame: June 30, 2019 Eating (QC): 6 (met) Oral Hygiene (QC): 6 (met) Toileting Hygiene (QC): 6 Shower/Bathe Self (QC): 6 Upper Body Dressing (QC): 6 Lower Body Dressing (QC): 6 On/Off Footwear (QC): 6 Additional Goals: 1-Demonstrate ADL Tasks, 2-Verbalize Understanding, 3- ImproveStrength/Johny 1=Demonstrate adherence to instructed precautions during ADL tasks. 2=Patient will verbalize/demonstrate understanding of assistive devices/ modifications for ADL. 3=Patient will improve strength/tolerance for activity to enable patient to perform ADL's. OT Education/Plan Problem List/Assessment Assessment: Decreased Activ Tolerance, Decreased UE Strength, Dependent Transfers, Impaired Coordination, Impaired Funct Balance, Impaired I ADL's, Impaired Self-Care Skills Discharge Recommendations Plan/Recommendations: Continue POC Therapy Discharge Recommendati: Home & Family, Post Acute OT Treatment Plan/Plan of Care Treatment,Training & Education: Yes Patient would benefit from OT for education, treatment and training to promote independence in ADL's, mobility, safety and/or upper extremity function for ADL's. Plan of Care: ADL Retraining, Caregiver Training, Concurrent Therapy, Functional Mobility, Group Exercise/Act as Ind, UE Funct Exercise/Act, UE Neuromus Re-Ed/Coord, W/C Management Training Treatment Duration: June 30, 2019 Frequency: At least 5 of 7 days/Wk (IRF) Estimated Hrs Per Day: 1.5 hours per day Agreement: Yes Rehab Potential: Guarded Time/GCodes Start Time: 14:30 Stop Time: 15:00 Total Time Billed (hr/min): 30 Billed Treatment Time 1, EX 2 (30) LEO MARTELL OTR June 23, 2019 15:27
[2019-06-23 16:22] VITALS: BP 104/65
[2019-06-23] MEDS: DULoxetine 30 MG (CYMBALTA) CAP PO SCH (20:50)
[2019-06-24] MEDS: predniSONE 20 MG TAB PO SCH (06:17)
[2019-06-24] MEDS: CATHETER FLUSH 10 ML SYR IV SCH ×3 (06:17→20:14)
[2019-06-24 06:56] VITALS: BP 128/64
[2019-06-24] MEDS: polyethylene glycoL POWDER 17 GM (MIRALAX) PACK PO SCH ×2 (08:06→20:14)
[2019-06-24] MEDS: GABAPENTIN 300 MG (NEURONTIN) CAP PO SCH ×3 (08:40→20:14)
[2019-06-24] MEDS: DIAZEPAM 2 MG (VALIUM) TAB PO SCH ×3 (08:40→20:14)
[2019-06-24] MEDS: DOCUSATE SODIUM 100 MG (COLACE) CAP PO SCH ×2 (08:40→20:14)
[2019-06-24] MEDS: FUROSEMIDE 40 MG/4 ML INJ (LASIX) IVP SCH (08:40)
[2019-06-24] MEDS: KCL 10 MEQ TAB (MICRO K) PO SCH ×3 (08:40→18:34)
[2019-06-24] MEDS: SENNA W/DOCUSATE (SENOKOT S) TABLET PO SCH ×2 (08:41→20:14)
--- NOTE | 2019-06-24 12:21 | Physical Therapy Daily Note ---
PT Daily Note-Current Subjective Pt sitting in recliner upon arrival. Pt agrees to PT for more practice on ambulation. Mental Status Patient Orientation: Person, Place, Time, Situation Attachments: Other-See Comments (EUSEBIO wrap for B LE & Lumbar Back Brace) Transfers SCALE: Activities may be completed with or without assistive devices. 0-Prwmhhniws-vljmhvs completes the activity by him/herself with no assistance from a helper. 5-Set-up or Clean-up Assistance-helper sets up or cleans up; patient completes activity. [place] assists only prior to or following the activity. 4-Supervision or Touching Assistance-helper provides verbal cues and/or touching/steadying and/or contact guard assistance as patient completes activity. Assistance may be provided throughout the activity or intermittently. 3-Partial/Moderate Assistance-helper does LESS THAN HALF the effort. [place] lifts, holds or supports trunk or limbs, but provides less than half the effort. 2-Substantial/Maximal Assistance-helper does MORE THAN HALF the effort. [place] lifts or holds trunk or limbs and provides more than half the effort. 2-Qkdytgmla-egilfi does ALL the effort. Patient does none of the effort to complete the activity. Or, the assistance of 2 or more helpers is required for the patient to complete the activity. If activity was not attempted, code reason: 7-Patient Refused. 9-Not Applicable-not attempted and the patient did not perform the activity before the current illness, exacerbation or injury. 10-Not Attempted due to Environmental Limitations-(lack of equipment, weather restraints, etc.). 88-Not Attempted due to Medical Conditions or Safety Concerns. Sit to Stand (QC): 6 Weight Bearing Right Lower Extremity: Right Full Weight Bearing Left Lower Extremity: Left Full Weight Bearing Gait Training Does the Patient Walk?: Yes Distance: 150' Walk 10 feet (QC): 5 Walk 50 ft with 2 Turns(QC): 5 Walk 150 ft (QC): 5 Gait Persons Needed: 1 Gait Assistive Device: FWW Pt focuses on WBOS, longer stride length and improving freddie. Treatments Pt transfers at Mod I from recliner to standing and standing to recliner. Pt ambulates in hallway then returns to room to rest. Pt has all needs met, call light in hand. Assessment Current Status: Good Progress Pt is able to self adjust to WBOS as FRANCISCO J narrows. Pt continues to walk with very slow freddie. PT Short Term Goals Short Term Goals Time Frame: June 16, 2019 Roll Left & Right: 4 Sit to lyin Lying to sitting on side of be: 4 PT Ward Maid Goals Ward Maid Goals PT Ward Maid Goals Time Frame: June 30, 2019 Roll Left & Right (QC): 6 Sit to Lying (QC): 6 Lying-Sitting on Side/Bed(QC): 6 Sit to Stand (QC): 6 Chair/Dam-tg-Zrieg Xfer(QC): 6 Toilet Transfer (QC): 6 Car Transfer (QC): 4 Does the Patient Walk: Yes Walk 10 feet (QC): 6 Walk 50ft with 2 Turns (QC): 6 Walk 150 ft (QC): 6 Walking 10ft on Uneven Surface: 4 1 Step (curb) (QC): 9 4 Steps (QC): 9 12 Steps (QC): 9 Picking up an Object (QC): 9 (Pt will utilize adaptive equipment due to back precautions) Does the Pt use WC or Scooter?: No Wheel 50 feet with 2 turns (QC: 9 Type: N/A Wheel 150 feet: 9 Type: N/A PT Plan Problem List Problem List: Activity Tolerance, Safety, Gait Treatment/Plan Treatment Plan: Continue Plan of Care Treatment Plan: Bed Mobility, Education, Functional Activity Johny, Functional Strength, Group Therapy, Gait, Safety, Therapeutic Exercise, Transfers Treatment Duration: June 30, 2019 Frequency: 6 times per week Estimated Hrs Per Day: 1.5 hours per day Patient and/or Family Agrees t: Yes Safety Risks/Education Patient Education: Gait Training, Correct Positioning, Safety Issues Teaching Recipient: Patient Teaching Methods: Discussion Response to Teaching: Verbalize Understanding Time/GCodes Time In: 1105 Time Out: 1130 Total Billed Treatment Time: 25 Total Billed Treatment 1, GT x2 (25m) MOHAN SHAW QUALITY ENGINEER MEDICAL DEVICE June 24, 2019 12:21
--- NOTE | 2019-06-24 13:10 | PM&R Progress Note ---
Subjective HPI/CC On Admission Date Seen by Provider: June 24, 2019 Time Seen by Provider: 13:15 Subjective/Events-last exam DC on Wednesday Rescheduling Dr. Michael's appointment for next week Lasix maintained Bowels are moving pretty well Progressing nicely Prednisone 20mg maintained but starting to wean Eating and drinking well Check meds and labs Conferred with RN Reviewed therapy notes Review of Systems General: Fatigue Neurological: Weakness, Numbness, Incoordination Objective Exam Vital Signs Vital Signs Date Time Temp Pulse Resp B/P (MAP) Pulse Ox O2 Delivery O2 Flow Rate FiO2 06/24/19 17:46 36.2 57 20 96/54 (68) 97 Room Air Capillary Refill : Less Than 3 Seconds General Appearance: No Apparent Distress, WD/WN, Anxious, Chronically ill HEENT: PERRL/EOMI, Normal ENT Inspection, Pharynx Normal Neck: Full Range of Motion, Normal Inspection, Non Tender, Supple, Carotid Bruit Respiratory: Chest Non Tender, Lungs Clear, Normal Breath Sounds, No Accessory Muscle Use, No Respiratory Distress Cardiovascular: Regular Rate, Rhythm, No Edema, No Gallop, No JVD, No Murmur, Normal Peripheral Pulses Gastrointestinal: Normal Bowel Sounds, No Organomegaly, No Pulsatile Mass, Non Tender, Soft Back: Normal Inspection, No CVA Tenderness, No Vertebral Tenderness Extremity: Normal Capillary Refill, Normal Inspection, Normal Range of Motion, Non Tender, No Calf Tenderness Neurologic/Psychiatric: Alert, Oriented x3, Normal Mood/Affect, schedule announcer II-XII Norm as Tested, Abnormal Gait, Motor Weakness (lower extremities), Sensory Deficit, Other (muscle stiffness improved) Skin: Normal Color, Warm/Dry Lymphatic: No Adenopathy Results/Procedures Lab Patient resulted labs reviewed. FIM Transfers Therapy Code Descriptions/Definitions Functional [place] Measure: 0=Not Assessed/NA 4=Minimal Assistance 1=Total Assistance 5=Supervision or Setup 2=Maximal Assistance 6=Modified [place] 3=Moderate Assistance 7=Complete IndependenceSCALE: Activities may be completed with or without assistive devices. 4-Flqiieicjz-pyyupgs completes the activity by him/herself with no assistance from a helper. 5-Set-up or Clean-up Assistance-helper sets up or cleans up; patient completes activity. [place] assists only prior to or following the activity. 4-Supervision or Touching Assistance-helper provides verbal cues and/or touching/steadying and/or contact guard assistance as patient completes activity. Assistance may be provided throughout the activity or intermittently. 3-Partial/Moderate Assistance-helper does LESS THAN HALF the effort. [place] lifts, holds or supports trunk or limbs, but provides less than half the effort. 2-Substantial/Maximal Assistance-helper does MORE THAN HALF the effort. [place] l ifts or holds trunk or limbs and provides more than half the effort. 0-Kwhqyxbjx-bcmffw does ALL the effort. Patient does none of the effort to complete the activity. Or, the assistance of 2 or more helpers is required for the patient to complete the activity. If activity was not attempted, code reason: 7-Patient Refused. 9-Not Applicable-not attempted and the patient did not perform the activity before the current illness, exacerbation or injury. 10-Not Attempted due to Environmental Limitations-(lack of equipment, weather restraints, etc.). 88-Not Attempted due to Medical Conditions or Safety Concerns. Roll Left to Right (QC): 4 Sit to Lying (QC): 4 Sit to Stand (QC): 6 Chair/Mqk-uq-Ceheq Xfer(QC): 3 Car Transfer (QC): 3 Gait Training Does the Patient Walk?: Yes Distance: 150' Walk 10 feet (QC): 5 Walk 50 ft with 2 Turns(QC): 5 Walk 150 ft (QC): 5 Walking 10ft/uneven surface-QC: 88 Gait Persons Needed: 1 Gait Assistive Device: FWW Wheelchair Training Does the Pt Use a Wheelchair?: Yes Wheel 50 ft with 2 turns (QC): 4 Wheel 150 ft (QC): 5 Type of Wheelchair: Manual Stair Training 1 Step (curb) (QC): 9 4 Steps (QC): 9 12 Steps (QC): 9 Balance Picking up an Object (QC): 88 ADL-Treatment Eating (QC): 6 (completes drinking.) Oral Hygiene (QC): 6 (completes with IND in front of sink.) Bathing Location: L Arm, R Arm, L Upper Leg, R Upper Leg, L Lower Leg (including foot), R Lower Leg (including foot), Chest, Abdomen, Buttocks, Perineal Area Shower/Bathe Self (QC): 4 (CGA in stance. Pt able to complete all areas with thoroughness with LHS (including R axilla and BLEs). Pt CGA to complete bottom washing, pt utilizes gbs to turn in shower and brings RLE up onto shower bench. Pt able to reach bottom from this area, pt educated on back precaution maintenance, pt's ledge at home much lower and pt demosntrates ability to remain safe/ complete activity with fair balance. ) Upper Body Dressing (QC): 4 (CGA to stabilize back brace as pt dons. Pt completes shirt with IND and increased time.) Lower Body Dressing (QC): 4 (Completes with AE to thread over BLE with success. 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
[2019-06-24 17:46] VITALS: BP 96/54
[2019-06-24] MEDS: DULoxetine 30 MG (CYMBALTA) CAP PO SCH (20:14)
[2019-06-25 05:02] VITALS: BP 123/68
[2019-06-25 05:27] LABS: BASOPHILS % (AUTO) 1 % (0-10); EOSINOPHILS # (AUTO) 0.1 10^3/uL (0.0-0.3); EOSINOPHILS % (AUTO) 1 % (0-10); HEMATOCRIT 41 % (40-54); HEMOGLOBIN 14.1 G/DL (13.3-17.7); LYMPHOCYTES # (AUTO) 3.1 X 10^3 (1.0-4.0); LYMPHOCYTES % (AUTO) 36 % (12-44); MEAN CORPUSCULAR HEMOGLOBIN 31 PG (25-34); MEAN CORPUSCULAR HGB CONC 34 G/DL (32-36); MEAN CORPUSCULAR VOLUME 91 FL (80-99); MEAN PLATELET VOLUME 9.5 FL (7.4-10.4); MONOCYTES % (AUTO) 11 % (0-12); NEUTROPHILS # (AUTO) 4.4 X 10^3 (1.8-7.8); NEUTROPHILS % (AUTO) 51 % (42-75); PLATELET COUNT 342 10^3/uL (130-400); RED CELL DISTRIBUTION WIDTH 13.1 % (10.0-14.5); WHITE BLOOD COUNT 8.6 10^3/uL (4.3-11.0)
[2019-06-25 05:47] LABS: ALANINE AMINOTRANSFERASE 40 U/L (0-55); ALBUMIN 3.9 GM/DL (3.2-4.5); ALKALINE PHOSPHATASE 50 U/L (40-136); BILIRUBIN,TOTAL 0.6 MG/DL (0.1-1.0); BUN/CREATININE RATIO 19; CALCIUM 9.5 MG/DL (8.5-10.1); CARBON DIOXIDE 24 MMOL/L (21-32); CHLORIDE 103 MMOL/L (98-107); CREATININE SERUM 0.83 MG/DL (0.60-1.30); GFR ESTIMATED > 60; GLUCOSE 99 MG/DL (70-105); MAGNESIUM 2.1 MG/DL (1.6-2.4); POTASSIUM 3.5 MMOL/L (3.6-5.0); SODIUM 139 MMOL/L (135-145); TOTAL PROTEIN 6.4 GM/DL (6.4-8.2)
[2019-06-25] MEDS: CATHETER FLUSH 10 ML SYR IV SCH ×3 (06:29→20:21)
[2019-06-25] MEDS: predniSONE 20 MG TAB PO SCH (06:29)
[2019-06-25] MEDS: polyethylene glycoL POWDER 17 GM (MIRALAX) PACK PO SCH ×2 (08:41→20:21)
[2019-06-25] MEDS: SENNA W/DOCUSATE (SENOKOT S) TABLET PO SCH ×2 (08:45→20:21)
[2019-06-25] MEDS: GABAPENTIN 300 MG (NEURONTIN) CAP PO SCH ×3 (08:45→20:21)
[2019-06-25] MEDS: DOCUSATE SODIUM 100 MG (COLACE) CAP PO SCH ×2 (08:45→20:21)
[2019-06-25] MEDS: DIAZEPAM 2 MG (VALIUM) TAB PO SCH ×3 (08:45→20:21)
[2019-06-25] MEDS: KCL 10 MEQ TAB (MICRO K) PO SCH ×3 (08:45→17:00)
--- NOTE | 2019-06-25 11:24 | PM&R Progress Note ---
Subjective HPI/CC On Admission Date Seen by Provider: June 25, 2019 Time Seen by Provider: 11:30 Subjective/Events-last exam DC on Wednesday Rescheduling Dr. Michael's appointment for this week since had to cancel last week Lasix maintained Bowels are moving pretty well Progressing nicely Prednisone starting to wean Eating and drinking well Potassium 3.5 today [facility] [place] is his pharmacy Need to speak to Jess Cullen his PCP to update on this very complex case considering he is taking Valium TID scheduled and on Prednisone Check meds and labs Conferred with RN Reviewed therapy notes Review of Systems General: Fatigue Neurological: Weakness, Numbness, Incoordination Objective Exam Vital Signs Vital Signs Date Time Temp Pulse Resp B/P (MAP) Pulse Ox O2 Delivery O2 Flow Rate FiO2 06/25/19 09:00 Room Air 06/25/19 05:02 36.6 62 16 123/68 (86) 97 Capillary Refill : Less Than 3 Seconds General Appearance: No Apparent Distress, WD/WN, Anxious, Chronically ill HEENT: PERRL/EOMI, Normal ENT Inspection, Pharynx Normal Neck: Full Range of Motion, Normal Inspection, Non Tender, Supple, Carotid Bruit Respiratory: Chest Non Tender, Lungs Clear, Normal Breath Sounds, No Accessory Muscle Use, No Respiratory Distress Cardiovascular: Regular Rate, Rhythm, No Edema, No Gallop, No JVD, No Murmur, Normal Peripheral Pulses Gastrointestinal: Normal Bowel Sounds, No Organomegaly, No Pulsatile Mass, Non Tender, Soft Back: Normal Inspection, No CVA Tenderness, No Vertebral Tenderness Extremity: Normal Capillary Refill, Normal Inspection, Normal Range of Motion, Non Tender, No Calf Tenderness Neurologic/Psychiatric: Alert, Oriented x3, Normal Mood/Affect, 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 FIM Transfers Therapy Code Descriptions/Definitions Functional [place] Measure: 0=Not Assessed/NA 4=Minimal Assistance 1=Total Assistance 5=Supervision or Setup 2=Maximal Assistance 6=Modified [place] 3=Moderate Assistance 7=Complete IndependenceSCALE: Activities may be completed with or without assistive devices. 4-Jvngccuhvz-laiwdli completes the activity by him/herself with no assistance from a helper. 5-Set-up or Clean-up Assistance-helper sets up or cleans up; patient completes activity. [place] assists only prior to or following the activity. 4-Supervision or Touching Assistance-helper provides verbal cues and/or touc ihsan/steadying and/or contact guard assistance as patient completes activity. Assistance may be provided throughout the activity or intermittently. 3-Partial/Moderate Assistance-helper does LESS THAN HALF the effort. [place] lifts, holds or supports trunk or limbs, but provides less than half the effort. 2-Substantial/Maximal Assistance-helper does MORE THAN HALF the effort. [place] lifts or holds trunk or limbs and provides more than half the effort. 8-Nyeibbjjh-mrjaag does ALL the effort. Patient does none of the effort to complete the activity. Or, the assistance of 2 or more helpers is required for the patient to complete the activity. If activity was not attempted, code reason: 7-Patient Refused. 9-Not Applicable-not attempted and the patient did not perform the activity be fore the current illness, exacerbation or injury. 10-Not Attempted due to Environmental Limitations-(lack of equipment, weather restraints, etc.). 88-Not Attempted due to Medical Conditions or Safety Concerns. Roll Left to Right (QC): 4 Sit to Lying (QC): 4 Sit to Stand (QC): 6 Chair/Dnq-dm-Zfarz Xfer(QC): 3 Car Transfer (QC): 3 Gait Training Does the Patient Walk?: Yes Distance: 150' Walk 10 feet (QC): 5 Walk 50 ft with 2 Turns(QC): 5 Walk 150 ft (QC): 5 Walking 10ft/uneven surface-QC: 88 Gait Persons Needed: 1 Gait Assistive Device: FWW Wheelchair Training Does the Pt Use a Wheelchair?: Yes Wheel 50 ft with 2 turns (QC): 4 Wheel 150 ft (QC): 5 Type of Wheelchair: Manual Stair Training 1 Step (curb) (QC): 9 4 Steps (QC): 9 12 Steps (QC): 9 Balance Picking up an Object (QC): 88 ADL-Treatment Eating (QC): 6 (completes drinking.) Oral Hygiene (QC): 6 (completes with IND in front of sink.) Bathing Location: L Arm, R Arm, L Upper Leg, R Upper Leg, L Lower Leg (including foot), R Lower Leg (including foot), Chest, Abdomen, Buttocks, Perineal Area Shower/Bathe Self (QC): 4 (CGA in stance. Pt able to complete all areas with thoroughness with LHS (including R axilla and BLEs). Pt CGA to complete bottom washing, pt utilizes gbs to turn in shower and brings RLE up onto shower bench. Pt able to reach bottom from this area, pt educated on back precaution maintenance, pt's ledge at home much lower and pt demosntrates ability to remain safe/ complete activity with fair balance. ) Upper Body Dressing (QC): 4 (CGA to stabilize back brace as pt dons. Pt compl etes shirt with IND and increased time.) Lower Body Dressing (QC): 4 (Completes with AE to thread over BLE with success. 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
[2019-06-25] MEDS ORDERED: FURO20TA4 PO (16:26)
[2019-06-25] MEDS ORDERED: TRM50T PO (16:26)
[2019-06-25] MEDS ORDERED: SENN-20 PO (16:26)
[2019-06-25] MEDS ORDERED: TIZA4TAB4 PO (16:26)
[2019-06-25] MEDS ORDERED: PRED10TA22 PO (16:26)
[2019-06-25] MEDS ORDERED: DIAZ2TAB2 PO (16:26)
[2019-06-25] MEDS ORDERED: POTA10TA6 PO (16:26)
--- NOTE | 2019-06-25 16:32 | D/C HH Face to Face Order ---
D/C Face to Face Orders Reconcile Patient Problems Problems Reviewed?: Yes Instructions for Patient [facility] Patient Instructions/FollowUp: Jess Cullen this week Dr Michael this week as rescheduled Physician to follow Patient: Jess Cullen Discharge Diet for Home: No Restrictions Patient Problems: Severe lumbar stenosis surgery repair Stiffman syndrome Severe arthritis with inflammation Severe edema Goals for Patient: Independent ADL's and ambulation Patient Data-Allergies,Ht & Wt Patient Allergies: Coded Allergies: No Allergy Information Available (Unverified , 06/08/19) Home Health Need/Face to Face Date of Face to Face: June 26, 2019 Clinical Findings: Generalized weakness and fatigue, Instability, Muscle weakn ess, Pain with ambulation, Unsteady gait I have seen Pt wxht-lu-ulhi: Yes Discharged To: Home Diagnosis/Conditions: Severe lumbar stenosis surgery repair Stiffman syndrome Severe arthritis with inflammation Severe edema Patient is Homebound due to: Gin fall risk due to instabilty, Muscle weak ness, Pain w/ambulation Homebound Status Due to the above stated illness, injury or surgical procedure (medical condition or diagnosis) and associated clinical findings, the patient is homebound because of his/her inability to leave home except with aid of a supportive device and/or person AND leaving the home requires a considerable and taxing effort or is medically contraindicated. Pt req the following assistanc: Walker Home Health Nursing Orders Home Health Services Order: Nursing Services, Test Designer-Evaluate & Treat, Physical Therapy-Evaluate & Treat Home Health Infusion Therapy Line Start Date: June 09, 2019 Certify Stmt I certify that this patient is under my care and that I, a nurse practitioner or a physician; a mail handler assistant working with me, had a face to face encounter that - meets the physician face to face encounter requirements with this patient as DIANA Jacobson DO June 25, 2019 16:31
[2019-06-25 17:11] VITALS: BP 101/58
[2019-06-25] MEDS: DULoxetine 30 MG (CYMBALTA) CAP PO SCH (20:21)
[2019-06-26 05:42] VITALS: BP 106/56
[2019-06-26] MEDS: CATHETER FLUSH 10 ML SYR IV SCH (06:10)
[2019-06-26] MEDS: predniSONE 20 MG TAB PO SCH (06:10)
[2019-06-26] MEDS: DIAZEPAM 2 MG (VALIUM) TAB PO SCH ×2 (08:50→12:20)
[2019-06-26] MEDS: FUROSEMIDE 40 MG/4 ML INJ (LASIX) IVP SCH (08:50)
[2019-06-26] MEDS: GABAPENTIN 300 MG (NEURONTIN) CAP PO SCH ×2 (08:50→12:20)
[2019-06-26] MEDS: KCL 10 MEQ TAB (MICRO K) PO SCH ×2 (08:50→12:20)
[2019-06-26] MEDS: DOCUSATE SODIUM 100 MG (COLACE) CAP PO SCH (08:52)
[2019-06-26] MEDS: polyethylene glycoL POWDER 17 GM (MIRALAX) PACK PO SCH (08:52)
[2019-06-26] MEDS: SENNA W/DOCUSATE (SENOKOT S) TABLET PO SCH (08:52)
--- NOTE | 2019-06-26 09:27 | Discharge Summary ---
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 resulted in dramatic results Plan: Potassium supplement IRF protocol Lasix 40mg IV but changed to every other day Midline Valium scheduled Zanaflex along with Valium 2mg PO TID Prednisone 20mg today and tomorrow then wean down (1) Spinal stenosis (2) Anasarca (3) Former smoker (4) Neuropathy (5) Hypokalemia (6) Edema (7) Dyspnea Discharge Summary Discharge Physical Examination Allergies: Coded Allergies: No Allergy Information Available (Unverified , 06/08/19) Vitals & I&Os Vital Signs Date Time Temp Pulse Resp B/P (MAP) Pulse Ox O2 Delivery O2 Flow Rate FiO2 06/26/19 09:00 Room Air 06/26/19 05:42 37.0 57 18 106/56 (73) 97 General Appearance: Alert, Oriented X3, Cooperative Respiratory: Clear to Auscultation Cardiovascular: Regular Rate Neuro: Normal Speech Psych/Mental Status: Mental Status NL Hospital Course Was the Problem List Reviewed?: Yes Hospital Course: Pt had a lengthy hospital course for 18 days after transferring from [facility] in [place] after lumbar stenosis surgery by Dr. Michael. 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 IV steroids initiated for antiinflammatory effect which was very helpful for him. Overall he was able to participate in all therapies although he was slow still having stiffness he was able to participate in all therapies as required and was able to regain enough function to be able to DC home on home health and Jess Cullen his PCP was updated on the Valium and titrating down steroids which has really helped him and overall dramatic improvement with midline with lasix initiation with Potassium supplementation and depleted the anasarca that he had that was a limiting factor in his participation with [facility]. Overall dramatic improvement since admission. Labs (last 24 hrs) Laboratory Tests 06/09/19 10:30: White Blood Count 8.8, Red Blood Count 4.37, Hemoglobin 13.7, Hematocrit 40, Mean Corpuscular Volume 92, Mean Corpuscular Hemoglobin 31, Mean Corpuscular Hemoglobin Concent 34, Red Cell Distribution Width 13.4, Platelet Count 247, Mean Platelet Volume 9.5, Neutrophils (%) (Auto) 56, Lymphocytes (%) (Auto) 27, Monocytes (%) (Auto) 14H, Eosinophils (%) (Auto) 2, Basophils (%) (Auto) 1, Neutrophils # (Auto) 5.0, Lymphocytes # (Auto) 2.3, Monocytes # (Auto) 1.3H, Eosinophils # (Auto) 0.2, Basophils # (Auto) 0.0, Sodium Level 139, Potassium Level 3.5L, Chloride Level 103, Carbon Dioxide Level 27, Anion Gap 9, Blood Urea Nitrogen 16, Creatinine 0.88, Estimat Glomerular Filtration Rate > 60, BUN/Creatinine Ratio 18, Glucose Level 103, Calcium Level 9.3, Corrected Calcium 9.3, Total Bilirubin 0.5, Aspartate Amino Transf (AST/SGOT) 24, Alanine Aminotransferase (ALT/SGPT) 36, Alkaline Phosphatase 52, B-Type Natriuretic Peptide < 10.0, Total Protein 6.5, Albumin 4.0, Thyroid Stimulating Hormone (TSH) 2.53 06/09/19 18:09: Urine Color YELLOW, Urine Clarity CLEAR, Urine pH 5.5, Urine Specific [place] 1.010L, Urine Protein NEGATIVE, Urine Glucose (UA) NEGATIVE, Urine Ketones NEGATIVE, Urine Nitrite NEGATIVE, Urine Bilirubin NEGATIVE, Urine Urobilinogen 0.2, Urine Leukocyte Esterase NEGATIVE, Urine RBC (Auto) NEGATIVE, Urine RBC NONE, Urine WBC NONE, Urine Crystals PRESENTH, Urine Amorphous Sediment RARE MICHEL URATESH, Urine Bacteria NEGATIVE, Urine Casts NONE, Urine Mucus NEGATIVE, Urine Culture Indicated NO 06/12/19 05:10: Sodium Level 139, Potassium Level 3.6, Chloride Level 103, Carbon Dioxide Level 24, Anion Gap 12, Blood Urea Nitrogen 19H, Creatinine 0.82, Estimat Glomerular Filtration Rate > 60, BUN/Creatinine Ratio 23, Glucose Level 99, Calcium Level 9.5, Corrected Calcium 9.4, Total Bilirubin 0.7, Aspartate Amino Transf (AST/SGOT) 21, Alanine Aminotransferase (ALT/SGPT) 36, Alkaline Phosphatase 52, Total Protein 6.9, Albumin 4.1 5/4/20 05:15: White Blood Count 9.1, Red Blood Count 4.65, Hemoglobin 14.4, Hematocrit 42, Mean Corpuscular Volume 91, Mean Corpuscular Hemoglobin 31, Mean Corpuscular Hemoglobin Concent 34, Red Cell Distribution Width 13.4, Platelet Count 304, Mean Platelet Volume 9.3, Neutrophils (%) (Auto) 55, Lymphocytes (%) (Auto) 30, Monocytes (%) (Auto) 13H, Eosinophils (%) (Auto) 2, Basophils (%) (Auto) 0, Neutrophils # (Auto) 5.0, Lymphocytes # (Auto) 2.7, Monocytes # (Auto) 1.2H, Eosinophils # (Auto) 0.2, Basophils # (Auto) 0.0 06/18/19 05:25: White Blood Count 11.1H, Red Blood Count 4.16L, Hemoglobin 12.8L, Hematocrit 38L , Mean Corpuscular Volume 91, Mean Corpuscular Hemoglobin 31, Mean Corpuscular Hemoglobin Concent 34, Red Cell Distribution Width 12.9, Platelet Count 324, Mean Platelet Volume 9.9, Neutrophils (%) (Auto) 74, Lymphocytes (%) (Auto) 15, Monocytes (%) (Auto) 10, Eosinophils (%) (Auto) 0, Basophils (%) (Auto) 0, Neutrophils # (Auto) 8.2H, Lymphocytes # (Auto) 1.7, Monocytes # (Auto) 1.2H, Eosinophils # (Auto) 0.0, Basophils # (Auto) 0.0, Erythrocyte Sedimentation Rate 38H, Sodium Level 139, Potassium Level 4.1, Chloride Level 105, Carbon Dioxide Level 24, Anion Gap 10, Blood Urea Nitrogen 13, Creatinine 0.77, Estimat Glomerular Filtration Rate > 60, BUN/Creatinine Ratio 17, Glucose Level 130H, Calcium Level 9.6, Corrected Calcium 9.6, Phosphorus Level 2.6, Magnesium Level 2.2, Total Bilirubin 0.4, Aspartate Amino Transf (AST/SGOT) 16, Alanine Aminotransferase (ALT/SGPT) 22, Alkaline Phosphatase 60, Total Creatine Kinase 53, C-Reactive Protein High Sensitivity 3.85H, Total Protein 6.5, Albumin 4.0, Thyroid Peroxidase Antibodies 46.59 06/23/19 06:18: Sodium Level 139, Potassium Level 3.1L, Chloride Level 99, Carbon Dioxide Level 24, Anion Gap 16H, Blood Urea Nitrogen 15, Creatinine 0.85, Estimat Glomerular Filtration Rate > 60, BUN/Creatinine Ratio 18, Glucose Level 91, Calcium Level 10.2H 06/25/19 05:19: White Blood Count 8.6, Red Blood Count 4.51, Hemoglobin 14.1, Hematocrit 41, Mean Corpuscular Volume 91, Mean Corpuscular Hemoglobin 31, Mean Corpuscular Hemoglobin Concent 34, Red Cell Distribution Width 13.1, Platelet Count 342, Mean Platelet Volume 9.5, Neutrophils (%) (Auto) 51, Lymphocytes (%) (Auto) 36, Monocytes (%) (Auto) 11, Eosinophils (%) (Auto) 1, Basophils (%) (Auto) 1, Neutrophils # (Auto) 4.4, Lymphocytes # (Auto) 3.1, Monocytes # (Auto) 1.0, Eosinophils # (Auto) 0.1, Basophils # (Auto) 0.0, Sodium Level 139, Potassium Level 3.5L, Chloride Level 103, Carbon Dioxide Level 24, Anion Gap 12, Blood Urea Nitrogen 16, Creatinine 0.83, Estimat Glomerular Filtration Rate > 60, BUN/Creatinine Ratio 19, Glucose Level 99, Calcium Level 9.5, Corrected Calcium 9.6, Magnesium Level 2.1, Total Bilirubin 0.6, Aspartate Amino Transf (AST/SGOT) 19, Alanine Aminotransferase (ALT/SGPT) 40, Alkaline Phosphatase 50, Total Prote in 6.4, Albumin 3.9 Pending Labs Laboratory Tests 06/09/19 10:30: White Blood Count 8.8, Red Blood Count 4.37, Hemoglobin 13.7, Hematocrit 40, Mean Corpuscular Volume 92, Mean Corpuscular Hemoglobin 31, Mean Corpuscular Hemoglobin Concent 34, Red Cell Distribution Width 13.4, Platelet Count 247, Mean Platelet Volume 9.5, Neutrophils (%) (Auto) 56, Lymphocytes (%) (Auto) 27, Monocytes (%) (Auto) 14, Eosinophils (%) (Auto) 2, Basophils (%) (Auto) 1, Neutrophils # (Auto) 5.0, Lymphocytes # (Auto) 2.3, Monocytes # (Auto) 1.3, Eosinophils # (Auto) 0.2, Basophils # (Auto) 0.0, Sodium Level 139, Potassium Level 3.5, Chloride Level 103, Carbon Dioxide Level 27, Anion Gap 9, Blood Urea Nitrogen 16, Creatinine 0.88, Estimat Glomerular Filtration Rate > 60, BUN/Creatinine Ratio 18, Glucose Level 103, Calcium Level 9.3, Corrected Calcium 9.3, Total Bilirubin 0.5, Aspartate Amino Transf (AST/SGOT) 24, Alanine Aminotransferase (ALT/SGPT) 36, Alkaline Phosphatase 52, B-Type Natriuretic Peptide < 10.0, Total Protein 6.5, Albumin 4.0, Thyroid Stimulating Hormone (TSH) 2.53 06/09/19 18:09: Urine Color YELLOW, Urine Clarity CLEAR, Urine pH 5.5, Urine Specific [place] 1.010, Urine Protein NEGATIVE, Urine Glucose (UA) NEGATIVE, Urine Ketones NEGATIVE, Urine Nitrite NEGATIVE, Urine Bilirubin NEGATIVE, Urine Urobilinogen 0.2, Urine Leukocyte Esterase NEGATIVE, Urine RBC (Auto) NEGATIVE, Urine RBC NONE, Urine WBC NONE, Urine Crystals PRESENT, Urine Amorphous Sediment RARE MICHEL URATES, Urine Bacteria NEGATIVE, Urine Casts NONE, Urine Mucus NEGATIVE, Urine Culture Indicated NO 06/12/19 05:10: Sodium Level 139, Potassium Level 3.6, Chloride Level 103, Carbon Dioxide Level 24, Anion Gap 12, Blood Urea Nitrogen 19, Creatinine 0.82, Estimat Glomerular Filtration Rate > 60, BUN/Creatinine Ratio 23, Glucose Level 99, Calcium Level 9.5, Corrected Calcium 9.4, Total Bilirubin 0.7, Aspartate Amino Transf (AST/SGOT) 21, Alanine Aminotransferase (ALT/SGPT) 36, Alkaline Phosphatase 52, Total Protein 6.9, Albumin 4.1 06/12/19 05:15: White Blood Count 9.1, Red Blood Count 4.65, Hemoglobin 14.4, Hematocrit 42, Mean Corpuscular Volume 91, Mean Corpuscular Hemoglobin 31, Mean Corpuscular Hemoglobin Concent 34, Red Cell Distribution Width 13.4, Platelet Count 304, Mean Platelet Volume 9.3, Neutrophils (%) (Auto) 55, Lymphocytes (%) (Auto) 30, Monocytes (%) (Auto) 13, Eosinophils (%) (Auto) 2, Basophils (%) (Auto) 0, Neutrophils # (Auto) 5.0, Lymphocytes # (Auto) 2.7, Monocytes # (Auto) 1.2, Eosinophils # (Auto) 0.2, Basophils # (Auto) 0.0 06/18/19 05:25: White Blood Count 11.1, Red Blood Count 4.16, Hemoglobin 12.8, Hematocrit 38, Mean Corpuscular Volume 91, Mean Corpuscular Hemoglobin 31, Mean Corpuscular Hemoglobin Concent 34, Red Cell Distribution Width 12.9, Platelet Count 324, Mean Platelet Volume 9.9, Neutrophils (%) (Auto) 74, Lymphocytes (%) (Auto) 15, Monocytes (%) (Auto) 10, Eosinophils (%) (Auto) 0, Basophils (%) (Auto) 0, Neutr ophils # (Auto) 8.2, Lymphocytes # (Auto) 1.7, Monocytes # (Auto) 1.2, Eosinophils # (Auto) 0.0, Basophils # (Auto) 0.0, Erythrocyte Sedimentation Rate 38, Sodium Level 139, Potassium Level 4.1, Chloride Level 105, Carbon Dioxide Level 24, Anion Gap 10, Blood Urea Nitrogen 13, Creatinine 0.77, Estimat Glomerular Filtration Rate > 60, BUN/Creatinine Ratio 17, Glucose Level 130, Calcium Level 9.6, Corrected Calcium 9.6, Phosphorus Level 2.6, Magnesium Level 2.2, Total Bilirubin 0.4, Aspartate Amino Transf (AST/SGOT) 16, Alanine Aminotransferase (ALT/SGPT) 22, Alkaline Phosphatase 60, Total Creatine Kinase 53, C-Reactive Protein High Sensitivity 3.85, Total Protein 6.5, Albumin 4.0, Thyroid Peroxidase Antibodies 46.59 06/23/19 06:18: Sodium Level 139, Potassium Level 3.1, Chloride Level 99, Carbon Dioxide Level 24, Anion Gap 16, Blood Urea Nitrogen 15, Creatinine 0.85, Estimat Glomerular Filtration Rate > 60, BUN/Creatinine Ratio 18, Glucose Level 91, Calcium Level 10.2 06/25/19 05:19: White Blood Count 8.6, Red Blood Count 4.51, Hemoglobin 14.1, Hematocrit 41, Mean Corpuscular Volume 91, Mean Corpuscular Hemoglobin 31, Mean Corpuscular Hemoglobin Concent 34, Red Cell Distribution Width 13.1, Platelet Count 342, Mean Platelet Volume 9.5, Neutrophils (%) (Auto) 51, Lymphocytes (%) (Auto) 36, Monocytes (%) (Auto) 11, Eosinophils (%) (Auto) 1, Basophils (%) (Auto) 1, Neutrophils # (Auto) 4.4, Lymphocytes # (Auto) 3.1, Monocytes # (Auto) 1.0, Eosinophils # (Auto) 0.1, Basophils # (Auto) 0.0, Sodium Level 139, Potassium Level 3.5, Chloride Level 103, Carbon Dioxide Level 24, Anion Gap 12, Blood Urea Nitrogen 16, Creatinine 0.83, Estimat Glomerular Filtration Rate > 60, BUN/Creatinine Ratio 19, Glucose Level 99, Calcium Level 9.5, Corrected Calcium 9.6, Magnesium Level 2.1, Total Bilirubin 0.6, Aspartate Amino Transf (AST/SGOT) 19, Alanine Aminotransferase (ALT/SGPT) 40, Alkaline Phosphatase 50, Total Protein 6.4, Albumin 3.9 Discharge Home Medications: Active Scripts Active Prednisone 10 Mg Tab.ds.pk 10 Mg PO DAILY 2 pills once daily for 3 days then 1 daily for 4 days Senna-Time S Tablet (Sennosides/Docusate Sodium) 1 Each Tablet 1 Ea PO BID Klor-Con 10 (Potassium Chloride) 10 Meq Tablet.er 20 Meq PO BID WITH MEALS Diazepam 2 Mg Tablet 2 Mg PO TID Tramadol HCl 50 Mg Tablet 50-100 Mg PO Q6H PRN Tizanidine HCl 4 Mg Tablet 4 Mg PO TID Furosemide 20 Mg Tablet 40 Mg PO DAILY TAKES 2 (20MEQ) TABS DAILY Reported Tylenol (Acetaminophen) 325 Mg Tablet 650 Mg PO Q8H PRN Gabapentin 300 Mg Capsule 300 Mg PO TID Ondansetron Odt (Ondansetron) 4 Mg Tab.rapdis 4 Mg SL Q4H PRN Duloxetine HCl 30 Mg Capsule.dr 30 Mg PO HS Instructions to patient/family Please see electronic discharge instructions given to patient. Diagnosis/Problems Diagnosis/Problems (1) Spinal stenosis (2) Anasarca (3) Former smoker (4) Neuropathy (5) Hypokalemia (6) Edema (7) Dyspnea Clinical Quality Measures DVT/VTE Risk/Contraindication: Risk Factor Score Per Nursin RFS Level Per Nursing on Admit: 4+=Very High Contraindications-Pharm: Other *list below* Other: spine surgery DIANA PITTMAN DO June 26, 2019 09:27
--- NOTE | 2019-06-26 09:38 | Occupational Ther Daily Note ---
OT Current Status-Daily Note Subjective Pt to d/c on this date. Alert/ awake. Pt agrees to therapy, in high spirits. Mental Status/Objective Patient Orientation: Normal For Age ADL-Treatment Therapy Code Descriptions/Definitions Functional [place] Measure: 0=Not Assessed/NA 4=Minimal Assistance 1=Total Assistance 5=Supervision or Setup 2=Maximal Assistance 6=Modified [place] 3=Moderate Assistance 7=Complete IndependenceSCALE: Activities may be completed with or without assistive devices. 2-Hykeevkvpe-nbpxkqo completes the activity by him/herself with no assistance from a helper. 5-Set-up or Clean-up Assistance-helper sets up or cleans up; patient completes activity. [place] assists only prior to or following the activity. 4-Supervision or Touching Assistance-helper provides verbal cues and/or touching/steadying and/or contact guard assistance as patient completes activity. Assistance may be provided throughout the activity or intermittently. 3-Partial/Moderate Assistance-helper does LESS THAN HALF the effort. [place] lifts, holds or supports trunk or limbs, but provides less than half the effort. 2-Substantial/Maximal Assistance-helper does MORE THAN HALF the effort. [place] lifts or holds trunk or limbs and provides more than half the effort. 7-Onxvnzksb-ahtxty does ALL the effort. Patient does none of the effort to complete the activity. Or, the assistance of 2 or more helpers is required for the patient to complete the activity. If activity was not attempted, code reason: 7-Patient Refused. 9-Not Applicable-not attempted and the patient did not perform the activity before the current illness, exacerbation or injury. 10-Not Attempted due to Environmental Limitations-(lack of equipment, weather restraints, etc.). 88-Not Attempted due to Medical Conditions or Safety Concerns. Eating (QC): 6 (states breakfast with IND) Oral Hygiene (QC): 6 (Completes prior to OT entry with IND) Bathing Location: L Arm, R Arm, L Upper Leg, R Upper Leg, L Lower Leg (including foot), R Lower Leg (including foot), Chest, Abdomen, Buttocks, Perineal Area Shower/Bathe Self (QC): 4 (SBA during transfer in/ CGA transfer out. SBA during bottom hygiene ) Upper Body Dressing (QC): 4 (s/u for shirt and CGA to stabilize back brace while pt dons) Lower Body Dressing (QC): 4 (completes with AE in w/c, SBA in stnace.) On/Off Footwear: 2 (max A due to DEEP hose donning and tennis shoes) Toileting Hygiene (QC): 4 (SBA bottom hygiene) Toilet Transfer (QC): 4 (SBA use of 2WW) Other Treatment Pt seen in recliner. Agrees to tx with ADL goals. Pt completes as above with increased knowledge of safety/ fx IND, though requires increased time for all ADL tasks. pt returns to recliner, all needs met, call light in reach. pt declines questions. Plans for d/c after noon. Education OT Patient Education: Correct positioning, Progress toward Goal/Update tx plan, Reviewed precautions, Transfer techniques Teaching Recipient: Patient Teaching Methods: Demonstration, Discussion Response to Teaching: Verbalize Understanding, Return Demonstration OT Short Term Goals Short Term Goals Shower/bathe self: 3 Upper body dressin Lower body dressin OT Senior [facility] Goals Implementation Consultant Goals Time Frame: June 30, 2019 Eating (QC): 6 (met) Oral Hygiene (QC): 6 (met) Toileting Hygiene (QC): 6 Shower/Bathe Self (QC): 6 Upper Body Dressing (QC): 6 Lower Body Dressing (QC): 6 On/Off Footwear (QC): 6 Additional Goals: 1-Demonstrate ADL Tasks, 2-Verbalize Understanding, 3- ImproveStrength/Johny 1=Demonstrate adherence to instructed precautions during ADL tasks. 2=Patient will verbalize/demonstrate understanding of assistive devices/modifications for ADL. 3=Patient will improve strength/tolerance for activity to enable patient to perform ADL's. OT Education/Plan Problem List/Assessment Assessment: Decreased Activ Tolerance, Decreased UE Strength, Dependent Tr ansfers, Impaired Coordination, Impaired Funct Balance, Impaired I ADL's, Impaired Self-Care Skills, Restricted Funct UE ROM Discharge Recommendations Plan/Recommendations: Continue POC Therapy Discharge Recommendati: Intermittent Supervision, Home & Family, Post Acute OT Equpiment Recommendations-D/C: Hip Kit Treatment Plan/Plan of Care Treatment,Training & Education: Yes Patient would benefit from OT for education, treatment and training to promote independence in ADL's, mobility, safety and/or upper extremity function for ADL's. Plan of Care: ADL Retraining, Caregiver Training, Concurrent Therapy, Functional Mobility, Group Exercise/Act as Ind, UE Funct Exercise/Act, UE Neuromus Re-Ed/Coord, W/C Management Training Treatment Duration: June 30, 2019 Frequency: At least 5 of 7 days/Wk (IRF) Estimated Hrs Per Day: 1.5 hours per day Agreement: Yes Rehab Potential: Guarded Time/GCodes Start Time: 08:00 Stop Time: 09:15 Total Time Billed (hr/min): 75 Billed Treatment Time 1, ADL 5 (75) LEO MARTELL OTR June 26, 2019 09:38
--- NOTE | 2019-06-26 09:52 | Cardiology Progress Note ---
Cardiology SOAP Progress Note Subjective: No cardiac complaints. Objective: I&O/Vital Signs 06/26/19 05:42 Temp 37.0 Pulse 57 Resp 18 B/P (MAP) 106/56 (73) Pulse Ox 97 O2 Delivery Room Air 06/26/19 00:00 Intake Total 1840 ml Balance 1840 ml Constitutional: No appears stated age; AAO x 3; No apparent distress; PERRL, well-developed, well-nourished; No other Respiratory: chest is bilaterally symmetric, lungs clear to auscultation Cardiovascular: regular rate-rhythm; No irregularly irregular, No extra beats, No parasternal heave is noted, No JVD, No edema, No bradycardia, No tachycardia, No point of maximal impulse, No cardiac thrills are palpable; S1 and S2; No gallop/S3, No gallop/S4, No diastolic murmur, No systolic murmur, No friction rub, No click, No other Gastrointestional: soft, audible bowel sounds Extremities: normal range of motion, non-tender, normal inspection, pedal edema (Left is worse than the right.) Neurologic/Psychiatric: no motor/sensory deficits, alert, normal mood/affect, oriented x 3 Skin: normal color A/P: Assessment/Dx: Status post back surgery, Lower extremity swelling, right worse than left, Active smoking. Plan: Continue aggressive inpatient rehabilitation. Lower extremity swelling, right worse than the left, venous ultrasound was negative for DVT. Improved significantly with rehabilitation. However still has left-sided lower extremity swelling. Unlikely cardiac etiology. Echocardiogram showed normal LV and RV size and function. No valvular heart disease. Active smoking, smoking cessation was strongly recommended. Patient recently quit; does not want to start again. Plan to discharge today. Cardiology follow-up not required. Thank you for your consultation. Please call me if you have any questions. Marie Ovalle MD, FACP, FACC, FSCAI, FHRS, CCDS Interventional Cardiology Cardiac Electrophysiology Vascular Medicine and Endovascular Interventions Nicole OVALLE MD June 26, 2019 09:52
--- NOTE | 2019-06-26 10:15 | NUR ---
CALL TO [facility] IN [place] FOR YULISA CROWE NP TO RETURN CALL TO DR PITTMAN. WILL CON'T TO MONITOR.
--- NOTE | 2019-06-26 10:30 | NUR ---
pt calls in, Radha'bridger Murphy out of valium. prefers we call medication to [facility] on the [phone]. Called to new pharmacy, spoke directly with pharmacist, medication updated. Update given to patient and .
--- NOTE | 2019-06-26 10:30 | NUR ---
10CC NORMAL SALINE INJECTED THROUGH PATENT MIDLINE. MIDLINE IV REMOVED WITH CATHETER INTACT. PRESSURE HELD X5MIN, GAUZE TAPED TO SITE. PT TOLERATES PROCEDURE WELL.
--- NOTE | 2019-06-26 11:17 | Physical Therapy Daily Note ---
PT Daily Note-Current Subjective Patient in recliner pre tx, agrees to PT, has no complaints of pain Appearance Patient in recliner post tx with nurse call, phone, tray, all needs met, nurse in room. Mental Status Patient Orientation: Person, Place, Situation back brace Transfers SCALE: Activities may be completed with or without assistive devices. 4-Bqfukrmnxf-oasgohp completes the activity by him/herself with no assistance from a helper. 5-Set-up or Clean-up Assistance-helper sets up or cleans up; patient completes activity. [place] assists only prior to or following the activity. 4-Supervision or Touching Assistance-helper provides verbal cues and/or touching/steadying and/or contact guard assistance as patient completes activity. Assistance may be provided throughout the activity or intermittently. 3-Partial/Moderate Assistance-helper does LESS THAN HALF the effort. [place] lifts, holds or supports trunk or limbs, but provides less than half the effort. 2-Substantial/Maximal Assistance-helper does MORE THAN HALF the effort. [place] lifts or holds trunk or limbs and provides more than half the effort. 7-Fbhenkfaj-pvhgta does ALL the effort. Patient does none of the effort to complete the activity. Or, the assistance of 2 or more helpers is required for the patient to complete the activity. If activity was not attempted, code reason: 7-Patient Refused. 9-Not Applicable-not attempted and the patient did not perform the activity before the current illness, exacerbation or injury. 10-Not Attempted due to Environmental Limitations-(lack of equipment, weather restraints, etc.). 88-Not Attempted due to Medical Conditions or Safety Concerns. Roll Left & Right (QC): 4 Sit to Lying (QC): 3 Lying to Sitting/Side of Bed(Q: 4 Sit to Stand (QC): 4 Chair/Xrl-yu-Argqo Xfer(QC): 3 Toilet Transfer (QC): 3 Car Transfer (QC): 3 Patient performs bed mobility with SBA, supine to sit with SBA, sit to supine with min assist, sit <-> stand CGA, transfers min assist, car transfer mod assist. Patient needs assist guiding and positioning walker when turning to sit or turning in general, cues for safety and positioning. Weight Bearing Right Lower Extremity: Right Full Weight Bearing Left Lower Extremity: Left Full Weight Bearing Gait Training Does the Patient Walk?: Yes Distance: 100' Walk 10 feet (QC): 3 Walk 50 ft with 2 Turns(QC): 3 Walk 150 ft (QC): 88 Walking 10ft/uneven surface-QC: 3 Gait Persons Needed: 1 Gait Assistive Device: FWW Patient can ambulate 100' with a rolling walker with [place] (including 50' with at least 2 turns of 90 degrees and 10' over an uneven surface), patient needs min assist to guide walker around obstacles and during turning. Wheelchair Training Does the Pt Use a Wheelchair?: No Stair Training Stair Training: Handrails/: uses walker #of Steps: 1 1 Step (curb) (QC): 3 4 Steps (QC): 88 12 Steps (QC): 88 Stairs: Pattern: Step to Patient can go up and down 1 step using a rolling walker with min assist , cues for step placement and safety Treatments bed mobility and transfers, ambulation, car transfer Assessment Current Status: Poor Progress Patient is stunningly slow with all aspects of functional mobility. Patient will needs a significant amount of assistance at home due to the amount of time that will be needed to spend with the patient. Any activity is going to take an enormous amount of time. PT Short Term Goals Short Term Goals Time Frame: June 16, 2019 Roll Left & Right: 4 Sit to lyin Lying to sitting on side of be: 4 PT Care Home Goals Systems Specialist Goals PT Systems Specialist Goals Time Frame: June 30, 2019 Roll Left & Right (QC): 6 Sit to Lying (QC): 6 Lying-Sitting on Side/Bed(QC): 6 Sit to Stand (QC): 6 Chair/Ukd-id-Ybarw Xfer(QC): 6 Toilet Transfer (QC): 6 Car Transfer (QC): 4 Does the Patient Walk: Yes Walk 10 feet (QC): 6 Walk 50ft with 2 Turns (QC): 6 Walk 150 ft (QC): 6 Walking 10ft on Uneven Surface: 4 1 Step (curb) (QC): 9 4 Steps (QC): 9 12 Steps (QC): 9 Picking up an Object (QC): 9 (Pt will utilize adaptive equipment due to back precautions) Does the Pt use WC or Scooter?: No Wheel 50 feet with 2 turns (QC: 9 Type: N/A Wheel 150 feet: 9 Type: N/A PT Plan Problem List Problem List: Activity Tolerance, Functional Strength, Safety, Balance, Gait, Transfer, Bed Mobility, ROM Treatment/Plan Treatment Plan: Discontinue PT (patient discharging today) Treatment Plan: Bed Mobility, Education, Functional Activity Johny, Functional Strength, Group Therapy, Gait, Safety, Therapeutic Exercise, Transfers Treatment Duration: June 30, 2019 Frequency: 6 times per week Estimated Hrs Per Day: 1.5 hours per day Patient and/or Family Agrees t: Yes Safety Risks/Education Patient Education: Gait Training, Transfer Techniques, Steps, Correct Positioning, Safety Issues Teaching Recipient: Patient Teaching Methods: Demonstration, Discussion Response to Teaching: Reinforcement Needed Discharge Recommendations Plan DC Time/GCodes Time In: 1000 Time Out: 1100 Total Billed Treatment Time: 60 Total Billed Treatment 1visit FA 60' NITESH SINHA PT June 26, 2019 11:16
--- NOTE | 2019-06-26 11:23 | Therapy Team Discharge Summary ---
Therapy Discharge Summary Discharge Recommendations Date of Discharge Physical Therapy Patient came to rehab following lumbar stenosis s/p laminectomy. Upon evaluation patient was dependent for bed mobility and supine <-> sit, min assist sit <-> stand and transfers, car transfer min/mod assist, ambulated 10' with max assist, no stairs. Patient has been performing bed mobility and transfer training, balance and endurance training, functional strengthening, stair training, gait training, and education. Patient has made some progress but has not met any of his portable trackman goals. Now, patient performs bed mobility with SBA, supine to sit with SBA, sit to supine with min assist, sit <-> stand CGA, transfers min assist, car transfer mod assist, ambulates 100' with a rolling walker with [place] (including 50' with at least 2 turns of 90 degrees and 10' over an uneven surface), and can go up and down 1 step using a rolling walker with min assist. Patient is discharging from this facility today and will be discharged from PT at this time. Occupational Therapy Decreased Activ Tolerance, Decreased UE Strength, Dependent Transfers, Impaired Coordination, Impaired Funct Balance, Impaired I ADL's, Impaired Self-Care Skills PT Snf Goals Aircraft Log Clerk Goals PT Aircraft Log Clerk Goals Time Frame: June 30, 2019 Roll Left to Right (QC): 6 Sit to Lying (QC): 6 Lying-Sitting on Side/Bed(QC): 6 Sit to Stand (QC): 6 Chair/Oql-iz-Xqxpw Xfer(QC): 6 Car Transfer (QC): 4 Does the Patient Walk: Yes Walk 10 feet (QC): 6 Walk 10ft-Uneven Surface(QC): 4 Walk 50ft with 2 Turns (QC): 6 Walk 150 ft (QC): 6 Does the Pt use WC or Scooter?: No Wheel 50 feet with 2 turns (QC: 9 1 Step (curb) (QC): 9 4 Steps (QC): 9 12 Steps (QC): 9 Picking up an Object (QC): 9 (Pt will utilize adaptive equipment due to back precautions) OT Snf Goals Aircraft Log Clerk Goals Time Frame: June 30, 2019 Eating (QC): 6 (met) Oral Hygiene (QC): 6 (met) Shower/Bathe Self (QC): 6 Upper Body Dressing (QC): 6 Lower Body Dressing (QC): 6 On/Off Footwear (QC): 6 Toileting Hygiene (QC): 6 Toilet/Commode Transfer (QC): 6 Additional Goals: 1-Demonstrate ADL Tasks, 2-Verbalize Understanding, 3-ImproveStrength/Johny 1=Demonstrate adherence to instructed precautions during ADL tasks. 2=Patient will verbalize/demonstrate understanding of assistive devices/modifications for ADL. 3=Patient will improve strength/tolerance for activity to enable patient to perform ADL's. NITESH SINHA PT June 26, 2019 11:23
--- NOTE | 2019-06-26 12:44 | NUR ---
CM/SS DISCHARGE Patient discharged home with spouse as planned. C: Finalized with [facility] as available option for patient insurance network and in his service area. Faxed orders and instructions, confirmed with agency they will begin services tomorrow. Patient understands agency will call them to coordinate visit time. As noted earlier, patient has no new DME needs that require physician order and facilitation through agency.
--- NOTE | 2019-06-28 10:53 | Therapy Team Discharge Summary ---
Therapy Discharge Summary Discharge Recommendations Date of Discharge June 26, 2019 at 13:05 Occupational Therapy Pt admits for lumbar laminectomy, requiring assist for ADL tasks. Admitting QC's as follows: showering 3, UB dress 3, LB 1/ footwear/ toilet hygiene 1. Pt states he was IND with ADLs prior to surgery in March, though has had L foot drop/ swelling which has made it difficult for ADLs. Pt and OT work towards higher fx IND through education, AE use, functional ADL/ IADL tasks, UE strengthening and coordination training. Pt d/c's with following QC's: showering 4, UB dress CGA, LB SBA with AE, footwear 2, and toilet hygiene 4 (SBA). Pt d/c's home with with recommendations of HHOT/ hip kit. Decreased Activ Tolerance, Decreased UE Strength, Dependent Transfers, Impaired Coordination, Impaired Funct Balance, Impaired I ADL's, Impaired Self-Care Skills, Restricted Funct UE ROM PT Manager Online Goals Penitentiary Goals PT Penitentiary Goals Time Frame: June 30, 2019 Roll Left to Right (QC): 6 Sit to Lying (QC): 6 Lying-Sitting on Side/Bed(QC): 6 Sit to Stand (QC): 6 Chair/Ogt-by-Ylznu Xfer(QC): 6 Car Transfer (QC): 4 Does the Patient Walk: Yes Walk 10 feet (QC): 6 Walk 10ft-Uneven Surface(QC): 4 Walk 50ft with 2 Turns (QC): 6 Walk 150 ft (QC): 6 Does the Pt use WC or Scooter?: No Wheel 50 feet with 2 turns (QC: 9 1 Step (curb) (QC): 9 4 Steps (QC): 9 12 Steps (QC): 9 Picking up an Object (QC): 9 (Pt will utilize adaptive equipment due to back precautions) OT Penitentiary Goals Manager Online Goals Time Frame: June 30, 2019 Eating (QC): 6 (met) Oral Hygiene (QC): 6 (met) Shower/Bathe Self (QC): 6 Upper Body Dressing (QC): 6 Lower Body Dressing (QC): 6 On/Off Footwear (QC): 6 Toileting Hygiene (QC): 6 Toilet/Commode Transfer (QC): 6 Additional Goals: 1-Demonstrate ADL Tasks, 2-Verbalize Understanding, 3-ImproveStrength/Johny 1=Demonstrate adherence to instructed precautions during ADL tasks. 2=Patient will verbalize/demonstrate understanding of assistive devices/modifications for ADL. 3=Patient will improve strength/tolerance for activity to enable patient to per form ADL's. LEO MARTELL OTR June 28, 2019 10:53
== END 2019-06-26 13:05 | disposition home health service (06) | DRG 93 ==
PROVIDERS: ADMIT Internal Medicine; ATTEND Internal Medicine
DX: G25.82 Stiff-man syndrome (principal); R26.89 Other abnormalities of gait and mobility; R26.81 Unsteadiness on feet; Z91.81 History of falling; G62.9 Polyneuropathy, unspecified; R60.1 Generalized edema; M19.91 Primary osteoarthritis, unspecified site; M54.9 Dorsalgia, unspecified; Z47.89 Encounter for other orthopedic aftercare; E87.6 Hypokalemia; Z87.891 Personal history of nicotine dependence
CPT/HCPCS: 36415; 71045; 76937; 80048; 80053; 81000; 82550; 83735; 83880; 84100; 84443; 85025; 85652; 86141; 86376; 93306; 93970